=== PATIENT | male | born 1965 | race Caucasian/White ===

== ENCOUNTER 2020-01-23 15:04 | Emergency (ER) | payer BC, SELFPAY ==
[2020-01-23 15:50] VITALS: BP 123/84; PULSE 61; RESP 19; TEMP 36.9; O2SAT 98; BMI 28.9
--- NOTE | 2020-01-23 16:30 | HMH.EDUTC ---
[facility] [place] Disposition Clinical Impression: Encounter for laboratory testing for COVID-19 virus Disposition: Home, Self-Care Condition on Discharge: Good Instructions: Preventing the Spread of Coronavirus Discharge Instructions Additional Instructions: Monitor Temp, Over the counter Motrin or Tylenol as directed/as needed Tylenol every 4 hours and Motrin every 6 hours (as long as your family doctor has told you that you can take it) for fever or pain. and straight to ER if unable to lower temp less than 101.0 after medication given *Warm salt water gargles may help to soothe the throat *Throat Lozenges *Warm fluids like tea with honey may help to soothe the throat *Sleep elevated *Humidifier/Vaporizer Follow up IMMEDIATELY for new or worsening symptoms or no Noticeable improvement over the next 48-72 hours. 911 for difficulty breathing or swallowing You was tested for today for COVID19 your test result should be back on Friday, you may call back Friday to see if your test results are back and the result You was given a handout with instructions for Self Quarantine and Self isolation for while you wait on test results and what to do if they are positive Straight to the ER if any life threatening symptoms, shortness of breath or chest pain but make sure to let them know you was tested for COVID Referrals: Jamie Rice [Primary Care Provider] - As needed Time of Disposition: 16:57 Medical Decision Making - Kamari Inquiry Pt receiving controlled substance: No Kamari was queried for this patient: No Vital Signs: 01/23/20 15:50 01/23/20 17:05 Temperature 98.4 F 98.4 F Temperature Source Oral Oral Pulse Rate 61 Pulse Rate [Radial] 61 Respiratory Rate 19 19 Blood Pressure 123/84 Blood Pressure [Right Arm] 123/84 Blood Pressure Mean [Right Arm] 97 Blood Pressure Source Automatic Cuff Blood Pressure Source [Right Arm] Automatic Cuff Blood Pressure Position Sitting Blood Pressure Position [Right Arm] Sitting 02 Sat by Pulse Oximetry 98 Oxygen Delivery Method Room Air Room Air Orders (Tests/Meds): ORDERS Category Date Time Status Covid-19 Nasal PCR Sendout [facility] 01/23/20 16:46 Received Medical Decision Narrative: Recommended CXR for chest congestion and patient refused States that he just wants to have a COVID test [facility] UTC HPI - General Stated complaint: cough,sob,weakness,vomiting,diarrhea abd pain Time Seen by Provider: 01/23/20 16:30 Mode of Arrival: Ambulatory Source of Information: Patient Limitations: No Limitations Description of Symptoms (Recalled from Triage Doc. by RN): vomiting, diarrhea nausea, SOB weakness x 9 days HEENT Symptoms (Recalled from RN notes): No Resp Symptoms (Recalled from RN notes): No Skin Symptoms (Recalled from RN notes): No MS Symptoms (Recalled from RN notes): No Functional Status (Recalled from RN notes): wnl - History of Present Illness Provider Complaint: Patient states about 4-5 days he felt like he may have had COVID he was having N/V/D cough and felt short of breath with some cramping State that he is feeling better now but States that he still has some vomiting and cough on and off. 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 has had it and he wants to get tested for COVID States that he has some Zofran prescribed by his PCP and it has helped with vomiting - Related Data Allergies Allergy/AdvReac Type Severity Reaction Status Date / Time No Known Allergies Allergy Unverified 03/25/17 14:26 - Worker's Comp Is this a Worker's Comp case?: No [facility] History - Hepatitis A Screen Drug use history?: No High risk sexual behaviors?: No History of sexually transmitted infection?: No Currently employed?: No Childcare worker?: No Do you have indoor plumbing?: Yes Do you have electricity?: Yes Attestation statement:: This patient has been screened for Hepatitis A risk fa
[2020-01-23 17:05] VITALS: BP 123/84; PULSE 61; RESP 19; TEMP 36.9; O2SAT 98
[2020-01-25 13:46] LABS: Covid-19 Nasal PCR Sendout Lex Not Detected
== END 2020-01-23 17:06 | disposition home or self-care (01) ==
PROVIDERS: Emergency Provider Nurse Practitioner; PCP Family Medicine
DX: Z20.828 Contact with and (suspected) exposure to other viral communicable diseases (principal); R05 Cough; R06.02 Shortness of breath; R19.7 Diarrhea, unspecified
CPT/HCPCS: 99201; U0004

== ENCOUNTER 2020-02-25 06:55 | Emergency (ER) | payer BC, SELFPAY ==
[2020-02-25 07:01] VITALS: BP 123/76; PULSE 98; RESP 16; TEMP 36.7; O2SAT 99; BMI 23.5
--- NOTE | 2020-02-25 07:08 | XR_ITS ---
PROCEDURE: XR ANKLE RT MIN 3V CLINICAL INDICATION: ankle injury COMPARISON: No exams were available for comparison FINDINGS: There is mild diffuse soft tissue swelling especially laterally. There are small smoothly marginated bony ossicles adjacent to the lateral malleolus probably due to old unfused fracture fragment or unfused apophysis plus unfused fracture fragment. The ankle mortise appears normal. There is a small os trigonum. There is a small smoothly marginated oval bone fragment immediately adjacent to the anterior superior border of the talus. IMPRESSION: Soft tissue injury laterally, mild probable posttraumatic changes of the ankle as described above Dictated by: Dr. Amrit Shrestha MD 02/25/2020 07:53 Dr. Amrit Shrestha MD in [place] 02/25/2020 07:53
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
[2020-02-25 07:44] VITALS: BP 155/81; PULSE 74; O2SAT 96
[2020-02-25 09:55] VITALS: BP 146/70; PULSE 87; RESP 16; TEMP 36.8; O2SAT 98
== END 2020-02-25 09:56 | disposition home or self-care (01) ==
PROVIDERS: Emergency Provider Emergency Medicine; PCP Family Medicine
DX: S93.401A Sprain of unspecified ligament of right ankle, initial encounter (principal); X50.1XXA Overexertion from prolonged static or awkward postures, initial encounter; Y92.019 Unspecified place in single-family (private) house as the place of occurrence of the external cause
CPT/HCPCS: 73610; 99282

== ENCOUNTER 2020-05-17 16:04 | Inpatient (IN) | payer BC, SELFPAY ==
[2020-05-17] VITALS (9 sets, daily range): BP systolic 137–172; BP diastolic 93–120; PULSE 71–130; RESP 15–20; TEMP 37–37.7; O2SAT 94–99; BMI 21.7; BMI 21.2
--- NOTE | 2020-05-17 16:17 | HMH.EDGENADL ---
ED Disposition Clinical Impression: Pancreatitis Qualifiers: Chronicity: acute Pancreatitis type: alcohol induced Acute pancreatitis complication: no infection or necrosis Qualified Code(s): K85.20 - Alcohol induced acute pancreatitis without necrosis or infection Disposition: Admitted As Inpatient Condition on Discharge: Good Time of Disposition: 20:32 - Critical Care Critical Care Time: No Attestation: On 05/17/20, the high probability of a clinically significant, sudden or life threatening deterioration of the following system(s) required my full and direct attention, intervention and personal management. The time I documented below is in addition to time spent performing reported procedures but includes the following listed in this critical care notation. Medical Decision Making - Medical Records Medical records reviewed: Yes: I reviewed the patient's medical records. - Kaamri Inquiry Pt receiving controlled substance: No Vital Signs: 05/17/20 16:04 05/17/20 16:53 05/17/20 18:03 Temperature 98.6 F Temperature Source Oral Pulse Rate [Left Radial] 128 H 125 H 130 H Respiratory Rate 20 Blood Pressure [Right Arm] 158/111 H 165/100 H 170/108 H Blood Pressure Mean [Right Arm] 126 121 128 Blood Pressure Source [Right Arm] Automatic Cuff Automatic Cuff Automatic Cuff Blood Pressure Position [Right Arm] Sitting Sitting Sitting 02 Sat by Pulse Oximetry 98 94 L 98 Oxygen Delivery Method Room Air Room Air Room Air 05/17/20 18:13 05/17/20 19:53 Temperature Temperature Source Pulse Rate [Left Radial] 71 102 H Respiratory Rate 17 Blood Pressure [Right Arm] 154/113 H 172/120 H Blood Pressure Mean [Right Arm] 126 137 Blood Pressure Source [Right Arm] Automatic Cuff Manual Cuff/ Auscultation Blood Pressure Position [Right Arm] Sitting Supine 02 Sat by Pulse Oximetry 94 L 96 Oxygen Delivery Method Room Air Room Air - Lab Data Lab results reviewed: Yes: I reviewed the patient's lab results. Lab Results 05/17/20 17:00: Sodium 137, Potassium 4.4, Chloride 99, Carbon Dioxide 20 L, Anion Gap 22.4 H, BUN 14, Creatinine 1.50 H, Estimated Creat Clear 61, Estimated GFR 49 L, Est GFR ( Amer) 59, Glucose 161 H, Calcium 8.8, Total Bilirubin 1.2, AST 154 H, ALT 93 H, Alkaline Phosphatase 81, Total Protein 6.9, Albumin 4.1, Globulin 2.8, Albumin/Globulin Ratio 1.5 05/17/20 17:00: Lipase 614 H 05/17/20 17:46: WBC 5.6, RBC 3.50 L, Hgb 12.5 L, Hct 38.2 L, MCV 109.0 H, MCH 35.6 H, MCHC 32.7, RDW 14.7, Plt Count 197, MPV 7.8, Neut % (Auto) 86.7 H, Lymph % (Auto) 7.0 L, Mcduffie % (Auto) 6.0, Eos % (Auto) 0.0 L, Baso % (Auto) 0.3, Neut # (Auto) 4.9, Lymph # (Auto) 0.4 L, Mcduffie # (Auto) 0.3, Eos # (Auto) 0.0, Baso # (Auto) 0.0, Total Counted 100, Neutrophils % (Manual) 88 H, Lymphocytes % (Manual) 5 L, Monocytes % (Manual) 7, Platelet Estimate Normal, RBC Morphology Not Reportable, Anisocytosis 2+, Macrocytosis 2+ 05/17/20 17:46: Lactate 5.6 H Result diagrams: 05/17/20 17:46 05/17/20 17:00 Orders (Tests/Meds): ED MEDICATIONS Generic Name Dose Route Start Last Admin Trade Name Salima PRN Reason Stop Dose Admin Sodium Chloride 1,000 mls @ 999 mls/hr 05/17/20 16:30 05/17/20 16:37 Sod Chlor 0.9% 1000ml Bag IV 05/17/20 17:30 999 mls/hr .Q1H1M SHAUN Administration Lactated Ringer's 1,000 mls @ 999 mls/hr 05/17/20 18:30 05/17/20 18:24 Lactated Ringer's 1000 Ml Bag IV 05/17/20 19:30 999 mls/hr .Q1H1M SHAUN Administration Azithromycin 500 mg/ Sodium 250 mls @ 250 mls/hr 05/17/20 18:30 05/17/20 18:24 Chloride IV 05/31/20 18:29 250 mls/hr Q24H SHAUN Administration Protocol Piperacillin Sod/Tazobactam 100 mls @ 200 mls/hr 05/17/20 18:30 05/17/20 19:32 Sod 4.5 gm/ Sodium Chloride IV 05/31/20 18:29 200 mls/hr Q8H SHAUN Administration Protocol Discontinued Medications Generic Name Dose Route Start Last Admin Trade Name Freq PRN Reason Stop Dose Admin Iopamidol 75 ml
--- NOTE | 2020-05-17 17:27 | XR_ITS ---
PROCEDURE: XR CHEST PORTABLE CLINICAL HISTORY: CP Chest pain COMPARISON: No exams were available for comparison FINDINGS: The cardiomediastinal silhouette and pulmonary vascularity are within normal limits. Atelectatic or fibrotic changes are present in the right midlung. Probable calcified granuloma right upper lobe. No acute bony abnormalities. IMPRESSION: Atelectatic or fibrotic changes in the right midlung otherwise negative Dictated by: Gerardo Hastings MD 05/17/2020 19:50 Gerardo Hastings MD in [place] 05/17/2020 19:50
[2020-05-17 17:40] LABS: Albumin Level 4.1 g/dl (3.5-5.0); Albumin/Globulin Ratio 1.5 (1.1-1.8); Alkaline Phosphatase 81 U/L (38-126); Anion Gap 22.4 mEq/L (5-15); Bilirubin,Total 1.2 mg/dl (0.2-1.3); Blood Urea Nitrogen 14 mg/dl (9-20); Calcium 8.8 mg/dl (8.4-10.2); Carbon Dioxide 20 mmol/L (22.0-30.0); Chloride 99 mmol/L (98-107); Creatinine Clearance Estimated 61 mL/min (50-200); Estimated Glomerular Filt Rate 49 ml/min (>60); GFR (African American) 59 ML/MIN (>60); Globulin 2.8 g/dL (1.3-3.2); Glucose 161 mg/dl (74-100); Potassium 4.4 mmoL/L (3.5-5.1); Sodium 137 mmol/L (136-145); Total Protein,Serum 6.9 g/dl (6.3-8.2)
[2020-05-17 17:46] LABS: Alanine Aminotransferase 93 U/L (12-78)
[2020-05-17 17:47] LABS: Aspartate Amino Transferase 154 U/L (17-59)
[2020-05-17 17:57] LABS: Lipase 614 U/L (23-300)
--- NOTE | 2020-05-17 17:57 | PC.NURSE ---
notified ER of critical lipase
[2020-05-17 17:58] LABS: Basophils % 0.3 % (0.1-2.0); Hematocrit 38.2 % (42.0-52.0); Hemoglobin 12.5 g/dL (14.1-18.0); Lymphocytes # 0.4 K/mm3 (0.7-4.5); Mean Corpuscular HGB Conc 32.7 g/dL (31.8-35.4); Mean Corpuscular Hemoglobin 35.6 pg (27.0-31.2); Mean Platelet Volume 7.8 fl (7.4-10.4); Monocytes # 0.3 K/mm3 (0.1-1.0); Neutrophils # 4.9 K/mm3 (1.8-7.8); Neutrophils % 86.7 % (37.0-80.0); Platelet Count 197 K/mm3 (142-424); Red Cell Distribution Width 14.7 % (11.5-17.5); White Blood Count 5.6 K/mm3 (4.8-10.8)
--- NOTE | 2020-05-17 18:17 | CT_ITS ---
PROCEDURE: CT ABDOMEN PELVIS W CON CLINICAL INDICATION: lipase 600+ Nausea, vomiting, shaking, fever, elevated lipase COMPARISON: No exams were available for comparison TECHNIQUE: IV Contrast: 75ML Isovue 370 Oral Contrast None Axial images obtained with sagittal and coronal reformats. All CT scans at the facility use one or more dose reduction, viz: automated exposure control, ma/kV adjustment per patient size (including targeted exams where dose is matched to indication, i.e. head), or iterative reconstruction technique. FINDINGS: LOWER THORAX: No acute finding ABDOMEN & PELVIS: There is diffuse fatty liver. Prior cholecystectomy. The spleen, adrenal glands, kidneys have an unremarkable appearance. No renal or ureteral calculi. Pancreas has a somewhat boggy appearance. No peripancreatic fluid collections or significant stranding of the peripancreatic fat is evident. Unremarkable appendix. No intestinal obstruction or free air. There are some nondistended fluid-filled loops of small bowel with a few air-fluid levels. Ileus or enteritis is considered. Prior cholecystectomy. There is a small umbilical hernia which contains fat. No acute bony findings. There are few sclerotic foci in the pelvis which may be due to bone islands. IMPRESSION: 1. Mild boggy appearance of the pancreas. This is of questionable clinical significance. There is no peripancreatic fluid collection or significant stranding of the peripancreatic fat. Mild pancreatitis is considered. Please correlate with clinical parameters. No evidence of pancreatic necrosis. 2. Fatty liver. 3. Possible mild enteritis/ileus 4. Other nonspecific findings as described above. Dictated by: Gerardo Hastings MD 05/17/2020 21:01 Gerardo Hastings MD in [place] 05/17/2020 21:01
[2020-05-17 18:25] LABS: Lactic Acid 5.6 mmol/L (0.7-2.1)
--- NOTE | 2020-05-17 18:27 | PC.NURSE ---
critical lactic called notified
[2020-05-17 18:56] LABS: Lymphocytes % 5 % (10-50); Monocytes % 7 % (2-9); Neutrophils % 88 % (42-76); Total Cells Counted 100
[2020-05-17 18:57] LABS: Anisocytosis 2+; Macrocytosis 2+; Platelet Estimate Normal
[2020-05-17 19:43] LABS: MANUAL DIFFERENTIAL MANUAL DIFFERENTIAL (MANUAL DIFF)
--- NOTE | 2020-05-17 20:01 | PC.NURSE ---
Dr Gallegos spoke with Dr Laguna for admission
--- NOTE | 2020-05-17 20:32 | PC.NURSE ---
Password is Diane
[2020-05-17 22:31] LABS: Reflex Lactic Add Lactic Reflex
[2020-05-17 22:32] LABS: Lactic Acid Follow Up (RFLX 1) 3.9 mmol/L (0.7-2.1)
--- NOTE | 2020-05-17 22:37 | PC.NURSE ---
patient up to floor via wheelchair @ 22:02
[2020-05-17 22:54] LABS: Reflex Lactic (2 hrs) Add Lactic Reflex
--- NOTE | 2020-05-17 23:42 | PC.NURSE ---
Pt unaware of last time he took meds
[2020-05-18 00:12] LABS: Lactic Acid Follow up (RFLX 2) 1.6 mmol/L (0.7-2.1)
[2020-05-18 01:56] VITALS: PULSE 105; O2SAT 99
[2020-05-18 04:00] VITALS: BP 143/88; PULSE 73; RESP 17; TEMP 37; O2SAT 99
--- NOTE | 2020-05-18 04:57 | PC.NURSE ---
Pt is A&Ox4. Lung sounds clear t/o. No cough noted. Tolerating RA appropriately. Abdomen is soft and tender t/o. No BM noted this shift, hypoactive bowel sounds in all 4 quads. Pt has turned self in bed. Due to pt's hx w/ ETOH use, one CIWA was performed. Pt CIWA score was 5. No other acute changes or complaints at this time.
[2020-05-18 05:00] VITALS: BMI 21.2
[2020-05-18 05:02] LABS: Basophils % 0.2 % (0.1-2.0); Eosinophils % 0.2 % (0.1-12.0); Hematocrit 33.2 % (42.0-52.0); Lymphocytes # 0.7 K/mm3 (0.7-4.5); Mean Corpuscular HGB Conc 32.1 g/dL (31.8-35.4); Mean Corpuscular Hemoglobin 35.6 pg (27.0-31.2); Mean Corpuscular Volume 110.9 fl (80-94); Mean Platelet Volume 8.5 fl (7.4-10.4); Monocytes # 0.3 K/mm3 (0.1-1.0); Monocytes % 7.8 % (1.7-9.3); Neutrophils # 2.8 K/mm3 (1.8-7.8); Neutrophils % 72.9 % (37.0-80.0); Platelet Count 139 K/mm3 (142-424); Red Cell Distribution Width 14.5 % (11.5-17.5); White Blood Count 3.8 K/mm3 (4.8-10.8)
[2020-05-18 05:14] LABS: Chloride 100 mmol/L (98-107); Sodium 138 mmol/L (136-145)
[2020-05-18 05:17] LABS: Blood Urea Nitrogen 15 mg/dl (9-20); Carbon Dioxide 32 mmol/L (22.0-30.0); Creatinine Clearance Estimated 54 mL/min (50-200); Estimated Glomerular Filt Rate 40 ml/min (>60); GFR (African American) 48 ML/MIN (>60)
[2020-05-18 05:18] LABS: Calcium 8.3 mg/dl (8.4-10.2); Glucose 99 mg/dl (74-100)
[2020-05-18 07:59] LABS: Hemoglobin 10.7 g/dL (14.1-18.0)
[2020-05-18 08:00] VITALS: BP 159/96; PULSE 88; RESP 18; TEMP 37.1; O2SAT 99
--- NOTE | 2020-05-18 08:01 | HMH.PHAINT ---
home medication list completed using list from home pharmacy
--- NOTE | 2020-05-18 08:02 | HMH.PHAVTE ---
[facility] Pharmacy VTE Monitoring - Patient Demographics Admission date: 05/17/20 Report Date: 05/18/20 Time: 08:02 Allergies/Adverse Reactions: Patient Allergies No Known Allergies Allergy (Unverified 03/25/17 14:26) Height: 1.93 m Weight: 79.2 kg Patient Problems: Current Active Problems Pancreatitis (Acute) - VTE Risk Labs: VTE Related Lab Results Hgb 10.7 g/dL (14.1-18.0) L D 05/18/20 04:18 Hct 33.2 % (42.0-52.0) L 05/18/20 04:18 Plt Count 139 K/mm3 (142-424) L D 05/18/20 04:18 BUN 15 mg/dl (9-20) 05/18/20 04:18 Creatinine 1.80 mg/dl (0.66-1.25) H 05/18/20 04:18 Estimated Creat Clear 54 mL/min (50-200) 05/18/20 04:18 Was VTE Risk Assessment Performed: Yes VTE Score: 1 VTE Risk Level: Very Low Risk Clinical Trial Participant: No - Prophylaxis VTE Prophylaxis Ordered?: Yes Types of VTE Prophylaxis: IPCS Knee High, Pharmacological Pharmacologic Type: Enoxaparin
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
--- NOTE | 2020-05-18 14:53 | PC.NURSE ---
PT IS RESTING IN BED. PT HAS MODERATE TREMORS. HAS BEEN TOLERATING CLEAR LIQUIDS W/O DIFFICULTY. NO NAUSEA/VOMITING T/O THE SHIFT. PT STATES HE IS NOT HAVING ANY ABDOMINAL PAIN AND FEELS MUCH BETTER TODAY THAN HE DID YESTERDAY. PT STATED EARLY THIS AFTERNOON HE FELT HUNGRY. NOTIFIED PHYSICIAN ROVING TELLER AND HE STATED PT COULD HAVE A FULL LIQUID DIET. LUNG SOUNDS CLEAR. ABDOMEN SOFT/NON TENDER WITH HYPOACTIVE BOWEL SOUNDS. PT HAD A BOWEL MOVEMENT EARLY THIS MORNING. AMBULATING TO THE BATHROOM W/O DIFFICULTLY. CIWA SCORE 4. VSS. WILL CONTINUE TO MONITOR.
[2020-05-18 15:33] VITALS: BP 133/79; PULSE 64; RESP 16; TEMP 37.1; O2SAT 96
[2020-05-18 20:00] VITALS: BP 126/78; PULSE 63; RESP 16; TEMP 37.1; O2SAT 99
[2020-05-19 04:00] VITALS: BP 114/78; PULSE 56; RESP 17; TEMP 37; O2SAT 99
[2020-05-19 05:02] VITALS: BMI 21.9
--- NOTE | 2020-05-19 05:17 | PC.NURSE ---
pt has rested well, alert and oriented, lungs remain clear, heart regular, bs x4 hyperactive, pt denies and abdominal tenderness, no abdoominal distention noted, denies nausea, CIWA score is 4 pt does have moderate tremors no other signs of alcohol withdraw noted at this time, pt tolerating full liquid diet, will continue to monitor at this time
[2020-05-19 07:32] VITALS: BP 147/90; PULSE 88; RESP 18; TEMP 36.9; O2SAT 96
[2020-05-19 07:39] LABS: Basophils % 0.5 % (0.1-2.0); Eosinophils % 0.4 % (0.1-12.0); Hematocrit 30.9 % (42.0-52.0); Hemoglobin 10.2 g/dL (14.1-18.0); Lymphocytes # 1.1 K/mm3 (0.7-4.5); Mean Corpuscular Hemoglobin 35.7 pg (27.0-31.2); Mean Corpuscular Volume 108.1 fl (80-94); Mean Platelet Volume 9.4 fl (7.4-10.4); Monocytes # 0.2 K/mm3 (0.1-1.0); Monocytes % 5.1 % (1.7-9.3); Neutrophils # 2.9 K/mm3 (1.8-7.8); Neutrophils % 68.1 % (37.0-80.0); Platelet Count 112 K/mm3 (142-424); Red Blood Count 2.86 M/mm3 (4.60-6.20); Red Cell Distribution Width 14.5 % (11.5-17.5); White Blood Count 4.2 K/mm3 (4.8-10.8)
[2020-05-19 07:43] LABS: Chloride 98 mmol/L (98-107); Potassium 3.6 mmoL/L (3.5-5.1); Sodium 134 mmol/L (136-145)
[2020-05-19 07:45] LABS: Amylase 178 U/L (30-110); Lipase 485 U/L (23-300)
[2020-05-19 07:46] LABS: Alanine Aminotransferase 64 U/L (12-78); Albumin Level 3.3 g/dl (3.5-5.0); Albumin/Globulin Ratio 1.2 (1.1-1.8); Alkaline Phosphatase 57 U/L (38-126); Anion Gap 8.6 mEq/L (5-15); Aspartate Amino Transferase 106 U/L (17-59); Bilirubin,Total 1.1 mg/dl (0.2-1.3); Blood Urea Nitrogen 10 mg/dl (9-20); Carbon Dioxide 31 mmol/L (22.0-30.0); Creatinine Clearance Estimated 71 mL/min (50-200); Estimated Glomerular Filt Rate 53 ml/min (>60); GFR (African American) 64 ML/MIN (>60); Globulin 2.7 g/dL (1.3-3.2); Glucose 92 mg/dl (74-100)
--- NOTE | 2020-05-19 08:23 | HMH.ACPN2 ---
Internal Medicine - PN: Subj *Date: 05/19/20 *Time: 08:23 Interval history: Patient states he is feeling a little bit better today. His vomiting has resolved and he continues to deny abdominal pain. He did start having diarrhea. He is tolerating his liquid diet and states he is hungry and wants a regular diet. Exam Vital signs and Labs for Last 24 Hours: Temp Pulse Resp BP Pulse Ox 98.4 F 88 18 147/90 H 96 05/19/20 07:32 05/19/20 07:32 05/19/20 07:32 05/19/20 07:32 05/19/20 07:32 Laboratory Results - last 24 hr 05/19/20 06:52: WBC 4.2 L, RBC 2.86 L, Hgb 10.2 L, Hct 30.9 L, MCV 108.1 H, MCH 35.7 H, MCHC 33.0, RDW 14.5, Plt Count 112 L, MPV 9.4, Neut % (Auto) 68.1, Lymph % (Auto) 26.0, Kerr % (Auto) 5.1, Eos % (Auto) 0.4, Baso % (Auto) 0.5, Neut # (Auto) 2.9, Lymph # (Auto) 1.1, Kerr # (Auto) 0.2, Eos # (Auto) 0.0, Baso # (Auto) 0.0 05/19/20 06:52: Sodium 134 L, Potassium 3.6, Chloride 98, Carbon Dioxide 31 H, Anion Gap 8.6, BUN 10 D, Creatinine 1.40 H D, Estimated Creat Clear 71, Estimated GFR 53 L, Est GFR ( Amer) 64 D, Glucose 92, Calcium 8.0 L, Total Bilirubin 1.1, AST 106 H D, ALT 64 D, Alkaline Phosphatase 57, Total Protein 6.0 L, Albumin 3.3 L, Globulin 2.7, Albumin/Globulin Ratio 1.2, Amylase 178 H 05/19/20 06:52: Lipase 485 H I & O for Last 24 hours: Intake & Output 05/16/20 05/17/20 05/18/20 05/19/20 11:59 11:59 11:59 11:59 Intake Total 2720 / 2720 3717 / 3717 Output Total 275 / 275 1650 / 1650 Balance 2445 / 2445 2066 / 2066 Weight 174 lb 9.698 oz 179 lb 10.828 oz - Constitutional no acute distress Comments: still shaky - *Routine Respiratory Exam Present: CTA bilaterally - *Routine Cardiovascular Exam Present: RRR - *Routine Abdominal Exam Present: soft, normoactive bowel sounds. Absent: tenderness - *Routine Extremities Exam Absent: cyanosis, clubbing, edema - *Routine Skin Exam Present: warm. Absent: rash - *Routine Neurological Exam Present: alert, oriented X3 Assessment and Plan (1) Pancreatitis Status: Acute Qualifiers: Chronicity: acute Pancreatitis type: alcohol induced Acute pancreatitis complication: no infection or necrosis Qualified Code(s): K85.20 - Alcohol induced acute pancreatitis without necrosis or infection Category: Medical Code(s): K85.90 - Acute pancreatitis without necrosis or infection, unspecified (2) Elevated lactic acid level Status: Acute Category: Medical Code(s): R79.89 - Other specified abnormal findings of blood chemistry (3) Dehydration Status: Acute Category: Medical Code(s): E86.0 - Dehydration (4) Vomiting Status: Acute Category: Medical Code(s): R11.10 - Vomiting, unspecified (5) Anxiety Status: Chronic Category: Medical Code(s): F41.9 - Anxiety disorder, unspecified (6) Hypertension Status: Chronic Category: Medical Code(s): I10 - Essential (primary) hypertension (7) Chronic alcohol use Status: Chronic Category: Medical Code(s): Z72.89 - Other problems related to lifestyle (8) Diarrhea Status: Acute Category: Medical Code(s): R19.7 - Diarrhea, unspecified - Assessment and plan all Dx Assessment and Plan for all problems:: Patient's renal function has improved as has his lipase. We will get a diarrhea panel today. Will discuss further advancing his diet for lunch with Dr. Laguna.
[2020-05-19 13:44] VITALS: BMI 21.9
[2020-05-19 16:00] VITALS: BP 140/81; PULSE 61; RESP 18; TEMP 36.8; O2SAT 99
--- NOTE | 2020-05-19 16:06 | PC.NURSE ---
HE IS AOX4, ABLE TO MAKE NEEDS KNOWN TO STAFF, HE HAS NOT REQUIRED O2 SUPPORT, HE HAS HAD NO CONFUSION NOTED THIS SHIFT, MILD TREMORS NOTED TO BUE, HE HAS TOLERATED DIET WELL. CIWA SCORE HAS REMAINED 4 T/O SHIFT, NO NEEDS A THIS TIME WILL CONTINUE TO MONITOR.
[2020-05-19 19:40] VITALS: BP 118/83; PULSE 73; RESP 16; TEMP 36.6; O2SAT 98
[2020-05-19 20:00] VITALS: O2SAT 98
--- NOTE | 2020-05-20 03:01 | PC.NURSE ---
Pt is A&Ox4/ Lung sounds CTA. No cough noted. Active bowel sounds in all 4 quads. No BM noted this shift. Pt has had n/o N/V or abd pain. CWA score performed at beginning of shift, pt scored 4-only visible tremors are present. Pt takes self to the bathroom and turns self in bed. Pt did take a shower this shift. no other acute changes or complaints at this time.
[2020-05-20 03:51] VITALS: BP 119/77; PULSE 68; RESP 17; TEMP 36.6; O2SAT 96
[2020-05-20 04:55] VITALS: BMI 21.6
[2020-05-20 08:00] VITALS: BP 140/87; PULSE 79; RESP 17; TEMP 36.6; O2SAT 97
[2020-05-20 09:35] LABS: Basophils % 0.5 % (0.1-2.0); Eosinophils % 0.7 % (0.1-12.0); Hematocrit 31.1 % (42.0-52.0); Hemoglobin 10.2 g/dL (14.1-18.0); Lymphocytes # 0.7 K/mm3 (0.7-4.5); Lymphocytes % 17.4 % (10-50); Mean Corpuscular HGB Conc 32.9 g/dL (31.8-35.4); Mean Corpuscular Hemoglobin 35.9 pg (27.0-31.2); Mean Corpuscular Volume 109.1 fl (80-94); Mean Platelet Volume 9.5 fl (7.4-10.4); Monocytes # 0.3 K/mm3 (0.1-1.0); Monocytes % 6.6 % (1.7-9.3); Neutrophils # 2.8 K/mm3 (1.8-7.8); Neutrophils % 74.9 % (37.0-80.0); Platelet Count 85 K/mm3 (142-424); Red Blood Count 2.85 M/mm3 (4.60-6.20); Red Cell Distribution Width 14.4 % (11.5-17.5); White Blood Count 3.8 K/mm3 (4.8-10.8)
[2020-05-20 09:41] LABS: Chloride 102 mmol/L (98-107); Potassium 3.5 mmoL/L (3.5-5.1); Sodium 135 mmol/L (136-145)
[2020-05-20 09:43] LABS: Amylase 176 U/L (30-110); Blood Urea Nitrogen 13 mg/dl (9-20); Creatinine Clearance Estimated 70 mL/min (50-200); Estimated Glomerular Filt Rate 53 ml/min (>60); GFR (African American) 64 ML/MIN (>60)
[2020-05-20 09:44] LABS: Alanine Aminotransferase 56 U/L (12-78); Albumin Level 3.2 g/dl (3.5-5.0); Albumin/Globulin Ratio 1.1 (1.1-1.8); Alkaline Phosphatase 54 U/L (38-126); Anion Gap 7.5 mEq/L (5-15); Aspartate Amino Transferase 77 U/L (17-59); Bilirubin,Total 0.6 mg/dl (0.2-1.3); Calcium 7.9 mg/dl (8.4-10.2); Carbon Dioxide 29 mmol/L (22.0-30.0); Globulin 2.8 g/dL (1.3-3.2); Glucose 144 mg/dl (74-100); Lipase 569 U/L (23-300)
--- NOTE | 2020-05-20 10:56 | HMH.ACPN2 ---
Internal Medicine - PN: Subj *Date: 05/20/20 *Time: 10:56 Interval history: The patient reports that he is feeling much better. He is tolerating his diet. The diarrhea seems to be resolving with only a few stools yesterday and none today as of yet. His amylase and lipase remain elevated indicating continued inflammation of the pancreas. I would be concerned about discharging him at this point due to recidivism in his drinking and lack of control of fatty foods in the diet. Exam Vital signs and Labs for Last 24 Hours: Temp Pulse Resp BP Pulse Ox 97.9 F 79 17 140/87 97 05/20/20 08:00 05/20/20 08:00 05/20/20 08:00 05/20/20 08:00 05/20/20 08:00 Laboratory Results - last 24 hr 05/20/20 09:08: WBC 3.8 L, RBC 2.85 L, Hgb 10.2 L, Hct 31.1 L, MCV 109.1 H, MCH 35.9 H, MCHC 32.9, RDW 14.4, Plt Count 85 L, MPV 9.5, Neut % (Auto) 74.9, Lymph % (Auto) 17.4, Emmons % (Auto) 6.6, Eos % (Auto) 0.7, Baso % (Auto) 0.5, Neut # (Auto) 2.8, Lymph # (Auto) 0.7, Emmons # (Auto) 0.3, Eos # (Auto) 0.0, Baso # (Auto) 0.0 05/20/20 09:08: Sodium 135 L, Potassium 3.5, Chloride 102, Carbon Dioxide 29, Anion Gap 7.5, BUN 13 D, Creatinine 1.40 H, Estimated Creat Clear 70, Estimated GFR 53 L, Est GFR ( Amer) 64, Glucose 144 H, Calcium 7.9 L, Total Bilirubin 0.6, AST 77 H D, ALT 56, Alkaline Phosphatase 54, Total Protein 6.0 L, Albumin 3.2 L, Globulin 2.8, Albumin/Globulin Ratio 1.1, Amylase 176 H, Lipase 569 H I & O for Last 24 hours: Intake & Output 05/17/20 05/18/20 05/19/20 05/20/20 11:59 11:59 11:59 11:59 Intake Total 2720 / 2720 3717 / 3717 958 / 958 Output Total 275 / 275 1650 / 1650 800 / 800 Balance 2445 / 2445 2067 / 2067 158 / 158 Weight 174 lb 9.698 oz 179 lb 10.828 oz 177 lb 11.081 oz Microbiology Reports for the Last 24 Hours: Microbiology 05/17/20 17:40 Blood Blood Culture - Preliminary NO GROWTH AFTER 48 HOURS 05/17/20 17:40 Blood Blood Culture - Preliminary NO GROWTH AFTER 48 HOURS - Constitutional no acute distress - *Routine HEENT Exam Head: Present: normocephalic Eye: Present: PERRL ENT: Present: mucous membranes moist - *Routine Respiratory Exam Present: CTA bilaterally - *Routine Cardiovascular Exam Present: RRR - *Routine Abdominal Exam Present: soft, distended. Absent: tenderness - *Routine Extremities Exam Absent: edema - *Routine Neurological Exam Present: alert, oriented X3, tremors (Have lessened) Assessment and Plan (1) Pancreatitis Status: Acute Qualifiers: Chronicity: acute Pancreatitis type: alcohol induced Acute pancreatitis complication: no infection or necrosis Qualified Code(s): K85.20 - Alcohol induced acute pancreatitis without necrosis or infection Category: Medical Code(s): K85.90 - Acute pancreatitis without necrosis or infection, unspecified (2) Elevated lactic acid level Status: Acute Category: Medical Code(s): R79.89 - Other specified abnormal findings of blood chemistry (3) Dehydration Status: Acute Category: Medical Code(s): E86.0 - Dehydration (4) Vomiting Status: Acute Category: Medical Code(s): R11.10 - Vomiting, unspecified (5) Anxiety Status: Chronic Category: Medical Code(s): F41.9 - Anxiety disorder, unspecified (6) Hypertension Status: Chronic Category: Medical Code(s): I10 - Essential (primary) hypertension (7) Chronic alcohol use Status: Chronic Category: Medical Code(s): Z72.89 - Other problems related to lifestyle (8) Diarrhea Status: Acute Category: Medical Code(s): R19.7 - Diarrhea, unspecified - Assessment and plan all Dx Assessment and Plan for all problems:: Continue present course. Repeat pancreatic enzymes in the morning. I am going to add sucralfate. Decline in H&H is noted in this regard.
--- NOTE | 2020-05-20 15:00 | PC.NURSE ---
HE IS AOX4, ABLE TO MAKE NEEDS KNOWN TO STAFF, HE HAS RESTED FOR MOST OF SHIFT. HE DOES AMBULATE INDEPENDENTLY IN ROOM OR USE THE URINAL FOR ELIMINATION, HE HAS DENIED PAIN T/O SHIFT, NO N/V/D OR ABD DISCOMFORT NOTED, ABD SOFT AND NON-TENDER, BOWEL SOUNDS ACTIVE. LUNGS CTA, TOLERATING RA. MILD VISIBLE TREMORS NOTED BUT CIWA SCORES HAVE BEEN D/C R/T PROTOCOL. NO NEEDS AT THIS TIME, WILL CONTINUE TO MONITOR.
[2020-05-20 15:14] VITALS: BP 127/82; PULSE 77; RESP 19; TEMP 36.7; O2SAT 98
[2020-05-20 20:00] VITALS: BP 126/93; PULSE 71; RESP 16; TEMP 36.9; O2SAT 98
[2020-05-21] VITALS: BP 141/93; PULSE 64; RESP 16; TEMP 37.1; O2SAT 98
--- NOTE | 2020-05-21 03:27 | PC.NURSE ---
Pt has been awake most of shift. A&Ox4. Denies any pain or discomfort. No N/V. BS active. Continues to have mild tremors. No other concerns for DT's. CIWA not obtained. Pt ambulates independently and without difficulty. VSS. Medications administered per jun. Call light within reach. Will continue to monitor.
[2020-05-21 04:00] VITALS: BP 148/96; PULSE 66; RESP 16; TEMP 37; O2SAT 97
[2020-05-21 05:00] VITALS: BMI 21.9
[2020-05-21 06:25] VITALS: BP 143/102
--- NOTE | 2020-05-21 06:44 | PC.NURSE ---
Spoke with MD Oshea about BP trending up. Currently 143/103. Give Zebeta AM dose now.
[2020-05-21 06:46] LABS: Basophils % 0.3 % (0.1-2.0); Eosinophils # 0.1 K/mm3 (0.0-0.4); Eosinophils % 1.1 % (0.1-12.0); Hemoglobin 9.5 g/dL (14.1-18.0); Lymphocytes # 0.9 K/mm3 (0.7-4.5); Lymphocytes % 18.9 % (10-50); Mean Corpuscular HGB Conc 33.1 g/dL (31.8-35.4); Mean Corpuscular Hemoglobin 35.7 pg (27.0-31.2); Mean Corpuscular Volume 107.9 fl (80-94); Mean Platelet Volume 9.8 fl (7.4-10.4); Monocytes # 0.4 K/mm3 (0.1-1.0); Monocytes % 7.7 % (1.7-9.3); Neutrophils # 3.6 K/mm3 (1.8-7.8); Neutrophils % 72.1 % (37.0-80.0); Platelet Count 93 K/mm3 (142-424); Red Blood Count 2.67 M/mm3 (4.60-6.20); Red Cell Distribution Width 14.5 % (11.5-17.5)
[2020-05-21 06:49] LABS: Hematocrit 28.8 % (42.0-52.0)
[2020-05-21 07:46] VITALS: BP 138/92; PULSE 56; RESP 20; TEMP 36.8; O2SAT 96
--- NOTE | 2020-05-21 08:31 | PC.NURSE ---
HOLDING LOVENOX FOR VTE PER Samantha ARORA IN PHARM R/T PT PLT COUNT. HE DOES AMBULATE OFTEN IN ROOM. WILL CONTINUE TO MONITOR PT.
--- NOTE | 2020-05-21 14:52 | PC.NURSE ---
HE IS AOX4, ABLE TO MAKE NEEDS KNOWN TO STAFF, HE HAS RESTED IN BED MOST OF THE DAY BUT DOES AMBULATE TO THE RESTROOM, HE HAS TOLERATED DIET WELL, NO C/O ABD PAIN OR N/V, ABD IS SOFT AND NON-TENDER. MILD TREMORS STILL PRESENT IN BUE, NO NEEDS AT THIS TIME, WILL CONTINUE TO MONITOR.
[2020-05-21 15:21] VITALS: BP 113/75; PULSE 70; RESP 17; TEMP 36.6; O2SAT 94
--- NOTE | 2020-05-21 15:28 | HMH.ACPN2 ---
Internal Medicine - PN: Subj *Date: 05/21/20 *Time: 15:28 Interval history: Clinically he remains quite stable. He has no specific complaints. Regarding his lab work his amylase and lipase are not normalized. H&H has shown gradual decline. Exam Vital signs and Labs for Last 24 Hours: Temp Pulse Resp BP Pulse Ox 97.9 F 70 17 113/75 94 L 05/21/20 15:21 05/21/20 15:21 05/21/20 15:21 05/21/20 15:21 05/21/20 15:21 Laboratory Results - last 24 hr 05/21/20 06:10: WBC 5.0 D, RBC 2.67 L, Hgb 9.5 L, Hct 28.8 L, MCV 107.9 H, MCH 35.7 H, MCHC 33.1, RDW 14.5, Plt Count 93 L, MPV 9.8, Neut % (Auto) 72.1, Lymph % (Auto) 18.9, Garfield % (Auto) 7.7, Eos % (Auto) 1.1, Baso % (Auto) 0.3, Neut # (Auto) 3.6, Lymph # (Auto) 0.9, Garfield # (Auto) 0.4, Eos # (Auto) 0.1, Baso # (Auto) 0.0 I & O for Last 24 hours: Intake & Output 05/19/20 05/20/20 05/21/20 05/22/20 11:59 11:59 11:59 11:59 Intake Total 3717 / 3717 958 / 958 1774 / 1774 480 / 480 Output Total 1650 / 1650 800 / 800 3425 / 3425 600 / 600 Balance 2066 / 2066 158 / 158 -1651 / -1651 -120 / -120 Weight 179 lb 10.828 oz 177 lb 11.081 oz 179 lb 10.828 oz - Constitutional no acute distress - *Routine HEENT Exam Head: Present: normocephalic Eye: Present: PERRL - *Routine Respiratory Exam Present: CTA bilaterally - *Routine Cardiovascular Exam Present: RRR - *Routine Abdominal Exam Present: soft. Absent: tenderness - *Routine Extremities Exam Absent: edema - *Routine Neurological Exam Present: alert, oriented X3 Assessment and Plan (1) Pancreatitis Status: Acute Qualifiers: Chronicity: acute Pancreatitis type: alcohol induced Acute pancreatitis complication: no infection or necrosis Qualified Code(s): K85.20 - Alcohol induced acute pancreatitis without necrosis or infection Category: Medical Code(s): K85.90 - Acute pancreatitis without necrosis or infection, unspecified (2) Elevated lactic acid level Status: Acute Category: Medical Code(s): R79.89 - Other specified abnormal findings of blood chemistry (3) Dehydration Status: Acute Category: Medical Code(s): E86.0 - Dehydration (4) Vomiting Status: Acute Category: Medical Code(s): R11.10 - Vomiting, unspecified (5) Anxiety Status: Chronic Category: Medical Code(s): F41.9 - Anxiety disorder, unspecified (6) Hypertension Status: Chronic Category: Medical Code(s): I10 - Essential (primary) hypertension (7) Chronic alcohol use Status: Chronic Category: Medical Code(s): Z72.89 - Other problems related to lifestyle (8) Anemia Status: Acute Category: Medical Code(s): D64.9 - Anemia, unspecified (9) Diarrhea Status: Acute Category: Medical Code(s): R19.7 - Diarrhea, unspecified - Assessment and plan all Dx Assessment and Plan for all problems:: Saline lock IV. Gastroenterology consult. N.p.o. after midnight for possible endoscopy.
[2020-05-21 20:00] VITALS: BP 153/98; PULSE 66; RESP 16; TEMP 36.8; O2SAT 99
--- NOTE | 2020-05-21 21:54 | PC.NURSE ---
Reported patient's BP to nurse. Double checked automatic cuff measurement manually in both arms.
[2020-05-22] VITALS (15 sets, daily range): BP systolic 119–169; BP diastolic 65–117; PULSE 48–79; RESP 16–18; TEMP 36.6–37.1; O2SAT 95–99; BMI 21.8
[2020-05-22 00:08] LABS: Adenovirus F 40/41, stool Not Detected (NotDetected); Astrovirus Not Detected (NotDetected); Campylobacter Not Detected (NotDetected); Clostridium Difficile A/B, PCR Not Detected (NotDetected); Cryptosporidium Not Detected (NotDetected); Cyclospora Cayetanesis Not Detected (NotDetected); Entamoeba histolytica Not Detected (NotDetected); Enteroaggregative E coli Not Detected (NotDetected); Enteropathogenic E coli Not Detected (NotDetected); Enterotoxigenic E coli Not Detected (NotDetected); Giardia lamblia Not Detected (NotDetected); Norovirus Not Detected (NotDetected); Plesimonas Shigalloides, PCR Not Detected (NotDetected); Rotavirus A Not Detected (NotDetected); Salmonella, PCR Not Detected (NotDetected); Shiga-like toxin E coli Not Detected (NotDetected); Shigella Enterovasive E coli Not Detected (NotDetected); Vibrio Cholerae Not Detected (NotDetected); Vibrio, PCR Not Detected (NotDetected); Yersinia Entercolitica, PCR Not Detected (NotDetected)
--- NOTE | 2020-05-22 03:57 | PC.NURSE ---
No acute changes. Pt has rested well this shift. Is currently NPO for AM consult. Pt has denied any discomfort. No N/V. Pt had BM this shift and specimen was obtained per order. DBP has been elevated this shift. was called. New orders received. Amlodipine 5 mg PO one time. Orders carried out. No other concerns. Will continue to monitor.
[2020-05-22 06:51] LABS: Basophils % 0.6 % (0.1-2.0); Eosinophils # 0.1 K/mm3 (0.0-0.4); Eosinophils % 1.3 % (0.1-12.0); Hemoglobin 10.3 g/dL (14.1-18.0); Mean Corpuscular HGB Conc 33.3 g/dL (31.8-35.4); Mean Corpuscular Hemoglobin 36.3 pg (27.0-31.2); Mean Corpuscular Volume 109.1 fl (80-94); Mean Platelet Volume 9.6 fl (7.4-10.4); Monocytes # 0.5 K/mm3 (0.1-1.0); Monocytes % 7.5 % (1.7-9.3); Neutrophils # 4.9 K/mm3 (1.8-7.8); Neutrophils % 75.6 % (37.0-80.0); Platelet Count 132 K/mm3 (142-424); Red Blood Count 2.84 M/mm3 (4.60-6.20); Red Cell Distribution Width 14.7 % (11.5-17.5); White Blood Count 6.5 K/mm3 (4.8-10.8)
[2020-05-22 06:55] LABS: Chloride 104 mmol/L (98-107); Potassium 3.3 mmoL/L (3.5-5.1); Sodium 138 mmol/L (136-145)
[2020-05-22 06:58] LABS: Alanine Aminotransferase 57 U/L (12-78); Alkaline Phosphatase 59 U/L (38-126); Amylase 208 U/L (30-110); Anion Gap 9.3 mEq/L (5-15); Aspartate Amino Transferase 65 U/L (17-59); Bilirubin,Total 0.6 mg/dl (0.2-1.3); Blood Urea Nitrogen 9 mg/dl (9-20); Carbon Dioxide 28 mmol/L (22.0-30.0); Creatinine Clearance Estimated 71 mL/min (50-200); Estimated Glomerular Filt Rate 53 ml/min (>60); GFR (African American) 64 ML/MIN (>60)
[2020-05-22 06:59] LABS: Albumin Level 3.7 g/dl (3.5-5.0); Albumin/Globulin Ratio 1.2 (1.1-1.8); Glucose 114 mg/dl (74-100); Lipase 534 U/L (23-300); Total Protein,Serum 6.7 g/dl (6.3-8.2)
[2020-05-22 07:01] LABS: Calcium 9.2 mg/dl (8.4-10.2)
--- NOTE | 2020-05-22 08:48 | HMH.ACPN2 ---
Internal Medicine - PN: Subj *Date: 05/22/20 *Time: 08:48 Interval history: Patient denies chest pain, shortness of breath, abdominal pain, and nausea. He had a normal stool yesterday. He is voiding QS. He is n.p.o. this morning for GI consult. He did eat yesterday without problems. Blood pressure continues to be elevated. He was given amlodipine 5 mg one-time dose. Laboratory data this morning reveal reveals sodium of 138 potassium of 3.3 BUN is 9 his creatinine is 1.4. Amylase has increased to 208 with lipase at 534. AST is decreased to 65 and other liver function studies are normal. Exam Vital signs and Labs for Last 24 Hours: Temp Pulse Resp BP Pulse Ox 98.7 F 66 18 169/93 H 99 05/22/20 08:00 05/22/20 08:00 05/22/20 08:00 05/22/20 08:00 05/22/20 08:00 Laboratory Results - last 24 hr 05/22/20 05:31: WBC 6.5 D, RBC 2.84 L, Hgb 10.3 L, Hct 31.0 L, MCV 109.1 H, MCH 36.3 H, MCHC 33.3, RDW 14.7, Plt Count 132 L D, MPV 9.6, Neut % (Auto) 75.6, Lymph % (Auto) 15.0, Kemper % (Auto) 7.5, Eos % (Auto) 1.3, Baso % (Auto) 0.6, Neut # (Auto) 4.9, Lymph # (Auto) 1.0, Kemper # (Auto) 0.5, Eos # (Auto) 0.1, Baso # (Auto) 0.0 05/22/20 05:31: Sodium 138, Potassium 3.3 L, Chloride 104, Carbon Dioxide 28, Anion Gap 9.3, BUN 9 D, Creatinine 1.40 H, Estimated Creat Clear 71, Estimated GFR 53 L, Est GFR ( Amer) 64, Glucose 114 H, Calcium 9.2 D, Total Bilirubin 0.6, AST 65 H, ALT 57, Alkaline Phosphatase 59, Total Protein 6.7, Albumin 3.7, Globulin 3.0, Albumin/Globulin Ratio 1.2, Amylase 208 H, Lipase 534 H I & O for Last 24 hours: Intake & Output 05/19/20 05/20/20 05/21/20 05/22/20 11:59 11:59 11:59 11:59 Intake Total 3717 / 3717 958 / 958 1774 / 1774 480 / 480 Output Total 1650 / 1650 800 / 800 3425 / 3425 1875 / 1875 Balance 2066 / 2066 158 / 158 -1651 / -1651 -1395 / -1395 Weight 179 lb 10.828 oz 177 lb 11.081 oz 179 lb 10.828 oz 179 lb 7.3 oz - Constitutional no acute distress Comments: Sitting up in the bed and appears comfortable. Tremors of hands noted - *Routine Respiratory Exam Present: CTA bilaterally (Anteriorly and posteriorly) - *Routine Cardiovascular Exam Present: RRR - *Routine Abdominal Exam Present: soft, normoactive bowel sounds. Absent: tenderness - *Routine Extremities Exam Present: pulses intact. Absent: edema, calf tenderness - *Routine Neurological Exam Present: alert, oriented X3, tremors (Bilateral hands with movement) - Routine Psychiatric Exam Present: normal affect (Seems calm) Assessment and Plan (1) Pancreatitis Status: Acute Qualifiers: Chronicity: acute Pancreatitis type: alcohol induced Acute pancreatitis complication: no infection or necrosis Qualified Code(s): K85.20 - Alcohol induced acute pancreatitis without necrosis or infection Category: Medical Code(s): K85.90 - Acute pancreatitis without necrosis or infection, unspecified (2) Elevated lactic acid level Status: Acute Category: Medical Code(s): R79.89 - Other specified abnormal findings of blood chemistry (3) Dehydration Status: Acute Category: Medical Code(s): E86.0 - Dehydration (4) Vomiting Status: Acute Category: Medical Code(s): R11.10 - Vomiting, unspecified (5) Anxiety Status: Chronic Category: Medical Code(s): F41.9 - Anxiety disorder, unspecified (6) Hypertension Status: Chronic Category: Medical Code(s): I10 - Essential (primary) hypertension (7) Chronic alcohol use Status: Chronic Category: Medical Code(s): Z72.89 - Other problems related to lifestyle (8) Anemia Status: Acute Category: Medical Code(s): D64.9 - Anemia, unspecified (9) Diarrhea Status: Acute Category: Medical Code(s): R19.7 - Diarrhea, unspecified - Assessment and plan all Dx Assessment and Plan for all problems:: Receiving his Zebeta at this time. We will see how his blood pressure trends. N.p.o. for GI consult this morning
--- NOTE | 2020-05-22 10:12 | DIET.NUTRFU ---
Pt states he has been tolerating his low fat diet well, denies any abdominal symptoms and reports a good appetite. PO intakes 75%, weight stable within 4#. Pt to have GI consult today, following further diagnostic findings/care plans to provide appropriate further MNT.
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
--- NOTE | 2020-05-22 12:01 | HMH.PROC ---
[facility] Procedure Note Procedure Note:: Upper Endoscopy Procedure Report: Esophagogastroduodenoscopy with cold biopsies and TTS balloon dilation Endoscopost: Jerod Morales II, MD Referring Physician: Red Laguna MD Date of Procedure: May 22, 2020 Equipment: Olympus GIF 180 standard upper endoscope Sedation: MAC sedation Indications: Mr. Hinkle is a 54-year-old gentleman who presented with nausea and vomiting. He has lost 20 pounds in the last couple of months. He also had possible left-sided pneumonia. His initial lab work showed AST 154 and lipase 614. A CAT scan showed some bogginess of the pancreas consistent with mild interstitial pancreatitis but there was no pancreatic fat stranding or fluid collection. His amylase and lipase today were 208 and 534 respectively. The patient does report moderate alcohol use and reports 2-6 beers daily and sometimes more. He reports no tobacco use. He did have a cholecystectomy 3 years ago. He does state that he possibly had an EGD prior to this. He reports no abdominal pain. He does state that he was told to take iron pills a while back. He reports no melena and very rarely sees bright red blood when he is constipated. He has never had a colonoscopy. He does have a creatinine of 1.4 today. His initial hemoglobin and hematocrit were 12.5 and 38.2 but declined down to 10.3 and 31.0 today. He also has some thrombocytopenia with a platelet count of 132,000. Procedure: Prior to the procedure, a history and physical exam was performed, and patient's medications and allergies were reviewed. The risks, benefits and alternatives of the sedation and procedure were discussed with the patient. All questions were answered and informed consent was obtained. The patient was brought to the procedure room. Patient identification and proposed procedure were verified by the physician and the nurse. The patient was placed in a left lateral decubitus position and the scope was passed under direct vision. Throughout the procedure, the patient's blood pressure, pulse, and oxygen saturations were monitored continuously. The upper GI endoscopy was accomplished without difficulty. The patient tolerated the procedure well. Findings: The scope was passed directly into the upper esophagus and advanced to the third portion of the duodenum. The post bulbar duodenum and duodenal bulb were normal with normal mucosa and conniventes. There was very mild scalloping of the conniventes and cold biopsies were taken from the post bulbar duodenum to rule out celiac disease. The ampulla appeared to be normal. The scope was withdrawn through a normal duodenal bulb and pylorus into the stomach. There was some mild reactive gastropathy of the antrum. The remainder of the body and fundus of the stomach were grossly normal. Upon retroflexion there was a very small 1 to 2 cm hiatal hernia. 2 biopsies were taken in the antrum and along the lesser curvature for histology to rule out gastritis and/or H pylori. The scope was then withdrawn into the esophagus. There was a distal Schatzki's ring. There was no evidence of reflux esophagitis, Lyons's or esophageal varices. The Schatzki's ring and entire esophagus were dilated to 20 mm with a TTS hydrostatic balloon. The remainder of the esophageal mucosa was normal. Impression: 1. Insignificant Schatzki's ring and very small 1 to 2 cm hiatal hernia 2. Very mild linear reactive gastropathy Plan: I would recommend additional evaluation to rule out chronic pancreatitis. I would consider outpatient MRCP. I would also like for him to have fecal pancreatic elastase and fecal Hemoccult. There was certainly no upper endoscopic evidence of any occult GI blood loss. I do feel that he should have outpatient colonoscopy as well. I will follow up the gastric/duodenal biopsies.
--- NOTE | 2020-05-22 13:11 | SUR.PHASEII ---
called Arelis vázquez appt with Camila Jun 05 @ [id number] in [facility]
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
--- NOTE | 2020-05-22 15:57 | PC.NURSE ---
PT HAS BEEN AMBULATING IN THE ROOM AND IS REALLY ANXIOUS TO GO HOME. PT STILL HAS MODERATE TREMORS. TOLERATED LOW RESIDUE DIET BEFORE DISCHARGE. PT WAS GIVEN FECAL CARDS TO COLLECT STOOL WITH OUTPATIENT ORDER FORM. PT WILL FOLLOW UP WITH JAY KELLY June AT 1045. PT RECEIVED DISCHARGE TEACHING AND WAS INSTRUCTED TO STOP BY [facility] TO TELECOMMUNICATIONS ENGINEER PRESCRIPTIONS.
--- NOTE | 2020-05-24 13:46 | HMH.DCSUM ---
General - General Admission date:: 05/17/20 Discharge date: 05/22/20 HPI HPI: 54yo M that denies significant past medical history other than chronic alcohol abuse presents the emergency department with complaints of possible left-sided pneumonia, nausea and vomiting, tremor. Patient states he had dinner last night and then became ill. He woke up early this morning vomiting. He had uncontrolled vomiting all day. He is intolerant to p.o. intake at this time. He denies any diarrhea. He denies shortness of breath but feels crackling in his left chest. He denies fever. He denies recent decrease or increase in alcohol consumption. He denies previous episodes similar to this. No chest pain. Differential diagnosis includes but is not limited to: Pneumonia, pancreatitis, gastritis, peptic ulcer disease, perforated ulcer, alcohol withdrawal, drug withdrawal, COVID-19, sepsis. Patient's heart rate on monitors greater than 120 but is less than this on palpation and auscultation. Patient does have crackles to his left chest. Will start on antibiotics for pneumonia at this time. Patient will need to be admitted. His lipase is already returned at greater than 600. He has no previous history of pancreatitis. Patient will undergo CT of the abdomen pelvis with IV contrast for better evaluation of his pancreatitis. CT concerning for pancreatitis, chest x-ray does not show pneumonia. Case was discussed with Dr. Laguna. He agrees to accept the patient for admission at this time. Patient has received 30 mL/kg of IV fluids. He would not be continued on antibiotics once admitted secondary to a normal white blood cell count and normal chest x-ray. (above as per ER physician) The patient does have a history of hypertension and anxiety. He is a patient of Dr. Jamie Vidales at [facility]. He states he does feel better today than he did yesterday. His vomiting stopped last night and he is able to take ice chips and drink water. He denies any abdominal pain and states the rattling in his chest seems to be better as well. He is still very shaky and weak. Hospital Course Hospital Course: The patient's chest x-ray showed atelectatic versus fibrotic changes in the right midlung but was otherwise normal. His abdominal pelvic CT showed a boggy appearance of the pancreas reflecting a mild pancreatitis as well as a possible mild enteritis/ileus. The patient was admitted and kept n.p.o. His white blood cell count normalized as did his lactic acid. He was given IV antibiotics in the emergency room, but these were discontinued due to his normal chest x-ray and white blood cell count. He was started on IV fluids, antiemetics, and pain medication. He was started on oxazepam for alcohol withdrawal as he is a functioning alcoholic. The patient's vomiting stopped and he began feeling better. He was started on a liquid diet. He did start having diarrhea, therefore a diarrhea panel was ordered. His renal function and lipase both improved. He was advanced to a low-fat diet. He tolerated this well and the diarrhea seemed to resolve. His amylase and lipase did elevate and Dr. Laguna was concerned about continued inflammation of the pancreas. Sucralfate was added. His amylase and lipase continue to be elevated and his H&H showed a gradual decline. GI was consulted. He was also started on some potassium for hypokalemia. He was seen in consultation by GI who felt the elevation in his liver enzymes and pancreatic enzymes was likely due to his alcohol induced fatty liver disease. He was mildly thrombocytopenic and they felt an outpatient work-up to rule out a more advanced liver disease as well as possible chronic pancreatitis should be done. Complete cessation of alcohol was discussed with the patient and he was scheduled to follow-up with GI. His hemoglobin was low and he was supposed to be taking iron supplements, but had not been doing so. He did report some bl
[2020-05-24 23:50] LABS: ALT (SGPT) P5P 51 IU/L (0-55); AST (SGOT) P5P 58 IU/L (0-40); Alpha 2-Macroglobulins, Qn 124 mg/dL (110-276); Apolipoprotein A-1 157 mg/dL (101-178); Bilirubin, Total 0.3 mg/dL (0.0-1.2); Cholesterol, Total 246 mg/dL (100-199); Fibrosis Score 0.18 (0.00-0.21); GGT 515 IU/L (0-65); Glucose 106 mg/dL (65-99); Haptoglobin 164 mg/dL (29-370); NASH Score 0.25 (0.25); Steatosis Score 0.72 (0.00-0.30); Triglycerides 87 mg/dL (0-149)
[2020-06-02 21:28] LABS: Sapovirus Not Detected (NotDetected)
== END 2020-05-22 15:40 | disposition home or self-care (01) | DRG 440 ==
LOC: ER 18:00 → 2ND 20:25
PROVIDERS: Internal Medicine Gastroenterology; Physician Assistant; Admitting Provider Family Medicine; Emergency Provider Family Medicine; Visit Provider Family Medicine
PROC: 0DJ08ZZ Inspection of Upper Intestinal Tract, Via Natural or Artificial Opening Endoscopic (ICD-10-PCS; CPT 43235; principal; 2020-05-22 13:00)
DX: K85.20 Alcohol induced acute pancreatitis without necrosis or infection (principal); E86.0 Dehydration; Z79.899 Other long term (current) drug therapy; I10 Essential (primary) hypertension; F10.20 Alcohol dependence, uncomplicated; K22.2 Esophageal obstruction; K29.80 Duodenitis without bleeding
CPT/HCPCS: 43239; 43249; 36415; 71045; 74177; 80048; 80053; 82150; 83605; 83690; 85007; 85025; 87040; 87507; 96365; 96366; 96367; 96375; 96376; 99285; C1726; J0456; J2405; J2543; Q9967; U0003

== ENCOUNTER 2020-05-29 20:46 | Inpatient (IN) | payer BC, SELFPAY ==
[2020-05-29 20:48] VITALS: BP 155/105; PULSE 114; RESP 24; TEMP 36.8; O2SAT 99; BMI 24.5
--- NOTE | 2020-05-29 21:19 | HMH.EDNVD ---
ED Disposition Clinical Impression: Hypomagnesemia, TONNY (acute kidney injury) Pancreatitis Qualifiers: Chronicity: acute Pancreatitis type: unspecified pancreatitis type Acute pancreatitis complication: no infection or necrosis Qualified Code(s): K85.90 - Acute pancreatitis without necrosis or infection, unspecified Disposition: Admitted as Observation Condition on Discharge: Good Instructions: DI for Diarrhea and Traveler's Diarrhea -- Adult, DI for Diarrhea and Traveler's Diarrhea -- Child, DI for Nausea -- Adult, DI for Nausea -- Child Referrals: Jamie Rice [Primary Care Provider] - - Critical Care Critical Care Time: No Attestation: On 05/29/20, the high probability of a clinically significant, sudden or life threatening deterioration of the following system(s) required my full and direct attention, intervention and personal management. The time I documented below is in addition to time spent performing reported procedures but includes the following listed in this critical care notation. Medical Decision Making - Medical Records Medical records reviewed: Yes: I reviewed the patient's medical records. - Kamari Inquiry Pt receiving controlled substance: No Vital Signs: 05/29/20 20:48 Temperature 98.3 F Temperature Source Oral Pulse Rate [Right] 114 H Respiratory Rate 24 Blood Pressure [Right Arm] 155/105 H Blood Pressure Mean [Right Arm] 121 Blood Pressure Source [Right Arm] Automatic Cuff Blood Pressure Position [Right Arm] Supine 02 Sat by Pulse Oximetry 99 Oxygen Delivery Method Room Air - Lab Data Lab results reviewed: Yes: I reviewed the patient's lab results. Lab Results 05/29/20 21:00: WBC 5.8, RBC 3.44 L, Hgb 12.0 L, Hct 36.7 L, MCV 106.9 H, MCH 34.9 H, MCHC 32.7, RDW 14.2, Plt Count 370, MPV 8.2, Neut % (Auto) 85.0 H, Lymph % (Auto) 10.3, [place] % (Auto) 4.1, Eos % (Auto) 0.1, Baso % (Auto) 0.5, Neut # (Auto) 4.9, Lymph # (Auto) 0.6 L, [place] # (Auto) 0.2, Eos # (Auto) 0.0, Baso # (Auto) 0.0, Total Counted 100, Neutrophils % (Manual) 90 H, Lymphocytes % (Manual) 10, Platelet Estimate Normal, RBC Morphology Not Reportable, Stomatocytes 1+, ESR 97 H 05/29/20 21:00: Sodium 138, Potassium 4.5, Chloride 100, Carbon Dioxide 26, Anion Gap 16.5 H, BUN 17, Creatinine 2.40 H, Estimated Creat Clear 43, Estimated GFR 29 L, Est GFR ( Amer) 35 L, Glucose 182 H, Calcium 9.3, Total Bilirubin 1.2, AST 69 H, ALT 54, Alkaline Phosphatase 88, C-Reactive Protein 2.2, Total Protein 7.2, Albumin 3.9, Globulin 3.3 H, Albumin/Globulin Ratio 1.2, Amylase 180 H, Lipase 423 H 05/29/20 21:00: Plasma/Serum Alcohol < 10 05/29/20 21:00: Magnesium 0.4 L 05/29/20 22:42: Urine Color Yellow, Urine Appearance Clear, Urine pH 6.5, Ur Specific [place] 1.010, Urine Protein Negative, Urine Glucose (UA) Negative, Urine Ketones Negative, Urine Blood Trace-i, Urine Nitrate Negative, Urine Bilirubin Negative, Urine Urobilinogen 0.2, Ur Leukocyte Esterase Negative, Urine RBC 5-10, Urine WBC 3-5, Ur Squamous Epith Cells 5-10, Urine Bacteria 1+, Urine Mucus 1+ Result diagrams: 05/29/20 21:00 05/29/20 21:00 Orders (Tests/Meds): ED MEDICATIONS Generic Name Dose Route Start Last Admin Trade Name Freq PRN Reason Stop Dose Admin Sodium Chloride 1,000 mls @ 999 mls/hr 05/29/20 21:15 05/29/20 21:20 Sod Chlor 0.9% 1000ml Bag IV 05/29/20 22:15 999 mls/hr .Q1H1M SHAUN Administration Multivitamins 10 ml/ Thiamine 1,015 mls @ 150 mls/hr 05/29/20 23:45 05/30/20 00:06 HCl 100 mg/ Magnesium Sulfate IV 05/30/20 06:30 150 mls/hr 2 gm/ Lactated Ringer's .[id number] SHAUN Administration Sodium Chloride 10 ml 05/29/20 21:01 Sodium Chloride 0.9% 10ml Vial IV 06/28/20 21:00 NEEDED PRN to Dilute Lorazepam inj Discontinued Medications Generic Name Dose Route Start Last Admin Trade Name Ulyssesq PRN Reason Stop Dose Admin Folic Acid 1 mg 05/29/20 23:58 05/30/20 00:08 Folic Acid 1mg Tablet PO 05/29/20 23:59 1 mg
[2020-05-29 21:28] LABS: Basophils % 0.5 % (0.1-2.0); Eosinophils % 0.1 % (0.1-12.0); Hematocrit 36.7 % (42.0-52.0); Lymphocytes # 0.6 K/mm3 (0.7-4.5); Lymphocytes % 10.3 % (10-50); Mean Corpuscular HGB Conc 32.7 g/dL (31.8-35.4); Mean Corpuscular Hemoglobin 34.9 pg (27.0-31.2); Mean Corpuscular Volume 106.9 fl (80-94); Mean Platelet Volume 8.2 fl (7.4-10.4); Monocytes # 0.2 K/mm3 (0.1-1.0); Monocytes % 4.1 % (1.7-9.3); Neutrophils # 4.9 K/mm3 (1.8-7.8); Platelet Count 370 K/mm3 (142-424); Red Blood Count 3.44 M/mm3 (4.60-6.20); Red Cell Distribution Width 14.2 % (11.5-17.5); White Blood Count 5.8 K/mm3 (4.8-10.8)
[2020-05-29 21:34] LABS: MANUAL DIFFERENTIAL MANUAL DIFFERENTIAL (MANUAL DIFF)
[2020-05-29 21:36] LABS: Chloride 100 mmol/L (98-107); Potassium 4.5 mmoL/L (3.5-5.1); Sodium 138 mmol/L (136-145)
[2020-05-29 21:39] LABS: Alanine Aminotransferase 54 U/L (12-78); Albumin Level 3.9 g/dl (3.5-5.0); Albumin/Globulin Ratio 1.2 (1.1-1.8); Alkaline Phosphatase 88 U/L (38-126); Amylase 180 U/L (30-110); Anion Gap 16.5 mEq/L (5-15); Aspartate Amino Transferase 69 U/L (17-59); Bilirubin,Total 1.2 mg/dl (0.2-1.3); Blood Urea Nitrogen 17 mg/dl (9-20); Calcium 9.3 mg/dl (8.4-10.2); Carbon Dioxide 26 mmol/L (22.0-30.0); Creatinine Clearance Estimated 43 mL/min (50-200); Estimated Glomerular Filt Rate 29 ml/min (>60); GFR (African American) 35 ML/MIN (>60); Globulin 3.3 g/dL (1.3-3.2); Glucose 182 mg/dl (74-100); Lipase 423 U/L (23-300); Total Protein,Serum 7.2 g/dl (6.3-8.2)
[2020-05-29 21:45] LABS: C-Reactive Protein 2.2 mg/L (0-4)
[2020-05-29 21:48] LABS: Ethyl Alcohol < 10 mg/dl (0-10)
[2020-05-29 22:05] LABS: Erythrocyte Sedimentation Rate 97 mm/hr (0-20)
[2020-05-29 22:36] LABS: Lymphocytes % 10 % (10-50); Neutrophils % 90 % (42-76); Platelet Estimate Normal; Stomatocytes 1+; Total Cells Counted 100
[2020-05-29 22:45] LABS: Microscopic, Urine URINE MICROSCOPIC (MICROSCOPIC)
[2020-05-29 22:48] LABS: Appearance,Urine CLEAR (Clear); Bilirubin,Urine Negative (Negative); Blood, Urine TRACE-I (Negative); Color,Urine YELLOW (Yellow); Glucose,Urine (UA) Negative (Negative); Ketones,Urine Negative (Negative); Leukocyte Esterase,Urine Negative (Negative); Nitrate,Urine Negative (Negative); PH,Urine 6.5 (5.0-8.5); Protein,Urine Negative (Negative); Urobilinogen,Urine 0.2 EU/dl (0.2)
[2020-05-29 23:05] LABS: Bacteria,Urine 1+ /lpf; Mucus,Urine 1+ /lpf
--- NOTE | 2020-05-29 23:40 | XR_ITS ---
PROCEDURE: XR CHEST 2V CLINICAL HISTORY: sob Shortness of breath, cough, smoker COMPARISON: CR XR CHEST PORTABLE from 05/17/2020 FINDINGS: The cardiomediastinal silhouette and pulmonary vascularity are within normal limits. The lungs are clear without infiltrates, suspicious nodules, or pleural effusions. There is mild wedge contour or of T6 and T7 age indeterminate. IMPRESSION: No acute findings. Dictated by: Gerardo Hastings MD 05/30/2020 06:50 Gerardo Hastings MD in [place] 05/30/2020 06:50
[2020-05-29 23:53] LABS: Magnesium 0.4 mg/dl (1.6-2.3)
[2020-05-30] VITALS (10 sets, daily range): BP systolic 137–158; BP diastolic 88–99; PULSE 60–99; RESP 16–18; TEMP 36.6–37.1; O2SAT 97–99; BMI 23.3
--- NOTE | 2020-05-30 | PC.NURSE ---
Critical Magnesium called from lab results given to Dr Myers, Spoke with Law in Pharmacy for replacement a total of 4-8 mg can be given over 24 hours.
[2020-05-30 00:19] LABS: Lactic Acid 1.4 mmol/L (0.7-2.1)
--- NOTE | 2020-05-30 00:27 | PC.NURSE ---
Dr Myers speaking with Dr Oshea
[2020-05-30 00:33] LABS: Troponin I < 0.01 ng/ml (0.00-0.034)
[2020-05-30 00:57] LABS: Adenovirus,PCR Not Detected (NotDetected); Bordetella Pertussis Not Detected (NotDetected); Chlamydophila Pneumoniae, PCR Not Detected (NotDetected); Coronavirus 19, PCR Not Detected (NotDetected); Coronavirus 229E Not Detected (NotDetected); Coronavirus NL63 Not Detected (NotDetected); Coronavirus OC43 Not Detected (NotDetected); Coronovirus HKU1,PCR Not Detected (NotDetected); Human Metapneumovirus Not Detected (NotDetected); Influenza A, PCR Not Detected (NotDetected); Influenza AH1, 2009 Not Detected (NotDetected); Influenza AH1, PCR Not Detected (NotDetected); Influenza AH3,PCR Not Detected (NotDetected); Influenza B, PCR Not Detected (NotDetected); Mycoplasma Pneumoniae, PCR Not Detected (NotDetected); Parainfluenza 1, PCR Not Detected (NotDetected); Parainfluenza 2, PCR Not Detected (NotDetected); Parainfluenza 3, PCR Not Detected (NotDetected); Parainfluenza 4, PCR Not Detected (NotDetected); Respiratory Syncytial Virus Not Detected (NotDetected); Rhinovirus/Enterovirus Not Detected (NotDetected)
--- NOTE | 2020-05-30 03:22 | PC.NURSE ---
PT ARRIVED TO FLOOR VIA W/C FROM ED WITH STAFF AT [id number]
[2020-05-30 03:48] LABS: Troponin I < 0.01 ng/ml (0.00-0.034)
--- NOTE | 2020-05-30 06:33 | PC.NURSE ---
shift summary pts lung sounds are clear with sats maintained 95% or above on room air with a rate ranging from 14-18. pt stated he was nauseous but is sleeping comfortably at this time. pt is able to get up and go to the restroom with a standby assist. pt is alert and oriented X4
[2020-05-30 07:27] LABS: Chloride 103 mmol/L (98-107); Potassium 3.8 mmoL/L (3.5-5.1); Sodium 136 mmol/L (136-145)
[2020-05-30 07:29] LABS: Amylase 175 U/L (30-110); Lipase 559 U/L (23-300)
[2020-05-30 07:30] LABS: Anion Gap 6.8 mEq/L (5-15); Blood Urea Nitrogen 15 mg/dl (9-20); Carbon Dioxide 30 mmol/L (22.0-30.0); Creatinine Clearance Estimated 49 mL/min (50-200); Estimated Glomerular Filt Rate 35 ml/min (>60); GFR (African American) 43 ML/MIN (>60); Glucose 95 mg/dl (74-100); Magnesium 1.3 mg/dl (1.6-2.3)
[2020-05-30 07:35] LABS: Basophils % 0.3 % (0.1-2.0); Eosinophils % 0.5 % (0.1-12.0); Hematocrit 31.7 % (42.0-52.0); Lymphocytes # 1.1 K/mm3 (0.7-4.5); Lymphocytes % 19.5 % (10-50); Mean Corpuscular HGB Conc 32.2 g/dL (31.8-35.4); Mean Corpuscular Hemoglobin 35.5 pg (27.0-31.2); Mean Corpuscular Volume 110.2 fl (80-94); Mean Platelet Volume 8.6 fl (7.4-10.4); Monocytes # 0.4 K/mm3 (0.1-1.0); Monocytes % 7.4 % (1.7-9.3); Neutrophils # 3.9 K/mm3 (1.8-7.8); Neutrophils % 72.2 % (37.0-80.0); Platelet Count 257 K/mm3 (142-424); Red Blood Count 2.87 M/mm3 (4.60-6.20); Red Cell Distribution Width 14.4 % (11.5-17.5); White Blood Count 5.5 K/mm3 (4.8-10.8)
[2020-05-30 07:42] LABS: Troponin I < 0.01 ng/ml (0.00-0.034)
[2020-05-30 07:46] LABS: Hemoglobin 10.2 g/dL (14.1-18.0)
--- NOTE | 2020-05-30 08:04 | P.CONPHA_ITS ---
[facility] VTE Monitoring - Patient Demographics Admission date: 05/29/20 Report Date: 05/30/20 Time: 08:05 Allergies/Adverse Reactions: Patient Allergies No Known Allergies Allergy (Verified 05/30/20 03:30) Height: 1.85 m Weight: 80.031 kg Patient Problems: Current Active Problems Pancreatitis (Acute) Hypomagnesemia (Acute) TONNY (acute kidney injury) (Acute) - VTE Risk Labs: VTE Related Lab Results Hgb 10.2 g/dL (14.1-18.0) L D 05/30/20 07:12 Hct 31.7 % (42.0-52.0) L 05/30/20 07:12 Plt Count 257 K/mm3 (142-424) D 05/30/20 07:12 BUN 15 mg/dl (9-20) 05/30/20 07:12 Creatinine 2.00 mg/dl (0.66-1.25) H 05/30/20 07:12 Estimated Creat Clear 49 mL/min (50-200) 05/30/20 07:12 Clinical Trial Participant: No - Prophylaxis VTE Prophylaxis Ordered?: Yes Types of VTE Prophylaxis: TEDS Knee High
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
[2020-05-30 10:45] LABS: Iron 169 ug/dL (49-181)
[2020-05-30 12:16] LABS: Vitamin B12 591 pg/mL (239-931)
[2020-05-30 12:36] LABS: Folate > 20.00 ng/mL
--- NOTE | 2020-05-30 19:36 | PC.NURSE ---
No acute changes this shift. Pt has tolerated diet well and had no c/o's. VSS. Lungs cta, did send occult stool to lab. BS x 4. Alert and oriented x 4.
[2020-05-30 20:36] LABS: Occult Blood,Stool Negative (Negative)
[2020-05-31] VITALS: BP 131/83; PULSE 60; PULSE 64; RESP 18; TEMP 36.8; O2SAT 94
[2020-05-31 04:00] VITALS: BP 144/88; PULSE 60; PULSE 80; RESP 17; TEMP 36.9; O2SAT 99
--- NOTE | 2020-05-31 06:35 | PC.NURSE ---
shift summary pts lung sounds are clear with sats maintained 95% and above on room air with a rate ranging from 16-18. pt states he feela much better then he did yesterday. pt is alert and oriented X4. pt is able to walk to bathroom unassisted and able to get back in bed unassisted as well. pt denies any pain, nausea, or diarrhea.
[2020-05-31 06:41] VITALS: BMI 24.5
--- NOTE | 2020-05-31 07:45 | SW/DCPLANNER ---
PATIENT WAS ADMITTED TO [facility] ON 05/30 WITH NAUSEA AND VOMITING.. 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 HE WAS RECENTLY DISCHARGED FROM [facility] WITH PANCREATITIS, HERE FROM 05/17-05/22... I DO NOT SEE ANY DISCHARGE PLANNING ISSUES TO ADDRESS AT THIS TIME... IF THERE IS A NEED FOR ANY SERVICES TO ASSIST WITH HIS ETOH I WILL SET UP ANYTHING ORDERED BY MD.. STAY SHOULD BE SHORT.
[2020-05-31 08:00] VITALS: BP 145/96; PULSE 60; PULSE 65; RESP 16; TEMP 37; O2SAT 95
[2020-05-31 08:06] LABS: Chloride 105 mmol/L (98-107); Potassium 4.1 mmoL/L (3.5-5.1); Sodium 140 mmol/L (136-145)
[2020-05-31 08:08] LABS: Amylase 156 U/L (30-110); Basophils % 0.6 % (0.1-2.0); Blood Urea Nitrogen 11 mg/dl (9-20); Creatinine Clearance Estimated 54 mL/min (50-200); Eosinophils # 0.1 K/mm3 (0.0-0.4); Estimated Glomerular Filt Rate 37 ml/min (>60); GFR (African American) 45 ML/MIN (>60); Hematocrit 32.9 % (42.0-52.0); Hemoglobin 10.6 g/dL (14.1-18.0); Lymphocytes # 1.3 K/mm3 (0.7-4.5); Lymphocytes % 24.8 % (10-50); Mean Corpuscular HGB Conc 32.4 g/dL (31.8-35.4); Mean Corpuscular Hemoglobin 35.9 pg (27.0-31.2); Mean Corpuscular Volume 110.9 fl (80-94); Mean Platelet Volume 8.2 fl (7.4-10.4); Monocytes # 0.3 K/mm3 (0.1-1.0); Monocytes % 6.2 % (1.7-9.3); Neutrophils # 3.4 K/mm3 (1.8-7.8); Neutrophils % 67.4 % (37.0-80.0); Platelet Count 229 K/mm3 (142-424); Red Blood Count 2.96 M/mm3 (4.60-6.20); Red Cell Distribution Width 14.2 % (11.5-17.5); White Blood Count 5.1 K/mm3 (4.8-10.8)
[2020-05-31 08:09] LABS: Alanine Aminotransferase 34 U/L (12-78); Albumin Level 3.4 g/dl (3.5-5.0); Albumin/Globulin Ratio 1.1 (1.1-1.8); Alkaline Phosphatase 72 U/L (38-126); Anion Gap 8.1 mEq/L (5-15); Aspartate Amino Transferase 49 U/L (17-59); Calcium 8.3 mg/dl (8.4-10.2); Carbon Dioxide 31 mmol/L (22.0-30.0); Glucose 97 mg/dl (74-100); Lipase 356 U/L (23-300); Total Protein,Serum 6.4 g/dl (6.3-8.2)
--- NOTE | 2020-05-31 08:25 | HMH.ACPN2 ---
<Aleshia Talavera - Last Filed: 05/31/20 08:25> Internal Medicine - PN: Subj *Date: 05/31/20 *Time: 08:25 Interval history: Patient states he feels much better today. He is just hungry. He has had liquids only. He has no nausea, vomiting, or abdominal pain. He did sleep some last night. He is anxious to go home. Regular diet is ordered. CBC is stable, electrolytes are good. BUN is 11 creatinine is 1.9. Amylase has improved to 156 and lipase has decreased to 356. Anemia studies completed yesterday show vitamin B12 good at 491 with folate greater than 20 and iron level of 169. Stool for occult blood was negative. Exam Vital signs and Labs for Last 24 Hours: Temp Pulse Resp BP Pulse Ox 98.5 F 80 17 144/88 H 99 05/31/20 04:00 05/31/20 04:00 05/31/20 04:00 05/31/20 04:00 05/31/20 04:00 Laboratory Results - last 24 hr 05/30/20 07:12: Iron 169, Vitamin B12 591, Folate > 20.00 05/30/20 16:30: Stool Occult Blood Negative 05/31/20 07:31: WBC 5.1, RBC 2.96 L, Hgb 10.6 L, Hct 32.9 L, MCV 110.9 H, MCH 35.9 H, MCHC 32.4, RDW 14.2, Plt Count 229, MPV 8.2, Neut % (Auto) 67.4, Lymph % (Auto) 24.8, [place] % (Auto) 6.2, Eos % (Auto) 1.0, Baso % (Auto) 0.6, Neut # (Auto) 3.4, Lymph # (Auto) 1.3, [place] # (Auto) 0.3, Eos # (Auto) 0.1, Baso # (Auto) 0.0 05/31/20 07:31: Sodium 140, Potassium 4.1, Chloride 105, Carbon Dioxide 31 H, Anion Gap 8.1, BUN 11 D, Creatinine 1.90 H, Estimated Creat Clear 54, Estimated GFR 37 L, Est GFR ( Amer) 45 L, Glucose 97, Calcium 8.3 L, Total Bilirubin 1.0, AST 49 D, ALT 34 D, Alkaline Phosphatase 72, Total Protein 6.4, Albumin 3.4 L D, Globulin 3.0, Albumin/Globulin Ratio 1.1, Amylase 156 H, Lipase 356 H I & O for Last 24 hours: Intake & Output 05/28/20 05/29/20 05/30/20 05/31/20 11:59 11:59 11:59 11:59 Intake Total 1999 360 / 360 Output Total 0 / 0 1100 / 1100 Balance 1999 -740 / -740 Weight 176 lb 7 oz 185 lb 1 oz - Constitutional no acute distress Comments: Appears comfortable. No tremors. He is hungry. - *Routine Respiratory Exam Present: CTA bilaterally (Anteriorly and posteriorly) - *Routine Cardiovascular Exam Present: RRR - *Routine Abdominal Exam Present: soft, normoactive bowel sounds. Absent: tenderness, distended, guarding - *Routine Extremities Exam Absent: edema, calf tenderness - *Routine Neurological Exam Present: alert, oriented X3 Assessment and Plan (1) Dehydration Status: Acute Category: Medical Code(s): E86.0 - Dehydration (2) Pancreatitis Status: Acute Qualifiers: Chronicity: acute Pancreatitis type: unspecified pancreatitis type Acute pancreatitis complication: no infection or necrosis Qualified Code(s): K85.90 - Acute pancreatitis without necrosis or infection, unspecified Category: Medical Code(s): K85.90 - Acute pancreatitis without necrosis or infection, unspecified (3) Vomiting Status: Acute Category: Medical Code(s): R11.10 - Vomiting, unspecified (4) Anxiety Status: Chronic Category: Medical Code(s): F41.9 - Anxiety disorder, unspecified (5) Chronic alcohol use Status: Chronic Category: Medical Code(s): Z72.89 - Other problems related to lifestyle (6) Hypertension Status: Chronic Category: Medical Code(s): I10 - Essential (primary) hypertension (7) Anemia Status: Acute Category: Medical Code(s): D64.9 - Anemia, unspecified - Assessment and plan all Dx Assessment and Plan for all problems:: Reviewed anemia studies with patient. Regular diet is ordered. Labs are stable. He is ready to be discharged. <Gordy Oshea - Last Filed: 05/31/20 08:32> Internal Medicine - PN: Subj *Date: 05/31/20 *Time: 08:32 Exam Vital signs and Labs for Last 24 Hours: Temp Pulse Resp BP Pulse Ox 98.6 F 65 16 145/96 H 95 05/31/20 08:00 05/31/20 08:00 05/31/20 08:00 05/31/20 08:00 05/31/20 08:00 Laboratory Results - last 24
[2020-05-31 12:00] VITALS: BP 146/84; PULSE 84; RESP 16; TEMP 36.9; O2SAT 96
--- NOTE | 2020-06-02 10:14 | HMH.DCSUM ---
General - General Admission date:: 05/30/20 Discharge date: 05/31/20 HPI HPI: Mr. Martin is a 54-year-old male With a history of Hypertension, chronic alcohol abuse And pancreatitis recently hospitalized to 05/17- 05/22/2020. Since discharge patient again began with nausea and vomiting and has been unable to retain food or fluids. He states he has been so weak that he had to crawl to the bathroom. He denies any alcohol intake for the last 5 days's since discharge. Patient also states he feels like he has something in his lungs. He does have a daily cough. He denies fever. He states he has periodic diarrhea. He denies hematemesis, melena, and hematochezia. With evaluation in the emergency room he was felt to be dehydrated and was given fluid boluses. Patient states this did make him feel better. Laboratory data reveal a white blood cell count of 5800 with a hemoglobin of 12 and hematocrit of 36.7 with repeat this morning show an H&H of 10.2/31.7. Blood chemistries on admission showed normal electrolytes with a BUN of 17 and a creatinine of 2.4 with improvement this a.m. with a BUN of 15 and creatinine of 2. Troponin I's have been normal times three at 0.01. Amylase on admission was 180 and lipase was 423 with repeat this a.m showing amylase at 175 and lipase 559. Alcohol level was less than 10. Urine is negative although patient does describe urinary urgency. In the emergency room patient was also given folic acid and lorazepam 2 mg IV along with Zofran 4 mg IV. He continued with significant vomiting and tremor and thus was admitted. This a.m. patient does feel better. He has not had anything to eat as yet. He did retain some water. He feels his nausea is better. Bowels have not moved. Hospital Course Hospital Course: The patient's EGD from the 05/22/2020 admission showed mild reactive gastropathy therefore anemia studies were ordered. He was continued on antiemetics and started on a full liquid diet. By 05/31/2020, he was feeling much better and was hungry. He had no nausea, vomiting, or abdominal pain he was able to sleep and was anxious to go home. His amylase and lipase had improved. His anemia studies were normal. A regular diet was ordered and he tolerated this well. He was stable to be discharged home. He will need to follow-up with his primary care physician in a week to recheck a CBC, liver function test, and pancreatic enzymes. Objective Vital signs: Temp Pulse Resp BP Pulse Ox 98.5 F 84 16 146/84 H 96 05/31/20 12:00 05/31/20 12:00 05/31/20 12:00 05/31/20 12:00 05/31/20 12:00 Narrative: - Constitutional no acute distress, cooperative Comments: Conversant - *Routine HEENT Exam Head: Present: normocephalic, atraumatic Eye: Present: PERRL. Absent: conjunctival icterus, scleral injection ENT: Present: mucous membranes moist, oropharynx clear - *Routine Neck Exam Present: supple. Absent: carotid bruit, lymphadenopathy, thyromegaly - *Routine Respiratory Exam Present: CTA bilaterally (A&P) - *Routine Cardiovascular Exam Present: RRR - *Routine Abdominal Exam Present: soft, normoactive bowel sounds. Absent: tenderness, distended - *Routine Extremities Exam Absent: edema, calf tenderness - *Routine Neurological Exam Present: alert, oriented X3, normal speech, tremors - Routine Psychiatric Exam Present: cooperative, depressed, anxious DS: Diagnosis - Discharge Diagnosis (1) Dehydration Status: Acute (2) Pancreatitis Status: Acute (3) Vomiting Status: Acute (4) Anxiety Status: Chronic (5) Chronic alcohol use Status: Chronic (6) Hypertension Status: Chronic (7) Anemia Status: Acute Discharge Plan - Patient Discharge Instructions ACTIVITY: Continue current activity DIET: continue same diet Additional Instructions: Nursing Diagnosis: Knowledge Deficit Disease/Condition Goal(s):
== END 2020-05-31 15:00 | disposition home or self-care (01) | DRG 640 ==
LOC: ER 05-30 01:11 → 2ND 05-30 03:13
PROVIDERS: Nurse Practitioner Family; Admitting Provider Internal Medicine Adolescent Medicine; Emergency Provider Emergency Medicine; PCP Family Medicine; Visit Provider Family Medicine
DX: K85.20 Alcohol induced acute pancreatitis without necrosis or infection (principal); E86.0 Dehydration; Z79.899 Other long term (current) drug therapy; F10.20 Alcohol dependence, uncomplicated; I10 Essential (primary) hypertension
CPT/HCPCS: 36415; 71046; 80048; 80053; 81001; 82150; 82272; 82607; 82746; 83540; 83605; 83690; 83735; 84484; 85007; 85025; 85651; 86140; 87581; 87633; 87798; 96365; 96366; 96375; 99284; G0328; J2405

== ENCOUNTER → 2020-06-05 08:44 | Outpatient (POV) | payer BC, SELFPAY | PROVIDERS: Visit Provider Nurse Practitioner Family | DX: Z00.00 Encounter for general adult medical examination without abnormal findings (principal) ==

== ENCOUNTER 2020-06-12 22:08 | Emergency (ER) | payer BC, SELFPAY ==
[2020-06-12 22:18] VITALS: BP 143/112; PULSE 122; RESP 20; TEMP 36.7; O2SAT 94; BMI 19.8
[2020-06-12 23:05] VITALS: BP 142/100; PULSE 102; RESP 16; O2SAT 93
[2020-06-12 23:08] LABS: Basophils % 0.4 % (0.1-2.0); Eosinophils % 0.1 % (0.1-12.0); Hemoglobin 12.8 g/dL (14.1-18.0); Lymphocytes # 0.9 K/mm3 (0.7-4.5); Lymphocytes % 10.1 % (10-50); Mean Corpuscular Hemoglobin 35.3 pg (27.0-31.2); Mean Corpuscular Volume 107.2 fl (80-94); Mean Platelet Volume 9.2 fl (7.4-10.4); Monocytes # 0.3 K/mm3 (0.1-1.0); Monocytes % 3.7 % (1.7-9.3); Neutrophils # 7.5 K/mm3 (1.8-7.8); Neutrophils % 85.8 % (37.0-80.0); Platelet Count 160 K/mm3 (142-424); Red Blood Count 3.64 M/mm3 (4.60-6.20); Red Cell Distribution Width 14.3 % (11.5-17.5); White Blood Count 8.8 K/mm3 (4.8-10.8)
[2020-06-12 23:09] LABS: Chloride 98 mmol/L (98-107); Potassium 4.4 mmoL/L (3.5-5.1); Sodium 137 mmol/L (136-145)
[2020-06-12 23:12] LABS: Alanine Aminotransferase 62 U/L (12-78); Albumin Level 4.3 g/dl (3.5-5.0); Albumin/Globulin Ratio 1.3 (1.1-1.8); Alkaline Phosphatase 132 U/L (38-126); Amylase 234 U/L (30-110); Anion Gap 20.4 mEq/L (5-15); Aspartate Amino Transferase 129 U/L (17-59); Bilirubin,Total 1.4 mg/dl (0.2-1.3); Blood Urea Nitrogen 32 mg/dl (9-20); Calcium 9.3 mg/dl (8.4-10.2); Carbon Dioxide 23 mmol/L (22.0-30.0); Creatinine Clearance Estimated 14 mL/min (50-200); Estimated Glomerular Filt Rate 10 ml/min (>60); GFR (African American) 12 ML/MIN (>60); Globulin 3.4 g/dL (1.3-3.2); Glucose 171 mg/dl (74-100); Total Protein,Serum 7.7 g/dl (6.3-8.2)
[2020-06-12 23:13] LABS: MANUAL DIFFERENTIAL MANUAL DIFFERENTIAL (MANUAL DIFF)
[2020-06-12 23:14] LABS: Lipase 811 U/L (23-300)
[2020-06-12 23:15] LABS: Ethyl Alcohol < 10 mg/dl (0-10)
[2020-06-12 23:18] LABS: C-Reactive Protein 2.2 mg/L (0-4)
--- NOTE | 2020-06-12 23:26 | HMH.EDNVD ---
ED Disposition Clinical Impression: TONNY (acute kidney injury), Chronic alcohol use Pancreatitis Qualifiers: Chronicity: acute Pancreatitis type: unspecified pancreatitis type Acute pancreatitis complication: no infection or necrosis Qualified Code(s): K85.90 - Acute pancreatitis without necrosis or infection, unspecified Disposition: Xfer Short-Term Hosp Condition on Discharge: Serious Referrals: Jamie Rice [Primary Care Provider] - Forms: Transfer Record - ED - Critical Care Critical Care Time: No Attestation: On 06/12/20, the high probability of a clinically significant, sudden or life threatening deterioration of the following system(s) required my full and direct attention, intervention and personal management. The time I documented below is in addition to time spent performing reported procedures but includes the following listed in this critical care notation. Medical Decision Making - Medical Records Medical records reviewed: Yes: I reviewed the patient's medical records. - Kamari Inquiry Pt receiving controlled substance: No Vital Signs: 06/12/20 22:18 06/12/20 23:05 06/12/20 23:41 Temperature 98.0 F Temperature Source Oral Pulse Rate [Right Brachial] 122 H 102 H 84 Respiratory Rate 20 16 16 Blood Pressure [Right Arm] 143/112 H 142/100 H 156/106 H Blood Pressure Mean [Right Arm] 122 114 122 Blood Pressure Source [Right Arm] Automatic Cuff Automatic Cuff Blood Pressure Position [Right Arm] Sitting 02 Sat by Pulse Oximetry 94 L 93 L 98 Oxygen Delivery Method Room Air Room Air Room Air 06/13/20 00:36 Temperature Temperature Source Pulse Rate [Right Brachial] 80 Respiratory Rate 16 Blood Pressure [Right Arm] 146/101 H Blood Pressure Mean [Right Arm] 116 Blood Pressure Source [Right Arm] Automatic Cuff Blood Pressure Position [Right Arm] Sitting 02 Sat by Pulse Oximetry 96 Oxygen Delivery Method Room Air - Lab Data Lab results reviewed: Yes: I reviewed the patient's lab results. Lab Results 06/12/20 22:20: WBC 8.8, RBC 3.64 L, Hgb 12.8 L, Hct 39.0 L, MCV 107.2 H, MCH 35.3 H, MCHC 33.0, RDW 14.3, Plt Count 160, MPV 9.2, Neut % (Auto) 85.8 H, Lymph % (Auto) 10.1, [place] % (Auto) 3.7, Eos % (Auto) 0.1, Baso % (Auto) 0.4, Neut # (Auto) 7.5, Lymph # (Auto) 0.9, [place] # (Auto) 0.3, Eos # (Auto) 0.0, Baso # (Auto) 0.0, Total Counted 100, Neutrophils % (Manual) 92 H, Lymphocytes % (Manual) 7 L, Monocytes % (Manual) 1 L, Platelet Estimate Normal, RBC Morphology Not Reportable, Stomatocytes 1+, ESR 53 H 06/12/20 22:20: Sodium 137, Potassium 4.4, Chloride 98, Carbon Dioxide 23, Anion Gap 20.4 H, BUN 32 H, Creatinine 5.90 H, Estimated Creat Clear 14, Estimated GFR 10 L*, Est GFR ( Amer) 12 L*, Glucose 171 H, Calcium 9.3, Total Bilirubin 1.4 H, AST 129 H, ALT 62, Alkaline Phosphatase 132 H, C-Reactive Protein 2.2, Total Protein 7.7, Albumin 4.3, Globulin 3.4 H, Albumin/Globulin Ratio 1.3, Amylase 234 H, Lipase 811 H 06/12/20 22:20: Plasma/Serum Alcohol < 10 Result diagrams: 06/12/20 22:20 06/12/20 22:20 Orders (Tests/Meds): ED MEDICATIONS Generic Name Dose Route Start Last Admin Trade Name Freq PRN Reason Stop Dose Admin Sodium Chloride 1,000 mls @ 999 mls/hr 06/12/20 22:45 06/12/20 22:37 Sod Chlor 0.9% 1000ml Bag IV 06/12/20 23:45 999 mls/hr .Q1H1M SHAUN Administration Discontinued Medications Generic Name Dose Route Start Last Admin Trade Name Freq PRN Reason Stop Dose Admin Ondansetron HCl 4 mg 06/12/20 22:35 06/12/20 22:36 Ondansetron 4mg/2ml Vial IV 06/12/20 22:36 4 mg ONCE ONE Administration ORDERS Category Date Time Status CT abdomen pelvis wo con Stat Cat Scan 06/13/20 00:12 Taken CXR AP view [XR chest AP] Stat Exams 06/13/20 00:15 Taken - Radiology Data #1 Image(s): Chest Image Reviewed: Yes I reviewed the patient's radiology image Preliminary Findings: Abnormal (nonspecific) - CT Data CT Scan: Abdomen, Pelvis Time R
[2020-06-12 23:41] VITALS: BP 156/106; PULSE 84; RESP 16; O2SAT 98
--- NOTE | 2020-06-12 23:49 | PC.NURSE ---
Dr Myers speaking with Dr Cooper at [facility]
[2020-06-12 23:52] LABS: Erythrocyte Sedimentation Rate 53 mm/hr (0-20)
--- NOTE | 2020-06-13 00:08 | PC.NURSE ---
Dr. Salmon has accepted pt.
--- NOTE | 2020-06-13 00:10 | ECG_ITS ---
APPROVED REPORT Exam: Resting ECG HR:87 bpm ECG Measurements Heart Rate 87 AXES ND 128 P 44 QRSd 76 QRS 49 QT 394 T 48 QTc 474 Conclusion Normal sinus rhythm with sinus arrhythmia Normal ECG Electronically signed by : Jimmy Greene, 06/13/2020 06:31:26
--- NOTE | 2020-06-13 00:12 | CT_ITS ---
PROCEDURE: CT ABDOMEN PELVIS WO CON CLINICAL INDICATION: n/v/d with recent pancreatitis Nausea, vomiting, diarrhea COMPARISON: CT CT ABDOMEN PELVIS W CON from 05/17/2020 TECHNIQUE: Axial images obtained with sagittal and coronal reformats. All CT scans at the facility use one or more dose reduction, viz: automated exposure control, ma/kV adjustment per patient size (including targeted exams where dose is matched to indication, i.e. head), or iterative reconstruction technique. FINDINGS: LOWER THORAX: No acute finding ABDOMEN & PELVIS: Fatty liver. Prior cholecystectomy. Spleen, adrenal glands, pancreas, and kidneys have an unremarkable appearance. No evidence of appendicitis. No intestinal obstruction or free air. There is a nondisplaced fracture of the left 6th rib anteriorly. Small sclerotic focus involves the sacrum on the left and may be due to a bone island. Prior vasectomy. IMPRESSION: 1. No acute abdominal or pelvic findings. 2. Nondisplaced left 6th rib fracture. 3. Fatty liver Dictated by: Gerardo Hastings MD 06/13/2020 07:02 Gerardo Hastings MD in [place] 06/13/2020 07:02
--- NOTE | 2020-06-13 00:15 | XR_ITS ---
PROCEDURE: XR CHEST AP CLINICAL HISTORY: sob, shortness of breath COMPARISON: CR XR CHEST PORTABLE from 05/17/2020 CR XR CHEST 2V from 05/29/2020 FINDINGS: The cardiomediastinal silhouette and pulmonary vascularity are within normal limits. The lungs are clear without infiltrates, suspicious nodules, or pleural effusions. No acute bony abnormalities. IMPRESSION: No acute findings. Dictated by: Gerardo Hastings MD 06/13/2020 05:25 Gerardo Hastings MD in [place] 06/13/2020 05:25
[2020-06-13 00:36] VITALS: BP 146/101; PULSE 80; RESP 16; O2SAT 96
[2020-06-13 01:00] LABS: Lymphocytes % 7 % (10-50); Monocytes % 1 % (2-9); Neutrophils % 92 % (42-76); Total Cells Counted 100
[2020-06-13 01:01] LABS: Platelet Estimate Normal; Stomatocytes 1+
--- NOTE | 2020-06-13 01:39 | PC.NURSE ---
Report called to Erin FLANNERY at [facility]. [facility] has arrived to transfer pt.
[2020-06-13 02:01] VITALS: BP 120/72; PULSE 108; RESP 20; TEMP 36.7
== END 2020-06-13 02:02 | disposition short-term general hospital (02) ==
PROVIDERS: Emergency Provider Emergency Medicine; PCP Family Medicine
DX: N17.9 Acute kidney failure, unspecified (principal); K85.90 Acute pancreatitis without necrosis or infection, unspecified; F10.10 Alcohol abuse, uncomplicated; I10 Essential (primary) hypertension; F41.9 Anxiety disorder, unspecified; Z79.899 Other long term (current) drug therapy
CPT/HCPCS: 71045; 74176; 80053; 82150; 83690; 85007; 85025; 85651; 86140; 93005; 96365; 96366; 96375; 99284; J2405

== ENCOUNTER 2020-11-21 02:51 | Emergency (ER) | payer BC, SELFPAY ==
[2020-11-21] VITALS (7 sets, daily range): BP systolic 146–172; BP diastolic 11–116; PULSE 90–137; RESP 14–22; TEMP 36.8; O2SAT 96–99; BMI 22.4
--- NOTE | 2020-11-21 03:00 | ECG_ITS ---
APPROVED REPORT Exam: Resting ECG HR:133 bpm ECG Measurements Heart Rate 133 AXES QRSd 72 QRS 69 QT 386 T 71 QTc 574 Conclusion Supraventricular tachycardia Late r wave progression Abnormal ECG Electronically signed by : Jimmy Greene MD 11/22/2020 11:47:14
--- NOTE | 2020-11-21 03:08 | XR_ITS ---
PROCEDURE INFORMATION: Exam: XR Chest Exam date and time: 11/21/2020 3:08 AM Age: 55 years old Clinical indication: Cough and shortness of breath; Patient HX: SOA, cough, weakness, nonsmoker TECHNIQUE: Imaging protocol: XR of the chest. Views: 2 views. COMPARISON: CR XR CHEST AP 06/13/2020 12:50 AM FINDINGS: Lungs: Unremarkable. No consolidation. Pleural spaces: Unremarkable. No pleural effusion. No pneumothorax. Heart/Mediastinum: Unremarkable. No cardiomegaly. Bones/joints: Unremarkable. IMPRESSION: No acute findings.
[2020-11-21 03:54] LABS: Coronavirus 19, PCR Not Detected (NotDetected); Influenza A, PCR Not Detected (NotDetected); Influenza B, PCR Not Detected (NotDetected)
[2020-11-21 03:57] LABS: Basophils % 0.2 % (0.1-2.0); Eosinophils # 0.1 K/mm3 (0.0-0.4); Eosinophils % 1.5 % (0.1-12.0); Hematocrit 40.3 % (42.0-52.0); Hemoglobin 13.3 g/dL (14.1-18.0); Lymphocytes # 0.4 K/mm3 (0.7-4.5); Lymphocytes % 6.3 % (10-50); Mean Corpuscular HGB Conc 32.9 g/dL (31.8-35.4); Mean Corpuscular Hemoglobin 33.3 pg (27.0-31.2); Mean Corpuscular Volume 101.2 fl (80-94); Mean Platelet Volume 8.5 fl (7.4-10.4); Monocytes # 0.2 K/mm3 (0.1-1.0); Monocytes % 4.4 % (1.7-9.3); Neutrophils # 4.9 K/mm3 (1.8-7.8); Neutrophils % 87.6 % (37.0-80.0); Platelet Count 157 K/mm3 (142-424); Red Blood Count 3.98 M/mm3 (4.60-6.20); Red Cell Distribution Width 13.1 % (11.5-17.5); White Blood Count 5.6 K/mm3 (4.8-10.8)
[2020-11-21 04:00] LABS: MANUAL DIFFERENTIAL MANUAL DIFFERENTIAL (MANUAL DIFF)
[2020-11-21 04:05] LABS: Alanine Aminotransferase 86 U/L (12-78); Albumin Level 4.4 g/dl (3.5-5.0); Albumin/Globulin Ratio 1.5 (1.1-1.8); Alkaline Phosphatase 91 U/L (38-126); Amylase 190 U/L (30-110); Anion Gap 20.2 mEq/L (5-15); Aspartate Amino Transferase 116 U/L (17-59); Bilirubin,Total 1.1 mg/dl (0.2-1.3); Blood Urea Nitrogen 14 mg/dl (9-20); Calcium 8.6 mg/dl (8.4-10.2); Carbon Dioxide 22 mmol/L (22.0-30.0); Chloride 99 mmol/L (98-107); Creatinine Clearance Estimated 78 mL/min (50-200); Estimated Glomerular Filt Rate 63 ml/min (>60); GFR (African American) 77 ML/MIN (>60); Glucose 135 mg/dl (74-100); Potassium 4.2 mmoL/L (3.5-5.1); Sodium 137 mmol/L (136-145); Total Protein,Serum 7.4 g/dl (6.3-8.2)
[2020-11-21 04:13] LABS: Lipase 263 U/L (23-300)
--- NOTE | 2020-11-21 04:13 | HMH.EDWEAK ---
ED Disposition Clinical Impression: Alcohol abuse with withdrawal Disposition: Home, Self-Care Condition on Discharge: Good Instructions: DI for Drug or Alcohol Withdrawal Additional Instructions: call pcp this am Referrals: Jamie Rice [Primary Care Provider] - - Critical Care Critical Care Time: No Attestation: On 11/21/20, the high probability of a clinically significant, sudden or life threatening deterioration of the following system(s) required my full and direct attention, intervention and personal management. The time I documented below is in addition to time spent performing reported procedures but includes the following listed in this critical care notation. Medical Decision Making - Medical Records Medical records reviewed: Yes: I reviewed the patient's medical records. - Kamari Inquiry Pt receiving controlled substance: No Vital Signs: 11/21/20 02:53 Temperature 98.3 F Temperature Source Oral Pulse Rate [Right] 124 H Respiratory Rate 22 Blood Pressure [Right Arm] 149/115 H Blood Pressure Mean [Right Arm] 126 02 Sat by Pulse Oximetry 97 - Lab Data Lab results reviewed: Yes: I reviewed the patient's lab results. Lab Results 11/21/20 03:00: SARS-CoV-2 (PCR) Not detected, Influenza A Untype (PCR) Not detected, Influenza Type B (PCR) Not detected 11/21/20 03:50: WBC 5.6, RBC 3.98 L, Hgb 13.3 L, Hct 40.3 L, MCV 101.2 H, MCH 33.3 H, MCHC 32.9, RDW 13.1, Plt Count 157, MPV 8.5, Neut % (Auto) 87.6 H, Lymph % (Auto) 6.3 L, [place] % (Auto) 4.4, Eos % (Auto) 1.5, Baso % (Auto) 0.2, Neut # (Auto) 4.9, Lymph # (Auto) 0.4 L, [place] # (Auto) 0.2, Eos # (Auto) 0.1, Baso # (Auto) 0.0 11/21/20 03:50: Sodium 137, Potassium 4.2, Chloride 99, Carbon Dioxide 22, Anion Gap 20.2 H, BUN 14, Creatinine 1.20, Estimated Creat Clear 78, Estimated GFR 63, Est GFR ( Amer) 77, Glucose 135 H, Calcium 8.6, Total Bilirubin 1.1, AST 116 H, ALT 86 H, Alkaline Phosphatase 91, Troponin I < 0.01, C-Reactive Protein 5.0 H, Total Protein 7.4, Albumin 4.4, Globulin 3.0, Albumin/Globulin Ratio 1.5, Amylase 190 H, Procalcitonin 0.245 11/21/20 03:50: Plasma/Serum Alcohol < 10 11/21/20 03:50: Lipase 263 Result diagrams: 11/21/20 03:50 11/21/20 03:50 Orders (Tests/Meds): ED MEDICATIONS Generic Name Dose Route Start Last Admin Trade Name Salima PRN Reason Stop Dose Admin Sodium Chloride 1,000 mls @ 999 mls/hr 11/21/20 03:15 11/21/20 03:12 Sod Chlor 0.9% 1000ml Bag IV 11/21/20 04:15 999 mls/hr .Q1H1M SHAUN Administration Sodium Chloride 1,000 mls @ 999 mls/hr 11/21/20 04:00 11/21/20 03:56 Sod Chlor 0.9% 1000ml Bag IV 11/21/20 05:00 999 mls/hr .Q1H1M SHAUN Administration Sodium Chloride 8 ml 11/21/20 03:10 Sodium Chloride 0.9% 10ml Vial IV 12/21/20 03:09 NEEDED PRN dilute pepcid Discontinued Medications Generic Name Dose Route Start Last Admin Trade Name Salima PRN Reason Stop Dose Admin Clonidine HCl 0.1 mg 11/21/20 04:23 11/21/20 04:27 Clonidine 0.1mg Tablet PO 11/21/20 04:24 0.1 mg ONCE ONE Administration Famotidine 20 mg 11/21/20 03:10 11/21/20 03:12 Famotidine 20mg/2ml Vial IV 11/21/20 03:11 20 mg ONCE ONE Administration Metoclopramide HCl 10 mg 11/21/20 03:10 11/21/20 03:12 Metoclopramide Hcl 10mg/2ml Vial IVP 11/21/20 03:11 10 mg ONCE ONE Administration Ondansetron HCl 4 mg 11/21/20 03:10 11/21/20 03:12 Ondansetron 4mg/2ml Vial IV 11/21/20 03:11 4 mg ONCE ONE Administration ORDERS Category Date Time Status Complete Blood Count Auto Diff Stat Lab 11/21/20 03:50 Results Drug Screen,Urine Stat Lab 11/21/20 03:08 Ordered Erythrocyte Sedimentation Rate Stat Lab 11/21/20 03:50 Results Magnesium Stat Lab 11/21/20 03:50 Received Troponin I Q3H Lab 11/21/20 06:15 Ordered Troponin I Q3H Lab 11/21/20 09:15 Ordered Urinalysis and Microscopic Stat Lab 11/21/20 03:08 Ordered - Radiology Data #1 Image(s): Chest
[2020-11-21 04:24] LABS: Procalcitonin 0.245 ng/mL (0.0-2.0)
[2020-11-21 04:28] LABS: Troponin I < 0.01 ng/ml (0.00-0.034)
[2020-11-21 04:29] LABS: Ethyl Alcohol < 10 mg/dl (0-10)
[2020-11-21 04:50] LABS: Erythrocyte Sedimentation Rate 31 mm/hr (0-20)
[2020-11-21 04:51] LABS: Magnesium 0.8 mg/dl (1.6-2.3)
[2020-11-21 05:19] LABS: Lymphocytes % 9 % (10-50); Macrocytosis 1+; Monocytes % 3 % (2-9); Neutrophils % 88 % (42-76); Platelet Estimate Normal; Stomatocytes 1+; Total Cells Counted 100
== END 2020-11-21 05:34 | disposition home or self-care (01) ==
PROVIDERS: Emergency Provider Emergency Medicine; PCP Family Medicine
DX: F10.10 Alcohol abuse, uncomplicated (principal); R53.1 Weakness; F41.9 Anxiety disorder, unspecified; Z20.822 Contact with and (suspected) exposure to COVID-19; I10 Essential (primary) hypertension
CPT/HCPCS: 71046; 80053; 82150; 83690; 83735; 84145; 84484; 85007; 85025; 85651; 86140; 93005; 96365; 96366; 96367; 96375; 99282; J2405; U0003

== ENCOUNTER 2020-11-30 08:45 | Emergency (ER) | payer BC, SELFPAY ==
[2020-11-30 08:46] VITALS: BP 156/118; PULSE 122; RESP 26; TEMP 37.7; O2SAT 98; BMI 22.4
--- NOTE | 2020-11-30 08:51 | ECG_ITS ---
APPROVED REPORT Exam: Resting ECG HR:110 bpm ECG Measurements Heart Rate 110 AXES VA 124 P 69 QRSd 80 QRS 74 QT 350 T 41 QTc 473 Conclusion Sinus tachycardia Nonspecific ST and T wave abnormality Abnormal ECG Electronically signed by : Jimmy Greene MD 11/30/2020 17:33:53
--- NOTE | 2020-11-30 08:51 | HMH.EDGENADL ---
ED Disposition Clinical Impression: Cough Disposition: Home, Self-Care Condition on Discharge: Good Instructions: Cough Prescriptions: Ondansetron [Zofran 4mg ODT] 4 mg PO TIDP PRN #10 tab PRN Reason: Nausea Transmission Status: Pending to [facility] #[id number] Referrals: Jamie Rice [Primary Care Provider] - 3 days Time of Disposition: 10:56 - Critical Care Critical Care Time: No Attestation: On , the high probability of a clinically significant, sudden or life threatening deterioration of the following system(s) required my full and direct attention, intervention and personal management. The time I documented below is in addition to time spent performing reported procedures but includes the following listed in this critical care notation. Medical Decision Making - Medical Records Medical records reviewed: Yes: I reviewed the patient's medical records. - Kamari Inquiry Pt receiving controlled substance: No Vital Signs: 11/30/20 08:46 Temperature 99.8 F H Temperature Source Oral Pulse Rate [Left] 122 H Respiratory Rate 26 H Blood Pressure [Right Arm] 156/118 H Blood Pressure Mean [Right Arm] 130 Blood Pressure Source [Right Arm] Automatic Cuff 02 Sat by Pulse Oximetry 98 Oxygen Delivery Method Room Air - Lab Data Lab results reviewed: Yes: I reviewed the patient's lab results. Lab Results 11/30/20 08:59: WBC 5.1, RBC 4.36 L, Hgb 14.9, Hct 44.7, MCV 102.4 H, MCH 34.1 H, MCHC 33.3, RDW 13.3, Plt Count 254, MPV 9.4, Neut % (Auto) 80.4 H, Lymph % (Auto) 11.5, [place] % (Auto) 7.5, Eos % (Auto) 0.2, Baso % (Auto) 0.4, Neut # (Auto) 4.1, Lymph # (Auto) 0.6 L, [place] # (Auto) 0.4, Eos # (Auto) 0.0, Baso # (Auto) 0.0 11/30/20 08:59: Sodium 135 L, Potassium 4.2, Chloride 92 L, Carbon Dioxide 22, Anion Gap 25.2 H, BUN 16, Creatinine 1.30 H, Estimated Creat Clear 72, Estimated GFR 58 L, Est GFR ( Amer) 70, Glucose 137 H, Calcium 9.8, Total Bilirubin 1.0, AST 114 H, ALT 95 H, Alkaline Phosphatase 84, Total Protein 8.4 H, Albumin 4.8, Globulin 3.6 H, Albumin/Globulin Ratio 1.3 11/30/20 08:59: Plasma/Serum Alcohol < 10 Result diagrams: 11/30/20 08:59 11/30/20 08:59 Orders (Tests/Meds): ED MEDICATIONS Discontinued Medications Generic Name Dose Route Start Last Admin Trade Name Salima PRN Reason Stop Dose Admin Clonidine HCl 0.1 mg 11/30/20 10:51 Clonidine 0.1mg Tablet PO 11/30/20 10:52 ONCE ONE Lactated Ringer's 1,000 mls @ 999 mls/hr 11/30/20 09:30 11/30/20 09:30 Lactated Ringer's 1000 Ml Bag IV 11/30/20 10:30 999 mls/hr .Q1H1M SHAUN Administration Ondansetron HCl 4 mg 11/30/20 09:32 11/30/20 09:33 Ondansetron 4mg/2ml Vial IV 11/30/20 09:33 4 mg ONCE ONE Administration ORDERS Category Date Time Status Drug Screen,Urine Stat Lab 11/30/20 08:55 Ordered - Radiology Data #1 Image(s): Chest Image Reviewed: Yes I reviewed the patient's radiology results Preliminary Findings: Normal/NAD - ECG Data Tracing #1 I reviewed this ECG and interpreted as documented below: Sinus tachycardia, no ST elevation or depression, nonspecific ST and T wave changes with T wave inversions in V4, V5, V6. Normal intervals. No ectopy. ECG initial impression date: 11/30/20 ECG initial impression time: 08:51 Medical Decision Narrative: 55yo M eval with complaint of cough and posttussive emesis. Patient no acute distress on initial evaluation. His physical exam is completely unremarkable. Chest x-ray shows no focal findings. Lab work is benign except for mild dehydration and slightly elevated liver enzymes consistent with his history of significant alcohol abuse. Patient was rehydrated with 1 L of IV fluids. He has had no episodes of coughing or emesis during his observation in the emergency department. Patient's blood pressure was elevated and treated with clonidine p.o. Patient is appropriate and stable for discharge home at this time. Encouraged t
--- NOTE | 2020-11-30 08:55 | XR_ITS ---
PROCEDURE: XR CHEST PORTABLE CLINICAL HISTORY: SOB COMPARISON: CR XR CHEST 2V from 05/29/2020 CR XR CHEST AP from 06/13/2020 CR XR CHEST 2V from 11/21/2020 FINDINGS: The cardiomediastinal silhouette and pulmonary vascularity are within normal limits. The lungs are clear without infiltrates, suspicious nodules, or pleural effusions. There is a small nodular opacity overlying the right upper lobe at the 2nd rib anteriorly not significantly changed measuring approximately 5 mm. No acute bony anomalies IMPRESSION: No change with no acute finding. Stable right upper lobe nodular opacity. Continued follow-up may confirm long-term stability Dictated by: Gerardo Hastings MD 11/30/2020 09:34 Gerardo Hastings MD in [place] 11/30/2020 09:34
[2020-11-30 09:11] LABS: Basophils % 0.4 % (0.1-2.0); Eosinophils % 0.2 % (0.1-12.0); Hematocrit 44.7 % (42.0-52.0); Hemoglobin 14.9 g/dL (14.1-18.0); Lymphocytes # 0.6 K/mm3 (0.7-4.5); Lymphocytes % 11.5 % (10-50); Mean Corpuscular HGB Conc 33.3 g/dL (31.8-35.4); Mean Corpuscular Hemoglobin 34.1 pg (27.0-31.2); Mean Corpuscular Volume 102.4 fl (80-94); Mean Platelet Volume 9.4 fl (7.4-10.4); Monocytes # 0.4 K/mm3 (0.1-1.0); Monocytes % 7.5 % (1.7-9.3); Neutrophils # 4.1 K/mm3 (1.8-7.8); Neutrophils % 80.4 % (37.0-80.0); Platelet Count 254 K/mm3 (142-424); Red Blood Count 4.36 M/mm3 (4.60-6.20); Red Cell Distribution Width 13.3 % (11.5-17.5); White Blood Count 5.1 K/mm3 (4.8-10.8)
[2020-11-30 09:18] LABS: Chloride 92 mmol/L (98-107); Potassium 4.2 mmoL/L (3.5-5.1); Sodium 135 mmol/L (136-145)
[2020-11-30 09:20] LABS: Alanine Aminotransferase 95 U/L (12-78); Aspartate Amino Transferase 114 U/L (17-59); Blood Urea Nitrogen 16 mg/dl (9-20); Creatinine Clearance Estimated 72 mL/min (50-200); Estimated Glomerular Filt Rate 58 ml/min (>60); GFR (African American) 70 ML/MIN (>60)
[2020-11-30 09:21] LABS: Albumin Level 4.8 g/dl (3.5-5.0); Albumin/Globulin Ratio 1.3 (1.1-1.8); Alkaline Phosphatase 84 U/L (38-126); Anion Gap 25.2 mEq/L (5-15); Calcium 9.8 mg/dl (8.4-10.2); Carbon Dioxide 22 mmol/L (22.0-30.0); Ethyl Alcohol < 10 mg/dl (0-10); Globulin 3.6 g/dL (1.3-3.2); Glucose 137 mg/dl (74-100); Total Protein,Serum 8.4 g/dl (6.3-8.2)
[2020-11-30 11:17] VITALS: BP 146/110; PULSE 82; RESP 18; TEMP 36.7; O2SAT 97
== END 2020-11-30 11:18 | disposition home or self-care (01) ==
PROVIDERS: Emergency Provider Family Medicine; PCP Family Medicine
DX: R06.02 Shortness of breath (principal); R05 Cough; F10.10 Alcohol abuse, uncomplicated; F41.9 Anxiety disorder, unspecified; I10 Essential (primary) hypertension
CPT/HCPCS: 71045; 80053; 85025; 93005; 96365; 96375; 99283; J2405

== ENCOUNTER 2020-12-09 06:21 | Emergency (ER) | payer BC, SELFPAY ==
[2020-12-09 06:22] VITALS: BP 148/116; PULSE 128; RESP 22; TEMP 36.9; O2SAT 97; BMI 22.4
--- NOTE | 2020-12-09 06:28 | ECG_ITS ---
APPROVED REPORT Exam: Resting ECG HR:114 bpm ECG Measurements Heart Rate 114 AXES LA 136 P 56 QRSd 78 QRS 72 QT 454 T 70 QTc 625 Conclusion Sinus tachycardia Nonspecific ST and T wave abnormality Abnormal ECG Electronically signed by : Jimmy Greene MD 12/11/2020 20:43:28
[2020-12-09 06:30] VITALS: BP 149/111; PULSE 109; RESP 20; O2SAT 97
--- NOTE | 2020-12-09 06:32 | XR_ITS ---
PROCEDURE INFORMATION: Exam: XR Chest Exam date and time: 12/09/2020 6:32 AM Age: 55 years old Clinical indication: Shortness of breath; Additional info: SOA TECHNIQUE: Imaging protocol: XR of the chest. Views: 2 views. COMPARISON: CR XR CHEST PORTABLE 11/30/2020 9:06 AM FINDINGS: Lungs: Unremarkable. No consolidation. Pleural spaces: Unremarkable. No pleural effusion. No pneumothorax. Heart/Mediastinum: Unremarkable. No cardiomegaly. Bones/joints: Unremarkable. IMPRESSION: No acute findings.
--- NOTE | 2020-12-09 06:32 | CT_ITS ---
PROCEDURE INFORMATION: Exam: CT Abdomen And Pelvis With Contrast Exam date and time: 12/09/2020 6:32 AM Age: 55 years old Clinical indication: Patient HX: Nausea and vomiting for 3 weeks. ; Additional info: Vomitting TECHNIQUE: Imaging protocol: Computed tomography of the abdomen and pelvis with contrast. Radiation optimization: All CT scans at this facility use at least one of these dose optimization techniques: automated exposure control; mA and/or kV adjustment per patient size (includes targeted exams where dose is matched to clinical indication); or iterative reconstruction. Contrast material: ISOVUE; Contrast volume: 75 ml; Contrast route: IV; COMPARISON: CT ABDOMEN PELVIS WO CON 06/13/2020 12:34 AM FINDINGS: Liver: Normal. No mass. Gallbladder and bile ducts: Normal. No calcified stones. No ductal dilation. Pancreas: Normal. No ductal dilation. Spleen: Normal. No splenomegaly. Adrenal glands: Normal. No mass. Kidneys and ureters: Normal. No hydronephrosis. Stomach and bowel: Intermittent bowel wall thickening in the right colon and transverse colon and descending colon may represent colitis in the appropriate clinical setting. Differential includes decompressed bowel.. Appendix: Normal appendix Intraperitoneal space: Unremarkable. No free air. No significant fluid collection. Vasculature: Unremarkable. No abdominal aortic aneurysm. Lymph nodes: Unremarkable. No enlarged lymph nodes. Urinary bladder: Unremarkable as visualized. Reproductive: Unremarkable as visualized. Bones/joints: Unremarkable. No acute fracture. Soft tissues: Unremarkable. IMPRESSION: Intermittent bowel wall thickening in the right colon and transverse colon and descending colon may represent colitis in the appropriate clinical setting. Differential includes decompressed bowel..
[2020-12-09 06:50] LABS: Basophils % 0.8 % (0.1-2.0); Eosinophils % 0.4 % (0.1-12.0); Hematocrit 43.7 % (42.0-52.0); Hemoglobin 14.4 g/dL (14.1-18.0); Lymphocytes # 1.1 K/mm3 (0.7-4.5); Lymphocytes % 20.3 % (10-50); Mean Corpuscular HGB Conc 32.9 g/dL (31.8-35.4); Mean Corpuscular Hemoglobin 34.4 pg (27.0-31.2); Mean Corpuscular Volume 104.6 fl (80-94); Mean Platelet Volume 8.8 fl (7.4-10.4); Monocytes # 0.4 K/mm3 (0.1-1.0); Monocytes % 7.8 % (1.7-9.3); Neutrophils # 3.9 K/mm3 (1.8-7.8); Neutrophils % 70.8 % (37.0-80.0); Platelet Count 224 K/mm3 (142-424); Red Blood Count 4.18 M/mm3 (4.60-6.20); Red Cell Distribution Width 13.2 % (11.5-17.5); White Blood Count 5.6 K/mm3 (4.8-10.8)
[2020-12-09 06:53] LABS: Alanine Aminotransferase 95 U/L (12-78); Albumin Level 4.7 g/dl (3.5-5.0); Albumin/Globulin Ratio 1.3 (1.1-1.8); Alkaline Phosphatase 86 U/L (38-126); Amylase 193 U/L (30-110); Anion Gap 24.8 mEq/L (5-15); Aspartate Amino Transferase 117 U/L (17-59); Bilirubin,Total 1.5 mg/dl (0.2-1.3); Blood Urea Nitrogen 14 mg/dl (9-20); Calcium 9.4 mg/dl (8.4-10.2); Carbon Dioxide 21 mmol/L (22.0-30.0); Chloride 92 mmol/L (98-107); Creatinine Clearance Estimated 78 mL/min (50-200); Estimated Glomerular Filt Rate 63 ml/min (>60); GFR (African American) 77 ML/MIN (>60); Globulin 3.5 g/dL (1.3-3.2); Glucose 124 mg/dl (74-100); Lipase 307 U/L (23-300); Potassium 3.8 mmoL/L (3.5-5.1); Sodium 134 mmol/L (136-145); Total Protein,Serum 8.2 g/dl (6.3-8.2)
[2020-12-09 06:59] LABS: C-Reactive Protein 1.3 mg/L (0-4)
[2020-12-09 07:00] VITALS: BP 120/87; PULSE 97; RESP 18; O2SAT 96
[2020-12-09 07:09] LABS: Ethyl Alcohol < 10 mg/dl (0-10); Troponin I < 0.01 ng/ml (0.00-0.034)
[2020-12-09 07:12] LABS: Procalcitonin 0.215 ng/mL (0.0-2.0)
[2020-12-09 07:14] LABS: Erythrocyte Sedimentation Rate 20 mm/hr (0-20)
--- NOTE | 2020-12-09 07:33 | PC.NURSE ---
PT UNABLE TO PROVIDE URINE SAMPLE AT THIS TIME, IVFS INFUSING, URINAL AT BEDSIDE. NAD NOTED.
--- NOTE | 2020-12-09 07:57 | HMH.EDGENADL ---
ED Disposition Clinical Impression: Cough, Alcoholism, Alcohol abuse Disposition: Home, Self-Care Condition on Discharge: Good Instructions: DI for Cough -- Adult Additional Instructions: Refills for blood pressure medication were written and transmitted to your pharmacy. A new prescription for Zofran was written and transmitted to your pharmacy. Follow-up with your primary care doctor, call Friday to make appointment. Go to [facility] today. Prescriptions: Amlodipine Besylate 2.5 mg PO DAILY #30 tab Transmission Status: Pending to [facility] # Bisoprolol/Hydrochlorothiazide [Bisoprolol-Hctz 10-6.25 mg Tab] 1 each PO DAILY #30 tab Transmission Status: Pending to [facility] # Ondansetron [Zofran 4mg ODT] 4 mg PO TIDP PRN #10 tab PRN Reason: Nausea And Vomiting Transmission Status: Pending to [facility] # Referrals: Jamie Rice [Primary Care Provider] - - Critical Care Critical Care Time: No Attestation: On 12/09/20, the high probability of a clinically significant, sudden or life threatening deterioration of the following system(s) required my full and direct attention, intervention and personal management. The time I documented below is in addition to time spent performing reported procedures but includes the following listed in this critical care notation. Medical Decision Making - Kamari Inquiry Pt receiving controlled substance: No Vital Signs: 12/09/20 06:22 12/09/20 06:30 12/09/20 07:00 Temperature 98.4 F Temperature Source Oral Pulse Rate 109 H 97 H Pulse Rate [Right] 128 H Respiratory Rate 22 20 18 Blood Pressure 149/111 H 120/87 Blood Pressure [Right Arm] 148/116 H Blood Pressure Mean 128 96 Blood Pressure Mean [Right Arm] 126 02 Sat by Pulse Oximetry 97 97 96 - Lab Data Lab Results 12/09/20 06:30: WBC 5.6, RBC 4.18 L, Hgb 14.4, Hct 43.7, MCV 104.6 H, MCH 34.4 H, MCHC 32.9, RDW 13.2, Plt Count 224, MPV 8.8, Neut % (Auto) 70.8, Lymph % (Auto) 20.3, [place] % (Auto) 7.8, Eos % (Auto) 0.4, Baso % (Auto) 0.8, Neut # (Auto) 3.9, Lymph # (Auto) 1.1, [place] # (Auto) 0.4, Eos # (Auto) 0.0, Baso # (Auto) 0.0, ESR 20 12/09/20 06:30: Sodium 134 L, Potassium 3.8, Chloride 92 L, Carbon Dioxide 21 L, Anion Gap 24.8 H, BUN 14, Creatinine 1.20, Estimated Creat Clear 78, Estimated GFR 63, Est GFR ( Amer) 77, Glucose 124 H, Calcium 9.4, Total Bilirubin 1.5 H, AST 117 H, ALT 95 H, Alkaline Phosphatase 86, Troponin I < 0.01, C-Reactive Protein 1.3, Total Protein 8.2, Albumin 4.7, Globulin 3.5 H, Albumin/Globulin Ratio 1.3, Amylase 193 H, Lipase 307 H, Procalcitonin 0.215 12/09/20 06:30: Plasma/Serum Alcohol < 10 12/09/20 07:02: Urine Color Yellow, Urine Appearance Clear, Urine pH 6.0, Ur Specific [place] 1.020, Urine Protein Trace, Urine Glucose (UA) Negative, Urine Ketones 3+, Urine Blood Negative, Urine Nitrate Negative, Urine Bilirubin 1+ A, Urine Urobilinogen 1.0, Ur Leukocyte Esterase Negative, Urine RBC 3-5, Urine WBC None, Ur Squamous Epith Cells Occasional, Urine Bacteria None 12/09/20 08:20: SARS-CoV-2 (PCR) Not detected, Influenza A Untype (PCR) Not detected, Influenza Type B (PCR) Not detected Result diagrams: 12/09/20 06:30 12/09/20 06:30 Orders (Tests/Meds): ED MEDICATIONS Generic Name Dose Route Start Last Admin Trade Name Freq PRN Reason Stop Dose Admin Sodium Chloride 8 ml 12/09/20 06:33 Sodium Chloride 0.9% 10ml Vial IV 01/08/21 06:32 NEEDED PRN dilute pepcid Discontinued Medications Generic Name Dose Route Start Last Admin Trade Name Freq PRN Reason Stop Dose Admin Famotidine 20 mg 12/09/20 06:33 12/09/20 06:45 Famotidine 20mg/2ml Vial IV 12/09/20 06:34 20 mg ONCE ONE Administration Sodium Chloride 1,000 mls @ 999 mls/hr 12/09/20 06:45 12/09/20 06:39 Sod Chlor 0.9% 1000ml Bag IV 12/09/20 07:45 999 mls/hr .Q1H1M SHAUN Administration Iopamidol 75 ml 12/09/20 07:2
[2020-12-09 08:16] LABS: Microscopic, Urine URINE MICROSCOPIC (MICROSCOPIC)
[2020-12-09 08:18] LABS: Appearance,Urine CLEAR (Clear); Blood, Urine Negative (Negative); Color,Urine YELLOW (Yellow); Glucose,Urine (UA) Negative (Negative); Ketones,Urine 3+ (Negative); Leukocyte Esterase,Urine Negative (Negative); Nitrate,Urine Negative (Negative); Protein,Urine TRACE (Negative)
[2020-12-09 08:30] LABS: Bilirubin,Urine 1+ (Negative)
[2020-12-09 08:31] LABS: Squamous Epithelial Cell,Urine Occasional #/hpf (0-5)
[2020-12-09 08:40] LABS: Coronavirus 19, PCR Not Detected (NotDetected)
[2020-12-09 09:09] LABS: Influenza A, PCR Not Detected (NotDetected); Influenza B, PCR Not Detected (NotDetected)
[2020-12-09 09:23] LABS: Amphetamine/Metha Screen,Urine Negative ng/ml (<1000); Barbiturates Screen,Urine Negative ng/ml (<200)
[2020-12-09 09:24] VITALS: BP 149/94; PULSE 92; RESP 20; TEMP 36.6; O2SAT 98
[2020-12-09 09:24] LABS: Benzodiazepines Screen,Urine Negative ng/ml (<200)
[2020-12-09 09:25] LABS: Cannabinoid Screen,Urine Negative ng/ml (<50); Cocaine Screen,Urine Negative ng/ml (<300)
[2020-12-09 09:26] LABS: Methadone Screen,Urine Negative ng/ml (<300)
[2020-12-09 09:27] LABS: Opiate Screen,Urine Negative ng/ml (<300)
[2020-12-09 09:28] LABS: Phencyclidine Screen,Urine Negative ng/ml (<25)
== END 2020-12-09 09:26 | disposition home or self-care (01) ==
PROVIDERS: Emergency Medicine; Emergency Provider Emergency Medicine; PCP Family Medicine
DX: F10.10 Alcohol abuse, uncomplicated (principal); F10.20 Alcohol dependence, uncomplicated; I10 Essential (primary) hypertension; F41.9 Anxiety disorder, unspecified; Z11.52 Encounter for screening for COVID-19
CPT/HCPCS: 71046; 74177; 80053; 80305; 81001; 82150; 83690; 84145; 84484; 85025; 85651; 86140; 93005; 96365; 96375; 99284; J2405; Q9967; U0003

== ENCOUNTER 2021-01-02 07:12 | Observation (INO) | payer BC, SELFPAY ==
[2021-01-02] VITALS (19 sets, daily range): BP systolic 142–178; BP diastolic 70–123; PULSE 70–128; RESP 13–25; TEMP 36.6–37; O2SAT 93–99; BMI 22.1; BMI 23.5
[2021-01-02 07:34] LABS: Basophils % 0.5 % (0.1-2.0); Hemoglobin 13.9 g/dL (14.1-18.0); Lymphocytes # 0.7 K/mm3 (0.7-4.5); Lymphocytes % 7.6 % (10-50); Mean Corpuscular HGB Conc 32.3 g/dL (31.8-35.4); Mean Corpuscular Volume 105.4 fl (80-94); Mean Platelet Volume 9.1 fl (7.4-10.4); Monocytes # 0.3 K/mm3 (0.1-1.0); Monocytes % 3.1 % (1.7-9.3); Neutrophils # 7.6 K/mm3 (1.8-7.8); Neutrophils % 88.9 % (37.0-80.0); Platelet Count 216 K/mm3 (142-424); Red Blood Count 4.08 M/mm3 (4.60-6.20); Red Cell Distribution Width 13.1 % (11.5-17.5); White Blood Count 8.6 K/mm3 (4.8-10.8)
--- NOTE | 2021-01-02 07:34 | ECG_ITS ---
APPROVED REPORT Exam: Resting ECG HR:106 bpm ECG Measurements Heart Rate 106 AXES AK 120 P 47 QRSd 84 QRS 63 QT 420 T 54 QTc 557 Conclusion Sinus tachycardia Otherwise normal ECG Electronically signed by : Jimmy Greene MD 01/03/2021 21:08:41
[2021-01-02 07:35] LABS: MANUAL DIFFERENTIAL MANUAL DIFFERENTIAL (MANUAL DIFF)
--- NOTE | 2021-01-02 07:36 | XR_ITS ---
PROCEDURE: XR CHEST 2V CLINICAL HISTORY: COUGH Cough with dizziness COMPARISON: CR XR CHEST 2V from 05/29/2020 CR XR CHEST 2V from 11/21/2020 CR XR CHEST PORTABLE from 11/30/[address] ABDOMEN PELVIS W CON from 12/09/2020 CR XR CHEST 2V from 12/09/2020 FINDINGS: The cardiomediastinal silhouette and pulmonary vascularity are within normal limits. The lungs are clear without infiltrates, suspicious nodules, or pleural effusions. There is an old left 6th rib fracture. Mild chronic wedge compression changes are present at T7 and T6. IMPRESSION: No change with no acute finding. Dictated by: Gerardo Hastings MD 01/02/2021 08:21 Gerardo Hastings MD in [facility] 01/02/2021 08:21
[2021-01-02 07:43] LABS: Alanine Aminotransferase 89 U/L (12-78); Albumin Level 4.7 g/dl (3.5-5.0); Albumin/Globulin Ratio 1.3 (1.1-1.8); Alkaline Phosphatase 86 U/L (38-126); Amylase 241 U/L (30-110); Bilirubin,Total 1.4 mg/dl (0.2-1.3); Blood Urea Nitrogen 15 mg/dl (9-20); Calcium 9.4 mg/dl (8.4-10.2); Carbon Dioxide 19 mmol/L (22.0-30.0); Chloride 96 mmol/L (98-107); Creatinine Clearance Estimated 61 mL/min (50-200); Estimated Glomerular Filt Rate 49 ml/min (>60); GFR (African American) 59 ML/MIN (>60); Globulin 3.5 g/dL (1.3-3.2); Glucose 175 mg/dl (74-100); Lipase 419 U/L (23-300); Sodium 138 mmol/L (136-145); Total Protein,Serum 8.2 g/dl (6.3-8.2)
[2021-01-02 07:44] LABS: Ethyl Alcohol < 10 mg/dl (0-10)
[2021-01-02 07:46] LABS: Coronavirus 19, PCR Not Detected (NotDetected); Influenza A, PCR Not Detected (NotDetected); Influenza B, PCR Not Detected (NotDetected)
[2021-01-02 07:49] LABS: Aspartate Amino Transferase 122 U/L (17-59)
--- NOTE | 2021-01-02 08:00 | PC.NURSE ---
pt very tremulous.
[2021-01-02 08:12] LABS: Lymphocytes % 10 % (10-50); Macrocytosis 2+; Monocytes % 5 % (2-9); Neutrophils % 85 % (42-76); Platelet Estimate Normal; Total Cells Counted 100
--- NOTE | 2021-01-02 08:12 | HMH.EDGENADL ---
ED Disposition Clinical Impression: Alcohol withdrawal Qualifiers: Complication of substance-induced condition: with unspecified complication Qualified Code(s): F10.239 - Alcohol dependence with withdrawal, unspecified Nausea and vomiting Qualifiers: Vomiting type: unspecified Vomiting Intractability: non-intractable Qualified Code(s): R11.2 - Nausea with vomiting, unspecified Disposition: Admitted as Observation Condition on Discharge: Fair Referrals: Provider,Referral, MD [Primary Care Provider] - Time of Disposition: 09:32 - Critical Care Critical Care Time: No Attestation: On 01/02/21, the high probability of a clinically significant, sudden or life threatening deterioration of the following system(s) required my full and direct attention, intervention and personal management. The time I documented below is in addition to time spent performing reported procedures but includes the following listed in this critical care notation. Medical Decision Making - Medical Records Medical records reviewed: Yes: I reviewed the patient's medical records. - Kamari Inquiry Pt receiving controlled substance: No Vital Signs: 01/02/21 07:00 01/02/21 09:00 01/02/21 09:30 Temperature 98.3 F Temperature Source Oral Pulse Rate 104 H 108 H Pulse Rate [Radial] 128 H Respiratory Rate 24 25 H Blood Pressure 155/112 H 160/103 H Blood Pressure [Right Arm] 153/108 H Blood Pressure Mean 119 122 Blood Pressure Mean [Right Arm] 123 Blood Pressure Position [Right Arm] Sitting 02 Sat by Pulse Oximetry 98 94 L 96 Oxygen Delivery Method Room Air 01/02/21 10:00 Temperature Temperature Source Pulse Rate 74 Pulse Rate [Radial] Respiratory Rate 19 Blood Pressure 155/104 H Blood Pressure [Right Arm] Blood Pressure Mean 115 Blood Pressure Mean [Right Arm] Blood Pressure Position [Right Arm] 02 Sat by Pulse Oximetry 96 Oxygen Delivery Method - Lab Data Lab Results 01/02/21 07:19: WBC 8.6, RBC 4.08 L, Hgb 13.9 L, Hct 43.0, MCV 105.4 H, MCH 34.0 H, MCHC 32.3, RDW 13.1, Plt Count 216, MPV 9.1, Neut % (Auto) 88.9 H, Lymph % (Auto) 7.6 L, [place] % (Auto) 3.1, Eos % (Auto) 0.0 L, Baso % (Auto) 0.5, Neut # (Auto) 7.6, Lymph # (Auto) 0.7, [place] # (Auto) 0.3, Eos # (Auto) 0.0, Baso # (Auto) 0.0, Total Counted 100, Neutrophils % (Manual) 85 H, Lymphocytes % (Manual) 10, Monocytes % (Manual) 5, Platelet Estimate Normal, Macrocytosis 2+ 01/02/21 07:19: Sodium 138, Potassium 4.0, Chloride 96 L, Carbon Dioxide 19 L, Anion Gap 27.0 H, BUN 15, Creatinine 1.50 H, Estimated Creat Clear 61, Estimated GFR 49 L, Est GFR ( Amer) 59, Glucose 175 H, Calcium 9.4, Total Bilirubin 1.4 H, AST 122 H, ALT 89 H, Alkaline Phosphatase 86, Total Protein 8.2, Albumin 4.7, Globulin 3.5 H, Albumin/Globulin Ratio 1.3, Amylase 241 H, Lipase 419 H 01/02/21 07:19: Plasma/Serum Alcohol < 10 01/02/21 07:19: Troponin I < 0.01 01/02/21 07:40: SARS-CoV-2 (PCR) Not detected, Influenza A Untype (PCR) Not detected, Influenza Type B (PCR) Not detected Result diagrams: 01/02/21 07:19 01/02/21 07:19 Orders (Tests/Meds): ED MEDICATIONS Generic Name Dose Route Start Last Admin Trade Name Freq PRN Reason Stop Dose Admin Sodium Chloride 10 ml 01/02/21 08:16 Sodium Chloride 0.9% 10ml Vial IV 02/01/21 08:15 NEEDED PRN to Dilute Lorazepam inj Sodium Chloride 10 ml 01/02/21 09:28 Sodium Chloride 0.9% 10ml Vial IV 02/01/21 09:27 NEEDED PRN to Dilute Lorazepam inj Discontinued Medications Generic Name Dose Route Start Last Admin Trade Name Freq PRN Reason Stop Dose Admin Sodium Chloride 1,000 mls @ 999 mls/hr 01/02/21 07:30 01/02/21 07:17 Sod Chlor 0.9% 1000ml Bag IV 01/02/21 08:30 999 mls/hr .Q1H1M SHAUN Administration Lorazepam 0.5 mg 01/02/21 08:16 01/02/21 08:33 Lorazepam 2mg/Ml Vial IV 01/02/21 08:17 0.5 mg ONCE ONE Administration Lorazepam 1 mg 01/02/21 09:28 01/02/21 09:35
[2021-01-02 08:14] LABS: Troponin I < 0.01 ng/ml (0.00-0.034)
--- NOTE | 2021-01-02 09:00 | PC.NURSE ---
pt states some relief of nausea with meds given
--- NOTE | 2021-01-02 11:00 | PC.NURSE ---
pt refused lunch tray. updated pt on plan of care.
[2021-01-02 11:32] LABS: Troponin I < 0.01 ng/ml (0.00-0.034)
--- NOTE | 2021-01-02 11:43 | PC.NURSE ---
per house moving supervisor pt will board in ER until a room is available
--- NOTE | 2021-01-02 12:29 | HMH.PHAINT ---
MEDICATION RECONCILIATION COMPLETE USING [employer] INFO AND PREVIOUS DISCHARGE PAPERWORK FROM EARLIER THIS MONTH
--- NOTE | 2021-01-02 13:30 | PC.NURSE ---
reviewed vital signs with md. no new orders noted
--- NOTE | 2021-01-02 14:30 | PC.NURSE ---
pt taking fluids without difficulty
--- NOTE | 2021-01-02 15:16 | PC.NURSE ---
report called to rima leavitt at this time, states she will send staff down to transport pt
[2021-01-02 15:42] LABS: Amphetamine/Metha Screen,Urine Negative ng/ml (<1000)
[2021-01-02 15:43] LABS: Barbiturates Screen,Urine Negative ng/ml (<200); Benzodiazepines Screen,Urine Negative ng/ml (<200)
[2021-01-02 15:44] LABS: Cannabinoid Screen,Urine Negative ng/ml (<50); Cocaine Screen,Urine Negative ng/ml (<300)
[2021-01-02 15:45] LABS: Methadone Screen,Urine Negative ng/ml (<300)
[2021-01-02 15:46] LABS: Opiate Screen,Urine Negative ng/ml (<300); Phencyclidine Screen,Urine Negative ng/ml (<25)
--- NOTE | 2021-01-02 18:19 | PC.NURSE ---
Patient admitted this shift with vomiting and ETOH dependence, reports drinking a pint to a fifth of vodka daily, last drink two days ago, has been trying to get in [facility], has had no vomiting since arrival to floor, denies any nausea at this time, patient is alert and oriented x4, denies any pain at this time, given lorazepam x1 this afternoon for ETOH withdrawal, last CIWA 9, no s/s of distress noted, will continue to monitor.
--- NOTE | 2021-01-02 19:40 | CT_ITS ---
PROCEDURE INFORMATION: Exam: CT Abdomen Without And With Contrast Exam date and time: 01/02/21 07:40 PM Age: 55 years old Clinical indication: Vomiting; Additional info: Pancreatitis TECHNIQUE: Imaging protocol: Computed tomography images of the abdomen without and with intravenous contrast. Radiation optimization: All CT scans at this facility use at least one of these dose optimization techniques: automated exposure control; mA and/or kV adjustment per patient size (includes targeted exams where dose is matched to clinical indication); or iterative reconstruction. Contrast material: ISOVUE; Contrast volume: 75 ml; Contrast route: IV; COMPARISON: CT ABDOMEN PELVIS W CON 12/09/20 07:13 AM FINDINGS: Tubes, catheters and devices: None noted. Lungs: Lung bases appear clear. Pleural space: No pleural effusion is noted. Heart: No significant coronary calcifications. No significant cardiomegaly. No large pericardial effusion. Liver: Fatty liver. No mass. Gallbladder and bile ducts: Normal. No calcified stones. No ductal dilation. Pancreas: Normal. No ductal dilation. Spleen: Normal. No splenomegaly. Adrenals: Normal. No mass. Kidneys and ureters: Normal. No hydronephrosis. Stomach and bowel: Visualized stomach and bowel are unremarkable. No obstruction. No mucosal thickening. Intraperitoneal space: Unremarkable. No free air. No significant fluid collection. Retroperitoneal space: No retroperitoneal inflammatory changes are noted. Lymph nodes: Unremarkable. No enlarged lymph nodes. Vasculature: Unremarkable. No abdominal aortic aneurysm. Bones/joints: Unremarkable. No acute fracture. No dislocation. Soft tissues: Unremarkable. IMPRESSION: 1. No acute findings. 2. No CT evidence of pancreatitis. 3. Fatty liver.
[2021-01-02 19:41] LABS: Chloride 96 mmol/L (98-107); Potassium 3.7 mmoL/L (3.5-5.1); Sodium 135 mmol/L (136-145)
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
[2021-01-02 19:44] LABS: Anion Gap 11.7 mEq/L (5-15); Blood Urea Nitrogen 15 mg/dl (9-20); Calcium 7.9 mg/dl (8.4-10.2); Carbon Dioxide 31 mmol/L (22.0-30.0); Creatinine Clearance Estimated 61 mL/min (50-200); Estimated Glomerular Filt Rate 45 ml/min (>60); GFR (African American) 55 ML/MIN (>60); Glucose 132 mg/dl (74-100)
--- NOTE | 2021-01-03 03:25 | PC.NURSE ---
pt has slept in small intervals throughout shift, pt is alert and oriented and able to make needs known, pt has denied any nausea or headache, CIWA scale has remained at 5, pt was medicated x1 with ativan for worsening tremors see emar, pt denies abdomiinal pain, no change from previous assessment, no distress noted at this time, will continue to monitor
[2021-01-03 04:32] VITALS: BP 137/89; PULSE 98; RESP 17; TEMP 36.9; O2SAT 97
[2021-01-03 06:00] VITALS: BMI 23.6
[2021-01-03 06:52] LABS: Alanine Aminotransferase 42 U/L (12-78); Albumin Level 3.4 g/dl (3.5-5.0); Albumin/Globulin Ratio 1.3 (1.1-1.8); Alkaline Phosphatase 52 U/L (38-126); Anion Gap 9.3 mEq/L (5-15); Aspartate Amino Transferase 67 U/L (17-59); Bilirubin,Total 0.8 mg/dl (0.2-1.3); Blood Urea Nitrogen 14 mg/dl (9-20); Calcium 7.7 mg/dl (8.4-10.2); Carbon Dioxide 30 mmol/L (22.0-30.0); Chloride 99 mmol/L (98-107); Creatinine Clearance Estimated 75 mL/min (50-200); Estimated Glomerular Filt Rate 58 ml/min (>60); GFR (African American) 70 ML/MIN (>60); Globulin 2.6 g/dL (1.3-3.2); Glucose 96 mg/dl (74-100); Lipase 512 U/L (23-300); Potassium 3.3 mmoL/L (3.5-5.1); Sodium 135 mmol/L (136-145)
[2021-01-03 07:34] LABS: Basophils % 0.3 % (0.1-2.0); Eosinophils # 0.1 K/mm3 (0.0-0.4); Hematocrit 33.7 % (42.0-52.0); Lymphocytes # 0.9 K/mm3 (0.7-4.5); Lymphocytes % 18.5 % (10-50); Mean Corpuscular HGB Conc 33.2 g/dL (31.8-35.4); Mean Corpuscular Hemoglobin 34.3 pg (27.0-31.2); Mean Corpuscular Volume 103.2 fl (80-94); Mean Platelet Volume 8.4 fl (7.4-10.4); Monocytes # 0.2 K/mm3 (0.1-1.0); Monocytes % 4.5 % (1.7-9.3); Neutrophils # 3.7 K/mm3 (1.8-7.8); Neutrophils % 75.7 % (37.0-80.0); Platelet Count 95 K/mm3 (142-424); Red Blood Count 3.27 M/mm3 (4.60-6.20); Red Cell Distribution Width 12.6 % (11.5-17.5); White Blood Count 4.9 K/mm3 (4.8-10.8)
[2021-01-03 08:00] VITALS: BP 159/104; PULSE 72; RESP 16; TEMP 36.9; O2SAT 100
[2021-01-03 08:28] LABS: Hemoglobin 11.2 g/dL (14.1-18.0)
--- NOTE | 2021-01-03 09:28 | HMH.PHAVTE ---
[facility] Pharmacy VTE Monitoring - Patient Demographics Admission date: 01/02/21 Report Date: 01/03/21 Time: : Allergies/Adverse Reactions: Patient Allergies No Known Allergies Allergy (Verified 05/30/20 03:30) Height: 1.85 m Weight: 80.739 kg Patient Problems: Current Active Problems Pancreatitis (Acute) Hypertension (Chronic) Anxiety (Chronic) Vomiting (Acute) Dehydration (Acute) Chronic alcohol use (Chronic) TONNY (acute kidney injury) (Acute) Alcohol abuse (Chronic) Alcohol withdrawal (Acute) Nausea and vomiting (Acute) - VTE Risk Labs: VTE Related Lab Results Hgb 11.2 g/dL (14.1-18.0) L D 01/03/21 05:31 Hct 33.7 % (42.0-52.0) L 01/03/21 05:31 Plt Count 95 K/mm3 (142-424) L D 01/03/21 05:31 BUN 14 mg/dl (9-20) 01/03/21 05:31 Creatinine 1.30 mg/dl (0.66-1.25) H 01/03/21 05:31 Estimated Creat Clear 75 mL/min (50-200) 01/03/21 05:31 VTE Risk Level: Low Risk Clinical Trial Participant: No - Prophylaxis VTE Prophylaxis Ordered?: Yes Types of VTE Prophylaxis: TEDS Knee High
--- NOTE | 2021-01-03 13:02 | HMH.DCSUM ---
General - General Admission date:: 01/02/21 Discharge date: 01/03/21 HPI HPI: Patient is a 55-year-old white male, admitted to our hospital service. He presented to the emergency room earlier this morning, shaky tremulous and with mid epigastric pain. He carries a story of pancreatitis, several episodes, associated with heavy alcohol intake. Patient drinks up to half 1/5 of vodka per setting, usually about a pint, along with several beers. Has been drinking since a teenager. His last drink was 3 days ago. Patient was in [place], ate a whopper with spicy sauce, and immediately began to have mid epigastric pain with nausea. When he arrived at the ER here he was tachycardic and tremulous. His labs revealed elevated pancreatic enzymes. Patient also had a creatinine of 1.5, likely reflecting dehydration. He is being given IV fluids. He has had renal insufficiency with previous episodes of pancreatitis. Patient has been unable to work for the last 9 months due to issues with his pancreas. Is been hospitalized at . Patient is a non-smoker Hospital Course Hospital Course: Laboratory Tests 01/02/21 01/02/21 01/02/21 07:19 07:19 07:19 WBC 8.6 RBC 4.08 L Hgb 13.9 L Hct 43.0 MCV 105.4 H MCH 34.0 H MCHC 32.3 RDW 13.1 Plt Count 216 MPV 9.1 Neut % (Auto) 88.9 H Lymph % (Auto) 7.6 L [place] % (Auto) 3.1 Eos % (Auto) 0.0 L Baso % (Auto) 0.5 Neut # (Auto) 7.6 Lymph # (Auto) 0.7 [place] # (Auto) 0.3 Eos # (Auto) 0.0 Baso # (Auto) 0.0 Total Counted 100 Neutrophils % (Manual) 85 H Lymphocytes % (Manual) 10 Monocytes % (Manual) 5 Platelet Estimate Normal Macrocytosis 2+ Sodium 138 Potassium 4.0 Chloride 96 L Carbon Dioxide 19 L Anion Gap 27.0 H BUN 15 Creatinine 1.50 H Estimated Creat Clear 61 Estimated GFR 49 L Est GFR ( Amer) 59 Glucose 175 H Calcium 9.4 Total Bilirubin 1.4 H AST 122 H ALT 89 H Alkaline Phosphatase 86 Troponin I Total Protein 8.2 Albumin 4.7 Globulin 3.5 H Albumin/Globulin Ratio 1.3 Amylase 241 H Lipase 419 H Urine Opiates Screen Urine Methadone Screen Ur Barbituates Screen Ur Phencyclidine Scrn Ur Amphetamines Screen U Benzodiazepines Scrn Urine Cocaine Screen U Marijuana (THC) Screen Plasma/Serum Alcohol < 10 SARS-CoV-2 (PCR) Influenza A Untype (PCR) Influenza Type B (PCR) 01/02/21 01/02/21 01/02/21 07:19 07:40 11:03 WBC RBC Hgb Hct MCV MCH MCHC RDW Plt Count MPV Neut % (Auto) Lymph % (Auto) [place] % (Auto) Eos % (Auto) Baso % (Auto) Neut # (Auto) Lymph # (Auto) [place] # (Auto) Eos # (Auto) Baso # (Auto) Total Counted Neutrophils % (Manual) Lymphocytes % (Manual) Monocytes % (Manual) Platelet Estimate Macrocytosis Sodium Potassium Chloride Carbon Dioxide Anion Gap BUN Creatinine Estimated Creat Clear Estimated GFR Est GFR ( Amer) Glucose Calcium Total Bilirubin AST ALT Alkaline Phosphatase Troponin I < 0.01 < 0.01 Total Protein Albumin Globulin Albumin/Globulin Ratio Amylase Lipase Urine Opiates Screen Urine Methadone Screen Ur Barbituates Screen Ur Phencyclidine Scrn Ur Amphetamines Screen U Benzodiazepines Scrn Urine Cocaine Screen U Marijuana (THC) Screen Plasma/Serum Alcohol SARS-CoV-2 (PCR) Not detected Influenza A Untype (PCR) Not detected Influenza Type B (PCR) Not detected 01/02/21 01/02/21 01/03/21 15:24 19:30 05:31 WBC 4.9 D RBC 3.27 L Hgb 11.2 L D Hct 33.7 L MCV 103.2 H MCH 34.3 H MCHC 33.2 RDW 12.6 Plt Count 95 L D MPV 8.4 Neut % (Auto) 75.7 Lymph % (Auto) 18.5 [place] % (Auto) 4.5 Eos % (Auto)
--- NOTE | 2021-01-03 13:40 | PC.NURSE ---
late entry... [id number]-report received from PRUDENCIO Moore. Nadeen,PRUDENCIO and Marcin,RN assuming care of pt at this time, choco, pt stable
[2021-01-03 14:17] VITALS: BMI 23.6
== END 2021-01-03 14:23 | disposition home or self-care (01) ==
LOC: ER 09:32 → 2ND 12:05
PROVIDERS: Emergency Medicine; Admitting Provider Family Medicine; Emergency Provider Emergency Medicine; Visit Provider Family Medicine
DX: F10.139 Alcohol abuse with withdrawal, unspecified (principal); I10 Essential (primary) hypertension; E78.5 Hyperlipidemia, unspecified; N17.9 Acute kidney failure, unspecified; E86.0 Dehydration; K85.20 Alcohol induced acute pancreatitis without necrosis or infection; Z20.822 Contact with and (suspected) exposure to COVID-19
CPT/HCPCS: 36415; 71046; 74170; 80048; 80053; 80305; 82150; 83690; 84484; 85007; 85025; 93005; 96365; 96375; 96376; 99284; C9803; G0378; J2405; Q9967; U0003; U0005

== ENCOUNTER → 2021-01-04 14:18 | Outpatient (CLI) | payer BC, SELFPAY ==
[2021-01-04 14:51] LABS: Basophils # 0.1 K/mm3 (0-0.2); Eosinophils # 0.1 K/mm3 (0.0-0.4); Eosinophils % 1.1 % (0.1-12.0); Hematocrit 39.6 % (42.0-52.0); Hemoglobin 12.9 g/dL (14.1-18.0); Lymphocytes # 1.1 K/mm3 (0.7-4.5); Lymphocytes % 19.5 % (10-50); Mean Corpuscular HGB Conc 32.5 g/dL (31.8-35.4); Mean Corpuscular Hemoglobin 33.5 pg (27.0-31.2); Mean Corpuscular Volume 102.9 fl (80-94); Mean Platelet Volume 9.9 fl (7.4-10.4); Monocytes # 0.4 K/mm3 (0.1-1.0); Monocytes % 6.4 % (1.7-9.3); Neutrophils # 4.1 K/mm3 (1.8-7.8); Neutrophils % 72.1 % (37.0-80.0); Platelet Count 113 K/mm3 (142-424); Red Blood Count 3.84 M/mm3 (4.60-6.20); Red Cell Distribution Width 13.1 % (11.5-17.5); White Blood Count 5.6 K/mm3 (4.8-10.8)
[2021-01-04 15:12] LABS: Chloride 98 mmol/L (98-107); Potassium 4.3 mmoL/L (3.5-5.1); Sodium 139 mmol/L (136-145)
[2021-01-04 15:15] LABS: Alanine Aminotransferase 76 U/L (12-78); Albumin Level 4.2 g/dl (3.5-5.0); Albumin/Globulin Ratio 1.6 (1.1-1.8); Alkaline Phosphatase 70 U/L (38-126); Anion Gap 14.3 mEq/L (5-15); Aspartate Amino Transferase 176 U/L (17-59); Bilirubin,Total 0.9 mg/dl (0.2-1.3); Blood Urea Nitrogen 7 mg/dl (9-20); Calcium 8.5 mg/dl (8.4-10.2); Carbon Dioxide 31 mmol/L (22.0-30.0); Estimated Glomerular Filt Rate 63 ml/min (>60); GFR (African American) 77 ML/MIN (>60); Globulin 2.7 g/dL (1.3-3.2); Glucose 109 mg/dl (74-100); Lipase 353 U/L (23-300); Total Protein,Serum 6.9 g/dl (6.3-8.2)
== END ==
PROVIDERS: PCP Nurse Practitioner Family; Visit Provider Nurse Practitioner Family
DX: K85.90 Acute pancreatitis without necrosis or infection, unspecified (principal); R11.2 Nausea with vomiting, unspecified; E86.0 Dehydration; F10.10 Alcohol abuse, uncomplicated
CPT/HCPCS: 36415; 80053; 83690; 85025

== ENCOUNTER → 2021-01-05 12:08 | Outpatient (CLI) | payer BC, SELFPAY ==
[2021-01-05 12:39] LABS: Hemoglobin A1C 5.4 % (4.0-6.0)
== END ==
PROVIDERS: Visit Provider Nurse Practitioner Family
DX: R73.09 Other abnormal glucose (principal)
CPT/HCPCS: 36415; 83036

== ENCOUNTER 2021-01-12 20:45 | Emergency (ER) | payer BC, SELFPAY ==
[2021-01-12 20:45] VITALS: BP 192/100; PULSE 120; RESP 22; TEMP 36.8; O2SAT 98; BMI 23.7
[2021-01-12 21:00] VITALS: BP 170/122; PULSE 129; O2SAT 95
--- NOTE | 2021-01-12 21:21 | HMH.EDNVD ---
ED Disposition Clinical Impression: Alcohol abuse with withdrawal Hypertension Qualifiers: Hypertension type: primary hypertension Qualified Code(s): I10 - Essential (primary) hypertension Disposition: Home, Self-Care Condition on Discharge: Fair Instructions: DI for Nausea -- Adult Additional Instructions: consider rehab at this time Referrals: Provider,Referral, [Primary Care Provider] - - Critical Care Critical Care Time: No Attestation: On 01/12/21, the high probability of a clinically significant, sudden or life threatening deterioration of the following system(s) required my full and direct attention, intervention and personal management. The time I documented below is in addition to time spent performing reported procedures but includes the following listed in this critical care notation. Medical Decision Making - Medical Records Medical records reviewed: Yes: I reviewed the patient's medical records. - Kamari Inquiry Pt receiving controlled substance: No Vital Signs: 01/12/21 20:45 01/12/21 21:00 01/12/21 21:28 Temperature 98.3 F Temperature Source Oral Pulse Rate 129 H 133 H Pulse Rate [Right] 120 H Respiratory Rate 22 26 H Blood Pressure 170/122 H 163/116 H Blood Pressure [Right Arm] 192/100 H Blood Pressure Mean Blood Pressure Mean [Right Arm] 130 Blood Pressure Source [Right Arm] Automatic Cuff Blood Pressure Position [Right Arm] Sitting 02 Sat by Pulse Oximetry 98 95 93 L Oxygen Delivery Method Room Air 01/13/21 00:00 01/13/21 01:00 01/13/21 01:08 Temperature Temperature Source Pulse Rate 94 H 108 H 89 Pulse Rate [Right] Respiratory Rate 16 17 16 Blood Pressure 146/100 H 158/106 H 153/115 H Blood Pressure [Right Arm] Blood Pressure Mean 115 Blood Pressure Mean [Right Arm] Blood Pressure Source [Right Arm] Blood Pressure Position [Right Arm] 02 Sat by Pulse Oximetry 98 98 98 Oxygen Delivery Method 01/13/21 01:15 01/13/21 01:31 Temperature Temperature Source Pulse Rate 97 H 96 H Pulse Rate [Right] Respiratory Rate 17 17 Blood Pressure 168/111 H 167/118 H Blood Pressure [Right Arm] Blood Pressure Mean Blood Pressure Mean [Right Arm] Blood Pressure Source [Right Arm] Blood Pressure Position [Right Arm] 02 Sat by Pulse Oximetry 95 97 Oxygen Delivery Method - Lab Data Lab results reviewed: Yes: I reviewed the patient's lab results. Lab Results 01/12/21 21:07: WBC 9.5, RBC 4.34 L, Hgb 14.7, Hct 45.1, MCV 104.0 H, MCH 33.9 H, MCHC 32.6, RDW 13.5, Plt Count 313, MPV 9.1, Neut % (Auto) 84.4 H, Lymph % (Auto) 9.9 L, [place] % (Auto) 4.9, Eos % (Auto) 0.2, Baso % (Auto) 0.7, Neut # (Auto) 8.0 H, Lymph # (Auto) 0.9, [place] # (Auto) 0.5, Eos # (Auto) 0.0, Baso # (Auto) 0.1 01/12/21 21:07: Sodium 139, Potassium 4.6, Chloride 97 L, Carbon Dioxide 22, Anion Gap 24.6 H, BUN 13, Creatinine 1.20, Estimated Creat Clear 82, Estimated GFR 63, Est GFR ( Amer) 77, Glucose 160 H, Calcium 9.8, Total Bilirubin 1.3, AST 112 H, ALT 86 H, Alkaline Phosphatase 84, Total Protein 8.3 H, Albumin 4.7, Globulin 3.6 H, Albumin/Globulin Ratio 1.3, Amylase 245 H, Lipase 317 H 01/12/21 21:07: Plasma/Serum Alcohol < 10 Result diagrams: 01/12/21 21:07 01/12/21 21:07 Orders (Tests/Meds): ED MEDICATIONS Generic Name Dose Route Start Last Admin Trade Name Freq PRN Reason Stop Dose Admin Multivitamins 10 ml/ Thiamine 1,015 mls @ 150 mls/hr 01/13/21 00:45 01/13/21 01:30 HCl 100 mg/ Magnesium Sulfate IV 01/13/21 07:30 150 mls/hr 2 gm/ Lactated Ringer's .Q6H46M SHAUN Administration Lorazepam 1 mg 01/13/21 02:24 Lorazepam 2mg/Ml Vial IV 01/13/21 02:25 ONCE ONE Sodium Chloride 8 ml 01/12/21 21:37 01/12/21 21:57 Sodium Chloride 0.9% 10ml Vial IV 02/11/21 21:36 8 ml NEEDED PRN Administration dilute pepcid Sodium Chloride 10 ml 01/13/21 02:24 Sodium Chloride 0.9% 10ml Vial IV 02/12/21 02:2
[2021-01-12 21:28] VITALS: BP 163/116; PULSE 133; RESP 26; O2SAT 93
[2021-01-12 21:53] LABS: Basophils # 0.1 K/mm3 (0-0.2); Basophils % 0.7 % (0.1-2.0); Eosinophils % 0.2 % (0.1-12.0); Hematocrit 45.1 % (42.0-52.0); Hemoglobin 14.7 g/dL (14.1-18.0); Lymphocytes # 0.9 K/mm3 (0.7-4.5); Lymphocytes % 9.9 % (10-50); Mean Corpuscular HGB Conc 32.6 g/dL (31.8-35.4); Mean Corpuscular Hemoglobin 33.9 pg (27.0-31.2); Mean Platelet Volume 9.1 fl (7.4-10.4); Monocytes # 0.5 K/mm3 (0.1-1.0); Monocytes % 4.9 % (1.7-9.3); Neutrophils % 84.4 % (37.0-80.0); Platelet Count 313 K/mm3 (142-424); Red Blood Count 4.34 M/mm3 (4.60-6.20); Red Cell Distribution Width 13.5 % (11.5-17.5); White Blood Count 9.5 K/mm3 (4.8-10.8)
--- NOTE | 2021-01-12 21:56 | XR_ITS ---
PROCEDURE INFORMATION: Exam: XR Chest Exam date and time: 01/12/2021 9:56 PM Age: 55 years old Clinical indication: Cough TECHNIQUE: Imaging protocol: XR of the chest. Views: 2 views. COMPARISON: CR XR CHEST 2V 01/02/2021 7:55 AM FINDINGS: Lungs: Unremarkable. No consolidation. Pleural spaces: Unremarkable. No pleural effusion. No pneumothorax. Heart/Mediastinum: Unremarkable. No cardiomegaly. Bones/joints: Unremarkable. IMPRESSION: No acute findings.
[2021-01-12 22:00] LABS: Alanine Aminotransferase 86 U/L (12-78); Albumin Level 4.7 g/dl (3.5-5.0); Albumin/Globulin Ratio 1.3 (1.1-1.8); Alkaline Phosphatase 84 U/L (38-126); Amylase 245 U/L (30-110); Anion Gap 24.6 mEq/L (5-15); Bilirubin,Total 1.3 mg/dl (0.2-1.3); Blood Urea Nitrogen 13 mg/dl (9-20); Calcium 9.8 mg/dl (8.4-10.2); Carbon Dioxide 22 mmol/L (22.0-30.0); Chloride 97 mmol/L (98-107); Creatinine Clearance Estimated 82 mL/min (50-200); Estimated Glomerular Filt Rate 63 ml/min (>60); GFR (African American) 77 ML/MIN (>60); Globulin 3.6 g/dL (1.3-3.2); Glucose 160 mg/dl (74-100); Lipase 317 U/L (23-300); Potassium 4.6 mmoL/L (3.5-5.1); Sodium 139 mmol/L (136-145); Total Protein,Serum 8.3 g/dl (6.3-8.2)
[2021-01-12 22:02] LABS: Ethyl Alcohol < 10 mg/dl (0-10)
[2021-01-12 22:06] LABS: Aspartate Amino Transferase 112 U/L (17-59)
[2021-01-13] VITALS: BP 146/100; PULSE 94; RESP 16; O2SAT 98
--- NOTE | 2021-01-13 00:29 | PC.NURSE ---
speaking with Dr. Oshea
[2021-01-13 01:00] VITALS: BP 158/106; PULSE 108; RESP 17; O2SAT 98
[2021-01-13 01:08] VITALS: BP 153/115; PULSE 89; RESP 16; O2SAT 98
[2021-01-13 01:15] VITALS: BP 168/111; PULSE 97; RESP 17; O2SAT 95
[2021-01-13 01:31] VITALS: BP 167/118; PULSE 96; RESP 17; O2SAT 97
[2021-01-13 02:34] VITALS: BP 168/98; PULSE 87; RESP 16; TEMP 36.8; O2SAT 98
== END 2021-01-13 02:35 | disposition home or self-care (01) ==
PROVIDERS: Emergency Provider Emergency Medicine
DX: F10.139 Alcohol abuse with withdrawal, unspecified (principal); I10 Essential (primary) hypertension; E78.5 Hyperlipidemia, unspecified
CPT/HCPCS: 71046; 80053; 82150; 83690; 85025; 96365; 96367; 96375; 99283; J2405

== ENCOUNTER 2021-02-13 07:47 | Inpatient (IN) | payer BC, SELFPAY ==
[2021-02-13] VITALS (15 sets, daily range): BP systolic 92–176; BP diastolic 72–137; PULSE 68–135; RESP 16–20; TEMP 36.4–36.8; O2SAT 96–100; BMI 22.1; BMI 23.5
--- NOTE | 2021-02-13 07:59 | ECG_ITS ---
APPROVED REPORT Exam: Resting ECG HR:132 bpm ECG Measurements Heart Rate 132 AXES DC 130 P 66 QRSd 82 QRS 69 QT 306 T 0 QTc 453 Conclusion Sinus tachycardia Possible Left atrial enlargement Left ventricular hypertrophy with repolarization abnormality Abnormal ECG Electronically signed by : Jimmy Greene MD 02/16/2021 13:56:51
--- NOTE | 2021-02-13 08:05 | HMH.EDGENADL ---
ED Disposition Clinical Impression: Alcoholism, Chronic cough Acute pancreatitis Qualifiers: Pancreatitis type: alcohol induced Acute pancreatitis complication: no infection or necrosis Qualified Code(s): K85.20 - Alcohol induced acute pancreatitis without necrosis or infection Disposition: Admitted as Observation Condition on Discharge: Fair Referrals: Gordy Oshea MD [Primary Care Provider] - - Critical Care Critical Care Time: No Attestation: On 02/13/21, the high probability of a clinically significant, sudden or life threatening deterioration of the following system(s) required my full and direct attention, intervention and personal management. The time I documented below is in addition to time spent performing reported procedures but includes the following listed in this critical care notation. Medical Decision Making - Kamari Inquiry Pt receiving controlled substance: No (drove himself here) Kamari was queried for this patient: Yes Vital Signs: 02/13/21 07:50 Temperature 98.1 F Temperature Source Oral Pulse Rate [Right Radial] 135 H Respiratory Rate 20 Blood Pressure [Right Arm] 153/96 H Blood Pressure Mean [Right Arm] 115 Blood Pressure Source [Right Arm] Automatic Cuff Blood Pressure Position [Right Arm] Sitting 02 Sat by Pulse Oximetry 98 Oxygen Delivery Method Room Air - Lab Data Lab Results 02/13/21 08:00: WBC 5.6, RBC 4.52 L, Hgb 15.5, Hct 47.3, MCV 104.8 H, MCH 34.2 H, MCHC 32.7, RDW 13.5, Plt Count 202, MPV 8.8, Neut % (Auto) 77.4, Lymph % (Auto) 14.7, [place] % (Auto) 6.3, Eos % (Auto) 0.7, Baso % (Auto) 0.9, Neut # (Auto) 4.3, Lymph # (Auto) 0.8, [place] # (Auto) 0.4, Eos # (Auto) 0.0, Baso # (Auto) 0.1 02/13/21 08:00: Sodium 133 L, Potassium 3.9, Chloride 91 L, Carbon Dioxide 30, Anion Gap 15.9 H, BUN 11, Creatinine 1.20, Estimated Creat Clear 77, Estimated GFR 63, Est GFR ( Amer) 77, Glucose 111 H, Calcium 10.1, Total Bilirubin 1.0, AST 135 H, ALT 73, Alkaline Phosphatase 76, Total Protein 7.9, Albumin 4.6, Globulin 3.3 H, Albumin/Globulin Ratio 1.4, Amylase 308 H*, Lipase 1375 H 02/13/21 08:00: Plasma/Serum Alcohol < 10 Result diagrams: 02/13/21 08:00 02/13/21 08:00 Orders (Tests/Meds): ED MEDICATIONS Generic Name Dose Route Start Last Admin Trade Name Freq PRN Reason Stop Dose Admin Multivitamins 10 ml/ Thiamine 1,015 mls @ 150 mls/hr 02/13/21 08:30 02/13/21 09:34 HCl 100 mg/ Magnesium Sulfate IV 02/13/21 15:15 150 mls/hr 2 gm/ Lactated Ringer's .Q6H46M SHAUN Administration Discontinued Medications Generic Name Dose Route Start Last Admin Trade Name Freq PRN Reason Stop Dose Admin Sodium Chloride 1,000 mls @ 999 mls/hr 02/13/21 08:15 02/13/21 08:14 Sod Chlor 0.9% 1000ml Bag IV 02/13/21 09:15 999 mls/hr .Q1H1M SHAUN Administration Iopamidol 70 ml 02/13/21 09:53 02/13/21 09:56 Iopamidol-370 (76%);100ml Bottle IV 02/13/21 09:54 70 ml ONCE ONE Administration Ondansetron HCl 4 mg 02/13/21 08:07 02/13/21 08:14 Ondansetron 4mg/2ml Vial IV 02/13/21 08:08 4 mg ONCE ONE Administration Sodium Chloride 10 ml 02/13/21 09:53 02/13/21 09:56 Sodium Chloride 0.9% 10ml Syr (Rad Only) IV 02/13/21 09:54 10 ml ONCE ONE Administration - Radiology Data #1 Image(s): Chest Image Reviewed: Yes I reviewed the patient's radiology image, Yes I have reviewed radiologist's interpretation PROCEDURE: XR CHEST 2V CLINICAL HISTORY: cough COMPARISON: CR XR CHEST 2V from 12/09/2020 CR XR CHEST 2V from 01/02/2021 CR XR CHEST 2V from 01/12/2021 FINDINGS: The cardiomediastinal silhouette and pulmonary vascularity are within normal limits. The lungs are clear without infiltrates, suspicious nodules, or pleural effusions. Minimal wedging of T7 unchanged IMPRESSION: No change with no acute finding Dictated by: Gerardo Hastings MD 02/13/2021 09:41 Gerardo Hastings MD in [facility] 02/13/2021 09:41 - CT Data CT Scan: A
[2021-02-13 08:17] LABS: Basophils # 0.1 K/mm3 (0-0.2); Basophils % 0.9 % (0.1-2.0); Eosinophils % 0.7 % (0.1-12.0); Hematocrit 47.3 % (42.0-52.0); Hemoglobin 15.5 g/dL (14.1-18.0); Lymphocytes # 0.8 K/mm3 (0.7-4.5); Lymphocytes % 14.7 % (10-50); Mean Corpuscular HGB Conc 32.7 g/dL (31.8-35.4); Mean Corpuscular Hemoglobin 34.2 pg (27.0-31.2); Mean Corpuscular Volume 104.8 fl (80-94); Mean Platelet Volume 8.8 fl (7.4-10.4); Monocytes # 0.4 K/mm3 (0.1-1.0); Monocytes % 6.3 % (1.7-9.3); Neutrophils # 4.3 K/mm3 (1.8-7.8); Neutrophils % 77.4 % (37.0-80.0); Platelet Count 202 K/mm3 (142-424); Red Blood Count 4.52 M/mm3 (4.60-6.20); Red Cell Distribution Width 13.5 % (11.5-17.5); White Blood Count 5.6 K/mm3 (4.8-10.8)
[2021-02-13 08:26] LABS: Alanine Aminotransferase 73 U/L (12-78); Albumin Level 4.6 g/dl (3.5-5.0); Albumin/Globulin Ratio 1.4 (1.1-1.8); Alkaline Phosphatase 76 U/L (38-126); Amylase 308 U/L (30-110); Anion Gap 15.9 mEq/L (5-15); Aspartate Amino Transferase 135 U/L (17-59); Blood Urea Nitrogen 11 mg/dl (9-20); Calcium 10.1 mg/dl (8.4-10.2); Carbon Dioxide 30 mmol/L (22.0-30.0); Chloride 91 mmol/L (98-107); Creatinine Clearance Estimated 77 mL/min (50-200); Estimated Glomerular Filt Rate 63 ml/min (>60); GFR (African American) 77 ML/MIN (>60); Globulin 3.3 g/dL (1.3-3.2); Glucose 111 mg/dl (74-100); Lipase 1375 U/L (23-300); Potassium 3.9 mmoL/L (3.5-5.1); Sodium 133 mmol/L (136-145); Total Protein,Serum 7.9 g/dl (6.3-8.2)
[2021-02-13 08:30] LABS: Ethyl Alcohol < 10 mg/dl (0-10)
--- NOTE | 2021-02-13 09:33 | CT_ITS ---
PROCEDURE: CT ABDOMEN PELVIS W CON CLINICAL INDICATION: pancreatitis COMPARISON: CT CT ABDOMEN PELVIS W CON from 12/09/[address] ABDOMEN WO/W CON from 01/02/2021 TECHNIQUE: IV Contrast: 75ML Isovue 370 Oral Contrast None Axial images obtained with sagittal and coronal reformats. All CT scans at the facility use one or more dose reduction, viz: automated exposure control, ma/kV adjustment per patient size (including targeted exams where dose is matched to indication, i.e. head), or iterative reconstruction technique. FINDINGS: Fatty liver. No focal liver lesion evident. The the spleen has an unremarkable appearance. Adrenal glands and kidneys unremarkable. There is mild haziness of the peripancreatic fat with a minimal amount of fluid noted just inferior to the body of the pancreas consistent with mild acute pancreatitis. No pancreatic necrosis apparent. No abscess evident. No intestinal obstruction or free air. No evidence of appendicitis. No evidence of diverticulitis. Mild prominence of the prostate at 5 x 4 cm. 8 mm sclerotic focus involves the left ischial M and may be due to a bone island. IMPRESSION: Mild acute pancreatitis. Dictated by: Gerardo Hastings MD 02/13/2021 10:22 Gerardo Hastings MD in [facility] 02/13/2021 10:22
--- NOTE | 2021-02-13 09:34 | CT_ITS ---
PROCEDURE: CT CHEST W CON CLINCAL INDICATION: chronic cough, alcoholic COMPARISON: CR XR CHEST 2V from 05/29/2020 CR XR CHEST 2V from 01/02/2021 TECHNIQUE: IV Contrast: 75ml Isovue 370 Axial images obtained with sagittal and coronal reformats. All CT scans at the facility use one or more dose reduction, viz: automated exposure control, ma/kV adjustment per patient size (including targeted exams where dose is matched to indication, i.e. head), or iterative reconstruction technique. FINDINGS: HEART AND MEDIASTINAL STRUCTURES: Unremarkable. LUNGS AND PLEURAL SPACES: There is scattered small calcified granulomas. A 5 mm opacity is present in the left lung base at the CP angle image 73 series 5. This is nonspecific too small to categorize. Suggest 6 month follow-up to confirm stability. No effusions or infiltrates. BONY STRUCTURES: There is mild wedging of T6 and T4 age. The T6 wedge compression changes are chronic compared to an older chest x-ray of 05/29/2020. Age indeterminate T4 wedge compression change. A Schmorl's node is present along the superior endplate of T4. UPPER ABDOMEN: Unremarkable. ADDITIONAL FINDINGS: No other significant abnormalities. IMPRESSION: 1. No acute finding. 2. 5 mm opacity left CP angle. Recommend six-month follow-up to confirm stability. 3. Chronic wedging of T6 with age indeterminate mild wedging of T4. No obvious retropulsion. Dictated by: Gerardo Hastings MD 02/13/2021 10:16 Gerardo Hastings MD in [facility] 02/13/2021 10:16
--- NOTE | 2021-02-13 11:55 | PC.NURSE ---
notified care management of admission, spoke with scottie
--- NOTE | 2021-02-13 13:04 | PC.NURSE ---
Addendum entered by Christa Luke RN 02/13/21 13:05: attempting to contact house worker for bed assignment Original Note: contacted care management to check on bed for pt, states they have been unable to get ahold of house worker.
[2021-02-13 13:48] LABS: Coronavirus 19, PCR Not Detected (NotDetected); Influenza A, PCR Not Detected (NotDetected); Influenza B, PCR Not Detected (NotDetected)
--- NOTE | 2021-02-13 14:04 | PC.NURSE ---
report called to [facility] cadet on second floor at this time
--- NOTE | 2021-02-13 14:23 | PC.NURSE ---
Pt arrived to the floor at this time.
[2021-02-13 15:19] LABS: Magnesium 1.3 mg/dl (1.6-2.3); Phosphorous 2.9 mg/dl (2.5-4.5)
[2021-02-13 15:26] LABS: Activated Partial Thrombo Time 24.5 seconds (22.8-30.6); INR 0.96 (0.9-1.1); Prothrombin Time 10.9 seconds (10.1-12.5)
--- NOTE | 2021-02-13 15:32 | P.CONPHA_ITS ---
[facility] Pharmacy VTE Monitoring - Patient Demographics Admission date: 02/13/21 Report Date: 02/13/21 Time: 15:32 Allergies/Adverse Reactions: Patient Allergies No Known Allergies Allergy (Verified 05/30/20 03:30) Height: 1.85 m Weight: 80.921 kg Patient Problems: Current Active Problems Alcoholism (Acute) Acute pancreatitis (Acute) Chronic cough (Acute) - VTE Risk Labs: VTE Related Lab Results Hgb 15.5 g/dL (14.1-18.0) 02/13/21 08:00 Hct 47.3 % (42.0-52.0) 02/13/21 08:00 Plt Count 202 K/mm3 (142-424) 02/13/21 08:00 BUN 11 mg/dl (9-20) 02/13/21 08:00 Creatinine 1.20 mg/dl (0.66-1.25) 02/13/21 08:00 Estimated Creat Clear 77 mL/min (50-200) 02/13/21 08:00 VTE Risk Level: Low Risk - Prophylaxis VTE Prophylaxis Ordered?: Yes Types of VTE Prophylaxis: TEDS Knee High Location of Applied Device: Bilateral Lower Extremeties
--- NOTE | 2021-02-13 15:32 | HMH.PHAINT ---
MEDICATION RECONCILIATION COMPLETED ON PATIENT USING EXTERNAL FILL HISTORY FROM PHARMACY. -MIGDALIA ARORA, DANIELAD
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
--- NOTE | 2021-02-13 18:32 | PC.NURSE ---
Patient was an admit from the ER to room 204. Patient non tele and on room air. Patient is ad-bonny. Patient has has no complaints of pain since arriving to room. CIWA score of zero upon arrival, rally pack currently infusing, NS to infuse after rally pack is done. Patient is alert and oriented times 4. Call light in rich and bed in lowest position. Will continue to monitor.
[2021-02-14] VITALS: BP 146/90; PULSE 75; RESP 18; TEMP 36.7; O2SAT 97
[2021-02-14 04:00] VITALS: BP 143/97; PULSE 84; RESP 19; TEMP 37; O2SAT 100
[2021-02-14 04:38] VITALS: BMI 23.7
--- NOTE | 2021-02-14 05:33 | PC.NURSE ---
pt alert and oriented X4. reports he did not sleep much throughout the night. remains on room air w/ no c/o soa. no c/o pain or discomfort. resting in bed at this time. call light within reach.
[2021-02-14 07:25] LABS: Anion Gap 11.1 mEq/L (5-15); Blood Urea Nitrogen 6 mg/dl (9-20); Calcium 8.9 mg/dl (8.4-10.2); Carbon Dioxide 29 mmol/L (22.0-30.0); Chloride 99 mmol/L (98-107); Creatinine Clearance Estimated 98 mL/min (50-200); Estimated Glomerular Filt Rate 78 ml/min (>60); GFR (African American) 95 ML/MIN (>60); Glucose 82 mg/dl (74-100); Lipase 587 U/L (23-300); Potassium 4.1 mmoL/L (3.5-5.1); Sodium 135 mmol/L (136-145)
--- NOTE | 2021-02-14 07:50 | HMH.ACPN2 ---
<Aleshia Talavera - Last Filed: 02/14/21 07:50> Internal Medicine - PN: Subj *Date: 02/14/21 *Time: 07:50 Interval history: Patient states he feels much better today. He did not sleep much. He denies abdominal discomfort and nausea and has not vomited. He is taking clear liquids without problems and is hungry. Bowels have not moved. He denies chest pain and shortness of breath. He is voiding QS. {Has decreased to 587. Electrolytes are satisfactory BUN is good. Exam Vital signs and Labs for Last 24 Hours: Temp Pulse Resp BP Pulse Ox 98.6 F 84 19 143/97 H 100 02/14/21 04:00 02/14/21 04:00 02/14/21 04:00 02/14/21 04:00 02/14/21 04:00 Laboratory Results - last 24 hr 02/13/21 08:00: WBC 5.6, RBC 4.52 L, Hgb 15.5, Hct 47.3, MCV 104.8 H, MCH 34.2 H, MCHC 32.7, RDW 13.5, Plt Count 202, MPV 8.8, Neut % (Auto) 77.4, Lymph % (Auto) 14.7, [place] % (Auto) 6.3, Eos % (Auto) 0.7, Baso % (Auto) 0.9, Neut # (Auto) 4.3, Lymph # (Auto) 0.8, [place] # (Auto) 0.4, Eos # (Auto) 0.0, Baso # (Auto) 0.1 02/13/21 08:00: Sodium 133 L, Potassium 3.9, Chloride 91 L, Carbon Dioxide 30, Anion Gap 15.9 H, BUN 11, Creatinine 1.20, Estimated Creat Clear 77, Estimated GFR 63, Est GFR ( Amer) 77, Glucose 111 H, Calcium 10.1, Total Bilirubin 1.0, AST 135 H, ALT 73, Alkaline Phosphatase 76, Total Protein 7.9, Albumin 4.6, Globulin 3.3 H, Albumin/Globulin Ratio 1.4, Amylase 308 H*, Lipase 1375 H 02/13/21 08:00: Plasma/Serum Alcohol < 10 02/13/21 12:40: SARS-CoV-2 (PCR) Not detected, Influenza A Untype (PCR) Not detected, Influenza Type B (PCR) Not detected 02/13/21 14:55: PT 10.9, INR 0.96, APTT 24.5 02/13/21 14:55: Phosphorus 2.9, Magnesium 1.3 L 02/14/21 06:38: Sodium 135 L, Potassium 4.1, Chloride 99, Carbon Dioxide 29, Anion Gap 11.1, BUN 6 L D, Creatinine 1.00, Estimated Creat Clear 98, Estimated GFR 78, Est GFR ( Amer) 95 D, Glucose 82 D, Calcium 8.9 02/14/21 06:38: Lipase 587 H I & O for Last 24 hours: Intake & Output 02/11/21 02/12/21 02/13/21 02/14/21 11:59 11:59 11:59 11:59 Intake Total 1155 / 1155 Output Total 0 / 0 Balance 1155 / 1155 Weight 168 lb 179 lb - Constitutional no acute distress Comments: Sitting up in the bed and appears comfortable. - *Routine Respiratory Exam Present: CTA bilaterally (Anteriorly and posteriorly) - *Routine Cardiovascular Exam Present: RRR - *Routine Abdominal Exam Present: soft, normoactive bowel sounds. Absent: tenderness - *Routine Extremities Exam Absent: edema, calf tenderness - *Routine Neurological Exam Present: alert, oriented X3 Assessment and Plan (1) Acute pancreatitis Status: Acute Qualifiers: Pancreatitis type: alcohol induced Acute pancreatitis complication: no infection or necrosis Qualified Code(s): K85.20 - Alcohol induced acute pancreatitis without necrosis or infection Category: Medical Code(s): K85.90 - Acute pancreatitis without necrosis or infection, unspecified (2) Alcoholism Status: Acute Category: Medical Code(s): F10.20 - Alcohol dependence, uncomplicated (3) Chronic cough Status: Acute Category: Medical Code(s): R05.3 - Chronic cough (4) Nausea and vomiting Status: Acute Qualifiers: Vomiting type: unspecified Vomiting Intractability: non-intractable Qualified Code(s): R11.2 - Nausea with vomiting, unspecified Category: Medical Code(s): R11.2 - Nausea with vomiting, unspecified (5) Anxiety Status: Chronic Category: Medical Code(s): F41.9 - Anxiety disorder, unspecified (6) Hypertension Status: Chronic Qualifiers: Hypertension type: primary hypertension Qualified Code(s): I10 - Essential (primary) hypertension Category: Medical Code(s): I10 - Essential (primary) hypertension - Assessment and plan all Dx Assessment and Plan for all problems:: Regular breakfast tray has been ordered. Patient likely to be discharged today. <Kamran Hale
[2021-02-14 08:00] VITALS: BP 155/96; PULSE 93; RESP 22; TEMP 36.7; O2SAT 98
--- NOTE | 2021-02-14 15:39 | HMH.DCSUM ---
General - General Admission date:: 02/13/21 <Kamran Hale - 03/03/21 23:19> 02/13/21 <Debbie Funez - 02/14/21 15:42> Discharge date: 02/14/21 <Debbie Funez - 02/14/21 15:42> HPI HPI: Mr. Hinkle is a 55-year-old male with a history of hypertension, GERD, alcoholism, renal insufficiency and alcohol induced chronic pancreatitis who presented to [facility] emergency room for evaluation after vomiting for approximately 3 days. He states he drank about a pint of vodka 3 days ago after which his symptoms began. He states he has not eaten in the past 2 days. He states his stools have been mucousy but has noted no hematemesis, melena or hematochezia. He describes coughing up mucus with the vomiting and felt rattling in his chest. He denies fever. In the emergency room with evaluation chest x-ray showed no acute findings. CT of the abdomen and pelvis revealed mild acute pancreatitis. He also had a CT of the chest which showed no acute findings and a 5 mm opacity in the left CP angle and also noted chronic wedging of T6 with age-indeterminate mild wedging of T4. Laboratory data showed a normal white blood cell count with hemoglobin of 15.5 hematocrit of 43.7. Blood chemistries: Sodium was 133 potassium 3.9, BUN 11 and creatinine is 1.2. GFR is 63. Calcium is 10.1. Liver function studies show AST elevated at 135 with an ALT of 73. Alkaline phosphatase is 76. Amylase is elevated at 308 and lipase is elevated at 1375. Magnesium is low at 1.3. Alcohol level was less than 10. In the emergency room he was given magnesium with vitamins and lactate Ringer's and a fluid bolus. He also received Zofran along with Dilaudid, lorazepam and morphine. He was then admitted for further evaluation and treatment. He currently has normal saline at 150 an hour. At present he denies nausea and pain. <Debbie Funez - 02/14/21 15:42> Hospital Course Hospital Course: The patient was admitted and placed on alcohol withdrawal protocol. He was started on IV fluids as well as GI rest with clear liquids. A PPI was added. He had recently checked into a rehab center ([facility]) but signed himself out 4 days prior. By 02/14/2021, he felt much better. He denied any abdominal discomfort, nausea, or vomiting. He was taking clear liquids without problems and was hungry. A regular breakfast tray was ordered. He tolerated this with no increased pain or nausea. His lipase improved and he was stable to be discharged. He did have desire to seek inpatient rehab and stated he had contact info at home but needed to coordinate with his insurance company. Care management assistance was offered but he declined. He will follow-up with Dr. Oshea next week. <Debbie Funez - 02/14/21 15:42> Objective Vital signs: Temp Pulse Resp BP Pulse Ox 98.0 F 93 H 22 155/96 H 98 02/14/21 08:00 02/14/21 08:00 02/14/21 08:00 02/14/21 08:00 02/14/21 08:00 <Kamran Hale - 03/03/21 23:19> Temp Pulse Resp BP Pulse Ox 98.0 F 93 H 22 155/96 H 98 02/14/21 08:00 02/14/21 08:00 02/14/21 08:00 02/14/21 08:00 02/14/21 08:00 <Debbie Funez - 02/14/21 15:42> Narrative: - Constitutional no acute distress Comments: Sitting up in the bed and appears comfortable. - *Routine Respiratory Exam Present: CTA bilaterally (Anteriorly and posteriorly) - *Routine Cardiovascular Exam Present: RRR - *Routine Abdominal Exam Present: soft, normoactive bowel sounds. Absent: tenderness - *Routine Extremities Exam Absent: edema, calf tenderness - *Routine Neurological Exam Present: alert, oriented X3 <Debbie Funez - 02/14/21 15:42> Results Labs on day of discharge: Labs from last 24 hours 02/14/21 02/14/21 02/13/21 06:38 06:38 14:55 PT 10.9 INR 0.96 APTT 24.5 Sodium 135 L Potassium 4.1 Chloride 99 Carbon Dioxide 29 Anion Gap 11.1 BUN 6 L D
== END 2021-02-14 09:20 | disposition home or self-care (01) | DRG 440 ==
LOC: ER 11:43 → 2ND 18:06
PROVIDERS: Admitting Provider Family Medicine; Emergency Provider Emergency Medicine; PCP Family Medicine; Visit Provider Family Medicine
DX: K85.20 Alcohol induced acute pancreatitis without necrosis or infection (principal); F41.9 Anxiety disorder, unspecified; I10 Essential (primary) hypertension; F10.20 Alcohol dependence, uncomplicated; R05.9 Cough, unspecified; Z20.822 Contact with and (suspected) exposure to COVID-19; K21.9 Gastro-esophageal reflux disease without esophagitis
CPT/HCPCS: 36415; 71046; 71260; 74177; 80048; 80053; 82150; 83690; 83735; 84100; 85025; 85610; 85730; 93005; 96365; 96367; 96375; 99284; C9803; J2405; Q9967; U0003; U0005

== ENCOUNTER 2021-03-02 21:57 | Emergency (ER) | payer BC, SELFPAY ==
[2021-03-02 21:49] VITALS: BP 160/113; PULSE 148; RESP 24; TEMP 36.9; O2SAT 99; BMI 22.1
--- NOTE | 2021-03-02 21:53 | ECG_ITS ---
APPROVED REPORT Exam: Resting ECG HR:110 bpm ECG Measurements Heart Rate 110 AXES OR 130 P 60 QRSd 86 QRS 71 QT 344 T 44 QTc 465 Conclusion Sinus tachycardia Otherwise normal ECG Electronically signed by : Jimmy Greene MD 03/03/2021 10:01:36
[2021-03-02 22:00] VITALS: BP 152/115; PULSE 115; RESP 21; O2SAT 96
--- NOTE | 2021-03-02 22:00 | XR_ITS ---
PROCEDURE INFORMATION: Exam: XR Chest Exam date and time: 03/02/2021 10:00 PM Age: 55 years old Clinical indication: Shortness of breath; Additional info: SOA TECHNIQUE: Imaging protocol: XR of the chest. Views: 2 views. COMPARISON: CT CHEST W CON 02/13/2021 9:43 AM FINDINGS: Lungs: Unremarkable. No consolidation. Pleural spaces: Unremarkable. No pleural effusion. No pneumothorax. Heart/Mediastinum: Unremarkable. No cardiomegaly. Bones/joints: Unremarkable. IMPRESSION: No acute findings.
[2021-03-02 22:09] LABS: Basophils # 0.1 K/mm3 (0-0.2); Basophils % 1.3 % (0.1-2.0); Eosinophils % 0.1 % (0.1-12.0); Hematocrit 40.4 % (42.0-52.0); Hemoglobin 14.3 g/dL (14.1-18.0); Lymphocytes # 0.9 K/mm3 (0.7-4.5); Lymphocytes % 15.3 % (10-50); Mean Corpuscular HGB Conc 35.5 g/dL (31.8-35.4); Mean Corpuscular Hemoglobin 35.4 pg (27.0-31.2); Mean Corpuscular Volume 99.6 fl (80-94); Mean Platelet Volume 8.7 fl (7.4-10.4); Monocytes # 0.4 K/mm3 (0.1-1.0); Monocytes % 6.7 % (1.7-9.3); Neutrophils # 4.7 K/mm3 (1.8-7.8); Neutrophils % 76.5 % (37.0-80.0); Platelet Count 332 K/mm3 (142-424); Red Blood Count 4.05 M/mm3 (4.60-6.20); White Blood Count 6.1 K/mm3 (4.8-10.8)
[2021-03-02 22:14] LABS: Alanine Aminotransferase 136 U/L (12-78); Albumin Level 4.4 g/dl (3.5-5.0); Albumin/Globulin Ratio 1.4 (1.1-1.8); Alkaline Phosphatase 77 U/L (38-126); Anion Gap 20.1 mEq/L (5-15); Aspartate Amino Transferase 112 U/L (17-59); Bilirubin,Total 1.3 mg/dl (0.2-1.3); Blood Urea Nitrogen 18 mg/dl (9-20); Calcium 9.5 mg/dl (8.4-10.2); Carbon Dioxide 23 mmol/L (22.0-30.0); Chloride 96 mmol/L (98-107); Creatinine Clearance Estimated 77 mL/min (50-200); Estimated Glomerular Filt Rate 63 ml/min (>60); Ethyl Alcohol < 10 mg/dl (0-10); GFR (African American) 77 ML/MIN (>60); Globulin 3.1 g/dL (1.3-3.2); Glucose 165 mg/dl (74-100); Potassium 4.1 mmoL/L (3.5-5.1); Sodium 135 mmol/L (136-145); Total Protein,Serum 7.5 g/dl (6.3-8.2)
[2021-03-02 22:17] VITALS: BP 148/94
[2021-03-02 22:19] LABS: C-Reactive Protein 1.5 mg/L (0-4)
[2021-03-02 22:29] LABS: Troponin I < 0.01 ng/ml (0.00-0.034)
[2021-03-02 22:30] VITALS: BP 163/114; PULSE 103; RESP 19; O2SAT 93
[2021-03-02 22:33] LABS: Procalcitonin 0.184 ng/mL (0.0-2.0)
[2021-03-02 22:35] LABS: Erythrocyte Sedimentation Rate 27 mm/hr (0-20)
--- NOTE | 2021-03-02 22:45 | HMH.EDSOB ---
ED Disposition Clinical Impression: Hypomagnesemia Alcohol withdrawal Qualifiers: Complication of substance-induced condition: uncomplicated Qualified Code(s): F10.230 - Alcohol dependence with withdrawal, uncomplicated Disposition: Home, Self-Care Condition on Discharge: Good Instructions: DI for Alcohol Use Disorder Additional Instructions: keep appt this am Referrals: Provider,Referral, [Primary Care Provider] - - Critical Care Critical Care Time: No Attestation: On 03/02/21, the high probability of a clinically significant, sudden or life threatening deterioration of the following system(s) required my full and direct attention, intervention and personal management. The time I documented below is in addition to time spent performing reported procedures but includes the following listed in this critical care notation. Medical Decision Making - Medical Records Medical records reviewed: Yes: I reviewed the patient's medical records. - Kamari Inquiry Pt receiving controlled substance: No Kamari was queried for this patient: No Vital Signs: 03/02/21 21:49 03/02/21 22:00 03/02/21 22:17 Temperature 98.4 F Temperature Source Oral Pulse Rate 115 H Pulse Rate [Right] 148 H Respiratory Rate 24 21 Blood Pressure 152/115 H 148/94 H Blood Pressure [Right Arm] 160/113 H Blood Pressure Mean [Right Arm] 128 Blood Pressure Source Manual Cuff/ Auscultation Blood Pressure Position Sitting 02 Sat by Pulse Oximetry 99 96 Oxygen Delivery Method Room Air Room Air 03/02/21 22:30 03/02/21 22:59 03/02/21 23:03 Temperature Temperature Source Pulse Rate 103 H 110 H 107 H Pulse Rate [Right] Respiratory Rate 19 19 22 Blood Pressure 163/114 H 153/112 H 150/106 H Blood Pressure [Right Arm] Blood Pressure Mean [Right Arm] Blood Pressure Source Blood Pressure Position 02 Sat by Pulse Oximetry 93 L 94 L 94 L Oxygen Delivery Method Room Air Room Air Room Air - Lab Data Lab results reviewed: Yes: I reviewed the patient's lab results. Lab Results 03/02/21 21:52: WBC 6.1, RBC 4.05 L, Hgb 14.3, Hct 40.4 L, MCV 99.6 H, MCH 35.4 H, MCHC 35.5 H, RDW 13.0, Plt Count 332, MPV 8.7, Neut % (Auto) 76.5, Lymph % (Auto) 15.3, [place] % (Auto) 6.7, Eos % (Auto) 0.1, Baso % (Auto) 1.3, Neut # (Auto) 4.7, Lymph # (Auto) 0.9, [place] # (Auto) 0.4, Eos # (Auto) 0.0, Baso # (Auto) 0.1, ESR 27 H 03/02/21 21:52: Sodium 135 L, Potassium 4.1, Chloride 96 L, Carbon Dioxide 23, Anion Gap 20.1 H, BUN 18, Creatinine 1.20, Estimated Creat Clear 77, Estimated GFR 63, Est GFR ( Amer) 77, Glucose 165 H, Calcium 9.5, Total Bilirubin 1.3, AST 112 H, ALT 136 H, Alkaline Phosphatase 77, Troponin I < 0.01, C-Reactive Protein 1.5, Total Protein 7.5, Albumin 4.4, Globulin 3.1, Albumin/Globulin Ratio 1.4, Procalcitonin 0.184 03/02/21 21:52: Plasma/Serum Alcohol < 10 03/02/21 21:52: Magnesium 0.6 L Result diagrams: 03/02/21 21:52 03/02/21 21:52 Orders (Tests/Meds): ED MEDICATIONS Generic Name Dose Route Start Last Admin Trade Name Freq PRN Reason Stop Dose Admin Sodium Chloride 1,000 mls @ 999 mls/hr 03/02/21 22:15 03/02/21 22:04 Sod Chlor 0.9% 1000ml Bag IV 03/02/21 23:15 999 mls/hr .Q1H1M SHAUN Administration Multivitamins 10 ml/ Thiamine 1,015 mls @ 150 mls/hr 03/02/21 23:00 03/02/21 22:55 HCl 100 mg/ Magnesium Sulfate IV 03/03/21 05:45 150 mls/hr 2 gm/ Lactated Ringer's .[id number] SHAUN Administration Discontinued Medications Generic Name Dose Route Start Last Admin Trade Name Freq PRN Reason Stop Dose Admin Folic Acid 1 mg 03/02/21 22:48 03/02/21 22:56 Folic Acid 1mg Tablet PO 03/02/21 22:49 1 mg ONCE ONE Administration Prochlorperazine Edisylate 10 mg 03/02/21 22:01 03/02/21 22:04 Prochlorperazine 10mg/2ml Vial IV 03/02/21 22:02 10 mg ONCE ONE Administration ORDERS Category Date Time Status Troponin I Q3H Lab 03/03/21 01:15 Ordered Troponin I
[2021-03-02 22:59] VITALS: BP 153/112; PULSE 110; RESP 19; O2SAT 94
[2021-03-02 23:03] VITALS: BP 150/106; PULSE 107; RESP 22; O2SAT 94
[2021-03-02 23:07] LABS: Magnesium 0.6 mg/dl (1.6-2.3)
--- NOTE | 2021-03-02 23:10 | PC.NURSE ---
notified angela of critical mag level 0.6
[2021-03-03 01:10] VITALS: BP 155/116; PULSE 105; RESP 22; TEMP 36.8; O2SAT 98
== END 2021-03-03 01:14 | disposition home or self-care (01) ==
PROVIDERS: Emergency Provider Emergency Medicine
DX: F10.230 Alcohol dependence with withdrawal, uncomplicated (principal); K21.9 Gastro-esophageal reflux disease without esophagitis; N28.9 Disorder of kidney and ureter, unspecified; I10 Essential (primary) hypertension; K86.0 Alcohol-induced chronic pancreatitis
CPT/HCPCS: 71046; 80053; 83735; 84145; 84484; 85025; 85651; 86140; 93005; 99283

== ENCOUNTER 2021-04-02 06:00 | Emergency (ER) | payer BC, SELFPAY ==
[2021-04-02] VITALS (13 sets, daily range): BP systolic 138–186; BP diastolic 110–135; PULSE 69–154; RESP 15–21; TEMP 36.6–37.3; O2SAT 93–98; BMI 22.1; BMI 23.0
--- NOTE | 2021-04-02 06:16 | ECG_ITS ---
APPROVED REPORT Exam: Resting ECG HR:142 bpm ECG Measurements Heart Rate 142 AXES NM 128 P 58 QRSd 74 QRS 63 QT 286 T 52 QTc 439 Conclusion Sinus tachycardia Possible Left atrial enlargement Left ventricular hypertrophy ST abnormality, possible digitalis effect Abnormal ECG Electronically signed by : Jimmy Greene MD 04/04/2021 13:27:45
--- NOTE | 2021-04-02 06:21 | XR_ITS ---
PROCEDURE INFORMATION: Exam: XR Chest Exam date and time: 04/02/2021 6:21 AM Age: 55 years old Clinical indication: Cough and shortness of breath; Patient HX: Cough, SOA; Additional info: SOA, cough TECHNIQUE: Imaging protocol: XR of the chest. Views: 2 views. COMPARISON: CR XR CHEST 2V 03/02/2021 10:01 PM FINDINGS: Lungs: Unremarkable. No consolidation. Pleural spaces: Unremarkable. No pleural effusion. No pneumothorax. Heart/Mediastinum: Unremarkable. No cardiomegaly. Bones/joints: Unremarkable. IMPRESSION: No acute findings.
[2021-04-02 06:26] LABS: Coronavirus 19, PCR Not Detected (NotDetected); Influenza A, PCR Not Detected (NotDetected); Influenza B, PCR Not Detected (NotDetected)
[2021-04-02 06:49] LABS: Chloride 92 mmol/L (98-107); Potassium 4.1 mmoL/L (3.5-5.1); Sodium 134 mmol/L (136-145)
[2021-04-02 06:51] LABS: Alanine Aminotransferase 83 U/L (12-78); Aspartate Amino Transferase 141 U/L (17-59); Blood Urea Nitrogen 18 mg/dl (9-20); Creatinine Clearance Estimated 72 mL/min (50-200); Estimated Glomerular Filt Rate 58 ml/min (>60); GFR (African American) 70 ML/MIN (>60)
[2021-04-02 06:52] LABS: Alanine Aminotransferase 85 U/L (12-78); Albumin Level 4.7 g/dl (3.5-5.0); Albumin Level 4.9 g/dl (3.5-5.0); Albumin/Globulin Ratio 1.5 (1.1-1.8); Alkaline Phosphatase 100 U/L (38-126); Alkaline Phosphatase 89 U/L (38-126); Anion Gap 26.1 mEq/L (5-15); Anion Gap 27.1 mEq/L (5-15); Aspartate Amino Transferase 143 U/L (17-59); Bilirubin,Direct 0.6 mg/dl (0.0-0.4); Bilirubin,Indirect 0.9 mg/dL (0.0-0.9); Bilirubin,Total 1.4 mg/dl (0.2-1.3); Bilirubin,Total 1.5 mg/dl (0.2-1.3); Blood Urea Nitrogen 18 mg/dl (9-20); Calcium 10.8 mg/dl (8.4-10.2); Carbon Dioxide 20 mmol/L (22.0-30.0); Carbon Dioxide 21 mmol/L (22.0-30.0); Chloride 90 mmol/L (98-107); Creatinine Clearance Estimated 72 mL/min (50-200); Estimated Glomerular Filt Rate 58 ml/min (>60); GFR (African American) 70 ML/MIN (>60); Globulin 3.3 g/dL (1.3-3.2); Glucose 168 mg/dl (74-100); Potassium 4.1 mmoL/L (3.5-5.1); Sodium 134 mmol/L (136-145); Total Protein,Serum 8.2 g/dl (6.3-8.2)
[2021-04-02 06:56] LABS: Erythrocyte Sedimentation Rate 24 mm/hr (0-20)
[2021-04-02 06:57] LABS: C-Reactive Protein 0.8 mg/L (0-4)
[2021-04-02 07:00] LABS: Ethyl Alcohol < 10 mg/dl (0-10)
[2021-04-02 07:04] LABS: Microscopic, Urine URINE MICROSCOPIC (MICROSCOPIC)
--- NOTE | 2021-04-02 07:05 | PC.NURSE ---
notified of critical mag
[2021-04-02 07:06] LABS: Appearance,Urine CLEAR (Clear); Blood, Urine TRACE-I (Negative); Color,Urine YELLOW (Yellow); Glucose,Urine (UA) Negative (Negative); Ketones,Urine 3+ (Negative); Leukocyte Esterase,Urine Negative (Negative); Nitrate,Urine Negative (Negative); Protein,Urine 2+ (Negative); Urobilinogen,Urine 0.2 EU/dl (0.2)
[2021-04-02 07:06] LABS: Troponin I 0.02 ng/ml (0.00-0.034)
[2021-04-02 07:08] LABS: Bilirubin,Urine 2+ (Negative)
[2021-04-02 07:11] LABS: Procalcitonin 0.306 ng/mL (0.0-2.0)
[2021-04-02 07:17] LABS: Amphetamine/Metha Screen,Urine Negative ng/ml (<1000); Squamous Epithelial Cell,Urine Occasional #/hpf (0-5)
[2021-04-02 07:18] LABS: Barbiturates Screen,Urine Negative ng/ml (<200); Benzodiazepines Screen,Urine Negative ng/ml (<200)
[2021-04-02 07:19] LABS: Cannabinoid Screen,Urine Negative ng/ml (<50); Cocaine Screen,Urine Negative ng/ml (<300)
[2021-04-02 07:20] LABS: Methadone Screen,Urine Negative ng/ml (<300)
[2021-04-02 07:21] LABS: Opiate Screen,Urine Negative ng/ml (<300); Phencyclidine Screen,Urine Negative ng/ml (<25)
--- NOTE | 2021-04-02 07:42 | HMH.EDSOB ---
ED Disposition Clinical Impression: Chronic alcohol use Alcohol withdrawal Qualifiers: Complication of substance-induced condition: with unspecified complication Qualified Code(s): F10.239 - Alcohol dependence with withdrawal, unspecified HTN (hypertension) Qualifiers: Hypertension type: primary hypertension Qualified Code(s): I10 - Essential (primary) hypertension Disposition: Home, Self-Care Condition on Discharge: Fair Instructions: DI for Shortness of Breath Additional Instructions: call pcp today for f/u and refills Referrals: Gordy Oshea MD [Primary Care Provider] - - Critical Care Critical Care Time: No Attestation: On 04/02/21, the high probability of a clinically significant, sudden or life threatening deterioration of the following system(s) required my full and direct attention, intervention and personal management. The time I documented below is in addition to time spent performing reported procedures but includes the following listed in this critical care notation. Medical Decision Making - Medical Records Medical records reviewed: Yes: I reviewed the patient's medical records. - Kamari Inquiry Pt receiving controlled substance: No Vital Signs: 04/02/21 06:02 04/02/21 06:19 04/02/21 07:50 Temperature 99.2 F Temperature Source Oral Pulse Rate 154 H 118 H Pulse Rate [Right] 147 H Respiratory Rate 21 18 16 Blood Pressure 169/123 H 186/132 H Blood Pressure [Left Arm] 140/110 H Blood Pressure Mean 131 143 Blood Pressure Mean [Left Arm] 120 Blood Pressure Source [Left Arm] Manual Cuff/ Auscultation Blood Pressure Position [Left Arm] Supine 02 Sat by Pulse Oximetry 98 98 98 Oxygen Delivery Method Room Air 04/02/21 07:56 04/02/21 08:00 Temperature Temperature Source Pulse Rate 116 H 115 H Pulse Rate [Right] Respiratory Rate 15 16 Blood Pressure 171/135 H 180/130 H Blood Pressure [Left Arm] Blood Pressure Mean 142 141 Blood Pressure Mean [Left Arm] Blood Pressure Source [Left Arm] Blood Pressure Position [Left Arm] 02 Sat by Pulse Oximetry 93 L 98 Oxygen Delivery Method - Lab Data Lab results reviewed: Yes: I reviewed the patient's lab results. Lab Results 04/02/21 06:12: ESR 24 H 04/02/21 06:12: Sodium 134 L, Potassium 4.1, Chloride 90 L, Carbon Dioxide 21 L, Anion Gap 27.1 H, BUN 18, Creatinine 1.30 H, Estimated Creat Clear 72, Estimated GFR 58 L, Est GFR ( Amer) 70, Glucose 168 H, Calcium 11.0 H, Total Bilirubin 1.4 H, AST 143 H, ALT 85 H, Alkaline Phosphatase 100, Troponin I 0.02, C-Reactive Protein 0.8, Total Protein 8.2, Albumin 4.9, Globulin 3.3 H, Albumin/Globulin Ratio 1.5, Procalcitonin 0.306 04/02/21 06:12: SARS-CoV-2 (PCR) Not detected, Influenza A Untype (PCR) Not detected, Influenza Type B (PCR) Not detected 04/02/21 06:12: Sodium 134 L, Potassium 4.1, Chloride 92 L, Carbon Dioxide 20 L, Anion Gap 26.1 H, BUN 18, Creatinine 1.30 H, Estimated Creat Clear 72, Estimated GFR 58 L, Est GFR ( Amer) 70, Glucose 168 H, Calcium 10.8 H, Magnesium 1.0 L, Total Bilirubin 1.5 H, Direct Bilirubin 0.6 H, Conjugated Bilirubin 0.0, Indirect Bilirubin 0.9, Unconjugated Bilirubin 1.0, AST 141 H, ALT 83 H, Alkaline Phosphatase 89, Total Protein 8.0, Albumin 4.7 04/02/21 06:12: Plasma/Serum Alcohol < 10 04/02/21 06:12: WBC 7.0, RBC 4.16 L, Hgb 14.5, Hct 44.1, MCV 105.9 H, MCH 34.9 H, MCHC 32.9, RDW 14.1, Plt Count 189, MPV 10.3, Neut % (Auto) 80.9 H, Lymph % (Auto) 11.4, [place] % (Auto) 6.6, Eos % (Auto) 0.2, Baso % (Auto) 1.0, Neut # (Auto) 5.6, Lymph # (Auto) 0.8, [place] # (Auto) 0.5, Eos # (Auto) 0.0, Baso # (Auto) 0.1 04/02/21 06:50: Urine Color Yellow, Urine Appearance Clear, Urine pH 7.0, Ur Specific [place] 1.020, Urine Protein 2+, Urine Glucose (UA) Negative, Urine Ketones 3+, Urine Blood Trace-i, Urine Nitrate Negative, Urine Bilirubin 2+ A, Urine Urobilinogen 0.2, Ur Leukocyte Esterase Negative, Urine RBC 3-5, Urine WBC 3-5, Ur Squamous Epith
--- NOTE | 2021-04-02 07:56 | PC.NURSE ---
Dr Myers speaking to Dr Oshea
[2021-04-02 08:47] LABS: Basophils # 0.1 K/mm3 (0-0.2); Eosinophils % 0.2 % (0.1-12.0); Hematocrit 44.1 % (42.0-52.0); Hemoglobin 14.5 g/dL (14.1-18.0); Lymphocytes # 0.8 K/mm3 (0.7-4.5); Lymphocytes % 11.4 % (10-50); Mean Corpuscular HGB Conc 32.9 g/dL (31.8-35.4); Mean Corpuscular Hemoglobin 34.9 pg (27.0-31.2); Mean Corpuscular Volume 105.9 fl (80-94); Mean Platelet Volume 10.3 fl (7.4-10.4); Monocytes # 0.5 K/mm3 (0.1-1.0); Monocytes % 6.6 % (1.7-9.3); Neutrophils # 5.6 K/mm3 (1.8-7.8); Neutrophils % 80.9 % (37.0-80.0); Platelet Count 189 K/mm3 (142-424); Red Blood Count 4.16 M/mm3 (4.60-6.20); Red Cell Distribution Width 14.1 % (11.5-17.5)
--- NOTE | 2021-04-02 12:25 | PC.NURSE ---
called dr de la torre's office pt with appt at 4:30 this afternoon
== END 2021-04-02 13:06 | disposition home or self-care (01) ==
PROVIDERS: Emergency Provider Emergency Medicine; PCP Family Medicine
DX: F10.239 Alcohol dependence with withdrawal, unspecified (principal); R11.2 Nausea with vomiting, unspecified; K21.9 Gastro-esophageal reflux disease without esophagitis; I10 Essential (primary) hypertension; E78.5 Hyperlipidemia, unspecified; K86.0 Alcohol-induced chronic pancreatitis
CPT/HCPCS: 71046; 80048; 80053; 80076; 80305; 81001; 83735; 84145; 84484; 85025; 85651; 86140; 93005; 96365; 96367; 99283; C9803; J2405; U0003; U0005

== ENCOUNTER 2021-05-08 19:16 | Emergency (ER) | payer SELFPAY ==
[2021-05-08 19:17] VITALS: BP 163/121; PULSE 114; RESP 24; TEMP 36.7; O2SAT 98; BMI 22.1
--- NOTE | 2021-05-08 19:25 | XR_ITS ---
PROCEDURE INFORMATION: Exam: XR Chest Exam date and time: 05/08/2021 7:25 PM Age: 55 years old Clinical indication: Patient HX: Shortness of breath, odd sounds in left lung per patient. ; Additional info: SOA TECHNIQUE: Imaging protocol: XR of the chest. Views: 1 view. COMPARISON: CR XR CHEST 2V 04/02/2021 6:40 AM FINDINGS: Lungs: Unremarkable. No consolidation. Pleural spaces: Unremarkable. No pleural effusion. No pneumothorax. Heart/Mediastinum: Unremarkable. No cardiomegaly. Bones/joints: Unremarkable. IMPRESSION: No acute findings.
--- NOTE | 2021-05-08 19:25 | HMH.EDGENADL ---
ED Disposition Condition on Discharge: Good - Critical Care Critical Care Time: No <Dirk Her - Last Filed: 05/08/21 19:25> Condition on Discharge: Good Time of Disposition: 00:05 - Critical Care Critical Care Time: Yes Total Critical Care Time: 30 Vital system(s) involved:: Metabolic Failure My critical care processes included: Assessment & monitoring of V/S, Initial and Re-exams, Data Review/Interpretation, Coordinating Care, Medication Orders and management <Robyn Doshi - Last Filed: 05/09/21 00:01> Clinical Impression: Alcohol withdrawal Qualifiers: Complication of substance-induced condition: with unspecified complication Qualified Code(s): F10.239 - Alcohol dependence with withdrawal, unspecified Disposition: Still a Patient Instructions: Drug and Alcohol Withdrawal Additional Instructions: Please follow up with your primary care physician in 2-3 days for further management. You have also been given librium to assist you with your withdrawal symptoms. You have also been given resources to rehabilitation centers for alcohol withdrawal. Please return for any concerning symptoms such as difficulty breathing, chest pain, sweating, hallucinations, seizures, passing out or any other severe symptom of alcohol withdrawal. Prescriptions: chlordiazePOXIDE HCl [Librium 25mg Capsule] 0 mg .ROUTE DIRECTED 7 Days #14 cap Transmission Status: Sent to [facility] #[id number] Referrals: Gordy Oshea MD [Primary Care Provider] - Attestation: On 05/08/21, the high probability of a clinically significant, sudden or life threatening deterioration of the following system(s) required my full and direct attention, intervention and personal management. The time I documented below is in addition to time spent performing reported procedures but includes the following listed in this critical care notation. Medical Decision Making - Medical Records Medical records reviewed: Yes: I reviewed the patient's medical records. - Kamari Inquiry Pt receiving controlled substance: No <Dirk Her - Last Filed: 05/08/21 19:25> - Lab Data Result diagrams: 05/08/21 19:33 05/08/21 19:33 <Robyn Doshi - Last Filed: 05/09/21 00:01> Vital Signs: 05/08/21 19:17 05/08/21 20:30 05/08/21 21:43 Temperature 98.0 F 97.8 F 97.8 F Temperature Source Oral Oral Oral Pulse Rate 108 H 102 H Pulse Rate [Right Radial] 114 H Respiratory Rate 24 19 18 Blood Pressure 139/103 H 133/99 H Blood Pressure [Right Arm] 163/121 H Blood Pressure Mean [Right Arm] 135 Blood Pressure Source Automatic Cuff Blood Pressure Source [Right Arm] Automatic Cuff Blood Pressure Position Sitting Standing Blood Pressure Position [Right Arm] Sitting 02 Sat by Pulse Oximetry 98 98 Oxygen Delivery Method Room Air Room Air 05/08/21 22:06 Temperature 98.2 F Temperature Source Oral Pulse Rate 97 H Pulse Rate [Right Radial] Respiratory Rate 18 Blood Pressure 144/108 H Blood Pressure [Right Arm] Blood Pressure Mean [Right Arm] Blood Pressure Source Automatic Cuff Blood Pressure Source [Right Arm] Blood Pressure Position Sitting Blood Pressure Position [Right Arm] 02 Sat by Pulse Oximetry Oxygen Delivery Method Room Air - Lab Data Lab Results 05/08/21 19:33: WBC 8.1, RBC 3.94 L, Hgb 13.8 L, Hct 42.2, MCV 107.2 H, MCH 35.1 H, MCHC 32.7, RDW 13.8, Plt Count 313, MPV 8.4, Neut % (Auto) 82.4 H, Lymph % (Auto) 11.0, [place] % (Auto) 4.8, Eos % (Auto) 0.7, Baso % (Auto) 1.2, Neut # (Auto) 6.7, Lymph # (Auto) 0.9, [place] # (Auto) 0.4, Eos # (Auto) 0.1, Baso # (Auto) 0.1 05/08/21 19:33: Sodium 137, Potassium 4.2, Chloride 99, Carbon Dioxide 24, Anion Gap 18.2 H, BUN 17, Creatinine 1.20, Estimated Creat Clear 77, Estimated GFR 63, Est GFR ( Amer) 77, Glucose 159 H, Calcium 9.5, Total Bilirubin 1.1, AST 145 H, ALT 117 H, Alkaline Phosphatase 74, Troponin I < 0.01, Total Protein 7.8, Albumin 4.6, Globulin 3.2, Albumin/Globulin Ratio
[2021-05-08 19:43] LABS: Basophils # 0.1 K/mm3 (0-0.2); Basophils % 1.2 % (0.1-2.0); Eosinophils # 0.1 K/mm3 (0.0-0.4); Eosinophils % 0.7 % (0.1-12.0); Hematocrit 42.2 % (42.0-52.0); Hemoglobin 13.8 g/dL (14.1-18.0); Lymphocytes # 0.9 K/mm3 (0.7-4.5); Mean Corpuscular HGB Conc 32.7 g/dL (31.8-35.4); Mean Corpuscular Hemoglobin 35.1 pg (27.0-31.2); Mean Corpuscular Volume 107.2 fl (80-94); Mean Platelet Volume 8.4 fl (7.4-10.4); Monocytes # 0.4 K/mm3 (0.1-1.0); Monocytes % 4.8 % (1.7-9.3); Neutrophils # 6.7 K/mm3 (1.8-7.8); Neutrophils % 82.4 % (37.0-80.0); Platelet Count 313 K/mm3 (142-424); Red Blood Count 3.94 M/mm3 (4.60-6.20); Red Cell Distribution Width 13.8 % (11.5-17.5); White Blood Count 8.1 K/mm3 (4.8-10.8)
--- NOTE | 2021-05-08 19:45 | ECG_ITS ---
APPROVED REPORT Exam: Resting ECG HR:113 bpm ECG Measurements Heart Rate 113 AXES MT 151 P 52 QRSd 93 QRS 64 QT 359 T 49 QTc 426 Conclusion SINUS TACHYCARDIA POSSIBLE LEFT ATRIAL ENLARGEMENT [-0.1mV P-WAVE IN V1/V2] MODERATE ST DEPRESSION [0.05+ mV ST DEPRESSION] ABNORMAL ECG UNCONFIRMED REPORT Electronically signed by : Jimmy Greene MD 05/10/2021 19:34:27
[2021-05-08 20:18] LABS: Alanine Aminotransferase 117 U/L (12-78); Albumin Level 4.6 g/dl (3.5-5.0); Albumin/Globulin Ratio 1.4 (1.1-1.8); Alkaline Phosphatase 74 U/L (38-126); Anion Gap 18.2 mEq/L (5-15); Aspartate Amino Transferase 145 U/L (17-59); Bilirubin,Total 1.1 mg/dl (0.2-1.3); Blood Urea Nitrogen 17 mg/dl (9-20); Calcium 9.5 mg/dl (8.4-10.2); Carbon Dioxide 24 mmol/L (22.0-30.0); Chloride 99 mmol/L (98-107); Creatinine Clearance Estimated 77 mL/min (50-200); Estimated Glomerular Filt Rate 63 ml/min (>60); GFR (African American) 77 ML/MIN (>60); Globulin 3.2 g/dL (1.3-3.2); Glucose 159 mg/dl (74-100); Lipase 304 U/L (23-300); Potassium 4.2 mmoL/L (3.5-5.1); Sodium 137 mmol/L (136-145); Total Protein,Serum 7.8 g/dl (6.3-8.2)
[2021-05-08 20:30] VITALS: BP 139/103; PULSE 108; RESP 19; TEMP 36.6; O2SAT 98
[2021-05-08 20:36] LABS: Troponin I < 0.01 ng/ml (0.00-0.034)
[2021-05-08 20:51] LABS: Ethyl Alcohol < 10 mg/dl (0-10)
[2021-05-08 21:43] VITALS: BP 133/99; PULSE 102; RESP 18; TEMP 36.6
--- NOTE | 2021-05-08 21:59 | PC.NURSE ---
PT RESTING QUIETLY WITH EYES CLOSED. RESPIRATIONS EVEN AND NON-LABORED.
[2021-05-08 22:06] VITALS: BP 144/108; PULSE 97; RESP 18; TEMP 36.8
[2021-05-08 23:33] LABS: Troponin I < 0.01 ng/ml (0.00-0.034)
[2021-05-09 00:01] VITALS: BP 153/109; PULSE 87; RESP 20; TEMP 37.1; O2SAT 96
== END 2021-05-09 00:14 | disposition home or self-care (01) ==
PROVIDERS: Emergency Provider Emergency Medicine; PCP Family Medicine
DX: F10.239 Alcohol dependence with withdrawal, unspecified (principal)
CPT/HCPCS: 36415; 71045; 80053; 83690; 84484; 85025; 93005; 96365; 99283; J2405

== ENCOUNTER 2021-05-29 21:13 | Emergency (ER) | payer SELFPAY ==
[2021-05-29 21:14] VITALS: BP 142/74; PULSE 133; RESP 20; TEMP 36.8; O2SAT 100; BMI 22.2
[2021-05-29 21:20] VITALS: BP 142/74; PULSE 150; TEMP 36.8; O2SAT 97
[2021-05-29 21:21] VITALS: BMI 22.1
--- NOTE | 2021-05-29 21:24 | CT_ITS ---
PROCEDURE INFORMATION: Exam: CT Chest With Contrast; Diagnostic Exam date and time: 05/29/2021 9:24 PM Age: 55 years old Clinical indication: Cough and shortness of breath; Additional info: Cough, SOA TECHNIQUE: Imaging protocol: Diagnostic computed tomography of the chest with contrast. Radiation optimization: All CT scans at this facility use at least one of these dose optimization techniques: automated exposure control; mA and/or kV adjustment per patient size (includes targeted exams where dose is matched to clinical indication); or iterative reconstruction. Contrast material: ISOVUE; Contrast volume: 75 ml; Contrast route: IV; COMPARISON: CT CHEST W CON 02/13/2021 9:43 AM FINDINGS: Lungs: Unremarkable. No consolidation. No masses. Pleural spaces: Unremarkable. No pneumothorax. No pleural effusion. Heart: Unremarkable. No cardiomegaly. No pericardial effusion. Aorta: Unremarkable. No aortic aneurysm. Lymph nodes: Unremarkable. No enlarged lymph nodes. Bones/joints: Unremarkable. No acute fracture. Soft tissues: Unremarkable. IMPRESSION: No acute findings.
[2021-05-29 21:29] LABS: Coronavirus 19, PCR Not Detected (NotDetected); Influenza A, PCR Not Detected (NotDetected); Influenza B, PCR Not Detected (NotDetected)
--- NOTE | 2021-05-29 21:45 | XR_ITS ---
PROCEDURE INFORMATION: Exam: XR Chest Exam date and time: 05/29/2021 9:45 PM Age: 55 years old Clinical indication: Cough and shortness of breath; Additional info: Cough, SOA TECHNIQUE: Imaging protocol: XR of the chest. Views: 2 views. COMPARISON: CR XR CHEST PORTABLE 05/08/2021 7:31 PM FINDINGS: Lungs: Unremarkable. No consolidation. Pleural spaces: Unremarkable. No pleural effusion. No pneumothorax. Heart/Mediastinum: Unremarkable. No cardiomegaly. Bones/joints: Unremarkable. IMPRESSION: No acute findings.
[2021-05-29 21:49] LABS: Basophils # 0.1 K/mm3 (0-0.2); Basophils % 0.9 % (0.1-2.0); Eosinophils % 0.1 % (0.1-12.0); Hematocrit 44.6 % (42.0-52.0); Hemoglobin 14.2 g/dL (14.1-18.0); Lymphocytes # 1.1 K/mm3 (0.7-4.5); Mean Corpuscular HGB Conc 31.9 g/dL (31.8-35.4); Mean Corpuscular Hemoglobin 34.8 pg (27.0-31.2); Mean Platelet Volume 8.6 fl (7.4-10.4); Monocytes # 0.4 K/mm3 (0.1-1.0); Monocytes % 5.5 % (1.7-9.3); Neutrophils # 6.2 K/mm3 (1.8-7.8); Neutrophils % 79.5 % (37.0-80.0); Platelet Count 294 K/mm3 (142-424); Red Blood Count 4.09 M/mm3 (4.60-6.20); Red Cell Distribution Width 13.8 % (11.5-17.5); White Blood Count 7.7 K/mm3 (4.8-10.8)
[2021-05-29 21:51] LABS: Lactic Acid 5.2 mmol/L (0.7-2.1)
--- NOTE | 2021-05-29 21:52 | PC.NURSE ---
Dr. miller notified of critical lactic
[2021-05-29 21:55] LABS: Alanine Aminotransferase 92 U/L (12-78); Albumin Level 4.8 g/dl (3.5-5.0); Albumin/Globulin Ratio 1.5 (1.1-1.8); Alkaline Phosphatase 83 U/L (38-126); Anion Gap 19.6 mEq/L (5-15); Aspartate Amino Transferase 161 U/L (17-59); Bilirubin,Total 1.1 mg/dl (0.2-1.3); Blood Urea Nitrogen 14 mg/dl (9-20); Calcium 9.1 mg/dl (8.4-10.2); Carbon Dioxide 24 mmol/L (22.0-30.0); Chloride 98 mmol/L (98-107); Creatinine Clearance Estimated 71 mL/min (50-200); Estimated Glomerular Filt Rate 58 ml/min (>60); GFR (African American) 70 ML/MIN (>60); Globulin 3.3 g/dL (1.3-3.2); Glucose 167 mg/dl (74-100); Potassium 3.6 mmoL/L (3.5-5.1); Sodium 138 mmol/L (136-145); Total Protein,Serum 8.1 g/dl (6.3-8.2)
[2021-05-29 22:00] VITALS: BP 147/110; PULSE 112; O2SAT 98
[2021-05-29 22:00] LABS: C-Reactive Protein 0.9 mg/L (0-4)
--- NOTE | 2021-05-29 22:03 | HMH.EDSOB ---
ED Disposition Clinical Impression: Pleurisy Disposition: Home, Self-Care Condition on Discharge: Good Instructions: DI for Pleurisy Additional Instructions: fluids and call pcp for follow up Referrals: Gordy Oshea MD [Primary Care Provider] - - Critical Care Critical Care Time: No Attestation: On 05/29/21, the high probability of a clinically significant, sudden or life threatening deterioration of the following system(s) required my full and direct attention, intervention and personal management. The time I documented below is in addition to time spent performing reported procedures but includes the following listed in this critical care notation. Medical Decision Making - Medical Records Medical records reviewed: Yes: I reviewed the patient's medical records. - Kamari Inquiry Pt receiving controlled substance: No Vital Signs: 05/29/21 21:14 05/29/21 21:20 05/29/21 22:00 Temperature 98.2 F 98.2 F Temperature Source Oral Oral Pulse Rate 150 H 112 H Pulse Rate [Right] 133 H Respiratory Rate 20 Blood Pressure 142/74 H 147/110 H Blood Pressure [Right Arm] 142/74 H Blood Pressure Mean [Right Arm] 96 Blood Pressure Source [Right Arm] Automatic Cuff 02 Sat by Pulse Oximetry 100 97 98 Oxygen Delivery Method Room Air Room Air Room Air 05/29/21 22:30 05/29/21 23:00 05/29/21 23:30 Temperature Temperature Source Pulse Rate 100 H 89 82 Pulse Rate [Right] Respiratory Rate Blood Pressure 154/110 H 156/112 H 154/110 H Blood Pressure [Right Arm] Blood Pressure Mean [Right Arm] Blood Pressure Source [Right Arm] 02 Sat by Pulse Oximetry 99 97 100 Oxygen Delivery Method Room Air Room Air Room Air - Lab Data Lab results reviewed: Yes: I reviewed the patient's lab results. Lab Results 05/29/21 21:18: SARS-CoV-2 (PCR) Not detected, Influenza A Untype (PCR) Not detected, Influenza Type B (PCR) Not detected 05/29/21 21:30: Plasma/Serum Alcohol < 10 05/29/21 21:35: WBC 7.7, RBC 4.09 L, Hgb 14.2, Hct 44.6, MCV 109.0 H, MCH 34.8 H, MCHC 31.9, RDW 13.8, Plt Count 294, MPV 8.6, Neut % (Auto) 79.5, Lymph % (Auto) 14.0, [place] % (Auto) 5.5, Eos % (Auto) 0.1, Baso % (Auto) 0.9, Neut # (Auto) 6.2, Lymph # (Auto) 1.1, [place] # (Auto) 0.4, Eos # (Auto) 0.0, Baso # (Auto) 0.1, ESR 22 H 05/29/21 21:35: Sodium 138, Potassium 3.6, Chloride 98, Carbon Dioxide 24, Anion Gap 19.6 H, BUN 14, Creatinine 1.30 H, Estimated Creat Clear 71, Estimated GFR 58 L, Est GFR ( Amer) 70, Glucose 167 H, Calcium 9.1, Total Bilirubin 1.1, AST 161 H, ALT 92 H, Alkaline Phosphatase 83, C-Reactive Protein 0.9, Total Protein 8.1, Albumin 4.8, Globulin 3.3 H, Albumin/Globulin Ratio 1.5, Procalcitonin 0.261 05/29/21 21:35: Lactate 5.2 H Result diagrams: 05/29/21 21:35 05/29/21 21:35 Orders (Tests/Meds): ED MEDICATIONS Generic Name Dose Route Start Last Admin Trade Name Freq PRN Reason Stop Dose Admin Sodium Chloride 1,000 mls @ 999 mls/hr 05/29/21 21:30 05/29/21 21:27 Sod Chlor 0.9% 1000ml Bag IV 05/29/21 22:30 999 mls/hr .Q1H1M SHAUN Administration Sodium Chloride 1,000 mls @ 999 mls/hr 05/29/21 22:15 05/29/21 22:21 Sod Chlor 0.9% 1000ml Bag IV 05/29/21 23:15 999 mls/hr .Q1H1M SHAUN Administration Multivitamins 10 ml/ Thiamine 1,015 mls @ 150 mls/hr 05/29/21 23:15 05/29/21 23:13 HCl 100 mg/ Magnesium Sulfate IV 05/30/21 06:00 150 mls/hr 2 gm/ Lactated Ringer's .Q6H46M SHAUN Administration Sodium Chloride 3 ml 05/29/21 21:25 Sodium Chloride 3% 15ml Neb IH 06/28/21 21:24 ONCE PRN INDUCE SPUTUM COLLECTION Sodium Chloride 8 ml 05/29/21 23:26 Sodium Chloride 0.9% 10ml Vial IV 06/28/21 23:25 NEEDED PRN dilute pepcid Discontinued Medications Generic Name Dose Route Start Last Admin Trade Name Freq PRN Reason Stop Dose Admin Famotidine 20 mg 05/29/21 23:26 05/29/21 23:27 Famotidine 20mg/2ml Vial IV 05/29/21 23:27 20 mg ONCE ONE
[2021-05-29 22:13] LABS: Procalcitonin 0.261 ng/mL (0.0-2.0)
[2021-05-29 22:14] LABS: Erythrocyte Sedimentation Rate 22 mm/hr (0-20)
[2021-05-29 22:30] VITALS: BP 154/110; PULSE 100; O2SAT 99
[2021-05-29 22:37] LABS: Ethyl Alcohol < 10 mg/dl (0-10)
[2021-05-29 23:00] VITALS: BP 156/112; PULSE 89; O2SAT 97
[2021-05-29 23:30] VITALS: BP 154/110; PULSE 82; O2SAT 100
[2021-05-30 00:22] VITALS: BP 157/90; PULSE 80; RESP 20; TEMP 36.7; O2SAT 99
== END 2021-05-30 00:26 | disposition home or self-care (01) ==
PROVIDERS: Emergency Provider Emergency Medicine; PCP Family Medicine
DX: R09.1 Pleurisy (principal); F10.21 Alcohol dependence, in remission; K21.9 Gastro-esophageal reflux disease without esophagitis; F41.9 Anxiety disorder, unspecified; I10 Essential (primary) hypertension; E78.5 Hyperlipidemia, unspecified; Z79.899 Other long term (current) drug therapy
CPT/HCPCS: 71046; 71260; 80053; 83605; 84145; 85025; 85651; 86140; 87040; 96365; 96375; 99283; 99284; C9803; J2405; Q9967; U0003; U0005

== ENCOUNTER 2021-06-09 09:13 | Emergency (ER) | payer SELFPAY ==
[2021-06-09] VITALS (16 sets, daily range): BP systolic 124–148; BP diastolic 86–113; PULSE 62–128; RESP 12–21; TEMP 37–37.1; O2SAT 95–99; BMI 22.1
--- NOTE | 2021-06-09 09:22 | XR_ITS ---
PROCEDURE INFORMATION: Exam: XR Chest Exam date and time: 06/09/2021 9:22 AM Age: 55 years old Clinical indication: Cough; Additional info: Cough and congestion TECHNIQUE: Imaging protocol: XR of the chest. Views: 1 view. COMPARISON: CT CHEST W CON 05/29/2021 9:44 PM FINDINGS: Lungs: Unremarkable. No consolidation. Pleural spaces: Unremarkable. No pleural effusion. No pneumothorax. Heart/Mediastinum: Unremarkable. No cardiomegaly. Bones/joints: Unremarkable. IMPRESSION: No acute cardiopulmonary disease.
[2021-06-09 09:58] LABS: Basophils % 0.6 % (0.1-2.0); Eosinophils % 0.1 % (0.1-12.0); Hematocrit 42.8 % (42.0-52.0); Hemoglobin 13.8 g/dL (14.1-18.0); Lymphocytes # 0.8 K/mm3 (0.7-4.5); Lymphocytes % 11.6 % (10-50); Mean Corpuscular HGB Conc 32.1 g/dL (31.8-35.4); Mean Corpuscular Hemoglobin 35.3 pg (27.0-31.2); Mean Corpuscular Volume 109.8 fl (80-94); Mean Platelet Volume 8.9 fl (7.4-10.4); Monocytes # 0.4 K/mm3 (0.1-1.0); Neutrophils # 5.3 K/mm3 (1.8-7.8); Neutrophils % 81.7 % (37.0-80.0); Platelet Count 190 K/mm3 (142-424); Red Cell Distribution Width 14.1 % (11.5-17.5); White Blood Count 6.5 K/mm3 (4.8-10.8)
--- NOTE | 2021-06-09 10:02 | HMH.EDSOB ---
ED Disposition Clinical Impression: Fatty liver Chronic bronchitis Qualifiers: Chronic bronchitis type: simple Qualified Code(s): J41.0 - Simple chronic bronchitis Disposition: Home, Self-Care Condition on Discharge: Good Instructions: DI for Chronic Bronchitis Prescriptions: Promethazine HCl [Phenergan 25mg tab] 25 mg PO BID #12 tab Transmission Status: Pending to [facility] #[id number] Referrals: Gordy Oshea MD [Primary Care Provider] - Jerod Morales MD [Staff Physician] - - Critical Care Critical Care Time: No Attestation: On 06/09/21, the high probability of a clinically significant, sudden or life threatening deterioration of the following system(s) required my full and direct attention, intervention and personal management. The time I documented below is in addition to time spent performing reported procedures but includes the following listed in this critical care notation. Medical Decision Making - Medical Records Medical records reviewed: Yes: I reviewed the patient's medical records. - Kamari Inquiry Pt receiving controlled substance: No Vital Signs: 06/09/21 09:20 06/09/21 10:50 06/09/21 10:55 Temperature 98.7 F Temperature Source Oral Pulse Rate 62 68 Pulse Rate [Left Radial] 128 H Respiratory Rate 18 16 16 Blood Pressure 128/91 H 125/92 H Blood Pressure [Right Arm] 143/90 H Blood Pressure Mean 99 101 Blood Pressure Mean [Right Arm] 107 02 Sat by Pulse Oximetry 95 98 98 Oxygen Delivery Method Room Air 06/09/21 11:00 06/09/21 11:05 06/09/21 11:10 Temperature Temperature Source Pulse Rate 66 62 72 Pulse Rate [Left Radial] Respiratory Rate 15 12 17 Blood Pressure 124/94 H 126/86 133/98 H Blood Pressure [Right Arm] Blood Pressure Mean 100 98 107 Blood Pressure Mean [Right Arm] 02 Sat by Pulse Oximetry 98 99 97 Oxygen Delivery Method 06/09/21 12:33 06/09/21 12:35 06/09/21 12:45 Temperature Temperature Source Pulse Rate 73 70 79 Pulse Rate [Left Radial] Respiratory Rate 17 21 16 Blood Pressure 136/113 H 146/98 H 144/100 H Blood Pressure [Right Arm] Blood Pressure Mean 119 117 113 Blood Pressure Mean [Right Arm] 02 Sat by Pulse Oximetry 98 99 98 Oxygen Delivery Method 06/09/21 12:50 06/09/21 12:55 06/09/21 13:05 Temperature Temperature Source Pulse Rate 66 71 72 Pulse Rate [Left Radial] Respiratory Rate 14 18 18 Blood Pressure 143/99 H 139/101 H 141/105 H Blood Pressure [Right Arm] Blood Pressure Mean 117 111 118 Blood Pressure Mean [Right Arm] 02 Sat by Pulse Oximetry 98 97 97 Oxygen Delivery Method 06/09/21 13:15 06/09/21 13:20 Temperature Temperature Source Pulse Rate 66 65 Pulse Rate [Left Radial] Respiratory Rate 12 12 Blood Pressure 138/101 H 141/101 H Blood Pressure [Right Arm] Blood Pressure Mean 111 113 Blood Pressure Mean [Right Arm] 02 Sat by Pulse Oximetry 97 98 Oxygen Delivery Method - Lab Data Lab Results 06/09/21 09:44: WBC 6.5, RBC 3.90 L, Hgb 13.8 L, Hct 42.8, MCV 109.8 H, MCH 35.3 H, MCHC 32.1, RDW 14.1, Plt Count 190, MPV 8.9, Neut % (Auto) 81.7 H, Lymph % (Auto) 11.6, [place] % (Auto) 6.0, Eos % (Auto) 0.1, Baso % (Auto) 0.6, Neut # (Auto) 5.3, Lymph # (Auto) 0.8, [place] # (Auto) 0.4, Eos # (Auto) 0.0, Baso # (Auto) 0.0 06/09/21 09:44: Sodium 135 L, Potassium 4.0, Chloride 94 L, Carbon Dioxide 24, Anion Gap 21.0 H, BUN 18, Creatinine 1.30 H, Estimated Creat Clear 71, Estimated GFR 58 L, Est GFR ( Amer) 70, Glucose 122 H, Calcium 9.4, Total Bilirubin 1.9 H, AST 199 H, ALT 99 H, Alkaline Phosphatase 85, Troponin I < 0.01, Total Protein 7.8, Albumin 4.8, Globulin 3.0, Albumin/Globulin Ratio 1.6 06/09/21 09:44: Lipase 365 H 06/09/21 09:50: SARS-CoV-2 (PCR) Not detected, Influenza A Untype (PCR) Not detected, Influenza Type B (PCR) Not detected 06/09/21 12:22: Troponin I < 0.01 06/09/21 13:45: Urine Color Straw, Urine Appearance Clear, Ur
[2021-06-09 10:06] LABS: Coronavirus 19, PCR Not Detected (NotDetected); Influenza A, PCR Not Detected (NotDetected); Influenza B, PCR Not Detected (NotDetected)
[2021-06-09 10:10] LABS: Alanine Aminotransferase 99 U/L (12-78); Albumin Level 4.8 g/dl (3.5-5.0); Albumin/Globulin Ratio 1.6 (1.1-1.8); Alkaline Phosphatase 85 U/L (38-126); Aspartate Amino Transferase 199 U/L (17-59); Bilirubin,Total 1.9 mg/dl (0.2-1.3); Blood Urea Nitrogen 18 mg/dl (9-20); Calcium 9.4 mg/dl (8.4-10.2); Carbon Dioxide 24 mmol/L (22.0-30.0); Chloride 94 mmol/L (98-107); Creatinine Clearance Estimated 71 mL/min (50-200); Estimated Glomerular Filt Rate 58 ml/min (>60); GFR (African American) 70 ML/MIN (>60); Glucose 122 mg/dl (74-100); Sodium 135 mmol/L (136-145); Total Protein,Serum 7.8 g/dl (6.3-8.2)
[2021-06-09 10:22] LABS: Troponin I < 0.01 ng/ml (0.00-0.034)
--- NOTE | 2021-06-09 10:32 | CT_ITS ---
PROCEDURE INFORMATION: Exam: CT Abdomen And Pelvis With Contrast Exam date and time: 06/09/2021 10:32 AM Age: 55 years old Clinical indication: Abdominal pain; Generalized; Additional info: Pain and vomitting TECHNIQUE: Imaging protocol: Computed tomography of the abdomen and pelvis with contrast. Radiation optimization: All CT scans at this facility use at least one of these dose optimization techniques: automated exposure control; mA and/or kV adjustment per patient size (includes targeted exams where dose is matched to clinical indication); or iterative reconstruction. Contrast material: ISOVUE; Contrast volume: 75 ml; Contrast route: IV; COMPARISON: CT ABDOMEN PELVIS W CON 02/13/2021 9:43 AM FINDINGS: Liver: Diffuse fatty infiltration again noted. This finding may be somewhat worse compared to previously. No focal lesions. Gallbladder and bile ducts: Normal. No calcified stones. No ductal dilation. Pancreas: Normal. No ductal dilation. Spleen: Normal. No splenomegaly. Adrenal glands: Normal. No mass. Kidneys and ureters: Normal. No hydronephrosis. Stomach and bowel: Unremarkable. No obstruction. No mucosal thickening. Appendix: No evidence for appendicitis. Normal diameter. No inflammation. Intraperitoneal space: Unremarkable. No free air. No significant fluid collection. Vasculature: Unremarkable. No abdominal aortic aneurysm. Lymph nodes: Unremarkable. No enlarged lymph nodes. Urinary bladder: Again noted is mural thickening. Reproductive: The prostate gland measures 5.1 cm transversely. Bones/joints: Unremarkable. No acute fracture. Soft tissues: Unremarkable. IMPRESSION: 1. Diffuse fatty infiltration of the liver, worse in the interval. 2. Mural thickening of the urinary bladder may represent acute or chronic cystitis. The sequela of chronic bladder outlet obstruction or chronic bladder stasis is possible. 3. Prostatic enlargement.
[2021-06-09 10:42] LABS: Lipase 365 U/L (23-300)
[2021-06-09 13:16] LABS: Troponin I < 0.01 ng/ml (0.00-0.034)
[2021-06-09 13:50] LABS: Microscopic, Urine URINE MICROSCOPIC (MICROSCOPIC)
[2021-06-09 13:56] LABS: Appearance,Urine CLEAR (Clear); Blood, Urine Negative (Negative); Color,Urine STRAW (Yellow); Glucose,Urine (UA) Negative (Negative); Ketones,Urine 2+ (Negative); Leukocyte Esterase,Urine Negative (Negative); Nitrate,Urine Negative (Negative); Protein,Urine Negative (Negative); Urobilinogen,Urine 0.2 EU/dl (0.2)
[2021-06-09 14:18] LABS: Bilirubin,Urine 1+ (Negative); Mucus,Urine Trace /lpf; Squamous Epithelial Cell,Urine Occasional #/hpf (0-5)
== END 2021-06-09 15:13 | disposition home or self-care (01) ==
PROVIDERS: Emergency Provider Emergency Medicine; PCP Family Medicine
DX: K76.0 Fatty (change of) liver, not elsewhere classified (principal); J42 Unspecified chronic bronchitis; R06.02 Shortness of breath; N40.0 Benign prostatic hyperplasia without lower urinary tract symptoms; G47.33 Obstructive sleep apnea (adult) (pediatric); F10.20 Alcohol dependence, uncomplicated; F41.9 Anxiety disorder, unspecified; Z79.899 Other long term (current) drug therapy
CPT/HCPCS: 71045; 74177; 80053; 81001; 83690; 84484; 85025; 96361; 96365; 96374; 96375; 99284; C9803; Q9967; U0003; U0005

== ENCOUNTER 2021-07-02 20:59 | Inpatient (IN) | payer SELFPAY ==
[2021-07-02 21:01] VITALS: BP 157/115; PULSE 115; RESP 16; TEMP 36.8; O2SAT 98; BMI 22.4
--- NOTE | 2021-07-02 21:08 | ECG_ITS ---
APPROVED REPORT Exam: Resting ECG HR:118 bpm ECG Measurements Heart Rate 118 AXES OR 140 P 69 QRSd 90 QRS 79 QT 340 T 74 QTc 410 Conclusion SINUS TACHYCARDIA NONSPECIFIC ST & T-WAVE ABNORMALITY ABNORMAL RHYTHM ECG UNCONFIRMED REPORT Electronically signed by : Jimmy Greene MD 07/05/2021 16:21:21
--- NOTE | 2021-07-02 21:32 | XR_ITS ---
PROCEDURE INFORMATION: Exam: XR Chest Exam date and time: 07/02/2021 9:44 PM Age: 55 years old Clinical indication: Cough TECHNIQUE: Imaging protocol: XR of the chest. Views: 2 views. COMPARISON: CR XR CHEST PORTABLE 06/09/2021 9:23 AM FINDINGS: Lungs: Unremarkable. No consolidation. Pleural spaces: Unremarkable. No pleural effusion. No pneumothorax. Heart/Mediastinum: Unremarkable. No cardiomegaly. Bones/joints: Unremarkable. IMPRESSION: No acute findings.
--- NOTE | 2021-07-02 21:34 | HMH.EDSOB ---
ED Disposition Clinical Impression: Chronic alcohol use, Renal insufficiency Acute pancreatitis Qualifiers: Pancreatitis type: unspecified pancreatitis type Acute pancreatitis complication: no infection or necrosis Qualified Code(s): K85.90 - Acute pancreatitis without necrosis or infection, unspecified Alcohol withdrawal Qualifiers: Complication of substance-induced condition: uncomplicated Qualified Code(s): F10.230 - Alcohol dependence with withdrawal, uncomplicated Disposition: Admitted As Inpatient Condition on Discharge: Serious Referrals: Gordy Oshea MD [Primary Care Provider] - - Critical Care Critical Care Time: No Attestation: On 07/02/21, the high probability of a clinically significant, sudden or life threatening deterioration of the following system(s) required my full and direct attention, intervention and personal management. The time I documented below is in addition to time spent performing reported procedures but includes the following listed in this critical care notation. Medical Decision Making - Medical Records Medical records reviewed: Yes: I reviewed the patient's medical records. - Kamari Inquiry Pt receiving controlled substance: No Vital Signs: 07/02/21 21:01 07/02/21 22:00 07/02/21 22:30 Temperature 98.3 F Temperature Source Oral Pulse Rate 97 H 95 H Pulse Rate [Left] 115 H Respiratory Rate 16 Blood Pressure 129/94 H 127/100 H Blood Pressure [Right Arm] 157/115 H Blood Pressure Mean [Right Arm] 129 Blood Pressure Source Blood Pressure Position 02 Sat by Pulse Oximetry 98 95 99 Oxygen Delivery Method Room Air Room Air 07/02/21 23:00 07/03/21 00:00 07/03/21 01:30 Temperature Temperature Source Pulse Rate 89 99 H 105 H Pulse Rate [Left] Respiratory Rate Blood Pressure 157/109 H 163/111 H 160/107 H Blood Pressure [Right Arm] Blood Pressure Mean [Right Arm] Blood Pressure Source Automatic Cuff Blood Pressure Position Sitting 02 Sat by Pulse Oximetry 100 99 97 Oxygen Delivery Method Room Air 07/03/21 02:00 Temperature Temperature Source Pulse Rate 94 H Pulse Rate [Left] Respiratory Rate 18 Blood Pressure 160/96 H Blood Pressure [Right Arm] Blood Pressure Mean [Right Arm] Blood Pressure Source Blood Pressure Position 02 Sat by Pulse Oximetry 98 Oxygen Delivery Method Room Air - Lab Data Lab results reviewed: Yes: I reviewed the patient's lab results. Lab Results 07/02/21 21:10: WBC 10.1, RBC 4.09 L, Hgb 14.5, Hct 44.8, MCV 109.5 H, MCH 35.5 H, MCHC 32.4, RDW 13.9, Plt Count 262, MPV 8.9, Neut % (Auto) 88.8 H, Lymph % (Auto) 4.6 L, [place] % (Auto) 4.8, Eos % (Auto) 0.1, Baso % (Auto) 1.7, Neut # (Auto) 9.0 H, Lymph # (Auto) 0.5 L, [place] # (Auto) 0.5, Eos # (Auto) 0.0, Baso # (Auto) 0.2, Total Counted 100, Neutrophils % (Manual) 81 H, Lymphocytes % (Manual) 17, Monocytes % (Manual) 2, Platelet Estimate Normal, Hypochromasia 1+, Anisocytosis 1+, Stomatocytes 1+ 07/02/21 21:10: Sodium 133 L, Potassium 4.6, Chloride 89 L, Carbon Dioxide 15 L, Anion Gap 33.6 H, BUN 22 H, Creatinine 1.60 H, Estimated Creat Clear 58, Estimated GFR 45 L, Est GFR ( Amer) 55 L, Glucose 174 H, Calcium 9.2, Total Bilirubin 1.7 H, AST 234 H, ALT 154 H, Alkaline Phosphatase 89, Troponin I < 0.01, Total Protein 8.4 H, Albumin 5.0, Globulin 3.4 H, Albumin/Globulin Ratio 1.5 07/02/21 21:10: Lipase 6098 H 07/02/21 21:10: Plasma/Serum Alcohol < 10 07/03/21 01:02: SARS-CoV-2 (PCR) Not detected, Influenza A Untype (PCR) Not detected, Influenza Type B (PCR) Not detected Result diagrams: 07/02/21 21:10 07/02/21 21:10 Orders (Tests/Meds): ED MEDICATIONS Generic Name Dose Route Start Last Admin Trade Name Freq PRN Reason Stop Dose Admin Lactated Ringer's 500 mls @ 999 mls/hr 07/02/21 21:30 07/02/21 21:28 Lactated Ringer's 1000 Ml Bag IV 07/02/21 22:00 999 mls/hr .Q31M SHAUN Administration Lactated Ringer's 1,000 mls @ 999
[2021-07-02 21:40] LABS: Basophils # 0.2 K/mm3 (0-0.2); Basophils % 1.7 % (0.1-2.0); Eosinophils % 0.1 % (0.1-12.0); Hematocrit 44.8 % (42.0-52.0); Hemoglobin 14.5 g/dL (14.1-18.0); Lymphocytes # 0.5 K/mm3 (0.7-4.5); Lymphocytes % 4.6 % (10-50); Mean Corpuscular HGB Conc 32.4 g/dL (31.8-35.4); Mean Corpuscular Hemoglobin 35.5 pg (27.0-31.2); Mean Corpuscular Volume 109.5 fl (80-94); Mean Platelet Volume 8.9 fl (7.4-10.4); Monocytes # 0.5 K/mm3 (0.1-1.0); Monocytes % 4.8 % (1.7-9.3); Neutrophils % 88.8 % (37.0-80.0); Platelet Count 262 K/mm3 (142-424); Red Blood Count 4.09 M/mm3 (4.60-6.20); Red Cell Distribution Width 13.9 % (11.5-17.5); White Blood Count 10.1 K/mm3 (4.8-10.8)
[2021-07-02 21:44] LABS: Chloride 89 mmol/L (98-107); MANUAL DIFFERENTIAL MANUAL DIFFERENTIAL (MANUAL DIFF)
[2021-07-02 21:45] LABS: Potassium 4.6 mmoL/L (3.5-5.1); Sodium 133 mmol/L (136-145)
[2021-07-02 21:47] LABS: Alanine Aminotransferase 154 U/L (12-78); Albumin/Globulin Ratio 1.5 (1.1-1.8); Alkaline Phosphatase 89 U/L (38-126); Anion Gap 33.6 mEq/L (5-15); Bilirubin,Total 1.7 mg/dl (0.2-1.3); Blood Urea Nitrogen 22 mg/dl (9-20); Carbon Dioxide 15 mmol/L (22.0-30.0); Creatinine Clearance Estimated 58 mL/min (50-200); Estimated Glomerular Filt Rate 45 ml/min (>60); GFR (African American) 55 ML/MIN (>60); Globulin 3.4 g/dL (1.3-3.2); Total Protein,Serum 8.4 g/dl (6.3-8.2)
[2021-07-02 21:48] LABS: Calcium 9.2 mg/dl (8.4-10.2); Glucose 174 mg/dl (74-100)
[2021-07-02 21:55] LABS: Aspartate Amino Transferase 234 U/L (17-59)
[2021-07-02 21:56] LABS: Ethyl Alcohol < 10 mg/dl (0-10)
[2021-07-02 22:00] VITALS: BP 129/94; PULSE 97; O2SAT 95
[2021-07-02 22:01] LABS: Troponin I < 0.01 ng/ml (0.00-0.034)
[2021-07-02 22:29] LABS: Anisocytosis 1+; Hypochromasia 1+; Lymphocytes % 17 % (10-50); Monocytes % 2 % (2-9); Neutrophils % 81 % (42-76); Platelet Estimate Normal; Stomatocytes 1+; Total Cells Counted 100
[2021-07-02 22:30] VITALS: BP 127/100; PULSE 95; O2SAT 99
[2021-07-02 23:00] VITALS: BP 157/109; PULSE 89; O2SAT 100
[2021-07-02 23:08] LABS: Lipase 6098 U/L (23-300)
[2021-07-03] VITALS (9 sets, daily range): BP systolic 149–164; BP diastolic 85–112; PULSE 84–105; RESP 16–18; TEMP 36.9–37.4; O2SAT 94–100; BMI 22.4
--- NOTE | 2021-07-03 | CT_ITS ---
PROCEDURE INFORMATION: Exam: CT Abdomen And Pelvis Without Contrast Exam date and time: 07/03/2021 12:03 AM Age: 55 years old Clinical indication: Nausea and vomiting; Patient HX: N/v for several months, now C/O abdominal pain TECHNIQUE: Imaging protocol: Computed tomography of the abdomen and pelvis without contrast. Radiation optimization: All CT scans at this facility use at least one of these dose optimization techniques: automated exposure control; mA and/or kV adjustment per patient size (includes targeted exams where dose is matched to clinical indication); or iterative reconstruction. COMPARISON: CT ABDOMEN PELVIS W CON 06/09/2021 11:13 AM FINDINGS: Liver: Fatty liver. Gallbladder and bile ducts: Cholecystectomy. Pancreas: Severe peripancreatic inflammatory changes findings consistent with acute pancreatitis. Spleen: Normal. No splenomegaly. Adrenal glands: Normal. No mass. Kidneys and ureters: Normal. No hydronephrosis. Stomach and bowel: Unremarkable. No obstruction. No mucosal thickening. Appendix: Normal appendix. Intraperitoneal space: Unremarkable. No free air. No significant fluid collection. Vasculature: Unremarkable. No abdominal aortic aneurysm. Lymph nodes: Unremarkable. No enlarged lymph nodes. Urinary bladder: Unremarkable as visualized. Reproductive: Unremarkable as visualized. Bones/joints: Unremarkable. No acute fracture. Soft tissues: Unremarkable. IMPRESSION: Acute pancreatitis. Correlate with amylase and lipase. There is secondary inflammation of the adjacent duodenum.
[2021-07-03 01:08] LABS: Coronavirus 19, PCR Not Detected (NotDetected); Influenza A, PCR Not Detected (NotDetected); Influenza B, PCR Not Detected (NotDetected)
--- NOTE | 2021-07-03 01:28 | PC.NURSE ---
made aware of continued elevated BP. New orders for clonidne PO 0.1mg
--- NOTE | 2021-07-03 02:35 | PC.NURSE ---
made aware that pt scores a 12 on CIWA scale. No new orders at this time.
--- NOTE | 2021-07-03 03:19 | PC.NURSE ---
speaking with Md Myranda at this time.
--- NOTE | 2021-07-03 03:23 | PC.NURSE ---
Notified data warehouse specialist about admission and need for bed assignment
--- NOTE | 2021-07-03 03:24 | PC.NURSE ---
Patient admitted to [facility] with acute pancreatitis.
--- NOTE | 2021-07-03 03:52 | PC.NURSE ---
Report given to PRUDENCIO Solis at this time.
--- NOTE | 2021-07-03 04:24 | PC.NURSE ---
patient arrived to floor via wheelchair @ 04:24.
[2021-07-03 06:04] LABS: Eosinophils % 0.1 % (0.1-12.0); Hematocrit 38.3 % (42.0-52.0); Lymphocytes # 0.2 K/mm3 (0.7-4.5); Lymphocytes % 2.2 % (10-50); Mean Corpuscular HGB Conc 32.5 g/dL (31.8-35.4); Mean Corpuscular Hemoglobin 35.7 pg (27.0-31.2); Mean Corpuscular Volume 109.9 fl (80-94); Mean Platelet Volume 9.1 fl (7.4-10.4); Monocytes # 0.6 K/mm3 (0.1-1.0); Monocytes % 5.8 % (1.7-9.3); Neutrophils # 9.2 K/mm3 (1.8-7.8); Neutrophils % 91.9 % (37.0-80.0); Platelet Count 133 K/mm3 (142-424); Red Blood Count 3.49 M/mm3 (4.60-6.20)
[2021-07-03 06:09] LABS: Amylase 661 U/L (30-110)
[2021-07-03 06:10] LABS: Alanine Aminotransferase 95 U/L (12-78); Albumin Level 4.3 g/dl (3.5-5.0); Albumin/Globulin Ratio 1.7 (1.1-1.8); Alkaline Phosphatase 66 U/L (38-126); Anion Gap 18.3 mEq/L (5-15); Aspartate Amino Transferase 141 U/L (17-59); Bilirubin,Total 1.4 mg/dl (0.2-1.3); Blood Urea Nitrogen 24 mg/dl (9-20); Calcium 8.9 mg/dl (8.4-10.2); Carbon Dioxide 24 mmol/L (22.0-30.0); Chloride 94 mmol/L (98-107); Chol/HDL Ratio 3.1 (1-3.5); Cholesterol 316 mg/dl (140-200); Estimated Glomerular Filt Rate 58 ml/min (>60); GFR (African American) 70 ML/MIN (>60); Globulin 2.6 g/dL (1.3-3.2); Glucose 180 mg/dl (74-100); HDL Cholesterol 103 mg/dl (40-60); Magnesium 1.2 mg/dl (1.6-2.3); Potassium 4.3 mmoL/L (3.5-5.1); Sodium 132 mmol/L (136-145); Total Protein,Serum 6.9 g/dl (6.3-8.2); Triglycerides 89 mg/dl (30-150); VLDL Cholesterol 18 mg/dL (0-40)
[2021-07-03 06:20] LABS: Creatinine Clearance Estimated 71 mL/min (50-200)
[2021-07-03 06:21] LABS: Direct LDL Cholesterol 151.72 mg/dL (100-129)
[2021-07-03 06:31] LABS: Lipase 7991 U/L (23-300)
--- NOTE | 2021-07-03 07:01 | P.CONPHA_ITS ---
[facility] Pharmacy VTE Monitoring - Patient Demographics Admission date: 07/02/21 Report Date: 07/03/21 Time: 07:01 Allergies/Adverse Reactions: Patient Allergies No Known Allergies Allergy (Verified 05/30/20 03:30) Height: 1.85 m Weight: 76.702 kg Patient Problems: Current Active Problems Chronic alcohol use (Chronic) Alcohol withdrawal (Acute) Acute pancreatitis (Acute) Renal insufficiency (Acute) - VTE Risk Labs: VTE Related Lab Results Hgb 14.5 g/dL (14.1-18.0) 07/02/21 21:10 Hct 44.8 % (42.0-52.0) 07/02/21 21:10 Plt Count 262 K/mm3 (142-424) 07/02/21 21:10 BUN 24 mg/dl (9-20) H 07/03/21 05:29 Creatinine 1.30 mg/dl (0.66-1.25) H 07/03/21 05:29 Estimated Creat Clear 71 mL/min (50-200) 07/03/21 05:29 Was VTE Risk Assessment Performed: Yes VTE Score: 2 VTE Risk Level: Very Low Risk - Prophylaxis VTE Prophylaxis Ordered?: Yes Types of VTE Prophylaxis: TEDS Knee High Location of Applied Device: Bilateral Lower Extremeties
[2021-07-03 07:02] LABS: MANUAL DIFFERENTIAL MANUAL DIFFERENTIAL (MANUAL DIFF)
--- NOTE | 2021-07-03 07:02 | HMH.PHAINT ---
MEDICATION RECONCILIATION COMPLETED ON PATIENT USING EXTERNAL FILL HISTORY FROM PHARMACY. -MIGDALIA ARORA, DANIELAD
[2021-07-03 07:03] LABS: Hemoglobin 12.5 g/dL (14.1-18.0)
[2021-07-03 08:20] LABS: Lymphocytes % 1 % (10-50); Macrocytosis 1+; Monocytes % 1 % (2-9); Neutrophils % 98 % (42-76); Platelet Estimate Normal; Total Cells Counted 100
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
[2021-07-03 09:26] LABS: Magnesium 1.2 mg/dl (1.6-2.3); Phosphorous 2.7 mg/dl (2.5-4.5)
--- NOTE | 2021-07-03 18:04 | PC.NURSE ---
pt CIWA scores have remained 5 and below this shift. lungs are clear, bowel sounds active. pt has required q4 dilaudid r/t lower abd pain. pt has received diazepam once this shift. will continue to monitor. tremors have lessened throughout the shift. pt denies any type of disturbances
--- NOTE | 2021-07-03 18:16 | PC.NURSE ---
pt was offered a shower/to get cleaned up several times this shift. pt refused. pt was convinced to change into a gown, but wanted to keep his blue jeans on at this time. states that he might feel like showering tomorrow.
[2021-07-04] VITALS (8 sets, daily range): BP systolic 126–164; BP diastolic 73–107; PULSE 103–151; RESP 15–22; TEMP 36.8–38.2; O2SAT 92–99
--- NOTE | 2021-07-04 04:53 | PC.NURSE ---
Addendum entered by Paulina Corrigan RN 07/04/21 05:35: Reassessed patient at 1 hour Ciwa score continued to 8. Patient redosed per JUN. Original Note: During CIWA assessment patient stating he is now hearing voices. States the voices are saying his name over and over. Patient seems anxious with mild tremor and some perspiration noted. Tachycardia noted as well. Patient denies nausea, headache or any other disturbances at this time. Patient scored a 6 on CIWA at this time medicated per JUN.
[2021-07-04 05:58] LABS: Basophils % 0.1 % (0.1-2.0); Hemoglobin 12.1 g/dL (14.1-18.0); Lymphocytes # 0.5 K/mm3 (0.7-4.5); Mean Corpuscular HGB Conc 33.5 g/dL (31.8-35.4); Mean Corpuscular Hemoglobin 36.1 pg (27.0-31.2); Mean Platelet Volume 10.5 fl (7.4-10.4); Monocytes # 0.5 K/mm3 (0.1-1.0); Monocytes % 4.5 % (1.7-9.3); Neutrophils # 11.1 K/mm3 (1.8-7.8); Neutrophils % 91.4 % (37.0-80.0); Platelet Count 87 K/mm3 (142-424); Red Blood Count 3.34 M/mm3 (4.60-6.20); Red Cell Distribution Width 14.2 % (11.5-17.5); White Blood Count 12.1 K/mm3 (4.8-10.8)
[2021-07-04 06:06] LABS: MANUAL DIFFERENTIAL MANUAL DIFFERENTIAL (MANUAL DIFF)
[2021-07-04 06:08] LABS: Alanine Aminotransferase 83 U/L (12-78); Albumin Level 3.6 g/dl (3.5-5.0); Albumin/Globulin Ratio 1.4 (1.1-1.8); Alkaline Phosphatase 56 U/L (38-126); Amylase 469 U/L (30-110); Anion Gap 12.6 mEq/L (5-15); Aspartate Amino Transferase 174 U/L (17-59); Bilirubin,Total 1.6 mg/dl (0.2-1.3); Blood Urea Nitrogen 20 mg/dl (9-20); Carbon Dioxide 26 mmol/L (22.0-30.0); Chloride 95 mmol/L (98-107); Creatinine Clearance Estimated 66 mL/min (50-200); Estimated Glomerular Filt Rate 53 ml/min (>60); GFR (African American) 64 ML/MIN (>60); Globulin 2.5 g/dL (1.3-3.2); Glucose 123 mg/dl (74-100); Lipase 1911 U/L (23-300); Potassium 4.6 mmoL/L (3.5-5.1); Sodium 129 mmol/L (136-145); Total Protein,Serum 6.1 g/dl (6.3-8.2)
[2021-07-04 07:36] LABS: Lymphocytes % 4 % (10-50); Monocytes % 5 % (2-9); Neutrophils % 91 % (42-76); Total Cells Counted 100
[2021-07-04 07:37] LABS: Macrocytosis 2+; Platelet Estimate Slight Decrease
--- NOTE | 2021-07-04 07:57 | HMH.ACPN2 ---
<Aleshia Talavera - Last Filed: 07/04/21 07:57> Internal Medicine - PN: Subj *Date: 07/04/21 *Time: 07:57 Interval history: Patient did not sleep well and has been nauseated. He states he drank some water and this made him nauseated. He has not vomited. Zofran helps. Bowels have not moved. Abdominal pain is better. He denies chest pain and shortness of breath. He denies visual and auditory hallucinations this a.m. He feels his tremors are better. He has been out of bed. Laboratory data today show sodium of 129 potassium of 4.6. BUN and creatinine are 20 and 1.4. Magnesium is low at 1.2. Bilirubin is 1.6. Amylase is improved to 469 and lipase is 1911 this AM. Exam Vital signs and Labs for Last 24 Hours: Temp Pulse Resp BP Pulse Ox 99.6 F 116 H 17 139/98 H 92 L 07/04/21 04:00 07/04/21 00:00 07/04/21 04:00 07/04/21 04:00 07/04/21 04:00 Laboratory Results - last 24 hr 07/03/21 05:29: Total Counted 100, Neutrophils % (Manual) 98 H, Lymphocytes % (Manual) 1 L, Monocytes % (Manual) 1 L, Platelet Estimate Normal, RBC Morphology Not Reportable, Macrocytosis 1+ 07/03/21 08:50: Phosphorus 2.7, Magnesium 1.2 L 07/04/21 05:10: WBC 12.1 H, RBC 3.34 L, Hgb 12.1 L, Hct 36.0 L, MCV 108.0 H, MCH 36.1 H, MCHC 33.5, RDW 14.2, Plt Count 87 L D, MPV 10.5 H, Neut % (Auto) 91.4 H, Lymph % (Auto) 4.0 L, [place] % (Auto) 4.5, Eos % (Auto) 0.0 L, Baso % (Auto) 0.1, Neut # (Auto) 11.1 H, Lymph # (Auto) 0.5 L, [place] # (Auto) 0.5, Eos # (Auto) 0.0, Baso # (Auto) 0.0, Total Counted 100, Neutrophils % (Manual) 91 H, Lymphocytes % (Manual) 4 L, Monocytes % (Manual) 5, Platelet Estimate Slight decrease, Macrocytosis 2+ 07/04/21 05:10: Sodium 129 L, Potassium 4.6, Chloride 95 L, Carbon Dioxide 26, Anion Gap 12.6, BUN 20, Creatinine 1.40 H, Estimated Creat Clear 66, Estimated GFR 53 L, Est GFR ( Amer) 64, Glucose 123 H D, Calcium 8.0 L, Total Bilirubin 1.6 H, AST 174 H, ALT 83 H, Alkaline Phosphatase 56, Total Protein 6.1 L, Albumin 3.6 D, Globulin 2.5, Albumin/Globulin Ratio 1.4, Amylase 469 H* D, Lipase 1911 H I & O for Last 24 hours: Intake & Output 07/01/21 07/02/21 07/03/21 07/04/21 11:59 11:59 11:59 11:59 Intake Total 366 / 366 1463 / 1463 Output Total 575 / 575 Balance 366 / 366 888 / 888 Weight 169 lb 1.513 oz - Constitutional no acute distress - *Routine Respiratory Exam Present: CTA bilaterally (Anteriorly and posteriorly) - *Routine Cardiovascular Exam Present: RRR, tachycardia (At 130 to 140/min) - *Routine Abdominal Exam Present: soft, tenderness (Which is less today.), distended - *Routine Extremities Exam Present: pulses intact. Absent: edema, calf tenderness - *Routine Neurological Exam Present: alert, oriented X3, tremors (Minimal) - Routine Psychiatric Exam Absent: auditory hallucinations, visual hallucinations Assessment and Plan (1) Acute pancreatitis Status: Acute Qualifiers: Pancreatitis type: unspecified pancreatitis type Acute pancreatitis complication: no infection or necrosis Qualified Code(s): K85.90 - Acute pancreatitis without necrosis or infection, unspecified Category: Medical Code(s): K85.90 - Acute pancreatitis without necrosis or infection, unspecified (2) Alcohol withdrawal Status: Acute Qualifiers: Complication of substance-induced condition: uncomplicated Qualified Code(s): F10.230 - Alcohol dependence with withdrawal, uncomplicated Category: Medical Code(s): F10.239 - Alcohol dependence with withdrawal, unspecified (3) Chronic alcohol use Status: Chronic Category: Medical Code(s): Z72.89 - Other problems related to lifestyle (4) Nausea and vomiting Status: Acute Qualifiers: Vomiting type: unspecified Qualified Code(s): R11.2 - Nausea with vomiting, unspecified Category: Medical Code(s): R11.2 - Nausea with vomiting, unspecified (5) Hypertension Status: Chronic Qualifiers: Hypertension type: prim
--- NOTE | 2021-07-04 10:40 | DIET.NUTRFU ---
Patients diet upgraded to clear liquids, spoke to him yesterday. His diet has been poor for the past 4months d/t his GI distress from EtOH and pleurisy. He agreed to try ensure clear when diet upgraded, started it today. It will help meet his nutritional needs.
[2021-07-05] VITALS (7 sets, daily range): BP systolic 127–142; BP diastolic 81–91; PULSE 80–107; RESP 15–20; TEMP 36.8–37.6; O2SAT 88–96; BMI 23.8
--- NOTE | 2021-07-05 05:44 | PC.NURSE ---
pt very anxious this am, having auditory hallucinations, pt walked out to hallway and didnt know where he was or what was going on pt states what i dont understand is why is all of this going on in my camper, I remember this room and [facility] but I dont rememeber why my camper is here pt redirected and states he understands more at this time, but states being anxious is an understatement right now', mild tremors noted, pt states I think those little yellow pills are messing with me pt educated on withdraw symptoms and sometimes as a result hallucinations may occur as well as other symptoms and the valium is used to control these things. pt agreeable to take valium, pt very concerned with bill from hospital and how he is going to pay for everything. he became very tearful when talking about family and states I was on antidepressants in the past and I just drink now vss at this time, pain managed, no distress noted
[2021-07-05 06:26] LABS: Eosinophils % 0.1 % (0.1-12.0); Hematocrit 34.9 % (42.0-52.0); Hemoglobin 11.1 g/dL (14.1-18.0); Lymphocytes # 0.6 K/mm3 (0.7-4.5); Lymphocytes % 6.4 % (10-50); Mean Corpuscular HGB Conc 31.9 g/dL (31.8-35.4); Mean Corpuscular Hemoglobin 35.6 pg (27.0-31.2); Mean Corpuscular Volume 111.4 fl (80-94); Mean Platelet Volume 10.9 fl (7.4-10.4); Monocytes # 0.5 K/mm3 (0.1-1.0); Monocytes % 5.6 % (1.7-9.3); Neutrophils # 8.3 K/mm3 (1.8-7.8); Neutrophils % 87.9 % (37.0-80.0); Platelet Count 80 K/mm3 (142-424); Red Blood Count 3.13 M/mm3 (4.60-6.20); Red Cell Distribution Width 13.9 % (11.5-17.5); White Blood Count 9.4 K/mm3 (4.8-10.8)
[2021-07-05 06:28] LABS: MANUAL DIFFERENTIAL MANUAL DIFFERENTIAL (MANUAL DIFF)
[2021-07-05 06:41] LABS: Alanine Aminotransferase 63 U/L (12-78); Albumin Level 3.3 g/dl (3.5-5.0); Albumin/Globulin Ratio 1.3 (1.1-1.8); Alkaline Phosphatase 53 U/L (38-126); Amylase 189 U/L (30-110); Anion Gap 12.9 mEq/L (5-15); Aspartate Amino Transferase 104 U/L (17-59); Blood Urea Nitrogen 20 mg/dl (9-20); Calcium 7.8 mg/dl (8.4-10.2); Carbon Dioxide 23 mmol/L (22.0-30.0); Chloride 96 mmol/L (98-107); Creatinine Clearance Estimated 76 mL/min (50-200); Estimated Glomerular Filt Rate 58 ml/min (>60); GFR (African American) 70 ML/MIN (>60); Globulin 2.6 g/dL (1.3-3.2); Glucose 123 mg/dl (74-100); Lipase 488 U/L (23-300); Potassium 3.9 mmoL/L (3.5-5.1); Sodium 128 mmol/L (136-145); Total Protein,Serum 5.9 g/dl (6.3-8.2)
[2021-07-05 08:10] LABS: Lymphocytes % 8 % (10-50); Macrocytosis 2+; Monocytes % 6 % (2-9); Neutrophils % 86 % (42-76); Platelet Estimate Slight Decrease; Total Cells Counted 100
--- NOTE | 2021-07-05 08:23 | HMH.ACPN2 ---
<Debbie Funez - Last Filed: 07/05/21 08:23> Internal Medicine - PN: Subj *Date: 07/05/21 *Time: 08:23 Interval history: Patient states he feels about the same today. He still having some lower abdominal pain. He states he did drink some Gatorade this morning and had some gagging but no vomiting. He does not feel like eating anything else. Exam Vital signs and Labs for Last 24 Hours: Temp Pulse Resp BP Pulse Ox 99.0 F 107 H 20 129/84 89 L 07/05/21 04:00 07/05/21 04:00 07/05/21 04:00 07/05/21 04:00 07/05/21 04:00 Laboratory Results - last 24 hr 07/05/21 05:10: WBC 9.4, RBC 3.13 L, Hgb 11.1 L, Hct 34.9 L, MCV 111.4 H, MCH 35.6 H, MCHC 31.9, RDW 13.9, Plt Count 80 L, MPV 10.9 H, Neut % (Auto) 87.9 H, Lymph % (Auto) 6.4 L, [place] % (Auto) 5.6, Eos % (Auto) 0.1, Baso % (Auto) 0.0 L, Neut # (Auto) 8.3 H, Lymph # (Auto) 0.6 L, [place] # (Auto) 0.5, Eos # (Auto) 0.0, Baso # (Auto) 0.0, Total Counted 100, Neutrophils % (Manual) 86 H, Lymphocytes % (Manual) 8 L, Monocytes % (Manual) 6, Platelet Estimate Slight decrease, Macrocytosis 2+ 07/05/21 05:10: Sodium 128 L, Potassium 3.9, Chloride 96 L, Carbon Dioxide 23, Anion Gap 12.9, BUN 20, Creatinine 1.30 H, Estimated Creat Clear 76, Estimated GFR 58 L, Est GFR ( Amer) 70, Glucose 123 H, Calcium 7.8 L, Total Bilirubin 1.0, AST 104 H D, ALT 63, Alkaline Phosphatase 53, Total Protein 5.9 L, Albumin 3.3 L, Globulin 2.6, Albumin/Globulin Ratio 1.3, Amylase 189 H D, Lipase 488 H I & O for Last 24 hours: Intake & Output 07/02/21 07/03/21 07/04/21 07/05/21 11:59 11:59 11:59 11:59 Intake Total 366 / 366 1463 / 1463 480 / 480 Output Total 1125 / 1125 200 / 200 Balance 366 / 366 338 / 338 280 / 280 Weight 169 lb 1.513 oz 180 lb 3.2 oz - Constitutional no acute distress - *Routine Respiratory Exam Present: CTA bilaterally - *Routine Cardiovascular Exam Present: RRR - *Routine Abdominal Exam Present: soft, normoactive bowel sounds, tenderness (Lower abdomen), distended - *Routine Extremities Exam Absent: cyanosis, clubbing, edema - *Routine Skin Exam Present: warm. Absent: rash - *Routine Neurological Exam Present: alert, oriented X3 Assessment and Plan (1) Acute pancreatitis Status: Acute Qualifiers: Pancreatitis type: unspecified pancreatitis type Acute pancreatitis complication: no infection or necrosis Qualified Code(s): K85.90 - Acute pancreatitis without necrosis or infection, unspecified Category: Medical Code(s): K85.90 - Acute pancreatitis without necrosis or infection, unspecified (2) Alcohol withdrawal Status: Acute Qualifiers: Complication of substance-induced condition: uncomplicated Qualified Code(s): F10.230 - Alcohol dependence with withdrawal, uncomplicated Category: Medical Code(s): F10.239 - Alcohol dependence with withdrawal, unspecified (3) Chronic alcohol use Status: Chronic Category: Medical Code(s): Z72.89 - Other problems related to lifestyle (4) Nausea and vomiting Status: Acute Qualifiers: Vomiting type: unspecified Qualified Code(s): R11.2 - Nausea with vomiting, unspecified Category: Medical Code(s): R11.2 - Nausea with vomiting, unspecified (5) Hypertension Status: Chronic Qualifiers: Hypertension type: primary hypertension Qualified Code(s): I10 - Essential (primary) hypertension Category: Medical Code(s): I10 - Essential (primary) hypertension (6) Hyponatremia Status: Acute Category: Medical Code(s): E87.1 - Hypo-osmolality and hyponatremia (7) Tachycardia Status: Acute Category: Medical Code(s): R00.0 - Tachycardia, unspecified (8) TONNY (acute kidney injury) Status: Acute Category: Medical Code(s): N17.9 - Acute kidney failure, unspecified (9) Hypomagnesemia Status: Acute Category: Medical Code(s): E83.42 - Hypomagnesemia (10) Alcohol abuse Status: Chronic Category: Social Hx Code(s): F10.10 - Alc
--- NOTE | 2021-07-05 17:11 | PC.NURSE ---
Patient very agitated at 1620. Valium given for ciwa of 19 and patient complaining of sob. Patient audibly wheezing though lungs sound clear. Patient has noticeable tremors and complaining of pain in swollen abdomen. Dr. Dayo nobles. [place] and serjio ordered.
[2021-07-06] VITALS (7 sets, daily range): BP systolic 141–155; BP diastolic 88–103; PULSE 61–115; RESP 20–24; TEMP 36.4–37.6; O2SAT 83–97
[2021-07-06 07:37] LABS: Basophils % 0.1 % (0.1-2.0); Eosinophils # 0.1 K/mm3 (0.0-0.4); Eosinophils % 0.6 % (0.1-12.0); Hemoglobin 11.3 g/dL (14.1-18.0); Lymphocytes # 0.6 K/mm3 (0.7-4.5); Lymphocytes % 5.7 % (10-50); Mean Corpuscular HGB Conc 31.6 g/dL (31.8-35.4); Mean Corpuscular Hemoglobin 35.8 pg (27.0-31.2); Mean Corpuscular Volume 113.5 fl (80-94); Mean Platelet Volume 10.1 fl (7.4-10.4); Monocytes # 0.7 K/mm3 (0.1-1.0); Monocytes % 6.7 % (1.7-9.3); Neutrophils # 8.4 K/mm3 (1.8-7.8); Neutrophils % 86.8 % (37.0-80.0); Platelet Count 147 K/mm3 (142-424); Red Blood Count 3.17 M/mm3 (4.60-6.20); Red Cell Distribution Width 13.7 % (11.5-17.5); White Blood Count 9.7 K/mm3 (4.8-10.8)
[2021-07-06 07:39] LABS: MANUAL DIFFERENTIAL MANUAL DIFFERENTIAL (MANUAL DIFF)
[2021-07-06 08:25] LABS: Adenovirus F 40/41, stool Not Detected (NotDetected); Astrovirus Not Detected (NotDetected); Campylobacter Not Detected (NotDetected); Cryptosporidium Not Detected (NotDetected); Cyclospora Cayetanesis Not Detected (NotDetected); Entamoeba histolytica Not Detected (NotDetected); Enteroaggregative E coli Not Detected (NotDetected); Enteropathogenic E coli Not Detected (NotDetected); Enterotoxigenic E coli Not Detected (NotDetected); Giardia lamblia Not Detected (NotDetected); Norovirus Not Detected (NotDetected); Plesimonas Shigalloides, PCR Not Detected (NotDetected); Rotavirus A Not Detected (NotDetected); Salmonella, PCR Not Detected (NotDetected); Sapovirus Not Detected (NotDetected); Shiga-like toxin E coli Not Detected (NotDetected); Shigella Enterovasive E coli Not Detected (NotDetected); Vibrio Cholerae Not Detected (NotDetected); Vibrio, PCR Not Detected (NotDetected); Yersinia Entercolitica, PCR Not Detected (NotDetected)
--- NOTE | 2021-07-06 08:25 | HMH.ACPN2 ---
<Debbie Funez - Last Filed: 07/06/21 08:25> Internal Medicine - PN: Subj *Date: 07/06/21 *Time: 08:25 Interval history: Patient states he feels awful this morning. He states had profuse diarrhea throughout the night. His stomach has been swelling and tender. He has become more short of breath. He states the nurse put oxygen on and this only made it worse, so he took it off. Exam Vital signs and Labs for Last 24 Hours: Temp Pulse Resp BP Pulse Ox 98.6 F 99 H 24 147/88 H 96 07/06/21 08:00 07/06/21 08:00 07/06/21 08:00 07/06/21 08:00 07/06/21 08:00 Laboratory Results - last 24 hr 07/06/21 07:13: WBC 9.7, RBC 3.17 L, Hgb 11.3 L, Hct 36.0 L, MCV 113.5 H, MCH 35.8 H, MCHC 31.6 L, RDW 13.7, Plt Count 147 D, MPV 10.1, Neut % (Auto) 86.8 H, Lymph % (Auto) 5.7 L, [place] % (Auto) 6.7, Eos % (Auto) 0.6, Baso % (Auto) 0.1, Neut # (Auto) 8.4 H, Lymph # (Auto) 0.6 L, [place] # (Auto) 0.7, Eos # (Auto) 0.1, Baso # (Auto) 0.0 I & O for Last 24 hours: Intake & Output 07/03/21 07/04/21 07/05/21 07/06/21 11:59 11:59 11:59 11:59 Intake Total 366 / 366 1463 / 1463 480 / 480 180 / 180 Output Total 1125 / 1125 200 / 200 1025 / 1025 Balance 366 / 366 338 / 338 280 / 280 -845 / -845 Weight 169 lb 1.513 oz 180 lb 3.2 oz - Constitutional no acute distress - *Routine Respiratory Exam Present: wheezes (faint). Absent: rales - *Routine Cardiovascular Exam Present: RRR - *Routine Abdominal Exam Present: soft, normoactive bowel sounds, tenderness (diffuse), distended - *Routine Extremities Exam Absent: cyanosis, clubbing, edema - *Routine Skin Exam Present: warm. Absent: rash - *Routine Neurological Exam Present: alert, oriented X3 Assessment and Plan (1) Acute pancreatitis Status: Acute Qualifiers: Pancreatitis type: unspecified pancreatitis type Acute pancreatitis complication: no infection or necrosis Qualified Code(s): K85.90 - Acute pancreatitis without necrosis or infection, unspecified Category: Medical Code(s): K85.90 - Acute pancreatitis without necrosis or infection, unspecified (2) Alcohol withdrawal Status: Acute Qualifiers: Complication of substance-induced condition: uncomplicated Qualified Code(s): F10.230 - Alcohol dependence with withdrawal, uncomplicated Category: Medical Code(s): F10.239 - Alcohol dependence with withdrawal, unspecified (3) Chronic alcohol use Status: Chronic Category: Medical Code(s): Z72.89 - Other problems related to lifestyle (4) Nausea and vomiting Status: Acute Qualifiers: Vomiting type: unspecified Qualified Code(s): R11.2 - Nausea with vomiting, unspecified Category: Medical Code(s): R11.2 - Nausea with vomiting, unspecified (5) Hypertension Status: Chronic Qualifiers: Hypertension type: primary hypertension Qualified Code(s): I10 - Essential (primary) hypertension Category: Medical Code(s): I10 - Essential (primary) hypertension (6) Hyponatremia Status: Acute Category: Medical Code(s): E87.1 - Hypo-osmolality and hyponatremia (7) Tachycardia Status: Acute Category: Medical Code(s): R00.0 - Tachycardia, unspecified (8) TONNY (acute kidney injury) Status: Acute Category: Medical Code(s): N17.9 - Acute kidney failure, unspecified (9) Hypomagnesemia Status: Acute Category: Medical Code(s): E83.42 - Hypomagnesemia (10) Alcohol abuse Status: Chronic Category: Social Hx Code(s): F10.10 - Alcohol abuse, uncomplicated (11) Diarrhea Status: Acute Category: Medical Code(s): R19.7 - Diarrhea, unspecified - Assessment and plan all Dx Assessment and Plan for all problems:: We will get a diarrhea panel today and discuss further care with Dr. Oshea. <Gordy Oshea - Last Filed: 07/06/21 08:56> Internal Medicine - PN: Subj *Date: 07/06/21 *Time: 08:55 Exam Vital signs and Labs for Last 24 Hours: Temp Pulse Resp BP Pulse Ox
[2021-07-06 08:54] LABS: Lymphocytes % 6 % (10-50); Monocytes % 5 % (2-9); Neutrophils % 89 % (42-76); Total Cells Counted 100
[2021-07-06 08:55] LABS: Macrocytosis 2+; Platelet Estimate Normal
[2021-07-06 11:18] LABS: Chloride 100 mmol/L (98-107); Potassium 3.8 mmoL/L (3.5-5.1); Sodium 131 mmol/L (136-145)
[2021-07-06 11:20] LABS: Amylase 58 U/L (30-110); Blood Urea Nitrogen 16 mg/dl (9-20); Creatinine Clearance Estimated 90 mL/min (50-200); Estimated Glomerular Filt Rate 70 ml/min (>60); GFR (African American) 85 ML/MIN (>60)
[2021-07-06 11:21] LABS: Alanine Aminotransferase 49 U/L (12-78); Albumin/Globulin Ratio 1.3 (1.1-1.8); Alkaline Phosphatase 45 U/L (38-126); Anion Gap 13.8 mEq/L (5-15); Aspartate Amino Transferase 72 U/L (17-59); Bilirubin,Total 1.1 mg/dl (0.2-1.3); Calcium 7.4 mg/dl (8.4-10.2); Carbon Dioxide 21 mmol/L (22.0-30.0); Globulin 2.4 g/dL (1.3-3.2); Glucose 121 mg/dl (74-100); Lipase 144 U/L (23-300); Total Protein,Serum 5.4 g/dl (6.3-8.2)
--- NOTE | 2021-07-06 11:46 | DIET.NUTRFU ---
Saw patient today, intake still poor on full liquids. Has diarrhea he reported 6 episodes already today. Provider aware and testing cultures. He dislikes the boost clear, willing to try ensure strawberry to help meet caloric needs. RD also encourage water or Gatorade intake to help with hydration during diarrhea. Also still has IVF in place. Labs reviewed lipase and AST improving.
[2021-07-06 12:58] LABS: Clostridium Difficile A/B, PCR Detected (NotDetected)
--- NOTE | 2021-07-06 13:02 | PC.NURSE ---
1257- spoke to lab. even though MD ordered for diarrhea panel to be cancelled, lab still ran it and it resulted w/ cdiff and had to be reported 1300- spoke to MD Laguna who is operations manager station for MD Oshea. He will put orders in on the patient.
--- NOTE | 2021-07-06 13:33 | PC.NURSE ---
Educated pt on cdiff and the importance of hand hygiene. Will print educational material for pt and give to him. Pt did verbalize understanding.
--- NOTE | 2021-07-06 15:10 | PC.NURSE ---
rounded on patient who was resting at this time.
--- NOTE | 2021-07-06 19:12 | PC.NURSE ---
Nursing staff has reeducated pt multiple times this shift to not unhook himself from his IV maintenance fluids. Despite education attempts, pt continues to do so to take himself to the bathroom. BSC brought to pt in hopes that he wont need to unhook himself and can just go to the bathroom at bedside. This information was passed on to night shift manager RN
[2021-07-07] VITALS (10 sets, daily range): BP systolic 147–168; BP diastolic 92–108; PULSE 95–106; RESP 18–35; TEMP 36.4–37.1; O2SAT 93–99; BMI 24.2
--- NOTE | 2021-07-07 09:01 | XR_ITS ---
PROCEDURE INFORMATION: Exam: XR Chest Exam date and time: 07/07/2021 10:17 AM Age: 55 years old Clinical indication: Wheezing TECHNIQUE: Imaging protocol: XR of the chest. Views: 1 view. COMPARISON: CR XR CHEST 2V 07/02/2021 9:44 PM FINDINGS: Lungs: Low lung volumes. No consolidation. Mild atelectasis in the left lung base. Pleural spaces: Unremarkable. No pleural effusion. No pneumothorax. Heart/Mediastinum: Unremarkable. No cardiomegaly. Bones/joints: Unremarkable. IMPRESSION: No acute findings.
--- NOTE | 2021-07-07 09:02 | HMH.ACPN2 ---
<Debbie Funez - Last Filed: 07/07/21 09:02> Internal Medicine - PN: Subj *Date: 07/07/21 *Time: 09:02 Interval history: Patient states he is not feeling well this morning. He continues with diarrhea. His abdominal pain has improved slightly. He does not have an appetite. His breathing has gotten significantly worse. He has had increased wheezing and states breathing treatments do seem to help for a short time. He has been wearing oxygen. Exam Vital signs and Labs for Last 24 Hours: Temp Pulse Resp BP Pulse Ox 97.6 F 99 H 22 156/99 H 99 07/07/21 07:50 07/07/21 08:45 07/07/21 07:50 07/07/21 07:50 07/07/21 08:45 Laboratory Results - last 24 hr 07/06/21 07:13: Sodium 131 L, Potassium 3.8, Chloride 100, Carbon Dioxide 21 L, Anion Gap 13.8, BUN 16, Creatinine 1.10, Estimated Creat Clear 90, Estimated GFR 70, Est GFR ( Amer) 85 D, Glucose 121 H, Calcium 7.4 L, Total Bilirubin 1.1, AST 72 H D, ALT 49, Alkaline Phosphatase 45, Total Protein 5.4 L, Albumin 3.0 L, Globulin 2.4, Albumin/Globulin Ratio 1.3, Amylase 58, Lipase 144 07/06/21 08:15: Stl Aeromonas (PCR) Not detected, Stl C. cayetanensis PCR Not detected, Stool Rotavirus (PCR) Not detected, Stl Adenov F 40/41 PCR Not detected, Stool Astrovirus (PCR) Not detected, Stool Campylobacter PCR Not detected, Stl C.difficile Tox PCR Detected A, Stool Cryptosporidium PCR Not detected, Stl E.coli Shiga Tox PCR Not detected, Stool E coli O157 PCR Not detected, Stl Enterotoxigenic E PCR Not detected, Stool EPEC (PCR) Not detected, Stool EAEC (PCR) Not detected, Stl E. histolytica PCR Not detected, Stool Giardia Lamblia PCR Not detected, Stool Salmonella PCR Not detected, Stool Sapovirus (PCR) Not detected, Stl P. shigelloides PCR Not detected, Stl Shigella/EIEC PCR Not detected, St Y.enterocolitica PCR Not detected, Stool Vibrio (PCR) Not detected, Stl Vibrio cholerae PCR Not detected, Stl Norovirus GI/GII PCR Not detected I & O for Last 24 hours: Intake & Output 07/04/21 07/05/21 07/06/21 07/07/21 11:59 11:59 11:59 11:59 Intake Total 1463 / 1463 480 / 480 180 / 180 1100 / 1100 Output Total 1125 / 1125 200 / 200 1025 / 1025 Balance 338 / 338 280 / 280 -845 / -845 1099 / 1099 Weight 180 lb 3.2 oz 182 lb 9 oz - Constitutional Comments: Mild respiratory distress - *Routine Respiratory Exam Present: rhonchi, wheezes - *Routine Cardiovascular Exam Present: RRR - *Routine Abdominal Exam Present: soft, normoactive bowel sounds, tenderness (Diffuse), distended - *Routine Extremities Exam Absent: cyanosis, clubbing, edema - *Routine Skin Exam Present: warm. Absent: rash - *Routine Neurological Exam Present: alert, oriented X3 Assessment and Plan (1) Acute pancreatitis Status: Acute Qualifiers: Pancreatitis type: unspecified pancreatitis type Acute pancreatitis complication: no infection or necrosis Qualified Code(s): K85.90 - Acute pancreatitis without necrosis or infection, unspecified Category: Medical Code(s): K85.90 - Acute pancreatitis without necrosis or infection, unspecified (2) Alcohol withdrawal Status: Acute Qualifiers: Complication of substance-induced condition: uncomplicated Qualified Code(s): F10.230 - Alcohol dependence with withdrawal, uncomplicated Category: Medical Code(s): F10.239 - Alcohol dependence with withdrawal, unspecified (3) Chronic alcohol use Status: Chronic Category: Medical Code(s): Z72.89 - Other problems related to lifestyle (4) Nausea and vomiting Status: Acute Qualifiers: Vomiting type: unspecified Qualified Code(s): R11.2 - Nausea with vomiting, unspecified Category: Medical Code(s): R11.2 - Nausea with vomiting, unspecified (5) Hypertension Status: Chronic Qualifiers: Hypertension type: primary hypertension Qualified Code(s): I10 - Essential (primary) hypertension Category: Medical Code(s): I10 - Essential (primary) hyper
[2021-07-07 10:55] LABS: Adenovirus F 40/41, stool Not Detected (NotDetected); Astrovirus Not Detected (NotDetected); Campylobacter Not Detected (NotDetected); Cryptosporidium Not Detected (NotDetected); Cyclospora Cayetanesis Not Detected (NotDetected); Entamoeba histolytica Not Detected (NotDetected); Enteroaggregative E coli Not Detected (NotDetected); Enteropathogenic E coli Not Detected (NotDetected); Enterotoxigenic E coli Not Detected (NotDetected); Giardia lamblia Not Detected (NotDetected); Norovirus Not Detected (NotDetected); Plesimonas Shigalloides, PCR Not Detected (NotDetected); Rotavirus A Not Detected (NotDetected); Salmonella, PCR Not Detected (NotDetected); Sapovirus Not Detected (NotDetected); Shiga-like toxin E coli Not Detected (NotDetected); Shigella Enterovasive E coli Not Detected (NotDetected); Vibrio Cholerae Not Detected (NotDetected); Vibrio, PCR Not Detected (NotDetected); Yersinia Entercolitica, PCR Not Detected (NotDetected)
[2021-07-07 17:23] LABS: Clostridium Difficile A/B, PCR Detected (NotDetected)
--- NOTE | 2021-07-07 21:44 | PC.NURSE ---
FOLLOW UP CIWA. REDOSED PER MAR
--- NOTE | 2021-07-07 23:12 | PC.NURSE ---
FOLLOW UP. PT STATES HE FEELS SOME BETTER.
[2021-07-08] VITALS (9 sets, daily range): BP systolic 133–178; BP diastolic 77–105; PULSE 100–125; RESP 18–26; TEMP 36.6–37.4; O2SAT 94–98; BMI 23.6
--- NOTE | 2021-07-08 05:57 | PC.NURSE ---
Since beginning of my shift pt has experienced auditory and visual hallucinations. Pt states kids have been in his room, there have been people with guns. Pt thought his grandparents were here and he was also hearing seagulls. See [facility] for scores. Medicated per JUN. As of right now - no current hallucinations, pt is conversing with staff appropriately, A&O x 4, sitting up on side of bed drinking juice. Pt c/o of ABD pain once during my shift - medicated per JUN. Pt received prn duoneb for expiratory wheezing. Pt has had some elevated BPs overnight - contacted Dr. Laguna for orders. Per Dr. Laguna give pt his morning dose of amlodipine. Medicated per order. Follow up BP 133/77. Pt has had multiple loose BMs this shift. No other complaints or needs at this time. Call light in reach.
--- NOTE | 2021-07-08 07:50 | HMH.ACPN2 ---
Internal Medicine - PN: Karl *Date: 07/08/21 *Time: 07:55 Interval history: Patient feels a little better this morning. He had some hallucinations and some wheezing overnight, had a few loose bowel movements yesterday afternoon. Exam Vital signs and Labs for Last 24 Hours: Temp Pulse Resp BP Pulse Ox 99.3 F 120 H 18 133/77 96 07/08/21 04:38 07/08/21 07:00 07/08/21 04:38 07/08/21 05:45 07/08/21 07:00 Laboratory Results - last 24 hr 07/07/21 10:38: Stl Aeromonas (PCR) Not detected, Stl C. cayetanensis PCR Not detected, Stool Rotavirus (PCR) Not detected, Stl Adenov F 40/41 PCR Not detected, Stool Astrovirus (PCR) Not detected, Stool Campylobacter PCR Not detected, Stl C.difficile Tox PCR Detected A, Stool Cryptosporidium PCR Not detected, Stl E.coli Shiga Tox PCR Not detected, Stool E coli O157 PCR Not detected, Stl Enterotoxigenic E PCR Not detected, Stool EPEC (PCR) Not detected, Stool EAEC (PCR) Not detected, Stl E. histolytica PCR Not detected, Stool Giardia Lamblia PCR Not detected, Stool Salmonella PCR Not detected, Stool Sapovirus (PCR) Not detected, Stl P. shigelloides PCR Not detected, Stl Shigella/EIEC PCR Not detected, St Y.enterocolitica PCR Not detected, Stool Vibrio (PCR) Not detected, Stl Vibrio cholerae PCR Not detected, Stl Norovirus GI/GII PCR Not detected Vital Signs - 24 hr 07/07/21 08:00 07/07/21 08:45 07/07/21 14:05 Temperature Pulse Rate 99 H 95 H Pulse Rate [Right Brachial] Respiratory Rate 35 H Blood Pressure [Right Arm] 02 Sat by Pulse Oximetry 99 99 96 07/07/21 16:00 07/07/21 20:41 07/07/21 21:40 Temperature 97.9 F 98.4 F Pulse Rate Pulse Rate [Right Brachial] 104 H 105 H Respiratory Rate 24 20 Blood Pressure [Right Arm] 156/99 H 168/108 H 148/92 H 02 Sat by Pulse Oximetry 94 L 93 L 07/07/21 21:42 07/08/21 02:01 07/08/21 04:38 Temperature 99.3 F Pulse Rate Pulse Rate [Right Brachial] 116 H Respiratory Rate 18 20 18 Blood Pressure [Right Arm] 178/105 H 02 Sat by Pulse Oximetry 94 L 07/08/21 05:45 07/08/21 07:00 Temperature Pulse Rate 120 H Pulse Rate [Right Brachial] Respiratory Rate Blood Pressure [Right Arm] 133/77 02 Sat by Pulse Oximetry 96 I & O for Last 24 hours: Intake & Output 07/05/21 07/06/21 07/07/21 07/08/21 23:59 23:59 23:59 23:59 Intake Total 120 / 120 680 / 680 1560 / 1560 300 / 300 Output Total 825 / 825 200 / 201 Balance -705 / -705 480 / 479 1559 / 1558 299 / 299 Weight 180 lb 3.2 oz 182 lb 9 oz 178 lb 3 oz - Constitutional no acute distress - *Routine HEENT Exam Head: Present: normocephalic Eye: Present: EOMI, PERRL ENT: Present: mucous membranes moist - *Routine Neck Exam Present: supple. Absent: lymphadenopathy - *Routine Respiratory Exam Present: wheezes (few expiratory) - *Routine Cardiovascular Exam Present: RRR - *Routine Abdominal Exam Present: soft, normoactive bowel sounds, tenderness (some periumbilical) - *Routine Extremities Exam Absent: cyanosis, clubbing, edema - *Routine Skin Exam Present: warm. Absent: rash - *Routine Neurological Exam Present: alert Assessment and Plan (1) Acute pancreatitis Status: Acute Qualifiers: Pancreatitis type: unspecified pancreatitis type Acute pancreatitis complication: no infection or necrosis Qualified Code(s): K85.90 - Acute pancreatitis without necrosis or infection, unspecified Category: Medical Code(s): K85.90 - Acute pancreatitis without necrosis or infection, unspecified (2) Alcohol withdrawal Status: Acute Qualifiers: Complication of substance-induced condition: uncomplicated Qualified Code(s): F10.230 - Alcohol dependence with withdrawal, uncomplicated Category: Medical Code(s): F10.239 - Alcohol dependence with withdrawal, unspecified (3) Chronic alcohol use Status: Chronic Category: Medical Code(s): Z72.89 - Other problems related to lifestyle (
--- NOTE | 2021-07-08 09:19 | PC.NURSE ---
Patient weight 0900 Patient weighs 177.9 lbs.
[2021-07-09 05:00] VITALS: BMI 23.5
[2021-07-09 05:31] LABS: Basophils % 0.2 % (0.1-2.0); Eosinophils # 0.1 K/mm3 (0.0-0.4); Hematocrit 30.8 % (42.0-52.0); Hemoglobin 9.9 g/dL (14.1-18.0); Lymphocytes # 0.6 K/mm3 (0.7-4.5); Lymphocytes % 9.2 % (10-50); Mean Corpuscular Hemoglobin 35.3 pg (27.0-31.2); Mean Corpuscular Volume 110.4 fl (80-94); Mean Platelet Volume 9.5 fl (7.4-10.4); Monocytes # 0.5 K/mm3 (0.1-1.0); Monocytes % 6.7 % (1.7-9.3); Neutrophils # 5.8 K/mm3 (1.8-7.8); Neutrophils % 82.9 % (37.0-80.0); Platelet Count 285 K/mm3 (142-424); Red Blood Count 2.79 M/mm3 (4.60-6.20); Red Cell Distribution Width 14.3 % (11.5-17.5)
[2021-07-09 05:39] VITALS: BP 176/105; PULSE 100; RESP 20; TEMP 37.4; O2SAT 96
[2021-07-09 05:39] LABS: Chloride 112 mmol/L (98-107); Sodium 139 mmol/L (136-145)
[2021-07-09 05:42] LABS: Alanine Aminotransferase 28 U/L (12-78); Albumin Level 2.9 g/dl (3.5-5.0); Albumin/Globulin Ratio 1.1 (1.1-1.8); Alkaline Phosphatase 54 U/L (38-126); Aspartate Amino Transferase 33 U/L (17-59); Bilirubin,Total 0.6 mg/dl (0.2-1.3); Blood Urea Nitrogen 5 mg/dl (9-20); Carbon Dioxide 20 mmol/L (22.0-30.0); Creatinine Clearance Estimated 81 mL/min (50-200); Estimated Glomerular Filt Rate 63 ml/min (>60); GFR (African American) 77 ML/MIN (>60); Globulin 2.6 g/dL (1.3-3.2); Glucose 116 mg/dl (74-100); Total Protein,Serum 5.5 g/dl (6.3-8.2)
[2021-07-09 05:45] LABS: Anion Gap 9.4 mEq/L (5-15); Potassium 2.4 mmoL/L (3.5-5.1)
--- NOTE | 2021-07-09 06:01 | PC.NURSE ---
Critical potassium of 2.4 called by Bk in Lab patient , name, and lab result repeated back and verified. Jase notified. New order of 20 meq of Potassium po TID obtained.
--- NOTE | 2021-07-09 07:52 | HMH.ACPN2 ---
<Aleshia Talavera - Last Filed: 07/09/21 07:52> Internal Medicine - PN: Subj *Date: 07/09/21 *Time: 07:52 Interval history: Patient is not feeling well. He describes ongoing wheezing and some shortness of breath. He denies cardiac pain. He feels bloated with periodic nausea. He was unable to eat much breakfast. He states he is drinking a lot of fluids. He states he was up every 15 minutes during the night with liquid stool. I&0 not recorded. Blood pressure is elevated at 176/105. He still has a low-grade temp of 99.3. O2 sats are 96% on room air. Laboratory data shows a low potassium at 2.4. BUN is 20 and creatinine is 9.4. Total bilirubin is normal as are AST at 33 and ALT at 28. Exam Vital signs and Labs for Last 24 Hours: Temp Pulse Resp BP Pulse Ox 99.3 F 100 H 20 176/105 H 96 07/09/21 05:39 07/09/21 05:39 07/09/21 05:39 07/09/21 05:39 07/09/21 05:39 Laboratory Results - last 24 hr 07/09/21 05:15: WBC 7.0 D, RBC 2.79 L, Hgb 9.9 L, Hct 30.8 L, MCV 110.4 H, MCH 35.3 H, MCHC 32.0, RDW 14.3, Plt Count 285 D, MPV 9.5, Neut % (Auto) 82.9 H, Lymph % (Auto) 9.2 L, [place] % (Auto) 6.7, Eos % (Auto) 1.0, Baso % (Auto) 0.2, Neut # (Auto) 5.8, Lymph # (Auto) 0.6 L, [place] # (Auto) 0.5, Eos # (Auto) 0.1, Baso # (Auto) 0.0 07/09/21 05:15: Sodium 139, Potassium 2.4 L* D, Chloride 112 H, Carbon Dioxide 20 L, Anion Gap 9.4, BUN 5 L D, Creatinine 1.20, Estimated Creat Clear 81, Estimated GFR 63, Est GFR ( Amer) 77, Glucose 116 H, Calcium 8.0 L, Total Bilirubin 0.6, AST 33 D, ALT 28 D, Alkaline Phosphatase 54, Total Protein 5.5 L, Albumin 2.9 L, Globulin 2.6, Albumin/Globulin Ratio 1.1 I & O for Last 24 hours: Intake & Output 07/06/21 07/07/21 07/08/21 07/09/21 11:59 11:59 11:59 11:59 Intake Total 180 / 180 1100 / 1100 2340 / 2340 1320 / 1320 Output Total 1025 / 1025 Balance -845 / -845 1099 / 1099 2339 / 2339 1319 / 1319 Weight 182 lb 9 oz 178 lb 3 oz 177 lb 4.8 oz Microbiology Reports for the Last 24 Hours: Microbiology 07/08/21 13:30 Sputum - Expectorated Sputum Gram Stain - Final - Constitutional no acute distress Comments: Anxious. - *Routine Respiratory Exam Present: wheezes (Expiratory wheezing throughout) - *Routine Cardiovascular Exam Present: RRR (110/min) - *Routine Abdominal Exam Present: tenderness, distended. Absent: normoactive bowel sounds (Hyperactive) - *Routine Extremities Exam Absent: edema, calf tenderness - *Routine Neurological Exam Present: alert, oriented X3 - Routine Psychiatric Exam Present: depressed, anxious. Absent: suicidal ideation, good insight Comments: He states he is continually thinking about all his problems. Assessment and Plan (1) Acute pancreatitis Status: Acute Qualifiers: Pancreatitis type: unspecified pancreatitis type Acute pancreatitis complication: no infection or necrosis Qualified Code(s): K85.90 - Acute pancreatitis without necrosis or infection, unspecified Category: Medical Code(s): K85.90 - Acute pancreatitis without necrosis or infection, unspecified (2) Alcohol withdrawal Status: Acute Qualifiers: Complication of substance-induced condition: uncomplicated Qualified Code(s): F10.230 - Alcohol dependence with withdrawal, uncomplicated Category: Medical Code(s): F10.239 - Alcohol dependence with withdrawal, unspecified (3) Chronic alcohol use Status: Chronic Category: Medical Code(s): Z72.89 - Other problems related to lifestyle (4) Nausea and vomiting Status: Acute Qualifiers: Vomiting type: unspecified Category: Medical Code(s): R11.2 - Nausea with vomiting, unspecified (5) Hypertension Status: Chronic Qualifiers: Hypertension type: primary hypertension Qualified Code(s): I10 - Essential (primary) hypertension Category: Medical Code(s): I10 - Essential (primary) hypertension (6) Hyponatremia Status: Acute Lucina
[2021-07-09 08:00] VITALS: BP 151/91; PULSE 107; RESP 22; TEMP 36.8; O2SAT 96
--- NOTE | 2021-07-09 08:48 | XR_ITS ---
FINAL REPORT CLINICAL HISTORY: abd distension FINDINGS: Chest: A single view of the chest demonstrates bibasilar opacities favoring atelectasis. Abdomen: Flat and upright views of the abdomen demonstrate a nonobstructive gas pattern. There are multiple air-filled large and small bowel loops in a nonspecific pattern favoring an ileus. There is a moderate amount of retained stool. There is no free air. IMPRESSION: Bibasilar atelectasis. Multiple air-filled large and small bowel loops in a nonspecific pattern favoring an ileus. Reviewed, Interpreted and Dictated by Jack Kemp III, MD Transcribed by Raven Roman Authenticated by Jack Kemp III, MD on 07/09/2021 11:45:46 AM [facility]
--- NOTE | 2021-07-09 14:37 | PC.NURSE ---
PT IS RESTING IN BED. PT WAS UNABLE TO TOLERATE SOFT DIET W/O FEELING NAUSEATED. PT IS TOLERATING CLEAR LIQUIDS FINE. PT HAS A MILD TREMOR NOTED AND STATED HE CAN OCCASIONALLY HEAR/SEE THINGS BUT KNOWS WHAT HE IS HEARING/SEEING IS NOT REALLY THERE. PT CONTINUES TO HAVE AUDIBLE WHEEZES. ABDOMEN DISTENDED WITH HYPOACTIVE BOWEL SOUNDS. NO SWELLING NOTED TO BLE. NEW IV ACCESS NOTED TO LFA. URINAL AT BEDSIDE. WILL CONTINUE TO MONITOR.
[2021-07-09 16:00] VITALS: BP 155/114; PULSE 90; RESP 18; TEMP 36.5; O2SAT 98
[2021-07-09 20:33] VITALS: BP 146/91; PULSE 88; RESP 14; TEMP 36.6; O2SAT 99
[2021-07-10 05:00] VITALS: BMI 22.9
[2021-07-10 05:15] VITALS: BP 154/89; PULSE 88; RESP 16; TEMP 37.2; O2SAT 100
[2021-07-10 05:47] LABS: Basophils % 0.3 % (0.1-2.0); Eosinophils # 0.1 K/mm3 (0.0-0.4); Eosinophils % 0.7 % (0.1-12.0); Hematocrit 31.6 % (42.0-52.0); Lymphocytes # 0.7 K/mm3 (0.7-4.5); Lymphocytes % 8.7 % (10-50); Mean Corpuscular HGB Conc 31.6 g/dL (31.8-35.4); Mean Corpuscular Volume 114.1 fl (80-94); Mean Platelet Volume 9.2 fl (7.4-10.4); Monocytes # 0.5 K/mm3 (0.1-1.0); Monocytes % 6.5 % (1.7-9.3); Neutrophils # 6.3 K/mm3 (1.8-7.8); Neutrophils % 83.9 % (37.0-80.0); Platelet Count 323 K/mm3 (142-424); Red Blood Count 2.77 M/mm3 (4.60-6.20); Red Cell Distribution Width 14.1 % (11.5-17.5); White Blood Count 7.5 K/mm3 (4.8-10.8)
[2021-07-10 05:54] LABS: Chloride 113 mmol/L (98-107); Sodium 140 mmol/L (136-145)
[2021-07-10 05:56] LABS: Alanine Aminotransferase 26 U/L (12-78); Blood Urea Nitrogen 4 mg/dl (9-20); Creatinine Clearance Estimated 86 mL/min (50-200); Estimated Glomerular Filt Rate 70 ml/min (>60); GFR (African American) 85 ML/MIN (>60)
[2021-07-10 05:57] LABS: Albumin Level 2.9 g/dl (3.5-5.0); Albumin/Globulin Ratio 1.2 (1.1-1.8); Alkaline Phosphatase 53 U/L (38-126); Anion Gap 10.6 mEq/L (5-15); Aspartate Amino Transferase 37 U/L (17-59); Bilirubin,Total 0.7 mg/dl (0.2-1.3); Calcium 8.1 mg/dl (8.4-10.2); Carbon Dioxide 19 mmol/L (22.0-30.0); Globulin 2.5 g/dL (1.3-3.2); Glucose 107 mg/dl (74-100); Total Protein,Serum 5.4 g/dl (6.3-8.2)
[2021-07-10 06:02] LABS: Potassium 2.6 mmoL/L (3.5-5.1)
--- NOTE | 2021-07-10 06:09 | PC.NURSE ---
Julienne from lab called with a critical potassium of 2.6 Name, and value verified x2 Dr. Oshea paged and is aware.
--- NOTE | 2021-07-10 07:48 | HMH.ACPN2 ---
<Aleshia Talavera - Last Filed: 07/10/21 07:48> Internal Medicine - PN: Subj *Date: 07/10/21 *Time: 07:48 Interval history: Does not admit to feeling any better. States he was up frequently to the bathroom. Nurse stated that he was up x2. He is afraid to eat. He is voiding QS. He feels his breathing might be better. Acute abdominal series completed yesterday revealed bibasilar atelectasis, Multiple air filled large and small bowel loops in a nonspecific patternFavoring an ileus. Laboratory data this morning shows a white count of 7500 with a hemoglobin of 10 with hematocrit of 31.6. Blood chemistries: Potassium remains low at 2.6. He is now receiving IV potassium. Sodium is 140, BUN and creatinine are 4/1.10. Blood pressure has improved and this morning is 154/89. O2 sats remain good on room air at 100% this AM. He is afebrile. Exam Vital signs and Labs for Last 24 Hours: Temp Pulse Resp BP Pulse Ox 98.9 F 88 16 154/89 H 100 07/10/21 05:15 07/10/21 05:15 07/10/21 05:15 07/10/21 05:15 07/10/21 05:15 Laboratory Results - last 24 hr 07/10/21 05:25: WBC 7.5, RBC 2.77 L, Hgb 10.0 L, Hct 31.6 L, MCV 114.1 H, MCH 36.0 H, MCHC 31.6 L, RDW 14.1, Plt Count 323, MPV 9.2, Neut % (Auto) 83.9 H, Lymph % (Auto) 8.7 L, [place] % (Auto) 6.5, Eos % (Auto) 0.7, Baso % (Auto) 0.3, Neut # (Auto) 6.3, Lymph # (Auto) 0.7, [place] # (Auto) 0.5, Eos # (Auto) 0.1, Baso # (Auto) 0.0 07/10/21 05:25: Sodium 140, Potassium 2.6 L*, Chloride 113 H, Carbon Dioxide 19 L, Anion Gap 10.6, BUN 4 L, Creatinine 1.10, Estimated Creat Clear 86, Estimated GFR 70, Est GFR ( Amer) 85, Glucose 107 H, Calcium 8.1 L, Total Bilirubin 0.7, AST 37, ALT 26, Alkaline Phosphatase 53, Total Protein 5.4 L, Albumin 2.9 L, Globulin 2.5, Albumin/Globulin Ratio 1.2 I & O for Last 24 hours: Intake & Output 07/07/21 07/08/21 07/09/21 07/10/21 11:59 11:59 11:59 11:59 Intake Total 1100 / 1100 2340 / 2340 2039 / 2039 1768 / 1768 Output Total 490 / 490 Balance 1099 / 1099 2339 / 2339 2038 / 2038 1278 / 1278 Weight 182 lb 9 oz 178 lb 3 oz 177 lb 4.8 oz 173 lb 3.2 oz Microbiology Reports for the Last 24 Hours: Microbiology 07/08/21 13:30 Sputum - Expectorated Sputum Gram Stain - Final 07/08/21 13:30 Sputum - Expectorated Sputum Sputum Culture - Preliminary - Constitutional no acute distress - *Routine Respiratory Exam Absent: wheezes (No audible wheezing today.) - *Routine Cardiovascular Exam Present: RRR (80/min) - *Routine Abdominal Exam Present: tenderness (Diffuse and mildly tender), distended (May not be quite as distended.). Absent: normoactive bowel sounds (Tympanic bowel sounds) - *Routine Extremities Exam Absent: edema, calf tenderness - *Routine Neurological Exam Present: alert, oriented X3 - Routine Psychiatric Exam Present: anxious Assessment and Plan (1) Acute pancreatitis Status: Acute Qualifiers: Pancreatitis type: unspecified pancreatitis type Acute pancreatitis complication: no infection or necrosis Qualified Code(s): K85.90 - Acute pancreatitis without necrosis or infection, unspecified Category: Medical Code(s): K85.90 - Acute pancreatitis without necrosis or infection, unspecified (2) Alcohol withdrawal Status: Acute Qualifiers: Complication of substance-induced condition: uncomplicated Qualified Code(s): F10.230 - Alcohol dependence with withdrawal, uncomplicated Category: Medical Code(s): F10.239 - Alcohol dependence with withdrawal, unspecified (3) Chronic alcohol use Status: Chronic Category: Medical Code(s): Z72.89 - Other problems related to lifestyle (4) Nausea and vomiting Status: Acute Qualifiers: Vomiting type: unspecified Category: Medical Code(s): R11.2 - Nausea with vomiting, unspecified (5) Hypertension Status: Chronic Qualifiers: Hypertension type: primary hypertension Qualified Code(s): I10 - Essential
[2021-07-10 08:00] VITALS: BP 127/83; PULSE 115; RESP 21; TEMP 36.8; O2SAT 99
[2021-07-10 12:00] VITALS: BP 119/70; PULSE 74; RESP 18; TEMP 36.9; O2SAT 95
--- NOTE | 2021-07-10 15:00 | SW/DCPLANNER ---
Addendum entered by Yvonne Madden RN 07/26/21 12:02: Received call from Dr. Oshea requesting resource list be given to patient again. Contacted patient and he was still at the hospital so provided him with a hard copy of resources. Also instructed him to contact care management if he needs any further assistance. Addendum entered by Katie Allen 07/12/21 10:12: Patient has stated this AM that he intends on returning home today. A resource list has been provided to this patient at this time. Patient has no further needs at this time. Addendum entered by Katie Allen 07/11/21 13:07: I spoke with this patient this AM regarding rehabilitation information provided yesterday. I recommended to patient yesterday to contact facilities regarding payment plans. Patient stated due to feeling ill last night he was unable to speak with facilities about payment plans. Patient also expressed he is unable to afford rehabilitation once medically stable for discharge. Financial counselor (Mirza Ascencio) has been notified regarding patient not having insurance as of 07/06/21 and will follow up with patient today. Original Note: I received a phone call from nursing staff (Sylwia Lou) that patient's family had requested that I speak with patient regarding alcohol rehabilitation at discharge. I did speak with this patient this afternoon regarding discharge plans. Patient expressed that he is interested in going to rehab at discharge but understands it can be difficult due to not having insurance. Patient stated that he has been to [email or web address] in [place] in the past and did not like their program. Patient is interested in self pay if affordable. I did call [facility] regarding self pay amount: phase 1 (30-35 days) payment up front of $9,000 this includes a therapist, specialist, groups and medical team. I also called [email or web address] for [facility] regarding self pay amount: 30 day program payment up front of $12,000. I did provide this patient with this information and he stated he will speak with family and facilities this evening. I will follow up with this patient tomorrow morning. Discharge date is unknown at this time.
--- NOTE | 2021-07-10 15:49 | PC.NURSE ---
PT IS RESTING IN BED. NO COMPLAINTS OF DISCOMFORT. ALERT AND ORIENTED X4. PT HAS BEEN AMBULATING TO THE BATHROOM. TOLERATED TAKING A SHOWER THIS SHIFT. PT HAS TOLERATED CLEAR LIQUIDS. ABDOMEN SOFT/DISTENDED WITH ACTIVE BOWEL SOUNDS. LUNG SOUNDS DIMINISHED. ANISH FROM CARE MANAGEMENT TALKED TO PT THIS AFTERNOON AND PT WAS AGREEABLE TO GO SOME PLACE FOR REHAB FOR HIS ALCOHOL ADDICTION. WILL CONTINUE TO MONITOR.
[2021-07-10 16:00] VITALS: BP 126/64; PULSE 80; RESP 18; TEMP 36.9; O2SAT 95
[2021-07-10 20:00] VITALS: BP 151/101; PULSE 81; RESP 14; TEMP 36.6; O2SAT 99
[2021-07-11] VITALS: BP 117/73; PULSE 103; RESP 18; TEMP 37.2; O2SAT 95
[2021-07-11 04:00] VITALS: BP 130/74; PULSE 81; RESP 18; TEMP 36.7; O2SAT 96
[2021-07-11 05:00] VITALS: BMI 22.6
[2021-07-11 07:15] LABS: Magnesium 1.7 mg/dl (1.6-2.3)
--- NOTE | 2021-07-11 07:50 | HMH.ACPN2 ---
Internal Medicine - PN: Subj *Date: 07/11/21 *Time: 07:50 Interval history: Patient with no new complaints today, still has some diarrhea. Wants something more than a liquid diet. Exam Vital signs and Labs for Last 24 Hours: Temp Pulse Resp BP Pulse Ox 98.0 F 81 18 130/74 96 07/11/21 04:00 07/11/21 04:00 07/11/21 04:00 07/11/21 04:00 07/11/21 04:00 Laboratory Results - last 24 hr 07/11/21 06:24: Potassium 3.0 L, Magnesium 1.7 Vital Signs - 24 hr 07/10/21 08:00 07/10/21 12:00 07/10/21 16:00 Temperature 98.3 F 98.5 F 98.5 F Pulse Rate [Right Brachial] 115 H 74 80 Respiratory Rate 21 18 18 Blood Pressure [Right Arm] 127/83 119/70 126/64 02 Sat by Pulse Oximetry 99 95 95 07/10/21 20:00 07/11/21 00:00 07/11/21 04:00 Temperature 97.9 F 98.9 F 98.0 F Pulse Rate [Right Brachial] 81 103 H 81 Respiratory Rate 14 18 18 Blood Pressure [Right Arm] 151/101 H 117/73 130/74 02 Sat by Pulse Oximetry 99 95 96 I & O for Last 24 hours: Intake & Output 07/08/21 07/09/21 07/10/21 07/11/21 23:59 23:59 23:59 23:59 Intake Total 2580 / 2580 2488 / 2488 1898 / 1898 Output Total 51 / 491 440 / 441 501 / 501 Balance 2579 / 2578 2436 1458 / 1457 -501 / -501 Weight 178 lb 3 oz 177 lb 4.8 oz 173 lb 3.2 oz 170 lb 8 oz Microbiology Reports for the Last 24 Hours: Microbiology 07/08/21 13:30 Sputum - Expectorated Sputum Gram Stain - Final 07/08/21 13:30 Sputum - Expectorated Sputum Sputum Culture - Preliminary - Constitutional no acute distress - *Routine HEENT Exam Head: Present: normocephalic Eye: Present: EOMI, PERRL ENT: Present: mucous membranes moist - *Routine Neck Exam Present: supple. Absent: lymphadenopathy - *Routine Respiratory Exam Present: CTA bilaterally - *Routine Cardiovascular Exam Present: RRR - *Routine Abdominal Exam Present: soft, normoactive bowel sounds. Absent: tenderness - *Routine Extremities Exam Absent: cyanosis, clubbing, edema - *Routine Skin Exam Present: warm. Absent: rash - *Routine Neurological Exam Present: alert Assessment and Plan (1) Acute pancreatitis Status: Acute Qualifiers: Pancreatitis type: unspecified pancreatitis type Acute pancreatitis complication: no infection or necrosis Qualified Code(s): K85.90 - Acute pancreatitis without necrosis or infection, unspecified Category: Medical Code(s): K85.90 - Acute pancreatitis without necrosis or infection, unspecified (2) Alcohol withdrawal Status: Acute Qualifiers: Complication of substance-induced condition: uncomplicated Qualified Code(s): F10.230 - Alcohol dependence with withdrawal, uncomplicated Category: Medical Code(s): F10.239 - Alcohol dependence with withdrawal, unspecified (3) Chronic alcohol use Status: Chronic Category: Medical Code(s): Z72.89 - Other problems related to lifestyle (4) Nausea and vomiting Status: Acute Qualifiers: Vomiting type: unspecified Category: Medical Code(s): R11.2 - Nausea with vomiting, unspecified (5) Hypertension Status: Chronic Qualifiers: Hypertension type: primary hypertension Qualified Code(s): I10 - Essential (primary) hypertension Category: Medical Code(s): I10 - Essential (primary) hypertension (6) Hyponatremia Status: Acute Category: Medical Code(s): E87.1 - Hypo-osmolality and hyponatremia (7) Tachycardia Status: Acute Category: Medical Code(s): R00.0 - Tachycardia, unspecified (8) TONNY (acute kidney injury) Status: Acute Category: Medical Code(s): N17.9 - Acute kidney failure, unspecified (9) Hypomagnesemia Status: Acute Category: Medical Code(s): E83.42 - Hypomagnesemia (10) Alcohol abuse Status: Chronic Category: Social Hx Code(s): F10.10 - Alcohol abuse, uncomplicated (11) Diarrhea Status: Acute Category: Medical Code(s): R19.7 - Diarrhea, unspecified (12) Wheezing Status: Acu
[2021-07-11 08:00] VITALS: BP 132/99; PULSE 82; RESP 22; TEMP 36.4; O2SAT 98
--- NOTE | 2021-07-11 10:24 | DIET.NUTRFU ---
Diet is now advanced to soft. Patient still reports having diarrhea. Patients po intake has been poor during this stay. Supplements in place, changed to ensure over the boost clear he dislikes.
[2021-07-11 12:00] VITALS: BP 142/94; PULSE 82; RESP 22; TEMP 36.7; O2SAT 98
[2021-07-11 16:00] VITALS: BP 122/87; PULSE 80; RESP 20; TEMP 36.6; O2SAT 98
[2021-07-11 20:00] VITALS: BP 130/74; PULSE 82; RESP 18; TEMP 36.8; O2SAT 98
[2021-07-12] VITALS: BP 124/69; PULSE 82; RESP 18; TEMP 36.9; O2SAT 97
[2021-07-12 04:00] VITALS: BP 130/75; PULSE 65; RESP 18; TEMP 36.7; O2SAT 93
[2021-07-12 05:00] VITALS: BMI 22.5
[2021-07-12 07:17] LABS: Basophils % 0.3 % (0.1-2.0); Eosinophils # 0.1 K/mm3 (0.0-0.4); Eosinophils % 0.6 % (0.1-12.0); Hematocrit 31.2 % (42.0-52.0); Lymphocytes # 0.8 K/mm3 (0.7-4.5); Lymphocytes % 10.4 % (10-50); Mean Corpuscular HGB Conc 31.9 g/dL (31.8-35.4); Mean Corpuscular Hemoglobin 35.7 pg (27.0-31.2); Mean Corpuscular Volume 111.9 fl (80-94); Mean Platelet Volume 9.2 fl (7.4-10.4); Monocytes # 0.5 K/mm3 (0.1-1.0); Monocytes % 6.6 % (1.7-9.3); Neutrophils # 6.2 K/mm3 (1.8-7.8); Platelet Count 320 K/mm3 (142-424); Red Blood Count 2.79 M/mm3 (4.60-6.20); Red Cell Distribution Width 14.3 % (11.5-17.5); White Blood Count 7.5 K/mm3 (4.8-10.8)
[2021-07-12 07:50] LABS: Chloride 116 mmol/L (98-107); Potassium 3.4 mmoL/L (3.5-5.1); Sodium 137 mmol/L (136-145)
[2021-07-12 07:53] LABS: Blood Urea Nitrogen 5 mg/dl (9-20); Creatinine Clearance Estimated 93 mL/min (50-200); Estimated Glomerular Filt Rate 78 ml/min (>60); GFR (African American) 95 ML/MIN (>60)
[2021-07-12 07:54] LABS: Anion Gap 10.4 mEq/L (5-15); Calcium 7.4 mg/dl (8.4-10.2); Carbon Dioxide 14 mmol/L (22.0-30.0); Glucose 101 mg/dl (74-100)
[2021-07-12 08:00] VITALS: BP 112/78; PULSE 91; RESP 18; TEMP 36.7; O2SAT 97
--- NOTE | 2021-07-12 08:48 | HMH.ACPN2 ---
Internal Medicine - PN: Subj *Date: 07/12/21 *Time: 08:48 Interval history: Patient feels better today, tolerating soft diet, had less diarrhea over night. Exam Vital signs and Labs for Last 24 Hours: Temp Pulse Resp BP Pulse Ox 98.1 F 65 18 130/75 93 L 07/12/21 04:00 07/12/21 04:00 07/12/21 04:00 07/12/21 04:00 07/12/21 04:00 Laboratory Results - last 24 hr 07/12/21 06:35: WBC 7.5, RBC 2.79 L, Hgb 10.0 L, Hct 31.2 L, MCV 111.9 H, MCH 35.7 H, MCHC 31.9, RDW 14.3, Plt Count 320, MPV 9.2, Neut % (Auto) 82.0 H, Lymph % (Auto) 10.4, [place] % (Auto) 6.6, Eos % (Auto) 0.6, Baso % (Auto) 0.3, Neut # (Auto) 6.2, Lymph # (Auto) 0.8, [place] # (Auto) 0.5, Eos # (Auto) 0.1, Baso # (Auto) 0.0 07/12/21 06:35: Sodium 137, Potassium 3.4 L, Chloride 116 H, Carbon Dioxide 14 L, Anion Gap 10.4, BUN 5 L, Creatinine 1.00, Estimated Creat Clear 93, Estimated GFR 78, Est GFR ( Amer) 95, Glucose 101 H, Calcium 7.4 L Vital Signs - 24 hr 07/11/21 12:00 07/11/21 16:00 07/11/21 20:00 Temperature 98.1 F 97.9 F 98.2 F Pulse Rate [Right Brachial] 82 80 82 Respiratory Rate 22 20 18 Blood Pressure [Right Arm] 142/94 H 122/87 130/74 02 Sat by Pulse Oximetry 98 98 98 07/12/21 00:00 07/12/21 04:00 Temperature 98.4 F 98.1 F Pulse Rate [Right Brachial] 82 65 Respiratory Rate 18 18 Blood Pressure [Right Arm] 124/69 130/75 02 Sat by Pulse Oximetry 97 93 L I & O for Last 24 hours: Intake & Output 07/09/21 07/10/21 07/11/2107/22 23:59 23:59 23:59 23:59 Intake Total 2488 / 2488 1898 / 1898 1740 / 1740 Output Total 51 / 491 440 / 441 901 / 1201 300 / 300 Balance 2436 1458 / 1457 839 / 539 -300 / -300 Weight 177 lb 4.8 oz 173 lb 3.2 oz 170 lb 8 oz 170 lb 1.6 oz Microbiology Reports for the Last 24 Hours: Microbiology 07/08/21 13:30 Sputum - Expectorated Sputum Gram Stain - Final 07/08/21 13:30 Sputum - Expectorated Sputum Sputum Culture - Preliminary - Constitutional no acute distress - *Routine HEENT Exam Head: Present: normocephalic Eye: Present: EOMI, PERRL ENT: Present: mucous membranes moist - *Routine Neck Exam Present: supple. Absent: lymphadenopathy - *Routine Respiratory Exam Present: CTA bilaterally - *Routine Cardiovascular Exam Present: RRR - *Routine Abdominal Exam Present: soft, normoactive bowel sounds. Absent: tenderness - *Routine Extremities Exam Absent: cyanosis, clubbing, edema - *Routine Skin Exam Present: warm. Absent: rash - *Routine Neurological Exam Present: alert, oriented X3 Assessment and Plan (1) Acute pancreatitis Status: Acute Qualifiers: Pancreatitis type: unspecified pancreatitis type Acute pancreatitis complication: no infection or necrosis Qualified Code(s): K85.90 - Acute pancreatitis without necrosis or infection, unspecified Category: Medical Code(s): K85.90 - Acute pancreatitis without necrosis or infection, unspecified (2) Alcohol withdrawal Status: Acute Qualifiers: Complication of substance-induced condition: uncomplicated Qualified Code(s): F10.230 - Alcohol dependence with withdrawal, uncomplicated Category: Medical Code(s): F10.239 - Alcohol dependence with withdrawal, unspecified (3) Chronic alcohol use Status: Chronic Category: Medical Code(s): Z72.89 - Other problems related to lifestyle (4) Nausea and vomiting Status: Acute Qualifiers: Vomiting type: unspecified Category: Medical Code(s): R11.2 - Nausea with vomiting, unspecified (5) Hypertension Status: Chronic Qualifiers: Hypertension type: primary hypertension Qualified Code(s): I10 - Essential (primary) hypertension Category: Medical Code(s): I10 - Essential (primary) hypertension (6) Hyponatremia Status: Acute Category: Medical Code(s): E87.1 - Hypo-osmolality and hyponatremia (7) Tachycardia Status: Acute Category: Medical Code(s): R00.0 - Tachycardia, unspecified
--- NOTE | 2021-07-12 15:22 | HMH.DCSUM ---
General - General Admission date:: 07/03/21 Discharge date: 07/12/21 HPI HPI: Mr. Hinkle is a 55-year-old male patient with a history of hypertension, alcohol induced acute pancreatitis, alcoholism and renal insufficiency who presented to the emergency room after suffering with progressively worsening abdominal pain. He also was nauseated and vomiting. He states he is trying to wean himself from alcohol and has switched from vodka to beer. His last drink was 2 days ago at which time he drank 6 beers. He states he has taken his medication but thinks he vomits it up. He denies any hematemesis, melena, hematochezia and diarrhea. He states he has had difficulty with pleurisy and shortness of breath in the recent past but this has resolved. He denies fever. To note he has been seen in the emergency room 3 times since May 08, 2021. He states he receives IV fluids and something for nausea and then is discharged. He states he usually feels good after this. He was supposed to start a new job yesterday. With this evaluation in the emergency room He was found to be afebrile with an elevated lipase of 6098. He was given IV fluid boluses Along with clonidine 0.1 mg, famotidine 20 mg IV, Reglan 10 mg IV, morphine sulfate 4 mg, IV Zofran. CT of the abdomen revealed acute pancreatitis . Chest x-ray showed no acute findings. Patient arrived to the room about 4 AM. He states he continues to have severe abdominal pain and nausea. He is currently n.p.o. On admission BUN was 22 with a creatinine of 1.6. This a.m. BUN is 24 and creatinine is 1.3. Liver function studies have improved. Amylase is 661 and lipase has increased to 7991. White blood cell count was 10,000 with a hemoglobin of 12.5 and 38.3 this morning Hospital Course Hospital Course: The patient was admitted and started on alcohol withdrawal protocol along with IV fluids and GI rest. Initially, even drinking water made him nauseated. His abdominal pain did improve as did his tremors. He was restarted on his blood pressure medication and his diet was advanced slowly. His pancreatic enzymes improved and his white blood cell count normalized. By 07/06/2021, he began having diarrhea and had worsening abdominal pain. He also began getting short of breath and had to have oxygen placed. A diarrhea panel was ordered as was a chest x-ray. His chest x-ray showed nothing acute and he was started on breathing treatments. His diarrhea panel came back positive for C. difficile and he was started on Flagyl. He had a repeat stool test, as it was not felt this was a hospital-acquired infection. The patient also denied any recent antibiotic use. His repeat stool test also returned positive for C. difficile. He was continued on antibiotics. His blood pressure did elevate and he was given a dose of Lasix and was saline locked. He continued with wheezing and shortness of breath but denied any chest pain. He began running a low-grade fever on 07/09/2021 and his blood pressure was elevated. His potassium was also low at 2.4 and he was started on IV potassium. He continued with abdominal pain and diarrhea. He had a abdominal series ordered which showed multiple air-filled large and small bowel loops favoring an ileus. His blood pressure did improve and he was able to be weaned off of his oxygen with satisfactory oxygen saturations on room air, By 07/11/2021, he was feeling better but still having some diarrhea. His potassium had improved. He was advanced to a soft diet. By 07/12/2021, he had had less diarrhea and was tolerating the soft diet. His potassium was up to 3.4 and he was stable to be discharged home with another 7 days of Flagyl as well as potassium. Dr. Oshea discussed alcohol rehab with the patient and provided contact information for local resources. Objective Vital signs: Temp Pulse Resp BP Pulse Ox 98.1 F 91 H 18 112/78 97 07/12/21 08:00 07/12/21 08:00
--- NOTE | 2021-07-16 14:44 | CARE MANAGER ---
CM called and spoke with patient regarding post discharge status. Patient states that he is feeling much better, diarrhea has subsided. He was able to slat pickler his prescriptions and is taking as prescribed. Patient states that he may have to reschedule his f/u appt r/t he is thinking of checking himself into alcohol rehab. Patient advised to call office and let them know if he does check himself in. He states that he has no known needs at this time.
== END 2021-07-12 10:50 | disposition home or self-care (01) | DRG 439 ==
LOC: ER 07-03 03:29 → 2ND 07-03 03:45
PROVIDERS: Physician Assistant; Admitting Provider Family Medicine; Emergency Provider Emergency Medicine; PCP Family Medicine; Visit Provider Family Medicine
DX: K85.90 Acute pancreatitis without necrosis or infection, unspecified (principal); F10.230 Alcohol dependence with withdrawal, uncomplicated; E87.1 Hypo-osmolality and hyponatremia; N17.9 Acute kidney failure, unspecified; A04.72 Enterocolitis due to Clostridium difficile, not specified as recurrent; Z20.822 Contact with and (suspected) exposure to COVID-19; E83.42 Hypomagnesemia; K21.9 Gastro-esophageal reflux disease without esophagitis; I10 Essential (primary) hypertension; E87.6 Hypokalemia
CPT/HCPCS: 36415; 71045; 71046; 74021; 74176; 80048; 80053; 80061; 82150; 83690; 83735; 84100; 84132; 84484; 85007; 85025; 87070; 87205; 87506; 87507; 93005; 94640; 94760; 96365; 96366; 96375; 99285; C9803; J2405; U0003; U0005

== ENCOUNTER 2021-09-09 12:32 | Emergency (ER) | payer OTHER, SELFPAY ==
[2021-09-09] VITALS (13 sets, daily range): BP systolic 117–130; BP diastolic 73–92; PULSE 55–103; RESP 16–20; TEMP 37.2–37.3; O2SAT 96–100; BMI 21.1
--- NOTE | 2021-09-09 13:01 | XR_ITS ---
PROCEDURE INFORMATION: Exam: XR Chest Exam date and time: 09/09/2021 1:08 PM Age: 56 years old Clinical indication: Patient HX: Chronic pleurisy, shortness of breath; Additional info: SOB TECHNIQUE: Imaging protocol: XR of the chest. Views: 1 view. COMPARISON: CR XR CHEST PORTABLE 07/07/2021 10:17 AM FINDINGS: Lungs: Unremarkable. No consolidation. Pleural spaces: Unremarkable. No pleural effusion. No pneumothorax. Heart/Mediastinum: Unremarkable. No cardiomegaly. Bones/joints: Osteophytosis and eburnation of the acromioclavicular articulating surfaces. Degenerative spondylosis and mild rotoscoliosis of thoracic spine. IMPRESSION: No evidence for acute cardiopulmonary process.
--- NOTE | 2021-09-09 13:15 | HMH.EDGENADL ---
ED Disposition Clinical Impression: Dehydration, Chronic cough Alcohol withdrawal Qualifiers: Complication of substance-induced condition: uncomplicated Qualified Code(s): F10.230 - Alcohol dependence with withdrawal, uncomplicated Disposition: Home, Self-Care Condition on Discharge: Fair Instructions: DI for Dehydration -- Adult, DI for Cough -- Adult, DI for Drug or Alcohol Withdrawal Additional Instructions: Rest and drink plenty of fluids. Phenergan as needed for nausea and vomiting. Librium for alcohol withdrawal. DO NOT DRINK ALCOHOL WHILE TAKING THIS MEDICATION. Follow-up with lung doctor, Dr. Rowland, call for appointment. Follow-up with your primary care provider, call for appointment. Additional instructions for CONTROLLED SUBSTANCES: You have been prescribed a medication that is a controlled substance. Controlled substances include pain medications known as opiates and sedative nerve medications known as benzodiazepines. Tramadol, fioricet, and gabapentin are also controlled substances. Some common opiates include: Codeine (such as Tylenol #3) Hydrocodone (Vicodin, Lortab, Lorcet, [place]) Oxycodone (Percocet, Percodan, Oxycodone, Oxy IR) Some common benzodiazepines include: Diazepam (Valium) Lorazepam (Ativan) Alprazolam (Xanax) Clonazepam (Klonopin) Oxazepam (Serax) All of these controlled substances are highly addictive and frequently abused. Misuse can and frequently does lead to addiction as well as overdose and . Medication should be stored in a locked cabinet or other secure storage unit. Do not store the medication in a motor vehicle. Short term supplies, 3 days or less, are prescribed because of the highly addictive nature of the medication. Any of the controlled substance medication NOT taken should be disposed of properly and NOT SAVED. The recommended method of disposing of unused medications is: Place the medicines in a sealable plastic bag. If the medicine is a solid, crush it or add water to dissolve it. Add something undesirable (cat litter, coffee grounds, etc.) Dispose of sealed bag in household trash Do not flush or pour unused medicines down a sink or drain. Controlled substances should not be shared, given away or sold. Because of the addictive nature and frequent abuse, these medications are sometimes stolen. These medications should be kept in a safe place where they cannot be stolen. Do not keep them in your car or purse. Lost or stolen prescriptions for controlled substances WILL NOT BE REFILLED in this emergency department, regardless of whether a police report was filed. Prescriptions: Promethazine HCl [Phenergan 25mg tab] 25 mg PO Q6HP PRN #10 tab PRN Reason: Nausea And Vomiting Transmission Status: Pending to [facility] #[id number] chlordiazePOXIDE HCl [Librium 25mg Capsule] 25 mg PO DIRECTED #12 capsule Transmission Status: Sent to [facility] #[id number] Referrals: Gordy Oshea MD [Primary Care Provider] - - Critical Care Critical Care Time: No Attestation: On 09/09/21, the high probability of a clinically significant, sudden or life threatening deterioration of the following system(s) required my full and direct attention, intervention and personal management. The time I documented below is in addition to time spent performing reported procedures but includes the following listed in this critical care notation. Medical Decision Making - Kamari Inquiry Pt receiving controlled substance: Yes Kamari was queried for this patient: Yes Risks and benefits of using a controlled substance: were discussed with pt by me Vital Signs: 09/09/21 12:34 09/09/21 13:00 09/09/21 14:00 Temperature 99.1 F Temperature Source Oral Pulse Rate 62 65 Pulse Rate [Radial] 103 H Respiratory Rate 20 18 17 Blood Pressure 124/88 118/82 Blood Pressure [Right Arm] 121/87 Blood Pressure Mean Blood Pressure Mean [R
--- NOTE | 2021-09-09 13:18 | ECG_ITS ---
APPROVED REPORT Exam: Resting ECG HR:70 bpm ECG Measurements Heart Rate 70 AXES MS 139 P 56 QRSd 81 QRS 78 QT 419 T 71 QTc 440 Conclusion SINUS RHYTHM NORMAL ECG UNCONFIRMED REPORT Electronically signed by : Jimmy Greene MD 09/09/2021 21:30:27
[2021-09-09 14:40] LABS: Coronavirus 19, PCR Not Detected (NotDetected); Influenza A, PCR Not Detected (NotDetected); Influenza B, PCR Not Detected (NotDetected)
[2021-09-09 14:48] LABS: Chloride 94 mmol/L (98-107); Potassium 4.2 mmoL/L (3.5-5.1); Sodium 135 mmol/L (136-145)
[2021-09-09 14:50] LABS: Blood Urea Nitrogen 19 mg/dl (9-20); Creatinine Clearance Estimated 51 mL/min (50-200); Estimated Glomerular Filt Rate 42 ml/min (>60); GFR (African American) 51 ML/MIN (>60)
[2021-09-09 14:51] LABS: Alanine Aminotransferase 75 U/L (12-78); Albumin Level 4.2 g/dl (3.5-5.0); Albumin/Globulin Ratio 1.4 (1.1-1.8); Alkaline Phosphatase 90 U/L (38-126); Anion Gap 19.2 mEq/L (5-15); Aspartate Amino Transferase 149 U/L (17-59); Bilirubin,Total 1.3 mg/dl (0.2-1.3); Carbon Dioxide 26 mmol/L (22.0-30.0); Globulin 2.9 g/dL (1.3-3.2); Glucose 136 mg/dl (74-100); Lipase 182 U/L (23-300); Total Protein,Serum 7.1 g/dl (6.3-8.2)
[2021-09-09 14:52] LABS: Basophils % 0.7 % (0.1-2.0); Calcium 9.1 mg/dl (8.4-10.2); Eosinophils % 0.2 % (0.1-12.0); Hematocrit 39.4 % (42.0-52.0); Lymphocytes # 0.7 K/mm3 (0.7-4.5); Lymphocytes % 14.9 % (10-50); Mean Corpuscular HGB Conc 32.8 g/dL (31.8-35.4); Mean Corpuscular Hemoglobin 34.5 pg (27.0-31.2); Mean Platelet Volume 9.6 fl (7.4-10.4); Monocytes # 0.3 K/mm3 (0.1-1.0); Monocytes % 5.8 % (1.7-9.3); Neutrophils # 3.8 K/mm3 (1.8-7.8); Neutrophils % 78.4 % (37.0-80.0); Platelet Count 161 K/mm3 (142-424); Red Blood Count 3.76 M/mm3 (4.60-6.20); Red Cell Distribution Width 15.2 % (11.5-17.5); White Blood Count 4.8 K/mm3 (4.8-10.8)
[2021-09-09 15:07] LABS: Troponin I < 0.01 ng/ml (0.00-0.034)
== END 2021-09-09 19:23 | disposition home or self-care (01) ==
PROVIDERS: Emergency Provider Emergency Medicine; PCP Family Medicine
DX: E86.0 Dehydration (principal); F10.230 Alcohol dependence with withdrawal, uncomplicated; K21.9 Gastro-esophageal reflux disease without esophagitis; F41.9 Anxiety disorder, unspecified; I10 Essential (primary) hypertension; E78.5 Hyperlipidemia, unspecified; K86.0 Alcohol-induced chronic pancreatitis
CPT/HCPCS: 71045; 80053; 83690; 84484; 85025; 93005; 96365; 96366; 99284; C9803; J2405; U0003; U0005

== ENCOUNTER 2021-09-29 02:28 | Emergency (ER) | payer OTHER, SELFPAY ==
[2021-09-29] VITALS (10 sets, daily range): BP systolic 107–117; BP diastolic 73–90; PULSE 81–117; RESP 10–20; TEMP 37.1; O2SAT 92–98; BMI 21.3
--- NOTE | 2021-09-29 03:22 | HMH.EDGENADL ---
ED Disposition Condition on Discharge: Fair - Critical Care Critical Care Time: No <NicholeLaura - Last Filed: 09/29/21 07:53> <Hansel Myers - Last Filed: 09/29/21 09:34> Clinical Impression: Withdrawal complaint, Acidemia Nausea & vomiting Qualifiers: Vomiting type: unspecified Qualified Code(s): R11.2 - Nausea with vomiting, unspecified Disposition: Home, Self-Care Instructions: DI for Diarrhea and Traveler's Diarrhea -- Adult, DI for Diarrhea and Traveler's Diarrhea -- Child, DI for Nausea -- Adult, DI for Nausea -- Child Additional Instructions: Please continue to monitor your condition closely at home. If your condition worsens or any other concerns arise, please return promptly to the emergency department. Referrals: Gordy Oshea MD [Primary Care Provider] - Attestation: On 09/29/21, the high probability of a clinically significant, sudden or life threatening deterioration of the following system(s) required my full and direct attention, intervention and personal management. The time I documented below is in addition to time spent performing reported procedures but includes the following listed in this critical care notation. Medical Decision Making - Medical Records Medical records reviewed: Yes: I reviewed the patient's medical records. - Kamari Inquiry Pt receiving controlled substance: No - Lab Data Lab results reviewed: Yes: I reviewed the patient's lab results. Result diagrams: 09/29/21 04:00 09/29/21 04:00 <Laura Varela - Last Filed: 09/29/21 07:53> - Lab Data Result diagrams: 09/29/21 04:00 09/29/21 04:00 <Hansel Myers - Last Filed: 09/29/21 09:34> Vital Signs: 09/29/21 03:07 09/29/21 05:00 09/29/21 05:30 Temperature 98.7 F Temperature Source Oral Pulse Rate 102 H 90 Pulse Rate [Left] 117 H Respiratory Rate 16 16 19 Blood Pressure Blood Pressure [Left Arm] 107/77 L Blood Pressure Mean Blood Pressure Mean [Left Arm] 87 Blood Pressure Source [Left Arm] Manual Cuff/ Doppler Blood Pressure Position [Left Arm] Sitting 02 Sat by Pulse Oximetry 96 97 95 Oxygen Delivery Method Room Air 09/29/21 06:00 09/29/21 06:30 09/29/21 07:00 Temperature Temperature Source Pulse Rate 92 H 85 87 Pulse Rate [Left] Respiratory Rate 16 20 10 L Blood Pressure Blood Pressure [Left Arm] Blood Pressure Mean Blood Pressure Mean [Left Arm] Blood Pressure Source [Left Arm] Blood Pressure Position [Left Arm] 02 Sat by Pulse Oximetry 96 97 98 Oxygen Delivery Method 09/29/21 07:30 09/29/21 08:00 09/29/21 08:16 Temperature Temperature Source Pulse Rate 81 86 90 Pulse Rate [Left] Respiratory Rate 20 20 20 Blood Pressure 117/90 Blood Pressure [Left Arm] Blood Pressure Mean 96 Blood Pressure Mean [Left Arm] Blood Pressure Source [Left Arm] Blood Pressure Position [Left Arm] 02 Sat by Pulse Oximetry 92 L 93 L 93 L Oxygen Delivery Method - Lab Data Lab Results 09/29/21 04:00: WBC 7.3, RBC 4.34 L, Hgb 15.4, Hct 48.9, MCV 112.6 H, MCH 35.5 H, MCHC 31.5 L, RDW 15.9, Plt Count 290, MPV 9.7, Neut % (Auto) 83.1 H, Lymph % (Auto) 11.8, [place] % (Auto) 3.8, Eos % (Auto) 0.1, Baso % (Auto) 1.2, Neut # (Auto) 6.1, Lymph # (Auto) 0.9, [place] # (Auto) 0.3, Eos # (Auto) 0.0, Baso # (Auto) 0.1 09/29/21 04:00: Sodium 138, Potassium 3.6, Chloride 94 L, Carbon Dioxide 17 L, Anion Gap 30.6 H, BUN 10, Creatinine 1.30 H, Estimated Creat Clear 68, Estimated GFR 58 L, Est GFR ( Amer) 70, Glucose 140 H, Calcium 9.1, Magnesium 0.9 L, Total Bilirubin 1.7 H, AST 232 H, ALT 128 H, Alkaline Phosphatase 132 H, Troponin I < 0.01, Total Protein 7.6, Albumin 4.4, Globulin 3.2, Albumin/Globulin Ratio 1.4, TSH 2.62 09/29/21 05:51: VBG pH 7.29 L, VBG pCO2 32.1 L, VBG pO2 48.9 H, VBG HCO3 15.2 L, VBG Total CO2 16.2 L, VBG O2 Saturation 78.3 H, VBG Base Excess -11.3 L 09/29/21 07:25: Lactate 2.9 H 09/29/21 07:25: Trop
--- NOTE | 2021-09-29 04:19 | XR_ITS ---
PROCEDURE INFORMATION: Exam: XR Chest Exam date and time: 09/29/2021 4:22 AM Age: 56 years old Clinical indication: Dyspnea; Additional info: SOA TECHNIQUE: Imaging protocol: Radiologic exam of the chest. Views: 1 view. COMPARISON: CR XR CHEST PORTABLE 09/09/2021 1:08 PM FINDINGS: Lungs: Unremarkable. No consolidation. Pleural spaces: Unremarkable. No pleural effusion. No pneumothorax. Heart/Mediastinum: Unremarkable. No cardiomegaly. Bones/joints: Unremarkable. IMPRESSION: No acute findings.
[2021-09-29 04:26] LABS: Basophils # 0.1 K/mm3 (0-0.2); Basophils % 1.2 % (0.1-2.0); Eosinophils % 0.1 % (0.1-12.0); Hematocrit 48.9 % (42.0-52.0); Hemoglobin 15.4 g/dL (14.1-18.0); Lymphocytes # 0.9 K/mm3 (0.7-4.5); Lymphocytes % 11.8 % (10-50); Mean Corpuscular HGB Conc 31.5 g/dL (31.8-35.4); Mean Corpuscular Hemoglobin 35.5 pg (27.0-31.2); Mean Corpuscular Volume 112.6 fl (80-94); Mean Platelet Volume 9.7 fl (7.4-10.4); Monocytes # 0.3 K/mm3 (0.1-1.0); Monocytes % 3.8 % (1.7-9.3); Neutrophils # 6.1 K/mm3 (1.8-7.8); Neutrophils % 83.1 % (37.0-80.0); Platelet Count 290 K/mm3 (142-424); Red Blood Count 4.34 M/mm3 (4.60-6.20); Red Cell Distribution Width 15.9 % (11.5-17.5); White Blood Count 7.3 K/mm3 (4.8-10.8)
[2021-09-29 04:32] LABS: Alanine Aminotransferase 128 U/L (12-78); Albumin Level 4.4 g/dl (3.5-5.0); Albumin/Globulin Ratio 1.4 (1.1-1.8); Alkaline Phosphatase 132 U/L (38-126); Anion Gap 30.6 mEq/L (5-15); Bilirubin,Total 1.7 mg/dl (0.2-1.3); Blood Urea Nitrogen 10 mg/dl (9-20); Calcium 9.1 mg/dl (8.4-10.2); Carbon Dioxide 17 mmol/L (22.0-30.0); Chloride 94 mmol/L (98-107); Creatinine Clearance Estimated 68 mL/min (50-200); Estimated Glomerular Filt Rate 58 ml/min (>60); GFR (African American) 70 ML/MIN (>60); Globulin 3.2 g/dL (1.3-3.2); Glucose 140 mg/dl (74-100); Potassium 3.6 mmoL/L (3.5-5.1); Sodium 138 mmol/L (136-145); Total Protein,Serum 7.6 g/dl (6.3-8.2)
[2021-09-29 04:37] LABS: Magnesium 0.9 mg/dl (1.6-2.3)
[2021-09-29 04:38] LABS: Aspartate Amino Transferase 232 U/L (17-59)
[2021-09-29 04:52] LABS: Troponin I < 0.01 ng/ml (0.00-0.034)
[2021-09-29 05:03] LABS: Thyroid Stimulating Hormone 2.62 uIU/mL (0.465-4.68)
[2021-09-29 06:06] LABS: VBG Base Excess -11.3 mmol/L (-2.4-2.3); VBG HCO3 15.2 mmol/L (23-30); VBG Oxygen Saturation 78.3 % (50-70); VBG PCO2 32.1 mmol/L (35-51); VBG PH 7.29 mmol/L (7.31-7.41); VBG PO2 48.9 mmol/L (28-40); VBG Total CO2 16.2 mmol/L (23-27)
[2021-09-29 07:41] LABS: Lactic Acid 2.9 mmol/L (0.7-2.1)
[2021-09-29 07:55] LABS: Troponin I < 0.01 ng/ml (0.00-0.034)
--- NOTE | 2021-09-29 08:45 | PC.NURSE ---
checked on pt, no needs at this time
[2021-09-29 11:30] LABS: Reflex Lactic Add Lactic Reflex
== END 2021-09-29 09:42 | disposition home or self-care (01) ==
PROVIDERS: Emergency Provider Emergency Medicine; PCP Family Medicine
DX: F10.139 Alcohol abuse with withdrawal, unspecified (principal); R11.2 Nausea with vomiting, unspecified; E87.2 Acidosis
CPT/HCPCS: 36415; 71045; 80053; 82803; 83605; 83735; 84443; 84484; 85025; 96365; 96375; 99284; J2405; J3475

== ENCOUNTER 2021-11-07 19:15 | Emergency (ER) | payer OTHER, SELFPAY ==
[2021-11-07] VITALS (12 sets, daily range): BP systolic 105–136; BP diastolic 61–97; PULSE 57–104; RESP 13–19; TEMP 36.8–37; O2SAT 95–100; BMI 21.7
--- NOTE | 2021-11-07 19:35 | HMH.EDUTC ---
[facility] Disposition Clinical Impression: Abdominal pain Qualifiers: Abdominal location: epigastric Qualified Code(s): R10.13 - Epigastric pain Vomiting Qualifiers: Vomiting type: unspecified Nausea presence: with nausea Qualified Code(s): R11.2 - Nausea with vomiting, unspecified Disposition: Xfer Short-Term Hosp Condition on Discharge: Good Instructions: DI for Acute Abdominal Pain Additional Instructions: With your inpatient detox clinic for help detoxing. If you have any other concerning symptoms, return to the emergency department or your primary care provider for further evaluation. Referrals: Gordy Oshea MD [Primary Care Provider] - Medical Decision Making - Medical Records Medical records reviewed: No: I reviewed the patient's medical records. - Kamari Inquiry Pt receiving controlled substance: No Vital Signs: 11/07/21 19:32 11/07/21 20:13 11/07/21 20:30 Temperature 98.2 F 98.2 F Temperature Source Oral Oral Pulse Rate 68 Pulse Rate [Left] 104 H 85 Respiratory Rate 19 16 14 Blood Pressure 118/83 Blood Pressure [Right Arm] 115/84 113/80 Blood Pressure Mean Blood Pressure Mean [Right Arm] 94 91 Blood Pressure Source [Right Arm] Automatic Cuff Blood Pressure Position [Right Arm] Sitting 02 Sat by Pulse Oximetry 98 99 99 Oxygen Delivery Method Room Air Room Air 11/07/21 21:02 11/07/21 21:30 11/07/21 21:32 Temperature Temperature Source Pulse Rate 59 L 101 H 77 Pulse Rate [Left] Respiratory Rate 13 Blood Pressure 135/96 H 128/97 H Blood Pressure [Right Arm] Blood Pressure Mean Blood Pressure Mean [Right Arm] Blood Pressure Source [Right Arm] Blood Pressure Position [Right Arm] 02 Sat by Pulse Oximetry 100 100 97 Oxygen Delivery Method Room Air Room Air Room Air 11/07/21 22:00 11/07/21 22:30 11/07/21 23:00 Temperature Temperature Source Pulse Rate 86 85 57 L Pulse Rate [Left] Respiratory Rate 15 19 13 Blood Pressure 123/91 H 129/92 H 130/90 Blood Pressure [Right Arm] Blood Pressure Mean Blood Pressure Mean [Right Arm] Blood Pressure Source [Right Arm] Blood Pressure Position [Right Arm] 02 Sat by Pulse Oximetry 98 98 99 Oxygen Delivery Method Room Air Room Air Room Air 11/07/21 23:30 11/07/21 23:32 11/07/21 23:58 Temperature 98.6 F Temperature Source Oral Pulse Rate 65 82 Pulse Rate [Left] Respiratory Rate 14 19 Blood Pressure 105/61 L 130/96 H 136/86 Blood Pressure [Right Arm] Blood Pressure Mean 106 Blood Pressure Mean [Right Arm] Blood Pressure Source [Right Arm] Blood Pressure Position [Right Arm] 02 Sat by Pulse Oximetry 98 100 Oxygen Delivery Method Room Air Room Air Room Air 11/08/21 00:03 11/08/21 00:30 Temperature Temperature Source Pulse Rate 84 61 Pulse Rate [Left] Respiratory Rate 12 16 Blood Pressure 120/91 H 132/94 H Blood Pressure [Right Arm] Blood Pressure Mean Blood Pressure Mean [Right Arm] Blood Pressure Source [Right Arm] Blood Pressure Position [Right Arm] 02 Sat by Pulse Oximetry 98 98 Oxygen Delivery Method Room Air Room Air - Lab Data Lab Results 11/07/21 20:02: WBC 8.2, RBC 3.89 L, Hgb 13.9 L, Hct 42.9, MCV 110.2 H, MCH 35.8 H, MCHC 32.5, RDW 13.6, Plt Count 334, MPV 9.0, Neut % (Auto) 81.7 H, Lymph % (Auto) 12.1, [place] % (Auto) 4.9, Eos % (Auto) 0.2, Baso % (Auto) 1.3, Neut # (Auto) 6.7, Lymph # (Auto) 1.0, [place] # (Auto) 0.4, Eos # (Auto) 0.0, Baso # (Auto) 0.1 11/07/21 20:02: Sodium 138, Potassium 2.8 L*, Chloride 91 L, Carbon Dioxide 28, Anion Gap 21.8 H, BUN 11, Creatinine 1.10, Estimated Creat Clear 81, Estimated GFR 70, Est GFR ( Amer) 84, Glucose 196 H, Calcium 8.4, Total Bilirubin 2.2 H, AST 304 H*, ALT 106 H, Alkaline Phosphatase 194 H, Total Protein 7.2, Albumin 4.1, Globulin 3.1, Albumin/Globulin Ratio 1.3 11/07/21 20:02: Plasma/Serum Alcohol < 10 11/07/21 20:02: Lipase 84 11/07/21 23:08: Urine Opiates Screen Nega
--- NOTE | 2021-11-07 20:11 | ECG_ITS ---
APPROVED REPORT Exam: Resting ECG HR:88 bpm ECG Measurements Heart Rate 88 AXES [place] 108 P 42 QRSd 85 QRS 65 QT 448 T 36 QTc 493 Conclusion SINUS RHYTHM WITH SHORT [place] INTERVAL ST DEVIATION AND MODERATE T-WAVE ABNORMALITY, CONSIDER ANTEROLATERAL ISCHEMIA - of note, this is a new finding since 09/26 [-0.1+ mV T-WAVE IN V3-V6] ABNORMAL ECG UNCONFIRMED REPORT Electronically signed by : Jimmy Greene MD 11/08/2021 13:56:14
--- NOTE | 2021-11-07 20:25 | PC.NURSE ---
ER in room speaking with pt at this time
[2021-11-07 20:33] LABS: Chloride 91 mmol/L (98-107); Sodium 138 mmol/L (136-145)
[2021-11-07 20:35] LABS: Alanine Aminotransferase 106 U/L (12-78); Aspartate Amino Transferase 304 U/L (17-59); Blood Urea Nitrogen 11 mg/dl (9-20); Creatinine Clearance Estimated 81 mL/min (50-200); Estimated Glomerular Filt Rate 70 ml/min (>60); GFR (African American) 84 ML/MIN (>60)
[2021-11-07 20:36] LABS: Albumin Level 4.1 g/dl (3.5-5.0); Albumin/Globulin Ratio 1.3 (1.1-1.8); Alkaline Phosphatase 194 U/L (38-126); Anion Gap 21.8 mEq/L (5-15); Bilirubin,Total 2.2 mg/dl (0.2-1.3); Calcium 8.4 mg/dl (8.4-10.2); Carbon Dioxide 28 mmol/L (22.0-30.0); Globulin 3.1 g/dL (1.3-3.2); Glucose 196 mg/dl (74-100); Total Protein,Serum 7.2 g/dl (6.3-8.2)
[2021-11-07 20:42] LABS: Ethyl Alcohol < 10 mg/dl (0-10); Potassium 2.8 mmoL/L (3.5-5.1)
--- NOTE | 2021-11-07 20:48 | PC.NURSE ---
critical potassium 2.8 notified
[2021-11-07 20:50] LABS: Lipase 84 U/L (23-300)
--- NOTE | 2021-11-07 20:52 | HMH.EDGENADL ---
ED Disposition Clinical Impression: Abdominal pain Qualifiers: Abdominal location: epigastric Qualified Code(s): R10.13 - Epigastric pain Vomiting Qualifiers: Vomiting type: unspecified Nausea presence: with nausea Qualified Code(s): R11.2 - Nausea with vomiting, unspecified Disposition: Home, Self-Care Condition on Discharge: Good Instructions: DI for Acute Abdominal Pain Additional Instructions: With your inpatient detox clinic for help detoxing. If you have any other concerning symptoms, return to the emergency department or your primary care provider for further evaluation. Referrals: Gordy Oshea MD [Primary Care Provider] - - Critical Care Critical Care Time: No Attestation: On 11/07/21, the high probability of a clinically significant, sudden or life threatening deterioration of the following system(s) required my full and direct attention, intervention and personal management. The time I documented below is in addition to time spent performing reported procedures but includes the following listed in this critical care notation. Medical Decision Making - Kamari Inquiry Pt receiving controlled substance: No Vital Signs: 11/07/21 19:32 11/07/21 20:13 11/07/21 20:30 Temperature 98.2 F 98.2 F Temperature Source Oral Oral Pulse Rate 68 Pulse Rate [Left] 104 H 85 Respiratory Rate 19 16 14 Blood Pressure 118/83 Blood Pressure [Right Arm] 115/84 113/80 Blood Pressure Mean Blood Pressure Mean [Right Arm] 94 91 Blood Pressure Source [Right Arm] Automatic Cuff Blood Pressure Position [Right Arm] Sitting 02 Sat by Pulse Oximetry 98 99 99 Oxygen Delivery Method Room Air Room Air 11/07/21 21:02 11/07/21 21:30 11/07/21 21:32 Temperature Temperature Source Pulse Rate 59 L 101 H 77 Pulse Rate [Left] Respiratory Rate 13 Blood Pressure 135/96 H 128/97 H Blood Pressure [Right Arm] Blood Pressure Mean Blood Pressure Mean [Right Arm] Blood Pressure Source [Right Arm] Blood Pressure Position [Right Arm] 02 Sat by Pulse Oximetry 100 100 97 Oxygen Delivery Method Room Air Room Air Room Air 11/07/21 22:00 11/07/21 22:30 11/07/21 23:00 Temperature Temperature Source Pulse Rate 86 85 57 L Pulse Rate [Left] Respiratory Rate 15 19 13 Blood Pressure 123/91 H 129/92 H 130/90 Blood Pressure [Right Arm] Blood Pressure Mean Blood Pressure Mean [Right Arm] Blood Pressure Source [Right Arm] Blood Pressure Position [Right Arm] 02 Sat by Pulse Oximetry 98 98 99 Oxygen Delivery Method Room Air Room Air Room Air 11/07/21 23:30 11/07/21 23:32 Temperature Temperature Source Pulse Rate 65 Pulse Rate [Left] Respiratory Rate 14 Blood Pressure 105/61 L 130/96 H Blood Pressure [Right Arm] Blood Pressure Mean 106 Blood Pressure Mean [Right Arm] Blood Pressure Source [Right Arm] Blood Pressure Position [Right Arm] 02 Sat by Pulse Oximetry 98 100 Oxygen Delivery Method Room Air Room Air - Lab Data Lab Results 11/07/21 20:02: WBC 8.2, RBC 3.89 L, Hgb 13.9 L, Hct 42.9, MCV 110.2 H, MCH 35.8 H, MCHC 32.5, RDW 13.6, Plt Count 334, MPV 9.0, Neut % (Auto) 81.7 H, Lymph % (Auto) 12.1, [place] % (Auto) 4.9, Eos % (Auto) 0.2, Baso % (Auto) 1.3, Neut # (Auto) 6.7, Lymph # (Auto) 1.0, [place] # (Auto) 0.4, Eos # (Auto) 0.0, Baso # (Auto) 0.1 11/07/21 20:02: Sodium 138, Potassium 2.8 L*, Chloride 91 L, Carbon Dioxide 28, Anion Gap 21.8 H, BUN 11, Creatinine 1.10, Estimated Creat Clear 81, Estimated GFR 70, Est GFR ( Amer) 84, Glucose 196 H, Calcium 8.4, Total Bilirubin 2.2 H, AST 304 H*, ALT 106 H, Alkaline Phosphatase 194 H, Total Protein 7.2, Albumin 4.1, Globulin 3.1, Albumin/Globulin Ratio 1.3 11/07/21 20:02: Plasma/Serum Alcohol < 10 11/07/21 20:02: Lipase 84 11/07/21 23:08: Urine Opiates Screen Negative, Urine Methadone Screen Negative, Ur Barbituates Screen Negative, Ur Phencyclidine Scrn Negative, Ur Amphetamines Screen Negative, U Be
[2021-11-07 20:58] LABS: Basophils # 0.1 K/mm3 (0-0.2); Basophils % 1.3 % (0.1-2.0); Eosinophils % 0.2 % (0.1-12.0); Hematocrit 42.9 % (42.0-52.0); Hemoglobin 13.9 g/dL (14.1-18.0); Lymphocytes % 12.1 % (10-50); Mean Corpuscular HGB Conc 32.5 g/dL (31.8-35.4); Mean Corpuscular Hemoglobin 35.8 pg (27.0-31.2); Mean Corpuscular Volume 110.2 fl (80-94); Monocytes # 0.4 K/mm3 (0.1-1.0); Monocytes % 4.9 % (1.7-9.3); Neutrophils # 6.7 K/mm3 (1.8-7.8); Neutrophils % 81.7 % (37.0-80.0); Platelet Count 334 K/mm3 (142-424); Red Blood Count 3.89 M/mm3 (4.60-6.20); Red Cell Distribution Width 13.6 % (11.5-17.5); White Blood Count 8.2 K/mm3 (4.8-10.8)
--- NOTE | 2021-11-07 21:00 | PC.NURSE ---
PT UPDATED WITH PLAN. PT STATES HE WOULD LIKE TO BE ADMITTED TO [facility] SO THAT HE CAN GO TO REHAB. MD MADE AWARE.
--- NOTE | 2021-11-07 22:00 | PC.NURSE ---
PT AWARE OF NEED FOR URINE SAMPLE. PT STATES HE HAS NOT BEEN EATING AND DRINKING WELL AND HE IS UNABLE TO VOID.
--- NOTE | 2021-11-07 23:14 | PC.NURSE ---
PT UPDATED WITH EXPECTED WAIT TIMES. NO ACUTE DISTRESS NOTED. WCM.
[2021-11-07 23:34] LABS: Amphetamine/Metha Screen,Urine Negative ng/ml (<1000)
[2021-11-07 23:35] LABS: Barbiturates Screen,Urine Negative ng/ml (<200); Benzodiazepines Screen,Urine Negative ng/ml (<200)
[2021-11-07 23:36] LABS: Cannabinoid Screen,Urine Negative ng/ml (<50); Cocaine Screen,Urine Negative ng/ml (<300)
[2021-11-07 23:37] LABS: Methadone Screen,Urine Negative ng/ml (<300)
[2021-11-07 23:38] LABS: Opiate Screen,Urine Negative ng/ml (<300); Phencyclidine Screen,Urine Negative ng/ml (<25)
--- NOTE | 2021-11-08 | PC.NURSE ---
INFORMATION FAXED TO HOWARD AT [facility]. HOWARD ON PHONE WITH PATIENT FOR ASSMNT. PT TOLERATING PO FLUIDS WELL. NO ACUTE DISTRESS NOTED AT THIS TIME. PT STATES HE FEELS HE IS ABLE TO DRIVE HIMSELF TO FACILITY.
[2021-11-08 00:03] VITALS: BP 120/91; PULSE 84; RESP 12; O2SAT 98
--- NOTE | 2021-11-08 00:21 | PC.NURSE ---
PT ACCEPTED PER DR. TANNER. PT MADE AWARE. HOWARD TO CALL FROM [facility] WITH FURTHER INFORMATION PRIOR TO PT TRANSFER. PT MADE AWARE OF BEING ACCEPTED AT [facility].
[2021-11-08 00:30] VITALS: BP 132/94; PULSE 61; RESP 16; O2SAT 98
--- NOTE | 2021-11-08 00:38 | PC.NURSE ---
[facility] CONTACTED FOR TRANSPORT TO [facility].
== END 2021-11-08 01:29 | disposition short-term general hospital (02) ==
LOC: UTC 19:31 → ER 20:03
PROVIDERS: Emergency Provider Emergency Medicine; PCP Family Medicine
DX: R10.13 Epigastric pain (principal); R11.2 Nausea with vomiting, unspecified; K86.0 Alcohol-induced chronic pancreatitis; F10.20 Alcohol dependence, uncomplicated
CPT/HCPCS: 80053; 80305; 83690; 85025; 93005; 96361; 96374; 99283; J2405; J3475

== ENCOUNTER 2021-12-19 18:04 | Observation (INO) | payer OTHER, SELFPAY ==
[2021-12-19 18:06] VITALS: BP 142/112; PULSE 133; RESP 20; TEMP 36.6; O2SAT 99; BMI 22.4
--- NOTE | 2021-12-19 18:31 | XR_ITS ---
PROCEDURE INFORMATION: Exam: XR Chest Exam date and time: 12/19/2021 6:48 PM Age: 56 years old Clinical indication: Dyspnea and shortness of breath; Patient HX: SOA, tightness, congestion x days. Recently dx with pleurisy. TECHNIQUE: Imaging protocol: Radiologic exam of the chest. Views: 1 view. COMPARISON: CR XR CHEST PORTABLE 09/29/2021 4:22 AM FINDINGS: Lungs: No acute airspace consolidation. No appreciable pulmonary edema. Pleural spaces: No pleural effusion. No pneumothorax. Heart/Mediastinum: Cardiomediastinal silouhette is within normal limits. Bones/joints: No acute osseous abnormality. IMPRESSION: No acute findings.
--- NOTE | 2021-12-19 18:33 | HMH.EDGENADL ---
Discharge Plan Disposition Chief Complaint: Upper Respiratory Infection Prescriptions Prescriptions: No Action amlodipine 2.5 MG tablet 2.5 mg PO DAILY bisoprolol-hydrochlorothiazide 1 EACH tablet 1 tab PO DAILY Referrals Follow up/Referrals: Gordy Oshea MD [Primary Care Provider] - See instructions Discharge ED Provider: Kendall Bliss General Adult HPI General Chief complaint: Upper Respiratory Infection Stated complaint: na, vomiting, fatigue, soa Time Seen by Provider: 12/19/21 18:14 Mode of Arrival: Ambulatory Source of Information: Patient History of Present Illness HPI narrative: Patient presents with multiple complaints including cough and shortness of air as well as shakes and vomiting. He says shortness of breath and cough began yesterday after mowing the lawn and has had similar reactions in the past. With expected shakes and vomiting he states that he was in alcoholic rehab 2 weeks ago and has been drinking a pint and a half of alcohol since that time and last drank yesterday. Denies hallucinations at this time he states he does feel lightheaded. He complains of shortness of air.'s are described as moderate to severe and without exacerbating or alleviating factors. Related Data Home Medications Medication Instructions Recorded Confirmed bisoprolol 10 1 tab PO DAILY Hypertension 05/17/20 11/07/21 mg-hydrochlorothiazide 6.25 mg tablet amlodipine 2.5 mg tablet 2.5 mg PO DAILY Hypertension 11/21/20 11/07/21 Allergies Allergy/AdvReac Type Severity Reaction Status Date / Time No Known Allergies Allergy Verified 11/07/21 19:40 [facility] Medical History Anxiety Family History (Updated 12/19/21 @ 18:57 by Fidelina Ho RN) Other No significant family history Social History (Updated 12/19/21 @ 18:58 by Fidelina Ho RN) Smoking Status: Never smoker alcohol intake: current substance use type: denies use current occupational status: employed Travel in the last 8 weeks: None household members: none housing: house current occupation: [employer] current occupational exposures/hazards: No caffeine: Yes ROS Obtained: Yes All systems reviewed & no additional complaints except as documented Physical Exam General General appearance: alert and anxious Head Head exam: atraumatic and normocephalic Eye Eye exam: Present normal appearance ENT ENT exam: Present other (Dilated pupils) Neck Neck exam: Present normal inspection Chest Chest inspection: Present normal inspection and symmetric chest wall rise Respiratory Respiratory exam: Present normal lung sounds bilaterally Cardiovascular Cardiovascular exam: Present normal rhythm and tachycardia Abdominal Exam Abdominal exam: Present soft; Absent tenderness Extremities Exam Extremities exam: Present normal inspection Back Exam Back exam: Present normal inspection Neurological Exam Neurological exam: Present alert and oriented X3 Psychiatric Psychiatric exam: Present normal affect Skin Skin exam: Present warm Lymphatic Lymphatic Findings: no adenopathy Medical Decision Making Kamari Inquiry Pt receiving controlled substance: No Vital Signs: 12/19/21 18:06 Temperature 97.9 F Temperature Source Oral Pulse Rate [Radial] 133 H Respiratory Rate 20 Blood Pressure [Right Arm] 142/112 H Blood Pressure Mean [Right Arm] 122 Blood Pressure Source [Right Arm] Automatic Cuff Blood Pressure Position [Right Arm] Sitting 02 Sat by Pulse Oximetry 99 Oxygen Delivery Method Room Air Orders (Tests/Meds): ED MEDICATIONS Generic Name Dose Route Start Last Admin Trade Name Freq PRN Reason Stop Dose Admin Sodium Chloride 1,000 mls @ 999 mls/hr 12/19/21 18:30 Sod Chlor 0.9% 1000ml Bag IV 12/19/21 19:30 .Q1H1M SHAUN Sodium Chloride 10 ml 12/19/21 18:28 Sodium Chloride 0.9% 10ml Vial IV 01/18/22 18:27 NEEDED PRN to
--- NOTE | 2021-12-19 18:42 | PC.NURSE ---
XR AT BEDSIDE
[2021-12-19 19:16] LABS: Basophils # 0.1 K/mm3 (0-0.2); Basophils % 0.9 % (0.1-2.0); Eosinophils % 0.2 % (0.1-12.0); Hematocrit 48.2 % (42.0-52.0); Hemoglobin 15.7 g/dL (14.1-18.0); Lymphocytes # 0.7 K/mm3 (0.7-4.5); Mean Corpuscular HGB Conc 32.5 g/dL (31.8-35.4); Mean Corpuscular Hemoglobin 35.8 pg (27.0-31.2); Mean Platelet Volume 8.4 fl (7.4-10.4); Monocytes # 0.3 K/mm3 (0.1-1.0); Monocytes % 3.3 % (1.7-9.3); Neutrophils # 6.9 K/mm3 (1.8-7.8); Neutrophils % 86.7 % (37.0-80.0); Platelet Count 247 K/mm3 (142-424); Red Blood Count 4.38 M/mm3 (4.60-6.20); Red Cell Distribution Width 13.2 % (11.5-17.5)
[2021-12-19 19:22] LABS: Alanine Aminotransferase 70 U/L (12-78); Albumin Level 4.4 g/dl (3.5-5.0); Albumin/Globulin Ratio 1.3 (1.1-1.8); Alkaline Phosphatase 203 U/L (38-126); Anion Gap 29.6 mEq/L (5-15); Blood Urea Nitrogen 7 mg/dl (9-20); Calcium 8.5 mg/dl (8.4-10.2); Carbon Dioxide 19 mmol/L (22.0-30.0); Chloride 93 mmol/L (98-107); Creatinine Clearance Estimated 84 mL/min (50-200); Estimated Glomerular Filt Rate 70 ml/min (>60); GFR (African American) 84 ML/MIN (>60); Globulin 3.3 g/dL (1.3-3.2); Glucose 200 mg/dl (74-100); Potassium 3.6 mmoL/L (3.5-5.1); Sodium 138 mmol/L (136-145); Total Protein,Serum 7.7 g/dl (6.3-8.2)
[2021-12-19 19:29] LABS: Aspartate Amino Transferase 143 U/L (17-59)
[2021-12-19 19:39] LABS: MANUAL DIFFERENTIAL MANUAL DIFFERENTIAL (MANUAL DIFF)
--- NOTE | 2021-12-19 19:47 | PC.NURSE ---
Dr. Jase nobles
[2021-12-19 19:59] LABS: Coronavirus 19, PCR Not Detected (NotDetected); Influenza A, PCR Not Detected (NotDetected); Influenza B, PCR Not Detected (NotDetected)
[2021-12-19 20:01] VITALS: BP 158/107; PULSE 113; O2SAT 98
--- NOTE | 2021-12-19 20:05 | HMH.EDGENADL ---
Discharge Plan Disposition Patient Disposition: Admitted As Inpatient Condition: Fair Prescriptions Prescriptions: No Action amlodipine 2.5 MG tablet 2.5 mg PO DAILY bisoprolol-hydrochlorothiazide 1 EACH tablet 1 tab PO DAILY Referrals Follow up/Referrals: Gordy Oshea MD [Primary Care Provider] - See instructions Clinical Impressions Clinical Impression: Alcohol abuse with withdrawal Discharge ED Provider: Kendall Bliss General Adult HPI General Chief complaint: Upper Respiratory Infection Stated complaint: na, vomiting, fatigue, soa Time Seen by Provider: 12/19/21 18:14 Mode of Arrival: Ambulatory Source of Information: Patient History of Present Illness HPI narrative: Patient presents with multiple complaints including cough and shortness of air as well as shakes and vomiting. He states his shortness of breath and cough began yesterday after mowing the lawn and has had similar reactions in the past. With respect to the shakes and vomiting he states that he was in alcoholic rehab 2 weeks ago and has been drinking a pint and a half of alcohol since that time and last drink yesterday. He denies hallucinations at this time he states he does feel lightheaded. He complains of shortness of air symptoms are described as moderate to severe and without exacerbating or alleviating factors Related Data Home Medications Medication Instructions Recorded Confirmed bisoprolol 10 1 tab PO DAILY Hypertension 05/17/20 12/19/21 mg-hydrochlorothiazide 6.25 mg tablet amlodipine 2.5 mg tablet 2.5 mg PO DAILY Hypertension 11/21/20 12/19/21 Allergies Allergy/AdvReac Type Severity Reaction Status Date / Time No Known Allergies Allergy Verified 11/07/21 19:40 [facility] Medical History (Updated 12/19/21 @ 19:58 by Kendall Bliss MD) Anxiety Family History (Updated 12/19/21 @ 18:57 by Fidelina Ho RN) Other No significant family history Social History (Updated 12/19/21 @ 18:58 by Fidelina Ho RN) Smoking Status: Never smoker alcohol intake: current substance use type: denies use current occupational status: employed Travel in the last 8 weeks: None household members: none housing: house current occupation: [employer] current occupational exposures/hazards: No caffeine: Yes ROS Obtained: Yes All systems reviewed & no additional complaints except as documented Physical Exam General General appearance: alert and anxious Head Head exam: atraumatic Eye Eye exam: Present normal appearance and other (Dilated pupils) ENT ENT exam: Present normal exam and normal oropharynx Neck Neck exam: Present normal inspection Chest Chest inspection: Present normal inspection and symmetric chest wall rise Respiratory Respiratory exam: Present normal lung sounds bilaterally Cardiovascular Cardiovascular exam: Present normal rhythm and tachycardia Abdominal Exam Abdominal exam: Present soft and tenderness exam: Present normal inspection Extremities Exam Extremities exam: Present normal inspection Back Exam Back exam: Present normal inspection Neurological Exam Neurological exam: Present alert and oriented X3 Psychiatric Psychiatric exam: Present normal affect and normal mood Skin Skin exam: Present warm and dry Lymphatic Lymphatic Findings: no adenopathy Medical Decision Making Medical Records Medical records reviewed: Yes I reviewed the patient's medical records. Kamari Inquiry Pt receiving controlled substance: Yes Kamari was queried for this patient: No Reason not queried -: Emergent pt cond-no time Risks and benefits of using a controlled substance: were discussed with pt by me Vital Signs: 12/19/21 18:06 Temperature 97.9 F Temperature Source Oral Pulse Rate [Radial] 133 H Respiratory Rate 20 Blood Pressure [Right Arm] 142/112 H Blood Pressure Mean [Right Arm] 122 Blood Pressure Source [Right Arm] Automatic Cuff Blood Pressure Position [Right
[2021-12-19 20:20] LABS: Lymphocytes % 7 % (10-50); Macrocytosis 2+; Monocytes % 1 % (2-9); Neutrophils % 92 % (42-76); Platelet Estimate Normal; Stomatocytes 1+; Total Cells Counted 100
[2021-12-19 20:21] VITALS: BMI 22.6
[2021-12-19 22:00] VITALS: BP 142/106; PULSE 115; RESP 18; TEMP 36.9; O2SAT 97
[2021-12-19 22:11] VITALS: BP 142/106; PULSE 101; RESP 20; TEMP 36.6; O2SAT 98
--- NOTE | 2021-12-19 22:16 | PC.NURSE ---
PT ARRIVED TO FLOOR VIA STRETCHER @ [phone]
[2021-12-20 04:00] VITALS: BP 141/94; PULSE 89; RESP 17; TEMP 37.3; O2SAT 97
--- NOTE | 2021-12-20 05:21 | PC.NURSE ---
Addendum entered by Florence De Oliveira RN 12/20/21 05:23: pt's mivf running at 150mL/hr Original Note: pt still anxious and tremoring, ciwa score 6 but decreased from last ciwa assessment, 2mg lorazepam given per protocol, pt emv 15, vss, pt using urinal to void, pt resting intermittently, no c/o pain, call light within reach
[2021-12-20 05:22] LABS: POC Glucose,Bedside 130 (70-110)
[2021-12-20 07:11] LABS: Anion Gap 12.1 mEq/L (5-15); Blood Urea Nitrogen 8 mg/dl (9-20); Carbon Dioxide 29 mmol/L (22.0-30.0); Chloride 95 mmol/L (98-107); Creatinine Clearance Estimated 103 mL/min (50-200); Estimated Glomerular Filt Rate 88 ml/min (>60); GFR (African American) 106 ML/MIN (>60); Glucose 139 mg/dl (74-100); Potassium 3.1 mmoL/L (3.5-5.1); Sodium 133 mmol/L (136-145)
--- NOTE | 2021-12-20 07:26 | HMH.PHAINT1 ---
Pharmacy Intervention Comments: MEDICATION RECONCILIATION COMPLETED ON PATIENT USING EXTERNAL FILL HISTORY FROM PHARMACY. -MIGDALIA ARORA, DANIELAD
--- NOTE | 2021-12-20 07:26 | EXP.PHA.VTE ---
[facility] Pharmacy VTE Monitoring Patient Demographics Admission date: 12/19/21 Report Date: 12/20/21 Time: 07:27 Patient Allergies No Known Allergies Allergy (Verified 11/07/21 19:40) Height: 1.85 m Weight: 77.649 kg Current Active Problems (Updated 12/19/21 @ 23:43 by Fariba Reza RN) Alcohol abuse with withdrawal (Acute) VTE Risk Labs: VTE Related Lab Results Hgb 15.7 g/dL (14.1-18.0) 12/19/21 19:00 Hct 48.2 % (42.0-52.0) 12/19/21 19:00 Plt Count 247 K/mm3 (142-424) 12/19/21 19:00 BUN 8 mg/dl (9-20) L 12/20/21 06:30 Creatinine 0.90 mg/dl (0.66-1.25) 12/20/21 06:30 Estimated Creat Clear 103 mL/min (50-200) 12/20/21 06:30 Was VTE Risk Assessment Performed: Yes VTE Score: 3 VTE Risk Level: Low Risk Prophylaxis VTE Prophylaxis Ordered?: Yes Types of VTE Prophylaxis: TEDS Knee High Location of Applied Device: Bilateral Lower Extremeties
[2021-12-20 08:00] VITALS: BP 144/92; PULSE 111; RESP 17; TEMP 36.7; O2SAT 98
--- NOTE | 2021-12-20 09:43 | EXP.HPDC ---
General Admission date:: 12/19/21 Discharge date: 12/20/21 *Admission Date: 12/19/21 *Chief complaint: vomiting *History of present illness: Patient presents with multiple complaints including cough and shortness of air as well as shakes and vomiting.? He states his shortness of breath and cough began yesterday after mowing the lawn and has had similar reactions in the past.? With respect to the shakes and vomiting he states that he was in alcoholic rehab 2 weeks ago and has been drinking a pint and a half of alcohol since that time and last drink yesterday.? He denies hallucinations at this time he states he does feel lightheaded.? He complains of shortness of air symptoms are described as moderate to severe and without exacerbating or alleviating factors. (above as per ER physician) [facility] Medical History (Updated 12/20/21 @ 09:57 by ABEBA Jimenez) Alcohol abuse Anxiety Back ache Bronchitis Carpal tunnel syndrome History of gastroesophageal reflux (GERD) History of pancreatitis History of pleurisy History of syncope Hypertension Surgical History History of cholecystectomy Family History No significant family history Anxiety Depressed Family history of hypertension Family history of diabetes mellitus type II Family history of hyperlipidemia Stroke Social History Smoking Status: Never smoker alcohol intake: current substance use type: denies use current occupational status: unemployed Travel in the last 8 weeks: None household members: none housing: house current occupation: [employer] current occupational exposures/hazards: No caffeine: Yes Review of Systems Constitutional Constitutional: Reports body ache(s), Reports chills, Reports fatigue, Denies fever(s), Denies headache(s) and Reports weakness Eyes Eyes: Denies blurry vision and Denies diplopia ENT Ears, Nose, Mouth, and Throat: Denies headache(s), Reports nasal congestion, Denies sore throat and Denies vertigo *Cardiovascular Cardiovascular: Denies chest pain and Denies dyspnea *Respiratory Respiratory: Reports cough and Denies dyspnea *Gastrointestinal Gastrointestinal: Reports diarrhea, Reports nausea and Reports vomiting *Genitourinary Genitourinary: Denies difficulty urinating and Denies dysuria *Musculoskeletal Musculoskeletal: Denies arthralgias *Neurologic Neurologic: Denies headache(s), Reports tremor(s), Denies vertigo and Reports weakness Endocrine Endocrine: Reports fatigue Exam Data for Last 24 hours Vital signs and Labs for Last 24 Hours: Temp Pulse Resp BP Pulse Ox 98.0 F 111 H 17 144/92 H 98 12/20/21 08:00 12/20/21 08:00 12/20/21 08:00 12/20/21 08:00 12/20/21 08:00 Laboratory Results - last 24 hr 12/19/21 19:00: WBC 8.0, RBC 4.38 L, Hgb 15.7, Hct 48.2, MCV 110.0 H, MCH 35.8 H, MCHC 32.5, RDW 13.2, Plt Count 247, MPV 8.4, Neut % (Auto) 86.7 H, Lymph % (Auto) 9.0 L, [place] % (Auto) 3.3, Eos % (Auto) 0.2, Baso % (Auto) 0.9, Neut # (Auto) 6.9, Lymph # (Auto) 0.7, [place] # (Auto) 0.3, Eos # (Auto) 0.0, Baso # (Auto) 0.1, Total Counted 100, Neutrophils % (Manual) 92 H, Lymphocytes % (Manual) 7 L, Monocytes % (Manual) 1 L, Platelet Estimate Normal, Macrocytosis 2+, Stomatocytes 1+ 12/19/21 19:00: Sodium 138, Potassium 3.6, Chloride 93 L, Carbon Dioxide 19 L, Anion Gap 29.6 H, BUN 7 L, Creatinine 1.10, Estimated Creat Clear 84, Estimated GFR 70, Est GFR ( Amer) 84, Glucose 200 H, Calcium 8.5, Total Bilirubin 2.0 H, AST 143 H, ALT 70, Alkaline Phosphatase 203 H, Total Protein 7.7, Albumin 4.4, Globulin 3.3 H, Albumin/Globulin Ratio 1.3 12/19/21 19:54: SARS-CoV-2 (PCR) Not detected, Influenza A Untype (PCR) Not detected, Influenza Type B (PCR) Not detected 12/20/21 05:15: POC Glucose 130 H 12/20/21 06:30: Sodium 133 L, Potassium 3.1 L, Chloride 95 L, Carbon Dioxi
--- NOTE | 2021-12-24 14:10 | CARE MANAGER ---
Unable to reach patient r/t post discharge status. Message left on VM with information on [facility] for inpatient rehabilitation services.
== END 2021-12-20 09:34 | disposition home or self-care (01) ==
LOC: ER 19:58 → 2ND 22:07
PROVIDERS: Admitting Provider Family Medicine; Emergency Provider Emergency Medicine; PCP Family Medicine; Visit Provider Family Medicine
DX: F10.230 Alcohol dependence with withdrawal, uncomplicated (principal); E87.6 Hypokalemia; I10 Essential (primary) hypertension; F41.9 Anxiety disorder, unspecified; R05.3 Chronic cough
CPT/HCPCS: 36415; 71045; 80048; 80053; 82962; 85007; 85025; 99285; C9803; G0378; J2405; U0003; U0005

== ENCOUNTER 2021-12-28 08:14 | Emergency (ER) | payer OTHER, SELFPAY ==
[2021-12-28] VITALS (19 sets, daily range): BP systolic 114–176; BP diastolic 94–132; PULSE 85–120; RESP 17–24; TEMP 36.6–36.8; O2SAT 94–98; BMI 21.8; BMI 22.4
--- NOTE | 2021-12-28 08:29 | XR_ITS ---
FINAL REPORT CLINICAL HISTORY: productive cough, vomiting, COMPARISON: December 19, 2021 FINDINGS: The heart size is normal. The mediastinum is normal. There is no focal infiltrate or edema. There are no pleural effusions. There is no pneumothorax. There is no osseous abnormality. IMPRESSION: No acute cardiopulmonary process Reviewed, Interpreted and Dictated by Nir Trinidad MD Transcribed by Saji Serrato Authenticated and [facility]
[2021-12-28 09:24] LABS: Basophils # 0.1 K/mm3 (0-0.2); Eosinophils # 0.1 K/mm3 (0.0-0.4); Eosinophils % 0.9 % (0.1-12.0); Hematocrit 50.8 % (42.0-52.0); Hemoglobin 16.5 g/dL (14.1-18.0); Lymphocytes # 0.8 K/mm3 (0.7-4.5); Lymphocytes % 10.4 % (10-50); Mean Corpuscular HGB Conc 32.5 g/dL (31.8-35.4); Mean Corpuscular Hemoglobin 35.4 pg (27.0-31.2); Mean Corpuscular Volume 108.8 fl (80-94); Mean Platelet Volume 8.7 fl (7.4-10.4); Monocytes # 0.4 K/mm3 (0.1-1.0); Monocytes % 4.8 % (1.7-9.3); Neutrophils # 6.1 K/mm3 (1.8-7.8); Neutrophils % 82.9 % (37.0-80.0); Platelet Count 258 K/mm3 (142-424); Red Blood Count 4.67 M/mm3 (4.60-6.20); Red Cell Distribution Width 13.1 % (11.5-17.5); White Blood Count 7.3 K/mm3 (4.8-10.8)
[2021-12-28 09:30] LABS: Chloride 91 mmol/L (98-107); Potassium 5.3 mmoL/L (3.5-5.1); Sodium 136 mmol/L (136-145)
[2021-12-28 09:33] LABS: Alanine Aminotransferase 50 U/L (12-78); Albumin Level 4.6 g/dl (3.5-5.0); Albumin/Globulin Ratio 1.2 (1.1-1.8); Alkaline Phosphatase 206 U/L (38-126); Anion Gap 29.3 mEq/L (5-15); Aspartate Amino Transferase 166 U/L (17-59); Bilirubin,Total 2.9 mg/dl (0.2-1.3); Blood Urea Nitrogen 10 mg/dl (9-20); Calcium 8.6 mg/dl (8.4-10.2); Carbon Dioxide 21 mmol/L (22.0-30.0); Creatinine Clearance Estimated 77 mL/min (50-200); Estimated Glomerular Filt Rate 63 ml/min (>60); GFR (African American) 76 ML/MIN (>60); Globulin 3.8 g/dL (1.3-3.2); Glucose 163 mg/dl (74-100); Lipase 68 U/L (23-300); Total Protein,Serum 8.4 g/dl (6.3-8.2)
[2021-12-28 09:35] LABS: Ethyl Alcohol < 10 mg/dl (0-10)
--- NOTE | 2021-12-28 10:00 | PC.NURSE ---
pt placed on site monitor
--- NOTE | 2021-12-28 10:35 | PC.NURSE ---
Called Katie with [facility] for rehab for pt with alcoholism, she is coming to see pt.
--- NOTE | 2021-12-28 10:38 | HMH.EDGENADL ---
Discharge Plan Disposition Patient Disposition: Home, Self-Care Condition: Good Prescriptions Prescriptions: New methylprednisolone [Medrol] 4 mg tablet 4 mg PO DIRECTED Qty: 21 0RF Rx Instructions: Take as directed on package instructions No Action amlodipine 2.5 MG tablet 2.5 mg PO DAILY buspirone 5 mg tablet 5 mg PO TID Label Comments: TAKE 1 TABLET BY MOUTH THREE TIMES DAILY FOR ANXIETY bisoprolol-hydrochlorothiazide 10-6.25 mg tablet 1 tab PO DAILY Label Comments: TAKE 1 TABLET BY MOUTH EVERY DAY sucralfate 1 gram tablet 1 g PO QID Label Comments: TAKE 1 TABLET BY MOUTH FOUR TIMES DAILY FOR GERD cyanocobalamin (vitamin B-12) 1,000 mcg tablet 1,000 mcg PO DAILY Label Comments: TAKE 1 TABLET BY MOUTH ONCE DAILY propranolol 10 mg tablet 10 mg PO BID Label Comments: TAKE 1 TABLET BY MOUTH TWICE DAILY folic acid 1 mg tablet 1 mg PO DAILY Label Comments: TAKE 1 TABLET BY MOUTH ONCE DAILY FOR SUPPLEMENT mirtazapine 15 mg tablet 15 mg PO HS Label Comments: TAKE 1 TABLET BY MOUTH EVERY DAY AT BEDTIME FOR DEPRESSION/SLEEP loratadine 10 mg tablet 10 mg PO DAILY Qty: 30 0RF ondansetron HCl 4 mg tablet 4 mg PO Q8H PRN (Reason: nausea and vomiting) Qty: 20 0RF Referrals Follow up/Referrals: Gordy Oshea MD [Primary Care Provider] - See instructions Clinical Impressions Clinical Impression: Alcoholism, Acute exacerbation of chronic obstructive airways disease Instructions Patient Instructions: DI for Chronic Bronchitis Discharge ED Provider: Ortiz Diaz Adult [facility] General Chief complaint: Shortness of Breath/Dyspnea Stated complaint: SOA, dehydration, vomitting Time Seen by Provider: 12/28/21 09:00 Mode of Arrival: Ambulatory Source of Information: Patient Limitations: No Limitations Description of Symptoms (Recalled from ER Triage Doc. by RN): pt presents to ED c/o chronic bronchitits that has been ongoing for a while and has gotten progressively worse over the last couple of weeks. Pt advises he also hasn't had any alcohol in 2 days. He is a daily drinker History of Present Illness HPI narrative: This is a 56-year-old male presented to the emergency department with some shortness of breath. The patient is a longstanding history of chronic bronchitis. Has been seen multiple times for this in the past. States that is been going on for a while, however is gotten worse over the last 2 days. States that he has had a mild cough. Productive of some white sputum. He states that when he has his coughing episodes he gets very short of breath. Patient also states that he is a chronic alcohol user. States that he drinks about 1 to 2 pints per day. He has not had any alcohol in the last 48 hours. Patient states that he has had some tremors. He has done detox multiple times including most recently about 2 weeks ago. He has been having difficulties finding a rehabilitation facility. He is not having any headache or change in vision. No focal weakness. No fevers or chills. No chest pain or palpitations. No abdominal pain or vomiting. No hallucinations. Related Data Home Medications Medication Instructions Recorded Confirmed amlodipine 2.5 mg tablet 2.5 mg PO DAILY Hypertension 11/21/20 12/19/21 bisoprolol 10 1 tab PO DAILY Hypertension 12/20/21 12/20/21 mg-hydrochlorothiazide 6.25 mg tablet buspirone 5 mg tablet 5 mg PO TID Anxiety 12/20/21 12/20/21 cyanocobalamin (vitamin B-12) 1,000 mcg PO DAILY Supplement 12/20/21 12/20/21 1,000 mcg tablet folic acid 1 mg tablet 1 mg PO DAILY Supplement 12/20/21 12/20/21 mirtazapine 15 mg tablet 15 mg PO HS SLEEP 12/20/21 12/20/21 propranolol 10 mg tablet 10 mg PO BID Anxiety 12/20/21 12/20/21 sucralfate 1 gram tablet 1 g PO QID GERD 12/20/21 12/20/21 Previous Rx's Medication Instructions Recorded loratadine 10 mg tablet
--- NOTE | 2021-12-28 10:57 | SW/DCPLANNER ---
Addendum entered by Katie Allen 12/28/21 12:46: Esther w/ [facility] stated that patient has been approved for their services and they are going through steps to find appropriate facility within [facility]. Addendum entered by Katie Allen 12/28/21 11:33: Per Zuleyma coppola/ [facility]: patient has completed admission assessment, fax information has been received and MD will review. Zuleyma will contact me back once MD reviews. I will update patient regarding plan. Original Note: Received a call from ED staff stating that patient is interested in alcohol rehab inpatient facility. I have spoke with this patient multiple times in the past and CM attempted to contact this patient within the past two weeks regarding rehab information. Patient in the ED today states that he is interested in inpatient rehab and has to go. [facility]: I contacted Intake while present in patient's room and he is currently completely over the phone intake assessment. Patient information has also been faxed to [facility]ake w[facility] at this time. I will continue to follow up with MD cali and [facility]. [facility] ([facility]) phone [phone] fax [phone]
--- NOTE | 2021-12-28 11:00 | PC.NURSE ---
Katie Allen to see pt, pt is talking with rehab place on phone
[2021-12-28 11:36] LABS: Coronavirus 19, PCR Not Detected (NotDetected); Influenza A, PCR Not Detected (NotDetected); Influenza B, PCR Not Detected (NotDetected)
--- NOTE | 2021-12-28 12:45 | PC.NURSE ---
pt refused lunch tray
--- NOTE | 2021-12-28 13:01 | PC.NURSE ---
Katie Allen called still working on placement, has been accept by [facility] they are trying to find most suitable facility for him.
--- NOTE | 2021-12-28 13:11 | PC.NURSE ---
offered pt lunch tray he just wanted a Aleshia jones with customer relations in to see pt.
--- NOTE | 2021-12-28 16:17 | PC.NURSE ---
Hetal from care management called we are still wating for authorization, [facility] has our number to call back to.
--- NOTE | 2021-12-28 16:17 | CARE MANAGER ---
Called and spoke with [facility], regarding patient's bed at rehab facility. Patient should be getting a bed at the center in [place]. The person I spoke with at [facility] inquired as to whether patient has transport if needed. Called and verified with patient through ER nurse, Aleshia that his sister will transport if needed. They will contact the ER when bed is available. Sierra in the ER was given the number for [facility] in case they need to contact them.
--- NOTE | 2021-12-28 16:28 | PC.NURSE ---
pt updated on status
--- NOTE | 2021-12-28 17:55 | PC.NURSE ---
called the [facility] regarding possible admission. states they are still working on possible admission, but it is ok to d/c pt home and to have him call once he gets home
--- NOTE | 2021-12-28 18:20 | PC.NURSE ---
pt given phone number of the [facility] and told to call when he gets home.
== END 2021-12-28 18:22 | disposition home or self-care (01) ==
PROVIDERS: Emergency Provider Emergency Medicine; PCP Family Medicine
DX: J44.1 Chronic obstructive pulmonary disease with (acute) exacerbation (principal); F10.20 Alcohol dependence, uncomplicated; Y90.0 Blood alcohol level of less than 20 mg/100 ml; Z79.899 Other long term (current) drug therapy; I10 Essential (primary) hypertension; F41.9 Anxiety disorder, unspecified; K21.9 Gastro-esophageal reflux disease without esophagitis; D64.9 Anemia, unspecified; Z87.19 Personal history of other diseases of the digestive system; F32.A Depression, unspecified; Z82.49 Family history of ischemic heart disease and other diseases of the circulatory system; Z83.3 Family history of diabetes mellitus
CPT/HCPCS: 71045; 80053; 83690; 85025; 94640; 96365; 96375; 99284; C9803; J2405; U0003; U0005

== ENCOUNTER 2022-04-14 17:10 | Observation (INO) | payer OTHER, SELFPAY ==
[2022-04-14] VITALS (10 sets, daily range): BP systolic 138–159; BP diastolic 70–97; PULSE 70–121; RESP 16–18; TEMP 36.6–37; O2SAT 96–100; BMI 22.1; BMI 22.7
[2022-04-14 18:48] LABS: Microscopic, Urine URINE MICROSCOPIC (MICROSCOPIC)
[2022-04-14 18:57] LABS: Appearance,Urine CLEAR (Clear); Blood, Urine 1+ (Negative); Color,Urine YELLOW (Yellow); Glucose,Urine (UA) Negative (Negative); Ketones,Urine 2+ (Negative); Leukocyte Esterase,Urine Negative (Negative); Nitrate,Urine Negative (Negative); PH,Urine 5.5 (5.0-8.5); Protein,Urine 1+ (Negative); Specific Gravity, Urine >= 1.030 (1.005-1.030); Urobilinogen,Urine 0.2 EU/dl (0.2)
[2022-04-14 19:00] LABS: Bilirubin,Urine 2+ (Negative)
[2022-04-14 19:03] LABS: Basophils % 0.6 % (0.1-2.0); Eosinophils # 0.1 K/mm3 (0.0-0.4); Eosinophils % 0.8 % (0.1-12.0); Hematocrit 43.9 % (42.0-52.0); Hemoglobin 14.8 g/dL (14.1-18.0); Lymphocytes # 0.6 K/mm3 (0.7-4.5); Lymphocytes % 7.9 % (10-50); Mean Corpuscular HGB Conc 33.7 g/dL (31.8-35.4); Mean Corpuscular Hemoglobin 31.2 pg (27.0-31.2); Mean Corpuscular Volume 92.6 fl (80-94); Mean Platelet Volume 8.7 fl (7.4-10.4); Monocytes # 0.3 K/mm3 (0.1-1.0); Monocytes % 4.1 % (1.7-9.3); Neutrophils # 6.4 K/mm3 (1.8-7.8); Neutrophils % 86.6 % (37.0-80.0); Platelet Count 174 K/mm3 (142-424); Red Blood Count 4.75 M/mm3 (4.60-6.20); Red Cell Distribution Width 13.8 % (11.5-17.5); White Blood Count 7.4 K/mm3 (4.8-10.8)
[2022-04-14 19:08] LABS: MANUAL DIFFERENTIAL MANUAL DIFFERENTIAL (MANUAL DIFF)
[2022-04-14 19:13] LABS: Amorphous Sediment,Urine Trace /lpf; Bacteria,Urine Trace /lpf; Squamous Epithelial Cell,Urine Occasional #/hpf (0-5); WBC,Urine Occasional #/hpf (0-3)
[2022-04-14 19:16] LABS: Alanine Aminotransferase 40 U/L (12-78); Albumin Level 4.5 g/dl (3.5-5.0); Albumin/Globulin Ratio 1.4 (1.1-1.8); Alkaline Phosphatase 173 U/L (38-126); Anion Gap 20.6 mEq/L (5-15); Aspartate Amino Transferase 64 U/L (17-59); Bilirubin,Total 1.2 mg/dl (0.2-1.3); Blood Urea Nitrogen 20 mg/dl (9-20); Calcium 9.5 mg/dl (8.4-10.2); Carbon Dioxide 21 mmol/L (22.0-30.0); Chloride 94 mmol/L (98-107); Creatinine Clearance Estimated 83 mL/min (50-200); Estimated Glomerular Filt Rate 70 ml/min (>60); GFR (African American) 84 ML/MIN (>60); Globulin 3.3 g/dL (1.3-3.2); Glucose 144 mg/dl (74-100); Lipase 1054 U/L (23-300); Potassium 4.6 mmoL/L (3.5-5.1); Sodium 131 mmol/L (136-145); Total Protein,Serum 7.8 g/dl (6.3-8.2)
[2022-04-14 19:44] LABS: Lymphocytes % 7 % (10-50); Neutrophils % 86 % (42-76); Platelet Estimate Normal; RBC Morphology Normal; Total Cells Counted 100
[2022-04-14 20:38] LABS: Influenza A, PCR Not Detected (NotDetected); Influenza B, PCR Not Detected (NotDetected)
--- NOTE | 2022-04-14 21:30 | HMH.EDABDPAI ---
Discharge Plan Disposition Patient Disposition: Admitted as Observation Condition: Good Clinical Impressions Clinical Impression: Pancreatitis Discharge ED Provider: Evans Pennington Abdominal Pain HPI General Chief Complaint: Abdominal Pain Stated Complaint: abd pain, diag acute pancreatitis Time Seen by Provider: 04/14/22 19:41 Mode of Arrival: Ambulatory Source of Information: Patient Limitations: No Limitations Description of Symptoms (Recalled from ER Triage Doc. by RN): c/o abdomen pain with n/v. pt got out of rehab a few weeks ago but relapsed a week ago. Suppose to start his shot for alcohol but hasnt got to yet History of Present Illness HPI narrative: Patient has past medical history significant for alcoholism and pancreatitis and presents for evaluation of abdominal pain, nausea, vomiting over the last several days. He recently left rehab and says that he relapsed and since that time has had difficulty tolerating food and drink, severe pain, severe nausea and vomiting. MD complaint: abdominal pain Onset (ago): day(s) Consistency: constant Location: epigastric Severity: similar to previous episodes Severity scale (1-10): 8 Radiation: LUQ Migration to: no migration Relieving factors: nothing Exacerbating factors: eating Associated symptoms: nausea and vomiting Related Data Home Medications Medication Instructions Recorded Confirmed amlodipine 2.5 mg tablet 2.5 mg PO DAILY Hypertension 11/21/20 04/14/22 bisoprolol 10 1 tab PO DAILY Hypertension 12/20/21 04/14/22 mg-hydrochlorothiazide 6.25 mg tablet buspirone 5 mg tablet 5 mg PO TID Anxiety 12/20/21 04/14/22 cyanocobalamin (vitamin B-12) 1,000 mcg PO DAILY Supplement 12/20/21 04/14/22 1,000 mcg tablet folic acid 1 mg tablet 1 mg PO DAILY Supplement 12/20/21 04/14/22 mirtazapine 15 mg tablet 15 mg PO HS SLEEP 12/20/21 04/14/22 propranolol 10 mg tablet 10 mg PO BID Anxiety 12/20/21 04/14/22 sucralfate 1 gram tablet 1 g PO QID GERD 12/20/21 04/14/22 loratadine 10 mg tablet 10 mg PO DAILY Allergy symptoms 04/14/22 04/14/22 Previous Rx's Medication Instructions Recorded ondansetron HCl 4 mg tablet 4 mg PO Q8H PRN nausea and 12/20/21 vomiting #20 tabs Allergies Allergy/AdvReac Type Severity Reaction Status Date / Time No Known Allergies Allergy Verified 12/28/21 10:18 [facility] Disclaimer: The information contained in this section may have been updated after the patient was seen, as this information can be updated by other users. Medical History Alcohol abuse with withdrawal Anemia Ankle sprain and strain Anxiety Anxiety Back ache Bronchitis Carpal tunnel syndrome Chronic bronchitis Chronic cough Fatty liver History of gastroesophageal reflux (GERD) History of pancreatitis History of pleurisy History of syncope Hypertension Hypertension Pancreatitis Pleurisy Surgical History History of cholecystectomy Family History Other Anxiety Depressed Family history of diabetes mellitus type II Family history of hyperlipidemia Family history of hypertension No significant family history Stroke Social History Smoking Status: Current every day smoker alcohol intake: current substance use type: denies use current occupational status: unemployed Travel in the last 8 weeks: None household members: none housing: house current occupation: [employer] current occupational exposures/hazards: No caffeine: Yes ROS Obtained: Yes Systems reviewed as appropriate & no additional complaints except as documented Physical Exam General General appearance: alert Head Head exam: atraumatic and normocephalic Eye Eye exam: Present normal appearance Respiratory Respiratory exam: Present normal
[2022-04-14 22:19] LABS: Coronavirus 19, PCR Detected (NotDetected)
--- NOTE | 2022-04-14 22:52 | PC.NURSE ---
Pt arrived to floor via wheelchair @ [phone].
[2022-04-15] VITALS (7 sets, daily range): BP systolic 107–149; BP diastolic 82–96; PULSE 73–95; RESP 16–18; TEMP 36.6–37; O2SAT 96–100; BMI 22.7
--- NOTE | 2022-04-15 02:02 | PC.NURSE ---
Pt. states he got out of rehab a few weeks ago and started drinking again. He got some pain meds and zofran this am. No other changes noted.
--- NOTE | 2022-04-15 02:51 | PC.NURSE ---
Spoke with Dr. Greene about pt's diet and the patient can have ice chips and small amounts of water.
--- NOTE | 2022-04-15 08:34 | EXP.HP ---
History of Present Illness *Admission Date: 04/14/22 *Reason for visit:: Abdominal pain *History of present illness: Mr. Hinkle is a 56 year old alcoholic who presents to [facility] ER last night complaining of upper abdominal pain associated with nausea and vomiting. Patient states he has been in alcohol rehab for the past 3 months in [place], [place], but had to leave rehab due to family issues last week. He states he has been under a lot of stress and due to that he started binge drinking vodka. He states he was drinking a couple of pints per day. After a few days he began to have abdominal pain associated with vomiting so he came to the ER for an evaluation. [facility] Disclaimer: The information contained in this section may have been updated after the patient was seen, as this information can be updated by other users. Medical History (Updated 04/15/22 @ 08:42 by Gordy Oshea MD) Alcohol abuse with withdrawal Anemia Anxiety Back ache Bronchitis Carpal tunnel syndrome Chronic bronchitis Chronic cough Fatty liver History of gastroesophageal reflux (GERD) History of pancreatitis History of pleurisy History of syncope Hypertension Pancreatitis Pleurisy Surgical History History of cholecystectomy Family History (Updated 04/14/22 @ 23:39 by Carolin Foster RN) No significant family history Anxiety Mother Depressed Mother Family history of hypertension Family history of diabetes mellitus type II Family history of hyperlipidemia Stroke Grandfather Social History (Updated 04/14/22 @ 23:46 by Carolin Foster RN) Smoking Status: Never smoker alcohol intake: current counseling given: Yes counseling provided: support program substance use type: denies use current occupational status: unemployed Travel in the last 8 weeks: None household members: none housing: house current occupation: [employer] current occupational exposures/hazards: No caffeine: Yes Review of Systems Constitutional Constitutional: Denies chills and Denies fever(s) Eyes Eyes: Denies blurry vision ENT Ears, Nose, Mouth, and Throat: Denies bleeding gums and Denies dizziness *Cardiovascular Cardiovascular: Denies chest pain *Respiratory Respiratory: Denies cough *Gastrointestinal Gastrointestinal: Reports as per HPI *Genitourinary Genitourinary: Denies difficulty urinating *Musculoskeletal Musculoskeletal: Denies arthralgias Integumentary/Breasts Skin/Breast: Denies alopecia *Neurologic Neurologic: Denies dizziness Meds Home Medications and Allergies Home Medications Medication Instructions Recorded Confirmed Type amlodipine 2.5 mg tablet 2.5 mg PO DAILY Hypertension 11/21/20 04/14/22 History bisoprolol 10 1 tab PO DAILY Hypertension 12/20/21 04/14/22 History mg-hydrochlorothiazide 6.25 mg tablet buspirone 5 mg tablet 5 mg PO TID Anxiety 12/20/21 04/14/22 History cyanocobalamin (vitamin B-12) 1,000 mcg PO DAILY Supplement 12/20/21 04/14/22 History 1,000 mcg tablet folic acid 1 mg tablet 1 mg PO DAILY Supplement 12/20/21 04/14/22 History mirtazapine 15 mg tablet 15 mg PO HS SLEEP 12/20/21 04/14/22 History ondansetron HCl 4 mg tablet 4 mg PO Q8H PRN nausea and 12/20/21 04/14/22 Rx vomiting #20 tabs propranolol 10 mg tablet 10 mg PO BID Anxiety 12/20/21 04/14/22 History sucralfate 1 gram tablet 1 g PO QID GERD 12/20/21 04/14/22 History melatonin 5 mg tablet 10 mg PO HS Sleep 04/15/22 04/15/22 History New Prescriptions to Start Prescriptions: Allergies Allergy/AdvReac Type Severity Reaction Status Date / Time No Known Allergies Allergy Verified 12/28/21 10:18 Exam Data for Last 24 hours Vital signs and Labs for Last 24 Hours: Temp Pulse Resp BP Pulse Ox 98.3 F 84 18 147/92 H 100 04/15/22 07:17 04/15/22 07:17 04/15/22 07:17 04/15/22 07:17 04/15/22 07:17 Laboratory Results - last 24 hr 04/14/22
--- NOTE | 2022-04-15 10:03 | HMH.PHAINT1 ---
Pharmacy Intervention Comments: Home medications verified via external fill history and patient interview. -Shi Rhodes, PharmD Candidate 2022
[2022-04-15 10:16] LABS: Alanine Aminotransferase 39 U/L (12-78); Albumin Level 4.4 g/dl (3.5-5.0); Albumin/Globulin Ratio 1.4 (1.1-1.8); Alkaline Phosphatase 149 U/L (38-126); Anion Gap 15.4 mEq/L (5-15); Aspartate Amino Transferase 60 U/L (17-59); Blood Urea Nitrogen 15 mg/dl (9-20); Calcium 9.2 mg/dl (8.4-10.2); Carbon Dioxide 28 mmol/L (22.0-30.0); Chloride 95 mmol/L (98-107); Creatinine Clearance Estimated 93 mL/min (50-200); Estimated Glomerular Filt Rate 78 ml/min (>60); GFR (African American) 94 ML/MIN (>60); Globulin 3.2 g/dL (1.3-3.2); Glucose 102 mg/dl (74-100); Potassium 4.4 mmoL/L (3.5-5.1); Sodium 134 mmol/L (136-145); Total Protein,Serum 7.6 g/dl (6.3-8.2)
[2022-04-15 10:36] LABS: Magnesium 1.3 mg/dl (1.6-2.3)
[2022-04-15 11:42] LABS: Vitamin B12 966 pg/mL (239-931)
--- NOTE | 2022-04-15 16:39 | PC.NURSE ---
PT HAS DONE WELL THIS SHIFT. NO C/O N/V/P. PT DENIES ANY WITHDRAW SYMPTOMS AND NONE HAS BEEN OBSERVED. ALERT X4, UP MICHA. NEW 20G IV PLACED IN LT FA.
[2022-04-16 04:00] VITALS: BP 126/85; PULSE 73; RESP 17; TEMP 36.9; O2SAT 99; BMI 22.7
--- NOTE | 2022-04-16 04:20 | PC.NURSE ---
Pt has remained aox4. CIWA score 0 t/o shift. Tolerating diet well with no c/o of abdominal pain or n/v. Continues to tolerate RA well with sats >90%. Pt able to ambulate to BR independently. Call light within reach.
--- NOTE | 2022-04-16 07:29 | PC.NURSE ---
late entry, per wil, advance pt diet to soft
--- NOTE | 2022-04-16 07:52 | EXP.PN ---
Subjective *Date: 04/16/22 *Time: 08:41 Interval history: Patient did not sleep during the night because he was hungry. He stated awake watching foods shows. He denies chest pain and shortness of breath. He denies nausea and diarrhea. He is voiding frequently and has been up to the bathroom numerous times without problems. Exam Data for Last 24 hours Vital signs and Labs for Last 24 Hours: Temp Pulse Resp BP Pulse Ox 98.5 F 73 17 126/85 99 04/16/22 04:00 04/16/22 04:00 04/16/22 04:00 04/16/22 04:00 04/16/22 04:00 Laboratory Results - last 24 hr 04/15/22 09:50: Sodium 134 L, Potassium 4.4, Chloride 95 L, Carbon Dioxide 28, Anion Gap 15.4 H, BUN 15, Creatinine 1.00, Estimated Creat Clear 93, Estimated GFR 78, Est GFR ( Amer) 94, Glucose 102 H D, Calcium 9.2, Total Bilirubin 1.0, AST 60 H, ALT 39, Alkaline Phosphatase 149 H, Total Protein 7.6, Albumin 4.4, Globulin 3.2, Albumin/Globulin Ratio 1.4 04/15/22 09:50: Phosphorus 3.0, Magnesium 1.3 L, Vitamin B12 966 H, Folate 19.70 I & O for Last 24 hours: Intake & Output 04/13/22 04/14/22 04/15/22 04/16/22 11:59 11:59 11:59 11:59 Intake Total 600 / 600 3828 / 3828 Output Total 0 / 0 0 / 0 Balance 600 / 600 3828 / 3828 Weight 171 lb 6.4 oz 171 lb 9 oz Constitutional Constitutional: no acute distress *Routine Respiratory Exam Respiratory: Present CTA bilaterally (Anteriorly and posteriorly) *Routine Cardiovascular Exam Cardiovascular: Present RRR *Routine Abdominal Exam Abdominal: Present soft and normoactive bowel sounds; Absent tenderness or distended *Routine Extremities Exam Extremities: Absent edema or calf tenderness *Routine Neurological Exam Neurological: Present alert and oriented X3 Routine Psychiatric Exam Psychiatric: Present normal affect, normal thought process and cooperative (Talkative) Assessment and Plan *Assessment and plan (1) Pancreatitis: Status: Acute Category: Medical Code(s): K85.90 - Acute pancreatitis without necrosis or infection, unspecified (2) Alcoholism: Status: Acute Category: Medical Code(s): F10.20 - Alcohol dependence, uncomplicated (3) Elevated LFTs: Status: Acute Category: Medical Code(s): R79.89 - Other specified abnormal findings of blood chemistry (4) Hypokalemia: Status: Acute Category: Medical Code(s): E87.6 - Hypokalemia (5) COVID-19: Status: Acute Category: Medical Code(s): U07.1 - COVID-19 (6) Elevated lipase: Status: Acute Category: Medical Code(s): R74.8 - Abnormal levels of other serum enzymes (7) Hyponatremia: Status: Acute Category: Medical Code(s): E87.1 - Hypo-osmolality and hyponatremia Plan Labs are pending. Diet advanced to soft. Saline lock if labs are okay. Dr. Oshea entry - Lipase has improved greatly. Pt is tolerating a regular diet. OK to discharge today. Pt states he will return to rehab facility in [place], [place].
[2022-04-16 07:58] LABS: Basophils % 0.5 % (0.1-2.0); Eosinophils # 0.1 K/mm3 (0.0-0.4); Eosinophils % 2.8 % (0.1-12.0); Hemoglobin 12.7 g/dL (14.1-18.0); Lymphocytes % 22.8 % (10-50); Mean Corpuscular HGB Conc 33.3 g/dL (31.8-35.4); Mean Corpuscular Hemoglobin 31.9 pg (27.0-31.2); Mean Corpuscular Volume 95.6 fl (80-94); Mean Platelet Volume 8.8 fl (7.4-10.4); Monocytes # 0.2 K/mm3 (0.1-1.0); Monocytes % 5.5 % (1.7-9.3); Neutrophils # 3.1 K/mm3 (1.8-7.8); Neutrophils % 68.4 % (37.0-80.0); Platelet Count 107 K/mm3 (142-424); Red Blood Count 3.98 M/mm3 (4.60-6.20); Red Cell Distribution Width 14.2 % (11.5-17.5); White Blood Count 4.5 K/mm3 (4.8-10.8)
[2022-04-16 08:00] VITALS: BP 136/90; PULSE 96; RESP 18; TEMP 36.6; O2SAT 100
[2022-04-16 08:21] LABS: Alanine Aminotransferase 33 U/L (12-78); Albumin Level 3.9 g/dl (3.5-5.0); Albumin/Globulin Ratio 1.3 (1.1-1.8); Alkaline Phosphatase 115 U/L (38-126); Anion Gap 11.7 mEq/L (5-15); Aspartate Amino Transferase 63 U/L (17-59); Blood Urea Nitrogen 7 mg/dl (9-20); Calcium 8.4 mg/dl (8.4-10.2); Carbon Dioxide 27 mmol/L (22.0-30.0); Chloride 99 mmol/L (98-107); Creatinine Clearance Estimated 103 mL/min (50-200); Estimated Glomerular Filt Rate 88 ml/min (>60); GFR (African American) 106 ML/MIN (>60); Globulin 2.9 g/dL (1.3-3.2); Glucose 92 mg/dl (74-100); Potassium 3.7 mmoL/L (3.5-5.1); Sodium 134 mmol/L (136-145); Total Protein,Serum 6.8 g/dl (6.3-8.2)
[2022-04-16 08:30] LABS: Amylase 144 U/L (30-110); Lipase 332 U/L (23-300)
--- NOTE | 2022-04-16 12:54 | HMH.PHAINT1 ---
Pharmacy Intervention Comments: Met with patient at bedside to complete discharge medication counseling. Overviewed new and continued medications, indications, possible adverse effects, and mitigation strategies. Patient verbalized understanding of the information provided and had no questions or concerns at this time. -Shi Rhodes, PharmD Candidate 2022
--- NOTE | 2022-04-17 13:58 | CARE MANAGER ---
Attempted post-discharge phone interview, no answer.
--- NOTE | 2022-04-18 00:12 | EXP.DC.SUM ---
General Admission date:: 04/14/22 Discharge date: 04/16/22 HPI HPI HPI: Mr. Hinkle is a 56 year old alcoholic who presents to [facility] ER last night complaining of upper abdominal pain associated with nausea and vomiting. Patient states he has been in alcohol rehab for the past 3 months in [place], [place], but had to leave rehab due to family issues last week. He states he has been under a lot of stress and due to that he started binge drinking vodka. He states he was drinking a couple of pints per day. After a few days he began to have abdominal pain associated with vomiting so he came to the ER for an evaluation. Hospital Course Hospital Course Hospital Course: Patient was admitted for further evaluation of his pancreatitis and COVID-19 infection. He planned to return to rehab once discharged from [facility]. Alcohol withdrawal protocol was ordered. The patient's lipase improved greatly and he was started on a diet, which he tolerated. It was felt he was stable to be discharged and will return to a rehab center in [facility]. Exam Data for Last 24 hours Vital signs and Labs for Last 24 Hours: Temp Pulse Resp BP Pulse Ox 97.8 F 96 H 18 136/90 100 04/16/22 08:00 04/16/22 08:00 04/16/22 08:00 04/16/22 08:00 04/16/22 08:00 I & O for Last 24 hours: Intake & Output 04/15/22 04/16/22 04/17/22 04/18/22 11:59 11:59 11:59 11:59 Intake Total 600 / 600 3828 / 3828 Output Total 0 / 0 0 / 0 Balance 600 / 600 3828 / 3828 Weight 171 lb 6.4 oz 171 lb 9 oz Narrative: Constitutional Constitutional: no acute distress *Routine HEENT Exam Head: Present normocephalic Eye: Present EOMI and PERRL ENT: Present mucous membranes moist *Routine Neck Exam Neck: Present supple; Absent lymphadenopathy *Routine Respiratory Exam Respiratory: Present CTA bilaterally *Routine Cardiovascular Exam Cardiovascular: Present RRR *Routine Abdominal Exam Abdominal: Present soft, normoactive bowel sounds and tenderness (epigastric) *Routine Rectal Exam Rectal:: deferred *Routine Genitalia Exam Genitalia:: deferred *Routine Extremities Exam Extremities: Absent cyanosis, clubbing or edema *Routine Skin Exam Skin: Present warm; Absent rash *Routine Neurological Exam Neurological: Present alert and oriented X3 DS: Diagnosis Discharge Diagnosis (1) Pancreatitis: Status: Acute (2) Alcoholism: Status: Acute (3) Elevated LFTs: Status: Acute (4) Hypokalemia: Status: Acute (5) COVID-19: Status: Acute (6) Elevated lipase: Status: Acute (7) Hyponatremia: Status: Acute Meds Home Medications and Allergies Home Medications Medication Instructions Recorded Confirmed Type cyanocobalamin (vitamin B-12) 1,000 mcg PO DAILY Supplement 12/20/21 04/14/22 History 1,000 mcg tablet folic acid 1 mg tablet 1 mg PO DAILY Supplement 12/20/21 04/14/22 History ondansetron HCl 4 mg tablet 4 mg PO Q8H PRN nausea and 12/20/21 04/14/22 Rx vomiting #20 tabs melatonin 5 mg tablet 10 mg PO HS Sleep 04/15/22 04/15/22 History amlodipine 2.5 mg tablet 2.5 mg PO DAILY High blood 04/16/22 Rx pressure #30 tabs bisoprolol 10 1 tab PO DAILY High blood pressure 04/16/22 Rx mg-hydrochlorothiazide 6.25 mg #30 tabs tablet buspirone 5 mg tablet 5 mg PO TID Anxiety #90 tabs 04/16/22 Rx mirtazapine 15 mg tablet 15 mg PO HS SLEEP #30 tabs 04/16/22 Rx multivitamin with minerals (One 1 tab PO DAILY #30 tabs 04/16/22 Rx Daily Complete tablet) propranolol 10 mg tablet 10 mg PO BID Anxiety #60 tabs 04/16/22 Rx sucralfate 1 gram tablet 1 g PO QID Acid reflux #120 tabs 04/16/22 Rx New Prescriptions to Start Prescriptions: amlodipine [place],Gordy bisoprolol-hydrochlorothiazide [place],Gordy buspirone [place],Gordy mirtazapine [place],Shilpi
== END 2022-04-16 10:30 | disposition home or self-care (01) ==
LOC: ER 17:20 → 2ND 21:50
PROVIDERS: Admitting Provider Internal Medicine Adolescent Medicine; Emergency Provider Emergency Medicine; PCP Family Medicine; Visit Provider Family Medicine
DX: K85.20 Alcohol induced acute pancreatitis without necrosis or infection (principal); F10.20 Alcohol dependence, uncomplicated; F17.210 Nicotine dependence, cigarettes, uncomplicated; U07.1 COVID-19; E87.1 Hypo-osmolality and hyponatremia; Z79.899 Other long term (current) drug therapy; E87.6 Hypokalemia
CPT/HCPCS: 36415; 80053; 81001; 82150; 82607; 82746; 83690; 83735; 84100; 85007; 85025; 99285; C9803; G0378; J2405; U0003; U0005

== ENCOUNTER 2022-04-22 19:53 | Observation (INO) | payer OTHER, SELFPAY ==
[2022-04-22] VITALS (7 sets, daily range): BP systolic 130–161; BP diastolic 96–113; PULSE 74–123; RESP 22; TEMP 36.8; O2SAT 95–99; BMI 20.8
--- NOTE | 2022-04-22 20:18 | PC.NURSE ---
Dr. Alfaro at BS
--- NOTE | 2022-04-22 20:22 | XR_ITS ---
PROCEDURE INFORMATION: Exam: XR Chest Exam date and time: 04/22/2022 8:39 PM Age: 56 years old Clinical indication: Shortness of breath; Additional info: SOB TECHNIQUE: Imaging protocol: Radiologic exam of the chest. Views: 1 view. COMPARISON: CR XR CHEST PORTABLE 12/28/2021 8:44 AM FINDINGS: Lungs: Unremarkable. No consolidation. Pleural spaces: Unremarkable. No pleural effusion. No pneumothorax. Heart/Mediastinum: Unremarkable. No cardiomegaly. Bones/joints: Unremarkable. IMPRESSION: No acute findings.
[2022-04-22 20:26] LABS: Basophils # 0.1 K/mm3 (0-0.2); Basophils % 0.8 % (0.1-2.0); Eosinophils % 0.3 % (0.1-12.0); Hematocrit 40.4 % (42.0-52.0); Hemoglobin 14.1 g/dL (14.1-18.0); Lymphocytes # 1.2 K/mm3 (0.7-4.5); Lymphocytes % 16.5 % (10-50); Mean Corpuscular HGB Conc 34.9 g/dL (31.8-35.4); Mean Corpuscular Hemoglobin 31.8 pg (27.0-31.2); Mean Corpuscular Volume 91.1 fl (80-94); Mean Platelet Volume 8.2 fl (7.4-10.4); Monocytes # 0.5 K/mm3 (0.1-1.0); Monocytes % 6.6 % (1.7-9.3); Neutrophils # 5.4 K/mm3 (1.8-7.8); Neutrophils % 75.8 % (37.0-80.0); Platelet Count 327 K/mm3 (142-424); Red Blood Count 4.43 M/mm3 (4.60-6.20); Red Cell Distribution Width 14.3 % (11.5-17.5); White Blood Count 7.1 K/mm3 (4.8-10.8)
--- NOTE | 2022-04-22 20:28 | PC.NURSE ---
RAD at for CXR
[2022-04-22 20:30] LABS: Alanine Aminotransferase 65 U/L (12-78); Albumin Level 4.3 g/dl (3.5-5.0); Albumin/Globulin Ratio 1.4 (1.1-1.8); Alkaline Phosphatase 171 U/L (38-126); Amylase 199 U/L (30-110); Anion Gap 18.5 mEq/L (5-15); Aspartate Amino Transferase 96 U/L (17-59); Bilirubin,Total 0.8 mg/dl (0.2-1.3); Blood Urea Nitrogen 9 mg/dl (9-20); Calcium 9.1 mg/dl (8.4-10.2); Carbon Dioxide 20 mmol/L (22.0-30.0); Chloride 101 mmol/L (98-107); Creatinine Clearance Estimated 86 mL/min (50-200); Estimated Glomerular Filt Rate 78 ml/min (>60); GFR (African American) 94 ML/MIN (>60); Glucose 166 mg/dl (74-100); Lipase 75 U/L (23-300); Potassium 3.5 mmoL/L (3.5-5.1); Sodium 136 mmol/L (136-145); Total Protein,Serum 7.3 g/dl (6.3-8.2)
[2022-04-22 20:35] LABS: Ethyl Alcohol < 10 mg/dl (0-10)
[2022-04-22 20:57] LABS: Lactic Acid 4.7 mmol/L (0.7-2.1)
--- NOTE | 2022-04-22 21:03 | PC.NURSE ---
Pt unable to provided urine sample at this time
--- NOTE | 2022-04-22 21:03 | PC.NURSE ---
notified md of critical lactic 4.7
[2022-04-22 21:18] LABS: Magnesium 0.9 mg/dl (1.6-2.3)
[2022-04-22 22:16] LABS: Coronavirus 19, PCR Not Detected (NotDetected); Influenza A, PCR Not Detected (NotDetected); Influenza B, PCR Not Detected (NotDetected)
--- NOTE | 2022-04-22 23:07 | HMH.EDGENADL ---
Discharge Plan Disposition Patient Disposition: Admitted As Inpatient Clinical Impressions Clinical Impression: Nausea & vomiting Discharge ED Provider: Clarice Alfaro General Adult HPI General Chief complaint: Nausea/Vomiting/Diarrhea Stated complaint: n/v Time Seen by Provider: 04/22/22 20:14 Mode of Arrival: EMS Source of Information: Patient and EMS Limitations: No Limitations Description of Symptoms (Recalled from ER Triage Doc. by RN): pt c/o n/v since his admission for pancreaitits last week. pt states hasn't had a drink since last week History of Present Illness HPI narrative: Gordy Hinkle is a 56-year-old male with PMH of alcohol abuse with withdrawal, pancreatitis, HTN who presents with several weeks of persisting vomiting that has acutely worsened. Patient states he has had >10 episodes of nonbloody emesis within the past 24 hours. Additionally, complains of rattling in my chest and cough with associated shortness of breath. No chest pain. He denies abdominal pain, urinary concerns, changes in bowel movements. Patient states his last drink was approximately a week ago. He was also recently an alcohol rehabilitation week ago. Prior to rehabilitation, patient states he was drinking between 1 pint to 1/5 of alcohol daily. Related Data Home Medications Medication Instructions Recorded Confirmed cyanocobalamin (vitamin B-12) 1,000 mcg PO DAILY Supplement 12/20/21 04/23/22 1,000 mcg tablet folic acid 1 mg tablet 1 mg PO DAILY Supplement 12/20/21 04/23/22 melatonin 5 mg tablet 10 mg PO HS Sleep 04/15/22 04/23/22 multivitamin with minerals (One 1 tab PO DAILY supp 04/22/22 04/23/22 Daily Complete tablet) Previous Rx's Medication Instructions Recorded ondansetron HCl 4 mg tablet 4 mg PO Q8H PRN nausea and 12/20/21 vomiting #20 tabs amlodipine 2.5 mg tablet 2.5 mg PO DAILY High blood 04/16/22 pressure #30 tabs bisoprolol 10 1 tab PO DAILY High blood pressure 04/16/22 mg-hydrochlorothiazide 6.25 mg #30 tabs tablet buspirone 5 mg tablet 5 mg PO TID Anxiety #90 tabs 04/16/22 mirtazapine 15 mg tablet 15 mg PO HS SLEEP #30 tabs 04/16/22 propranolol 10 mg tablet 10 mg PO BID Anxiety #60 tabs 04/16/22 sucralfate 1 gram tablet 1 g PO QID Acid reflux #120 tabs 04/16/22 Allergies Allergy/AdvReac Type Severity Reaction Status Date / Time No Known Allergies Allergy Verified 12/28/21 10:18 [facility] Disclaimer: The information contained in this section may have been updated after the patient was seen, as this information can be updated by other users. Medical History (Updated 04/23/22 @ 00:05 by Miriam Contreras RN) Alcohol abuse with withdrawal Anemia Anxiety Back ache Bronchitis Carpal tunnel syndrome Chronic bronchitis Chronic cough Fatty liver History of gastroesophageal reflux (GERD) History of pancreatitis History of pleurisy History of syncope Hypertension Pancreatitis Pleurisy Surgical History History of cholecystectomy Family History (Updated 04/14/22 @ 23:39 by Carolin Foster RN) Grandfather Stroke Mother Anxiety Depressed Other Family history of diabetes mellitus type II Family history of hyperlipidemia Family history of hypertension No significant family history Social History (Updated 04/14/22 @ 23:46 by Carolin Foster RN) Smoking Status: Never smoker alcohol intake: current counseling given: Yes counseling provided: support program substance use type: denies use current occupational status: unemployed Travel in the last 8 weeks: None household members: none housing: house current occupation: [employer] current occupational exposures/hazards: No caffeine: Yes ROS Obtained: Yes All systems reviewed & no additional complaints except as documented Physical Exam General General appearance: alert, anxious and other (chronically ill appearing) Comment:
--- NOTE | 2022-04-22 23:22 | CT_ITS ---
PROCEDURE INFORMATION: Exam: CT Abdomen And Pelvis With Contrast Exam date and time: 04/22/2022 11:38 PM Age: 56 years old Clinical indication: Nausea and vomiting; Prior surgery; Additional info: Persistent nausea and vomiting TECHNIQUE: Imaging protocol: Computed tomography of the abdomen and pelvis with contrast. Radiation optimization: All CT scans at this facility use at least one of these dose optimization techniques: automated exposure control; mA and/or kV adjustment per patient size (includes targeted exams where dose is matched to clinical indication); or iterative reconstruction. Contrast material: ISOVUE; Contrast volume: 75 ml; Contrast route: IV; COMPARISON: CT ABDOMEN PELVIS WO CON 07/03/2021 12:03 AM FINDINGS: Liver: The liver is diffusely fatty, with no focal abnormality. Gallbladder and bile ducts: Gallbladder is surgically absent. Pancreas: Normal. No ductal dilation. Spleen: Normal. No splenomegaly. Adrenal glands: Normal. No mass. Kidneys and ureters: Normal. No hydronephrosis. Stomach and bowel: Unremarkable. No obstruction. No mucosal thickening. Appendix: No evidence of appendicitis. Intraperitoneal space: Unremarkable. No free air. No significant fluid collection. Vasculature: Unremarkable. No abdominal aortic aneurysm. Lymph nodes: Unremarkable. No enlarged lymph nodes. Urinary bladder: Unremarkable as visualized. Reproductive: Unremarkable as visualized. Bones/joints: There is moderate depression of the superior endplate of T12 with visible fracture line suggesting relatively acute compression fracture. Retropulsion of fragments produces mild central canal stenosis. Osseous structures are otherwise unremarkable. Soft tissues: Unremarkable. IMPRESSION: 1. Relatively acute compression fracture of T12 with moderate loss of vertebral body height 2. Fatty liver.
--- NOTE | 2022-04-22 23:32 | PC.NURSE ---
Pt gone to RAD via stretcher
[2022-04-23] VITALS (8 sets, daily range): BP systolic 106–147; BP diastolic 68–95; PULSE 69–105; RESP 16–22; TEMP 36.6–37.1; O2SAT 96–98; BMI 22.1; BMI 22.2
--- NOTE | 2022-04-23 00:04 | PC.NURSE ---
PT ARRIVED TO FLOOR AT THIS TIME
[2022-04-23 00:21] LABS: Reflex Lactic Add Lactic Reflex
--- NOTE | 2022-04-23 00:29 | PC.NURSE ---
Patient arrived to the floor at this time with staff via w/c.
[2022-04-23 00:56] LABS: Microscopic, Urine URINE MICROSCOPIC (MICROSCOPIC)
[2022-04-23 00:59] LABS: Appearance,Urine CLEAR (Clear); Bilirubin,Urine Negative (Negative); Blood, Urine Negative (Negative); Color,Urine YELLOW (Yellow); Glucose,Urine (UA) Negative (Negative); Ketones,Urine Negative (Negative); Leukocyte Esterase,Urine Negative (Negative); Nitrate,Urine Negative (Negative); PH,Urine 6.5 (5.0-8.5); Protein,Urine TRACE (Negative); Urobilinogen,Urine 0.2 EU/dl (0.2)
[2022-04-23 01:11] LABS: Barbiturates Screen,Urine Negative ng/ml (<200)
[2022-04-23 01:12] LABS: Amphetamine/Metha Screen,Urine Negative ng/ml (<1000); Benzodiazepines Screen,Urine Negative ng/ml (<200)
[2022-04-23 01:13] LABS: Cannabinoid Screen,Urine Negative ng/ml (<50)
[2022-04-23 01:14] LABS: Lactic Acid Follow Up (RFLX 1) 2.6 mmol/L (0.7-2.1)
[2022-04-23 01:14] LABS: Cocaine Screen,Urine Negative ng/ml (<300); Methadone Screen,Urine Negative ng/ml (<300)
[2022-04-23 01:15] LABS: Opiate Screen,Urine Negative ng/ml (<300)
[2022-04-23 01:16] LABS: Phencyclidine Screen,Urine Negative ng/ml (<25)
[2022-04-23 01:27] LABS: Bacteria,Urine 1+ /lpf; Mucus,Urine 1+ /lpf; WBC,Urine Occasional #/hpf (0-3)
[2022-04-23 02:44] LABS: Reflex Lactic (2 hrs) Add Lactic Reflex
[2022-04-23 03:48] LABS: Lactic Acid Follow up (RFLX 2) 1.2 mmol/L (0.7-2.1)
--- NOTE | 2022-04-23 04:47 | PC.NURSE ---
Pt. aox4 with n/v for the last week. Given zofran and has had no further complaints.
--- NOTE | 2022-04-23 07:55 | EXP.HP ---
History of Present Illness *Admission Date: 04/23/22 *Reason for visit:: Nausea and vomiting *History of present illness: Mr. Hinkle is a 56-year-old male with a history of hypertension, alcoholism, alcohol induced acute pancreatitis and renal insufficiency who presented to [facility] emergency room with several days of persistent vomiting which he describe as bile with no blood. Upon arrival to the emergency room he appeared ill, tachycardic in the 120s, and afebrile. He was tremulous with dry mucous membranes and had no abdominal tenderness with palpation. He was given IV fluids, and Zofran. He was also given magnesium along with fluid resuscitation. Ethanol was not elevated. Lipase was nonelevated. Chest x-ray showed no acute findings. He continued with persistent nausea and vomiting and was given a subsequent dose of Zofran followed by Phenergan. Lactate remaind elevated at 2.6 but was downtrending. Abdominal CT showed relatively acute compression fraction of T12 with moderate loss of vertebral body height And fatty liver. Chest x-ray showed no acute findings. Renal function was normal with a potassium of 3.5 and chloride 101 with sodium of 136. Lactate did decrease to normal at 1.2. Patient was rlyecent hospitalized at [facility] from 04/14/2022 to 04/16/2022 with acute alcoholic pancreatitis with elevated liver function studies, hyponatremia and at this time he had COVID. At discharge patient was able to eat and drink a regular diet without problems. His plans were to return to a rehab facility at discharge. Today patient states he has some critical family issues and was unable to leave. He states he did begin to drink his usual which is a pint and a half of vodka a day. At some point he began vomiting. Time factor is unclear. He states that he has not been able to eat or drink anything for a week. He idenies abdominal pain diarrhea. He states he has been somewhat constipated. Patient did state that he had a fall about a week ago and bumped his head. He did mention that his back hurt but this has resolved. Patient requests some clear liquids. He denies nausea/vomiting during the night. He has been up numerous times to the bathroom to void. He states his breathing is doing well and he denies abdominal pain. [facility] Disclaimer: The information contained in this section may have been updated after the patient was seen, as this information can be updated by other users. Medical History (Updated 04/23/22 @ 08:19 by Aleshia Talavera APRN) Alcohol abuse with withdrawal Anemia Anxiety Back ache Bronchitis Carpal tunnel syndrome Chronic bronchitis Chronic cough Fatty liver History of gastroesophageal reflux (GERD) History of pancreatitis History of pleurisy History of syncope Hypertension Pancreatitis Pleurisy Surgical History History of cholecystectomy Family History (Updated 04/14/22 @ 23:39 by Carolin Foster RN) No significant family history Anxiety Mother Depressed Mother Family history of hypertension Family history of diabetes mellitus type II Family history of hyperlipidemia Stroke Grandfather Social History (Updated 04/14/22 @ 23:46 by Carolin Foster RN) Smoking Status: Never smoker alcohol intake: current counseling given: Yes counseling provided: support program substance use type: denies use current occupational status: unemployed Travel in the last 8 weeks: None household members: none housing: house current occupation: [employer] current occupational exposures/hazards: No caffeine: Yes Review of Systems Constitutional Constitutional: Denies headache(s) Eyes Eyes: Denies change in vision ENT Ears, Nose, Mouth, and Throat: Denies otalgia, Denies headache(s), Denies nasal congestion, Denies sore throat and Reports vertigo *Cardiovascular Cardiovascular: Denies chest pa
--- NOTE | 2022-04-23 09:45 | CARE MANAGER ---
Addendum entered by Hetal Fregoso RN 04/24/22 08:32: Patient is now saying that he plans to discharge home. He states that he plans to go back to [facility] once he gets some things sorted out at home. He has been given the phone number of person at [facility] to contact when he is ready. Original Note: Patient has requested to return to [facility] ([facility]), where he signed out of last month. I have contacted [facility], and we are waiting for outpatient case manager to call us back.
--- NOTE | 2022-04-23 11:03 | HMH.PHAINT1 ---
Pharmacy Intervention Comments: Home medications reconciled via patient interview and external fill history from pharmacy. -Shi Rhodes, PharmD Candidate 2022
--- NOTE | 2022-04-23 17:37 | PC.NURSE ---
pt has done well this shift, tolerating a soft diet well. no c/o n/v/p. pt has had slight tremors at times today, no other symptoms of withdraw. no questions or concerns at this time.
[2022-04-24 04:00] VITALS: BP 131/83; PULSE 61; RESP 16; TEMP 36.6; O2SAT 97; BMI 22.4
--- NOTE | 2022-04-24 06:23 | PC.NURSE ---
Pt denies Nausea and had no episodes of vomiting this shift. Reports slight abdominal tenderness after eating. Pt has no other complaints. LR infusing @100 ml/hr. Pt able to drink fluids with no issues or complaints Remains on RA.
--- NOTE | 2022-04-24 07:42 | EXP.PN ---
Subjective *Date: 04/24/22 *Time: 08:00 Interval history: States he was awake all night due to hunger. He is currently eating breakfast. He denies nausea, vomiting, and abdominal pain. He does have the usual a.m. cough. He is ambulated in the room. He states he is ready to go home with plans to attend rehab Exam Data for Last 24 hours Vital signs and Labs for Last 24 Hours: Temp Pulse Resp BP Pulse Ox 97.9 F 61 16 131/83 97 04/24/22 04:00 04/24/22 04:00 04/24/22 04:00 04/24/22 04:00 04/24/22 04:00 I & O for Last 24 hours: Intake & Output 04/21/22 04/22/22 04/23/22 04/24/22 11:59 11:59 11:59 11:59 Intake Total 450 / 450 3642 / 3642 Output Total 1200 / 1200 2775 / 2775 Balance -750 / -750 867 / 867 Weight 167 lb 8.821 oz 169 lb 11.2 oz Constitutional Constitutional: no acute distress Comments: Sitting up in the bed eating his breakfast. He appears quite comfortable *Routine Respiratory Exam Respiratory: Present rhonchi (Bilateral clearing somewhat with cough.) *Routine Cardiovascular Exam Cardiovascular: Present RRR *Routine Abdominal Exam Abdominal: Present soft and normoactive bowel sounds; Absent tenderness or distended *Routine Extremities Exam Extremities: Absent edema or calf tenderness *Routine Neurological Exam Neurological: Present alert and oriented X3 Assessment and Plan *Assessment and plan (1) Alcoholism: Status: Acute Category: Medical Code(s): F10.20 - Alcohol dependence, uncomplicated (2) Elevated lipase: Status: Acute Category: Medical Code(s): R74.8 - Abnormal levels of other serum enzymes (3) Pancreatitis: Status: Acute Category: Medical Code(s): K85.90 - Acute pancreatitis without necrosis or infection, unspecified (4) Elevated LFTs: Status: Acute Category: Medical Code(s): R79.89 - Other specified abnormal findings of blood chemistry (5) Nausea & vomiting: Status: Acute Category: Medical Code(s): R11.2 - Nausea with vomiting, unspecified (6) T12 compression fracture: Status: Acute Category: Medical Code(s): S22.080A - Wedge compression fracture of T11-T12 vertebra, initial encounter for closed fracture Plan Ready for discharge. Patient plans to reenter rehab. Dr. Oshea entry - Saw patient, agree with above note. OK for discharge today. Discussed abstaining from alcohol use and going back into rehab.
[2022-04-24 08:00] VITALS: BP 140/87; PULSE 77; RESP 18; TEMP 36.8; O2SAT 97
--- NOTE | 2022-04-24 10:07 | HMH.PHAINT1 ---
Pharmacy Intervention Comments: Met with patient at bedside to complete discharge medication counseling. Patient verbalized understanding and had no questions or concerns at this time. -Shi Rhodes, PharmD Candidate 2022
--- NOTE | 2022-04-30 20:40 | EXP.DC.SUM ---
General Admission date:: 04/23/22 Discharge date: 04/24/22 HPI HPI HPI: Mr. Hinkle is a 56-year-old male with a history of hypertension, alcoholism, alcohol induced acute pancreatitis and renal insufficiency who presented to [facility] emergency room with several days of persistent vomiting which he describe as bile with no blood. Upon arrival to the emergency room he appeared ill, tachycardic in the 120s, and afebrile. He was tremulous with dry mucous membranes and had no abdominal tenderness with palpation. He was given IV fluids, and Zofran. He was also given magnesium along with fluid resuscitation. Ethanol was not elevated. Lipase was nonelevated. Chest x-ray showed no acute findings. He continued with persistent nausea and vomiting and was given a subsequent dose of Zofran followed by Phenergan. Lactate remaind elevated at 2.6 but was downtrending. Abdominal CT showed relatively acute compression fraction of T12 with moderate loss of vertebral body height And fatty liver. Chest x-ray showed no acute findings. Renal function was normal with a potassium of 3.5 and chloride 101 with sodium of 136. Lactate did decrease to normal at 1.2. Patient was recently hospitalized at [facility] from 04/14/2022 to 04/16/2022 with acute alcoholic pancreatitis with elevated liver function studies, hyponatremia and at this time he had COVID. At discharge patient was able to eat and drink a regular diet without problems. His plans were to return to a rehab facility at discharge. Today patient states he has some critical family issues and was unable to leave. He states he did begin to drink his usual which is a pint and a half of vodka a day. At some point he began vomiting. Time factor is unclear. He states that he has not been able to eat or drink anything for a week. He idenies abdominal pain diarrhea. He states he has been somewhat constipated. Patient did state that he had a fall about a week ago and bumped his head. He did mention that his back hurt but this has resolved. Patient requests some clear liquids. He denies nausea/vomiting during the night. He has been up numerous times to the bathroom to void. He states his breathing is doing well and he denies abdominal pain. Hospital Course Hospital Course Hospital Course: The patient was continued on IV fluids and was started on clear liquids. He continued to state that he would return to a rehab facility in [facility]. By 04/24/2022 he was tolerating a diet and denied any nausea, vomiting, or abdominal pain. He was ambulating in his room and wanted to go home. Dr. Oshea discussed abstaining from alcohol use and returning to a rehab facility. The patient was discharged. Exam Data for Last 24 hours Vital signs and Labs for Last 24 Hours: Temp Pulse Resp BP Pulse Ox 98.2 F 77 18 140/87 97 04/24/22 08:00 04/24/22 08:00 04/24/22 08:00 04/24/22 08:00 04/24/22 08:00 Narrative: Constitutional Constitutional: no acute distress and cooperative *Routine HEENT Exam Head: Present normocephalic and atraumatic Eye: Present PERRL; Absent conjunctival icterus, scleral injection or conjunctivae pink ENT: Present mucous membranes moist and oropharynx clear *Routine Neck Exam Neck: Present supple and full ROM; Absent carotid bruit, lymphadenopathy or thyromegaly *Routine Respiratory Exam Respiratory: Present CTA bilaterally (Anteriorly and posteriorly) *Routine Cardiovascular Exam Cardiovascular: Present RRR *Routine Abdominal Exam Abdominal: Present soft, normoactive bowel sounds (Hyperactive) and distended (Mild); Absent tenderness or guarding *Routine Rectal Exam Rectal:: deferred *Routine Genitalia Exam Genitalia:: deferred *Routine Extremities Exam Extremities: Absent edema or calf tenderness *Routine Neurological Exam Neurological: Present alert, oriented X3 and moving all extremities DS: Diagnosis Discharge Diagnosis (1) Al
== END 2022-04-24 09:18 | disposition home or self-care (01) ==
LOC: ER 22:45 → 2ND 04-23 00:05
PROVIDERS: Admitting Provider Family Medicine; Emergency Provider Student in an Organized Health Care Education/Training Program; PCP Family Medicine; Visit Provider Family Medicine
DX: R11.2 Nausea with vomiting, unspecified (principal); K85.90 Acute pancreatitis without necrosis or infection, unspecified; S22.080A Wedge compression fracture of T11-T12 vertebra, initial encounter for closed fracture; I10 Essential (primary) hypertension; F17.210 Nicotine dependence, cigarettes, uncomplicated; F10.20 Alcohol dependence, uncomplicated; Z79.899 Other long term (current) drug therapy
CPT/HCPCS: 36415; 71045; 74177; 80053; 80305; 81001; 82150; 83605; 83690; 83735; 85025; 99285; C9803; G0378; J2405; J3475; Q9967; U0003; U0005

== ENCOUNTER 2022-05-04 07:16 | Emergency (ER) | payer OTHER, SELFPAY ==
[2022-05-04] VITALS (13 sets, daily range): BP systolic 122–145; BP diastolic 88–106; PULSE 60–109; RESP 17–18; TEMP 36.8–36.9; O2SAT 93–99; BMI 22.1
[2022-05-04 07:42] LABS: Basophils # 0.2 K/mm3 (0-0.2); Basophils % 3.6 % (0.1-2.0); Eosinophils % 0.6 % (0.1-12.0); Hematocrit 46.5 % (42.0-52.0); Hemoglobin 15.7 g/dL (14.1-18.0); Lymphocytes # 1.1 K/mm3 (0.7-4.5); Lymphocytes % 16.4 % (10-50); Mean Corpuscular HGB Conc 33.7 g/dL (31.8-35.4); Mean Corpuscular Hemoglobin 32.1 pg (27.0-31.2); Mean Corpuscular Volume 95.1 fl (80-94); Mean Platelet Volume 8.5 fl (7.4-10.4); Monocytes # 0.3 K/mm3 (0.1-1.0); Neutrophils # 4.9 K/mm3 (1.8-7.8); Neutrophils % 74.4 % (37.0-80.0); Platelet Count 376 K/mm3 (142-424); Red Blood Count 4.88 M/mm3 (4.60-6.20); Red Cell Distribution Width 14.3 % (11.5-17.5); White Blood Count 6.5 K/mm3 (4.8-10.8)
[2022-05-04 07:47] LABS: Alanine Aminotransferase 78 U/L (12-78); Albumin/Globulin Ratio 1.5 (1.1-1.8); Alkaline Phosphatase 132 U/L (38-126); Aspartate Amino Transferase 105 U/L (17-59); Bilirubin,Total 1.4 mg/dl (0.2-1.3); Blood Urea Nitrogen 18 mg/dl (9-20); Calcium 9.4 mg/dl (8.4-10.2); Carbon Dioxide 18 mmol/L (22.0-30.0); Chloride 97 mmol/L (98-107); Creatinine Clearance Estimated 51 mL/min (50-200); Estimated Glomerular Filt Rate 40 ml/min (>60); GFR (African American) 48 ML/MIN (>60); Globulin 3.4 g/dL (1.3-3.2); Glucose 144 mg/dl (74-100); Lipase 115 U/L (23-300); Sodium 137 mmol/L (136-145); Total Protein,Serum 8.4 g/dl (6.3-8.2)
[2022-05-04 07:58] LABS: Ethyl Alcohol < 10 mg/dl (0-10)
--- NOTE | 2022-05-04 08:12 | HMH.EDNVD ---
Discharge Plan Disposition Patient Disposition: Home, Self-Care Condition: Fair Prescriptions Prescriptions: New prochlorperazine maleate [Compazine] 10 mg tablet 10 mg PO Q6H PRN (Reason: nausea and vomiting) Qty: 14 0RF No Action melatonin 5 mg tablet 10 mg PO HS buspirone 5 mg tablet 5 mg PO TID Qty: 90 0RF bisoprolol-hydrochlorothiazide 10-6.25 mg tablet 1 tab PO DAILY Qty: 30 0RF sucralfate 1 gram tablet 1 g PO QID Qty: 120 0RF amlodipine 2.5 MG tablet 2.5 mg PO DAILY Qty: 30 0RF propranolol 10 mg tablet 10 mg PO BID Qty: 60 0RF mirtazapine 15 mg tablet 15 mg PO HS Qty: 30 0RF cyanocobalamin (vitamin B-12) 1,000 mcg tablet 1,000 mcg PO DAILY Label Comments: TAKE 1 TABLET BY MOUTH ONCE DAILY folic acid 1 mg tablet 1 mg PO DAILY Label Comments: TAKE 1 TABLET BY MOUTH ONCE DAILY FOR SUPPLEMENT ondansetron HCl 4 mg tablet 4 mg PO Q8H PRN (Reason: nausea and vomiting) Qty: 20 0RF One Daily Complete Tablet 1 tab PO DAILY Referrals Follow up/Referrals: Gordy Oshea MD [Primary Care Provider] - See instructions Activity Restrictions/Add. Instructions Additional Instructions/Restrictions: Drink clear liquids for the next day or 2. You may have crackers occasionally. Return to the emergency department if you feel worse in any way. Avoid any alcohol intake. Follow-up with outpatient or inpatient alcohol/substance abuse treatment. Clinical Impressions Clinical Impression: Alcoholic ketoacidosis, Nausea & vomiting, Alcoholism Instructions Patient Instructions: Nausea and Vomiting-Adult Discharge ED Provider: Sherice Bergman Nausea/Vomiting/Diarrhea HPI General Chief complaint: Nausea/Vomiting/Diarrhea Stated complaint: vomiting, abd pain Time Seen by Provider: 05/04/22 07:50 Mode of Arrival: EMS Source of Information: Patient Limitations: No Limitations Description of Symptoms (Recalled from ER Triage Doc. by RN): Pt reports having a flare up of pancreatitis, pt reports n/v x2 days. Pt deneis fever or abd pain. Pt reports feel light headed. History of Present Illness HPI Narrative: Patient presents to the emergency department complaining of vomiting for the last 2 days. He is an alcoholic drinking between 1 to -/2 pints of vodka a day. He stopped drinking 2 days ago. He was recently admitted for pancreatitis. He denies any abdominal pain at this time. He denies diarrhea. MD complaint: nausea and vomiting Onset (ago): day(s) (2) Related Data Home Medications Medication Instructions Recorded Confirmed cyanocobalamin (vitamin B-12) 1,000 mcg PO DAILY Supplement 12/20/21 04/23/22 1,000 mcg tablet folic acid 1 mg tablet 1 mg PO DAILY Supplement 12/20/21 04/23/22 melatonin 5 mg tablet 10 mg PO HS Sleep 04/15/22 04/23/22 multivitamin with minerals (One 1 tab PO DAILY supp 04/22/22 04/23/22 Daily Complete tablet) Previous Rx's Medication Instructions Recorded ondansetron HCl 4 mg tablet 4 mg PO Q8H PRN nausea and 12/20/21 vomiting #20 tabs amlodipine 2.5 mg tablet 2.5 mg PO DAILY High blood 04/16/22 pressure #30 tabs bisoprolol 10 1 tab PO DAILY High blood pressure 04/16/22 mg-hydrochlorothiazide 6.25 mg #30 tabs tablet buspirone 5 mg tablet 5 mg PO TID Anxiety #90 tabs 04/16/22 mirtazapine 15 mg tablet 15 mg PO HS SLEEP #30 tabs 04/16/22 propranolol 10 mg tablet 10 mg PO BID Anxiety #60 tabs 04/16/22 sucralfate 1 gram tablet 1 g PO QID Acid reflux #120 tabs 04/16/22 prochlorperazine maleate 10 mg 10 mg PO Q6H PRN nausea and 05/04/22 tablet (Compazine) vomiting #14 tabs Allergies Allergy/AdvReac Type Severity Reaction Status Date / Time No Known Allergies Allergy Verified 12/28/21 10:18 [facility] Disclaimer: The information contained in this section may have been updated after the patient was seen, as this information can be updated by other users. Medical History (Updated 04/08
--- NOTE | 2022-05-04 10:11 | PC.NURSE ---
Maryana RN rounded on patient; patient stated he was not able to handle the sprite.
--- NOTE | 2022-05-04 11:00 | PC.NURSE ---
pt eating crackers and drinking kathryn mist, pt states does not want a meal tray. call light within reach, pt states no needs at this time.
--- NOTE | 2022-05-04 11:32 | PC.NURSE ---
Rounded on patient. Patient as been able to keep down 1 pack of crackers and a few sips of Jaimie Mist. Stated he was starting to feel bad again RN and MD aware. Call light within reach
--- NOTE | 2022-05-04 12:10 | PC.NURSE ---
PT ASSISTED TO BR, AMBULATED WITHOUT DIFFICULTY
--- NOTE | 2022-05-04 12:28 | PC.NURSE ---
Rounded on patient; patient asked if I could turn off the light. Call light within reach
[2022-05-04 12:57] LABS: Coronavirus 19, PCR Not Detected (NotDetected); Influenza A, PCR Not Detected (NotDetected); Influenza B, PCR Not Detected (NotDetected)
--- NOTE | 2022-05-04 13:09 | PC.NURSE ---
Rounded on patient; patient is asleep call light within reach
--- NOTE | 2022-05-04 13:20 | PC.NURSE ---
DR. DILL AT BEDSIDE TO REEVALUATE PT
== END 2022-05-04 13:30 | disposition home or self-care (01) ==
PROVIDERS: Family Medicine; Emergency Provider Emergency Medicine; PCP Family Medicine
DX: F10.288 Alcohol dependence with other alcohol-induced disorder (principal); E87.29 Other acidosis; K85.20 Alcohol induced acute pancreatitis without necrosis or infection; K21.9 Gastro-esophageal reflux disease without esophagitis; Z90.49 Acquired absence of other specified parts of digestive tract; D64.9 Anemia, unspecified; F41.9 Anxiety disorder, unspecified; Z83.3 Family history of diabetes mellitus; Z83.42 Family history of familial hypercholesterolemia; Z82.49 Family history of ischemic heart disease and other diseases of the circulatory system
CPT/HCPCS: 80053; 83690; 85025; 96361; 96374; 96375; 96376; 99285; C9803; J2405; U0003; U0005